=== PATIENT | male | born 1945 | race Two or more races ===

== ENCOUNTER 2019-05-14 21:17 | Inpatient (IN) | payer MEDICARE, MEDICAID ==
[~2019-05-14] VITALS: Ht 185.4 cm; Wt 89.8 kg
--- NOTE | 2019-05-14 22:01 | Emergency Room Report ---
History of Present Illness General Chief Complaint: Generalized Weakness Source: Patient Present Illness HPI This is a 73-year-old male with a history of dementia, BPH, schizophrenia and previous bladder infection. He presents with chief complaint of weakness and failure to thrive. Onset for last couple days. No fever chills but no nausea no vomiting. Decreased appetite. Decreased mentation. He is limited in this patient because of his condition. Allergies: Coded Allergies: No Known Allergies (Unverified , 05/14/19) Patient History Past Medical History: see triage record, old chart reviewed Past Surgical History: other Pertinent Family History: none Social History: Denies: smoking Immunizations: other Reviewed Nursing Documentation: PMH: Agreed; PSxH: Agreed Nursing Documentation-PMH Past Medical History: No Stated History History Of Psychiatric Problem: Yes - SCHIZOPHRENIA Review of Systems Constitutional: Reports: weakness Eye: Denies: eye pain, blurred vision ENT: Denies: ear pain, nose congestion, throat swelling Respiratory: Denies: cough, shortness of breath Cardiovascular: Denies: chest pain, palpitations Gastrointestinal: Denies: abdominal pain, diarrhea, nausea, vomiting Musculoskeletal: Denies: back pain, joint pain Skin: Denies: rash Neurological: Denies: headache, numbness Endocrine: Denies: increased thirst, increased urine Hematologic/Lymphatic: Denies: easy bruising All Other Systems: negative except mentioned in HPI Physical Exam Vital Signs Date Time Temp Pulse Resp B/P (MAP) Pulse Ox O2 Delivery O2 Flow Rate FiO2 05/14/19 21:07 97.2 111 18 153/98 (116) 97 Nasal Cannula 2.0 Vitals with hypertension Sp02 EP Interpretation: reviewed, normal General Appearance: cachetic, Chronically Ill Head: normocephalic, atraumatic Eyes: bilateral eye PERRL, bilateral eye EOMI ENT: hearing grossly normal, normal pharynx Neck: full range of motion, supple, no meningismus Respiratory: chest non-tender, lungs clear, normal breath sounds Cardiovascular #1: regular rate, rhythm, no murmur Gastrointestinal: normal bowel sounds, non tender, no mass, no organomegaly, no bruit, non-distended Musculoskeletal: back normal, normal range of motion Psychiatric: mood/affect normal Medical Decision Making Diagnostic Impression: Primary Impression: UTI (urinary tract infection) Qualified Codes: N30.00 - Acute cystitis without hematuria Additional Impressions: FTT (failure to thrive) in adult Dehydration Hypernatremia ER Course Patient presents with weakness and failure to thrive. He is very dehydrated. He has a urinary tract infection. Per fdc note, he has a history of ESBL UTI. Cefepime here. IV fluid given. Patient will be admitted. I contacted Dr. Cabrales who will admit for Dr. Marcia koch. Lab Results Impression Labs with hypernatremia Last Vital Signs Date Time Temp Pulse Resp B/P (MAP) Pulse Ox O2 Delivery O2 Flow Rate FiO2 05/14/19 21:07 97.2 111 18 153/98 (116) 97 Nasal Cannula 2.0 Status: improved Disposition: ADMITTED INPATIENT Condition: Serious Julio White MD May 14, 2019 22:01
[2019-05-14 22:47] LABS: BASOPHILS % (AUTO) 0.8 % (0.0-2.0); HEMATOCRIT 41.4 % (42.0-52.0); HEMOGLOBIN 13.9 G/DL (14.2-18.0); MEAN CORPUSCULAR VOLUME 88 FL (80-99); MONOCYTES % (AUTO) 4.8 % (1.0-10.0); NEUTROPHILS % (AUTO) 72.5 % (45.0-75.0); PLATELET COUNT 206 K/UL (150-450); RED BLOOD COUNT 4.71 M/UL (4.70-6.10); WHITE BLOOD COUNT 9.1 K/UL (4.8-10.8)
[2019-05-14 22:56] LABS: ANION GAP 9 mmol/L (5-15); BLOOD UREA NITROGEN 62 mg/dL (7-18); CALCIUM 10.3 MG/DL (8.5-10.1); CARBON DIOXIDE 29 MMOL/L (21-32); CHLORIDE 127 MMOL/L (98-107); CREATININE 1.8 MG/DL (0.55-1.30); POTASSIUM 4.3 MMOL/L (3.5-5.1)
[2019-05-14 22:59] LABS: APPEARANCE,URINE CLOUDY; BILIRUBIN, URINE NEGATIVE (NEGATIVE); COLOR,URINE BROWN; GLUCOSE, URINE (UA) NEGATIVE (NEGATIVE); KETONES,URINE 1+ (NEGATIVE); LEUKOCYTE ESTERASE ,URINE 3+ (NEGATIVE); NITRITE,URINE POSITIVE (NEGATIVE); PH,URINE 5 (4.5-8.0); PROTEIN,URINE 3+ (NEGATIVE); UROBILINOGEN,URINE 1 MG/DL (0.0-1.0)
[2019-05-14 22:59] LABS: SODIUM 166 MMOL/L (136-145)
[2019-05-14] MEDS ORDERED: Cefepime HCl 1 GM in D5W 55 ML IVPB ONE (23:45)
[2019-05-15 00:31] VITALS: BP 153/98
[2019-05-15] MEDS ORDERED: Miralax 17gm pkt ORAL PRN (01:15)
[2019-05-15] MEDS ORDERED: Hydromorphone 0.5mg/0.5ml inj IVP PRN (01:15)
[2019-05-15] MEDS ORDERED: Albuterol/Ipratropium 3ml neb HHN PRN (01:15)
[2019-05-15 01:18] VITALS: BP 153/98
[2019-05-15] MEDS ORDERED: TRAZODONE HCL50 MG ORAL (01:18)
[2019-05-15] MEDS ORDERED: FLOMAX0.4 MG ORAL (01:18)
[2019-05-15] MEDS ORDERED: TYLENOL EXTRA500 MG ORAL (01:18)
[2019-05-15] MEDS ORDERED: CATAPRES0.1 MG ORAL (01:18)
[2019-05-15] MEDS ORDERED: FERROUS SULFAT325 MG ORAL (01:18)
[2019-05-15] MEDS ORDERED: CRANBERRY450 M5 PO (01:18)
[2019-05-15] MEDS ORDERED: AVODART0.5 MG ORAL (01:18)
[2019-05-15] MEDS ORDERED: HALOPERIDOL0.5 MG ORAL (01:18)
[2019-05-15] MEDS ORDERED: DEPAKOTE250 MG PO (01:18)
[2019-05-15 08:00] VITALS: BP 126/75
[2019-05-15] MEDS: Docusate 100mg cap ORAL SCH ×2 (09:00→21:00)
[2019-05-15] MEDS: Heparin 5000 units/ml inj SUBQ SCH ×2 (09:41→21:23)
[2019-05-15 11:19] LABS: BASOPHILS % (AUTO) 0.7 % (0.0-2.0); EOSINOPHILS % (AUTO) 7.3 % (0.0-3.0); HEMOGLOBIN 12.8 G/DL (14.2-18.0); LYMPHOCYTES % (AUTO) 16.7 % (20.0-45.0); MEAN CORPUSCULAR VOLUME 91 FL (80-99); MONOCYTES % (AUTO) 4.7 % (1.0-10.0); NEUTROPHILS % (AUTO) 70.6 % (45.0-75.0); PLATELET COUNT 187 K/UL (150-450); RED BLOOD COUNT 4.42 M/UL (4.70-6.10); RED CELL DISTRIBUTION WIDTH 13.1 % (11.6-14.8); WHITE BLOOD COUNT 7.5 K/UL (4.8-10.8)
[2019-05-15 11:28] LABS: ANION GAP 9 mmol/L (5-15); BLOOD UREA NITROGEN 64 mg/dL (7-18); CALCIUM 9.2 MG/DL (8.5-10.1); CARBON DIOXIDE 25 MMOL/L (21-32); CHLORIDE 129 MMOL/L (98-107); CREATININE 1.5 MG/DL (0.55-1.30); POTASSIUM 3.9 MMOL/L (3.5-5.1)
[2019-05-15 11:29] LABS: SODIUM 164 MMOL/L (136-145)
[2019-05-15 12:00] VITALS: BP 132/75
--- NOTE | 2019-05-15 14:34 | Consultation ---
History of Present Illness General Date patient seen: May 15, 2019 Chief Complaint: Generalized Weakness Present Illness HPI This is a 73-year-old male intermediate resident with multiple medical comorbidities who presented to [facility] emergency department with failure to thrive and worsening weakness. Upon admission patient was noted to be fairly frail and dehydrated. He was identified to have decubitus ulcers requiring care and management. Surgery was called to evaluate and assist with care. Patient seen, patient [place], chart reviewed. Patient unable to verbalize a nonverbal at this time so difficult to obtain history. History obtained from patient's chart. Patient noted to have anemia and significant electrolyte abnormalities Allergies: Coded Allergies: No Known Allergies (Unverified , 05/14/19) Medication History Scheduled Clonidine Hcl* (Catapres*), 0.1 MG ORAL EVERY 6 HOURS, (Reported) Divalproex Sodium* (Depakote*), 250 MG PO Q12HR, (Reported) Dutasteride (Avodart), 0.5 MG ORAL DAILY, (Reported) Ferrous Sulfate* (Ferrous Sulfate*), 325 MG ORAL DAILY, (Reported) Haloperidol* (Haldol*), 0.5 MG ORAL EVERY 6 HOURS, (Reported) Tamsulosin HCl (Flomax), 0.4 MG ORAL DAILY, (Reported) Trazodone Hcl* (Desyrel*), 50 MG ORAL BEDTIME, (Reported) Scheduled PRN Acetaminophen* (Tylenol Extra Strength*), 325 MG ORAL Q6H PRN for Mild Pain/ Temp > 100.5, (Reported) Miscellaneous Medications Cranberry Fruit (Cranberry), 450 MG PO, (Reported) Patient History Limited by: medical condition History Provided By: Medical Record, PMD Healthcare decision maker Resuscitation status Full Code Advanced Directive on File Past Medical/Surgical History Past Medical/Surgical History: (1) Hypernatremia (2) Dehydration (3) Decubitus skin ulcer (4) UTI (urinary tract infection) (5) FTT (failure to thrive) in adult Review of Systems ROS Narrative Cannot obtain given medical condition Physical Exam General Appearance: no apparent distress Lines, tubes and drains: peripheral HEENT: normocephalic, atraumatic, anicteric Neck: normal inspection Respiratory/Chest: normal breath sounds, no respiratory distress, no accessory muscle use Cardiovascular/Chest: regular rhythm Abdomen: soft, no organomegaly, no mass, other Extremities: non-tender, normal inspection, other Skin Exam: other Neurologic: unresponsiveness Last 24 Hour Vital Signs Date Time Temp Pulse Resp B/P (MAP) Pulse Ox O2 Delivery O2 Flow Rate FiO2 05/15/19 12:00 97.0 72 20 132/75 (94) 8 05/15/19 09:00 Nasal Cannula 2.0 05/15/19 08:00 97.0 64 20 126/75 (92) 100 05/15/19 03:16 Nasal Cannula 2.0 05/15/19 01:18 97.2 18 153/98 97 Nasal Cannula 2.0 05/15/19 01:18 97.2 18 153/98 97 Nasal Cannula 2.0 05/15/19 00:31 111 18 Nasal Cannula 2.0 05/15/19 00:31 97.2 18 153/98 97 Nasal Cannula 2.0 05/14/19 21:07 97.2 111 18 153/98 (116) 97 Nasal Cannula 2.0 Intake and Output 05/14/19 05/15/19 19:00 07:00 Intake Total 210 ml Balance 210 ml Intake IV Total 210 ml # Voids 2 Laboratory Tests Test 05/14/19 22:30 05/14/19 22:45 05/15/19 11:05 White Blood Count 9.1 K/UL (4.8-10.8) 7.5 K/UL (4.8-10.8) Red Blood Count 4.71 M/UL (4.70-6.10) 4.42 M/UL (4.70-6.10) L Hemoglobin 13.9 G/DL (14.2-18.0) L 12.8 G/DL (14.2-18.0) L Hematocrit 41.4 % (42.0-52.0) L 40.0 % (42.0-52.0) L Mean Corpuscular Volume 88 FL (80-99) 91 FL (80-99) Mean Corpuscular Hemoglobin 29.6 PG (27.0-31.0) 28.9 PG (27.0-31.0) Mean Corpuscular Hemoglobin Concent 33.7 G/DL (32.0-36.0) 31.9 G/DL (32.0-36.0) L Red Cell Distribution Width 13.0 % (11.6-14.8) 13.1 % (11.6-14.8) Platelet Count 206 K/UL (150-450) 187 K/UL (150-450) Mean Platelet Volume 5.8 FL (6.5-10.1) L 5.4 FL (6.5-10.1) L Neutrophils (%) (Auto) 72.5 % (45.0-75.0) 70.6 % (45.0-75.0) Lymphocytes (%) (Auto) 17.0 % (20.0-45.0) L 16.7 % (20.0-45.0) L Monocytes (%) (Auto) 4.8 % (1.0-10.0) 4.7 % (1.0-10.0) Eosinophils (%) (Auto) 5.0 % (0.0-3.0) H 7.3 % (0.0-3.0) H Basophils (%) (Auto) 0.8 % (0.0-2.0) 0.7 % (0.0-2.0) Sodium Level 166 MMOL/L (136-145) *H 164 MMOL/L (136-145) *H Potassium Level 4.3 MMOL/L (3.5-5.1) 3.9 MMOL/L (3.5-5.1) Chloride Level 127 MMOL/L (98-107) H 129 MMOL/L (98-107) H Carbon Dioxide Level 29 MMOL/L (21-32) 25 MMOL/L (21-32) Anion Gap 9 mmol/L (5-15) 9 mmol/L (5-15) Blood Urea Nitrogen 62 mg/dL (7-18) H 64 mg/dL (7-18) H Creatinine 1.8 MG/DL (0.55-1.30) H 1.5 MG/DL (0.55-1.30) H Estimat Glomerular Filtration Rate mL/min (>60) mL/min (>60) Glucose Level 131 MG/DL (74-106) H 108 MG/DL (74-106) H Calcium Level 10.3 MG/DL (8.5-10.1) H 9.2 MG/DL (8.5-10.1) Troponin I 0.000 ng/mL (0.000-0.056) Urine Color Brown Urine Appearance Cloudy Urine pH 5 (4.5-8.0) Urine Specific [place] 1.020 (1.005-1.035) Urine Protein 3+ (NEGATIVE) H Urine Glucose (UA) Negative (NEGATIVE) Urine Ketones 1+ (NEGATIVE) H Urine Blood 4+ (NEGATIVE) H Urine Nitrite Positive (NEGATIVE) H Urine Bilirubin Negative (NEGATIVE) Urine Urobilinogen 1 MG/DL (0.0-1.0) H Urine Leukocyte Esterase 3+ (NEGATIVE) H Urine RBC 5-10 /HPF (0 - 0) H Urine WBC Tntc /HPF (0 - 0) H Urine Squamous Epithelial Cells None /LPF (NONE/OCC) Urine Bacteria Many /HPF (NONE) H Osmolality 358 mOsm/kg (297-317) H Height (Feet): 6 Height (Inches): 1.00 Weight (Pounds): 175 Medications Current Medications Medications (Trade) Dose Ordered Sig/Vicky Route PRN Reason Start Time Stop Time Status Last Admin Dose Admin Acetaminophen (Tylenol) 650 mg Q4H PRN ORAL Mild Pain (Pain Scale 1-3) 05/15/19 01:15 06/14/19 01:14 Albuterol/ Ipratropium (Albuterol/ Ipratropium) 3 ml Q6HRT PRN HHN Shortness of Breath 05/15/19 01:15 05/20/19 01:14 Dextrose 1,000 ml @ 100 mls/hr Q10H IV 05/15/19 11:45 06/14/19 11:44 05/15/19 12:32 Dextrose (Dextrose 50%) 25 ml Q30M PRN IV Hypoglycemia 05/15/19 01:15 06/14/19 01:14 Dextrose (Dextrose 50%) 50 ml Q30M PRN IV Hypoglycemia 05/15/19 01:15 06/14/19 01:14 Diphenhydramine HCl (Benadryl) 25 mg Q6H PRN ORAL Itching/Pruritis 05/15/19 01:15 06/14/19 01:14 Docusate Sodium (Colace) 100 mg EVERY 12 HOURS ORAL 05/15/19 09:00 06/14/19 08:59 Famotidine (Pepcid) 20 mg DAILY ORAL 05/15/19 09:00 06/14/19 08:59 Heparin Sodium (Porcine) (Heparin 5000 units/ml) 5,000 units EVERY 12 HOURS SUBQ 05/15/19 09:00 06/14/19 08:59 05/15/19 09:41 Hydromorphone HCl (Dilaudid) 0.5 mg Q4H PRN IVP For Pain 05/15/19 01:15 05/22/19 01:14 05/15/19 02:41 Ondansetron HCl (Zofran) 4 mg Q6H PRN IVP Nausea & Vomiting 05/15/19 01:15 06/14/19 01:14 Permethrin (Elimite) 1 applic ONCE TOPIC 05/15/19 12:00 05/15/19 23:59 05/15/19 12:31 Polyethylene Glycol (Miralax) 17 gm HSPRN PRN ORAL Constipation 05/15/19 01:15 06/14/19 01:14 Assessment/Plan Problem List: (1) Decubitus skin ulcer Assessment & Plan: Pt presented on admission with pressure injuries,and with generalized scaly raised red rash. Burrowing noted to R and L axillae,abd ,back bilat groin and both lower ext. Webbing also noted between fingers and in palms of both hands. Unstageable pressure injury R heel. 100% soft necrosis with red margins (L)4cm x (W)6.1cm. Wound is malodorous. Periwound is fluctuant. Small dry eschar noted L st metatarsal. (L)0.8cm x (W)0.5cm.Clubbing noted to all metatarsals.L 1st Nail bed is necrotic. Ulcer noted to dorsal L 2nd metatarsal. Base of wound is pink,moist macerated borders noted. Small amt serous exudate noted. Periwound without elevation in skin temp,induration or fluctuance. Dry callus noted to plantar L foot L heel is boggy .An area of non-blanchable erythema noted to medial/posterior L heel. Non-blanchable erythema without induration noted scrotum, sacrum and both ischial regions. ( in and made aware of rash. Orders for application of Elimite noted.) Tx.Plan: Swab R heel with Betadine. Cover with ABD pad and wrap with Kerlix Daily and prn. Swab L st and L 2nd metatarsals with Betadine. Cover with gauze and wrap with kerlix daily and prn. Apply Cavilon Skin Barrier to L heel. Cover with Optifoam drsg. Change every 7 days and prn. Apply Moisture Barrier to Sacrum. Cover with Optifoam drsg. Change every 3days and prn. Apply Triad Paste to scrotum,and bilat ischial areas with each incontinence care. Reposition at least every 2hours or as tolerated. Off-load heels with pillow. ICD Codes: L89.90 - Pressure ulcer of unspecified site, unspecified stage SNOMED: 733842182 (2) Hypernatremia ICD Codes: E87.0 - Hyperosmolality and hypernatremia SNOMED: 936266927 (3) Dehydration ICD Codes: E86.0 - Dehydration SNOMED: 16802057 (4) UTI (urinary tract infection) ICD Codes: N39.0 - Urinary tract infection, site not specified SNOMED: 65953442 Qualifiers: Qualified Codes: N30.00 - Acute cystitis without hematuria (5) FTT (failure to thrive) in adult Assessment & Plan: DAILY ESTIMATED NEEDS: Needs based on Wounds 79.5kg 30-35 kcals/kg 9734-3109 total kcals 1.25-1.5 g protein/kg 99-119 g total protein 25-30 mL/kg 0640-9560 total fluid mLs NUTRITION DIAGNOSIS: * Increased kcal and pro needs r/t wound healing and wasting as evidenced by pt w/ unstageable R heel wound, signs of significant wasting as well. * Altered nutrition related lab values r/t dehydration as evidenced by Elev Na on adm (166-> 164*), elev BUN (now 64), elev Creat (now 1.5). (CURRENT DIET: Cardiac puree w/ NTL) PO DIET RECOMMENDATIONS-->> Liberalized regular diet (texture per DIRECTOR CLOUD TRANSFORMATION) ADDITIONAL RECOMMENDATIONS: 1) Please obtain an accurate calibrated bed scale wt 2) Add ENSURE ENLIVE TID w/ meals + snacks as tolerated 3) Texture per DIRECTOR CLOUD TRANSFORMATION 4) Wound care: Add PAULY BID + MVI w/ min x1 daily + Vit C 250mg BID 5) rec Kcal count- pt adm w/ FTT 6) Non oral tf recs as needed / if part of POC ICD Codes: R62.7 - Adult failure to thrive SNOMED: 368695363 Conor Worthington May 15, 2019 14:34
[2019-05-15 16:00] VITALS: BP 143/84
[2019-05-15] MEDS: Ascorbic Acid 500mg tab ORAL SCH (18:20)
--- NOTE | 2019-05-15 18:49 | History and Physical ---
History of Present Illness General Date patient seen: May 15, 2019 Reason for Hospitalization: Generalized Weakness Present Illness HPI 73 year old M with PMH of dementia, BPH, schizophrenia was transferred from SNF for weakness and failure to thrive for past few days. Pt EMR fevers, vomiting, diarrhea or constipation not noted. Pt had decreased appetite and mentation. History limited by acute encephalopathy. Allergies: Coded Allergies: No Known Allergies (Unverified , 05/14/19) Medication History Scheduled Clonidine Hcl* (Catapres*), 0.1 MG ORAL EVERY 6 HOURS, (Reported) Divalproex Sodium* (Depakote*), 250 MG PO Q12HR, (Reported) Dutasteride (Avodart), 0.5 MG ORAL DAILY, (Reported) Ferrous Sulfate* (Ferrous Sulfate*), 325 MG ORAL DAILY, (Reported) Haloperidol* (Haldol*), 0.5 MG ORAL EVERY 6 HOURS, (Reported) Tamsulosin HCl (Flomax), 0.4 MG ORAL DAILY, (Reported) Trazodone Hcl* (Desyrel*), 50 MG ORAL BEDTIME, (Reported) Scheduled PRN Acetaminophen* (Tylenol Extra Strength*), 325 MG ORAL Q6H PRN for Mild Pain/ Temp > 100.5, (Reported) Miscellaneous Medications Cranberry Fruit (Cranberry), 450 MG PO, (Reported) Patient History Limited by: medical condition History Provided By: Medical Record Healthcare decision maker Resuscitation status Full Code Advanced Directive on File Review of Systems ROS Narrative Unable to obtain 2/2 mental status Physical Exam General Appearance: no apparent distress, confused Lines, tubes and drains: peripheral HEENT: normocephalic, atraumatic Neck: non-tender, normal alignment Respiratory/Chest: chest wall non-tender, lungs clear, normal breath sounds Cardiovascular/Chest: normal peripheral pulses, normal rate, regular rhythm Abdomen: normal bowel sounds, non tender, soft, no organomegaly Extremities: normal range of motion Skin Exam: normal pigmentation Last 24 Hour Vital Signs Date Time Temp Pulse Resp B/P (MAP) Pulse Ox O2 Delivery O2 Flow Rate FiO2 05/15/19 18:31 Nasal Cannula 2.0 05/15/19 16:00 98.3 72 20 143/84 (103) 98 05/15/19 12:00 97.0 72 20 132/75 (94) 98 05/15/19 09:00 Nasal Cannula 2.0 05/15/19 08:00 97.0 64 20 126/75 (92) 100 05/15/19 03:16 Nasal Cannula 2.0 05/15/19 01:18 97.2 18 153/98 97 Nasal Cannula 2.0 05/15/19 01:18 97.2 18 153/98 97 Nasal Cannula 2.0 05/15/19 00:31 111 18 Nasal Cannula 2.0 05/15/19 00:31 97.2 18 153/98 97 Nasal Cannula 2.0 05/14/19 21:07 97.2 111 18 153/98 (116) 97 Nasal Cannula 2.0 Intake and Output 05/14/19 05/15/19 18:59 06:59 Intake Total 210 ml Balance 210 ml IV Total 210 ml # Voids 2 Laboratory Tests Test 05/14/19 22:30 05/14/19 22:45 05/15/19 11:05 05/15/19 17:30 White Blood Count 9.1 K/UL (4.8-10.8) 7.5 K/UL (4.8-10.8) Red Blood Count 4.71 M/UL (4.70-6.10) 4.42 M/UL (4.70-6.10) L Hemoglobin 13.9 G/DL (14.2-18.0) L 12.8 G/DL (14.2-18.0) L Hematocrit 41.4 % (42.0-52.0) L 40.0 % (42.0-52.0) L Mean Corpuscular Volume 88 FL (80-99) 91 FL (80-99) Mean Corpuscular Hemoglobin 29.6 PG (27.0-31.0) 28.9 PG (27.0-31.0) Mean Corpuscular Hemoglobin Concent 33.7 G/DL (32.0-36.0) 31.9 G/DL (32.0-36.0) L Red Cell Distribution Width 13.0 % (11.6-14.8) 13.1 % (11.6-14.8) Platelet Count 206 K/UL (150-450) 187 K/UL (150-450) Mean Platelet Volume 5.8 FL (6.5-10.1) L 5.4 FL (6.5-10.1) L Neutrophils (%) (Auto) 72.5 % (45.0-75.0) 70.6 % (45.0-75.0) Lymphocytes (%) (Auto) 17.0 % (20.0-45.0) L 16.7 % (20.0-45.0) L Monocytes (%) (Auto) 4.8 % (1.0-10.0) 4.7 % (1.0-10.0) Eosinophils (%) (Auto) 5.0 % (0.0-3.0) H 7.3 % (0.0-3.0) H Basophils (%) (Auto) 0.8 % (0.0-2.0) 0.7 % (0.0-2.0) Sodium Level 166 MMOL/L (136-145) *H 164 MMOL/L (136-145) *H Potassium Level 4.3 MMOL/L (3.5-5.1) 3.9 MMOL/L (3.5-5.1) Chloride Level 127 MMOL/L (98-107) H 129 MMOL/L (98-107) H Carbon Dioxide Level 29 MMOL/L (21-32) 25 MMOL/L (21-32) Anion Gap 9 mmol/L (5-15) 9 mmol/L (5-15) Blood Urea Nitrogen 62 mg/dL (7-18) H 64 mg/dL (7-18) H Creatinine 1.8 MG/DL (0.55-1.30) H 1.5 MG/DL (0.55-1.30) H Estimat Glomerular Filtration Rate mL/min (>60) mL/min (>60) Glucose Level 131 MG/DL (74-106) H 108 MG/DL (74-106) H Calcium Level 10.3 MG/DL (8.5-10.1) H 9.2 MG/DL (8.5-10.1) Troponin I 0.000 ng/mL (0.000-0.056) Urine Color Brown Urine Appearance Cloudy Urine pH 5 (4.5-8.0) Urine Specific [place] 1.020 (1.005-1.035) Urine Protein 3+ (NEGATIVE) H Urine Glucose (UA) Negative (NEGATIVE) Urine Ketones 1+ (NEGATIVE) H Urine Blood 4+ (NEGATIVE) H Urine Nitrite Positive (NEGATIVE) H Urine Bilirubin Negative (NEGATIVE) Urine Urobilinogen 1 MG/DL (0.0-1.0) H Urine Leukocyte Esterase 3+ (NEGATIVE) H Urine RBC 5-10 /HPF (0 - 0) H Urine WBC Tntc /HPF (0 - 0) H Urine Squamous Epithelial Cells None /LPF (NONE/OCC) Urine Bacteria Many /HPF (NONE) H Osmolality 358 mOsm/kg (297-317) H Urine Osmolality Pending Urine Random Sodium Pending Urine Random Chloride Pending Height (Feet): 6 Height (Inches): 1.00 Weight (Pounds): 175 Medications Current Medications Medications (Trade) Dose Ordered Sig/Vicky Route PRN Reason Start Time Stop Time Status Last Admin Dose Admin Acetaminophen (Tylenol) 650 mg Q4H PRN ORAL Mild Pain (Pain Scale 1-3) 05/15/19 01:15 06/14/19 01:14 Albuterol/ Ipratropium (Albuterol/ Ipratropium) 3 ml Q6HRT PRN HHN Shortness of Breath 05/15/19 01:15 05/20/19 01:14 Ascorbic Acid (Vitamin C) 250 mg TWICE A DAY ORAL 05/15/19 18:00 06/14/19 17:59 05/15/19 18:20 Dextrose 1,000 ml @ 100 mls/hr Q10H IV 05/15/19 11:45 06/14/19 11:44 05/15/19 12:32 Dextrose (Dextrose 50%) 25 ml Q30M PRN IV Hypoglycemia 05/15/19 01:15 06/14/19 01:14 Dextrose (Dextrose 50%) 50 ml Q30M PRN IV Hypoglycemia 05/15/19 01:15 06/14/19 01:14 Diphenhydramine HCl (Benadryl) 25 mg Q6H PRN ORAL Itching/Pruritis 05/15/19 01:15 06/14/19 01:14 Docusate Sodium (Colace) 100 mg EVERY 12 HOURS ORAL 05/15/19 09:00 06/14/19 08:59 Famotidine (Pepcid) 20 mg DAILY ORAL 05/15/19 09:00 06/14/19 08:59 Heparin Sodium (Porcine) (Heparin 5000 units/ml) 5,000 units EVERY 12 HOURS SUBQ 05/15/19 09:00 06/14/19 08:59 05/15/19 09:41 Hydromorphone HCl (Dilaudid) 0.5 mg Q4H PRN IVP For Pain 05/15/19 01:15 05/22/19 01:14 05/15/19 02:41 Multivitamins (Multivitamins) 1 tab DAILY ORAL 05/16/19 09:00 06/15/19 08:59 Ondansetron HCl (Zofran) 4 mg Q6H PRN IVP Nausea & Vomiting 05/15/19 01:15 06/14/19 01:14 Permethrin (Elimite) 1 applic ONCE TOPIC 05/15/19 12:00 05/15/19 23:59 05/15/19 12:31 Polyethylene Glycol (Miralax) 17 gm HSPRN PRN ORAL Constipation 05/15/19 01:15 06/14/19 01:14 Assessment/Plan Assessment/Plan: 73 year old male with multiple comorbidities admitted for failure to thrive, UTI and hypernatremia #Hypernatremia likely 2/2 hypovolemic 2/2 poor PO intake -Pending workup -1/2NS changed to D5W -CTM NA -Nephrology consulted #UTI #Acute metabolic encephalopathy 2/2 UTI -f/u cultures -Cont cefepime #CARMELA samanthaley prerenal -nephrology consulted -CTM -avoid nephrotoxic medications Bernice Aldridge MD May 15, 2019 18:49
[2019-05-15 20:00] VITALS: BP 130/70
[2019-05-15] MEDS: Cefepime HCl 1 GM in D5W 55 ML IVPB SCH (21:21)
[2019-05-16] VITALS (7 sets, daily range): BP systolic 114–144; BP diastolic 65–80
[2019-05-16 06:22] LABS: BASOPHILS % (AUTO) 0.8 % (0.0-2.0); EOSINOPHILS % (AUTO) 8.5 % (0.0-3.0); HEMATOCRIT 36.7 % (42.0-52.0); HEMOGLOBIN 11.7 G/DL (14.2-18.0); LYMPHOCYTES % (AUTO) 9.9 % (20.0-45.0); MEAN CORPUSCULAR VOLUME 91 FL (80-99); MONOCYTES % (AUTO) 5.7 % (1.0-10.0); NEUTROPHILS % (AUTO) 75.1 % (45.0-75.0); PLATELET COUNT 105 K/UL (150-450); RED BLOOD COUNT 4.05 M/UL (4.70-6.10); RED CELL DISTRIBUTION WIDTH 13.2 % (11.6-14.8); WHITE BLOOD COUNT 8.4 K/UL (4.8-10.8)
[2019-05-16 06:45] LABS: ALANINE AMINOTRANSFERASE 11 U/L (12-78); ALBUMIN/GLOBULIN RATIO 0.5 (1.0-2.7); ALKALINE PHOSPHATASE 72 U/L (46-116); ANION GAP 5 mmol/L (5-15); ASPARTATE AMINO TRANSFERASE 16 U/L (15-37); BILIRUBIN,TOTAL 0.7 MG/DL (0.2-1.0); BLOOD UREA NITROGEN 59 mg/dL (7-18); CALCIUM 9.3 MG/DL (8.5-10.1); CARBON DIOXIDE 28 MMOL/L (21-32); CHLORIDE 127 MMOL/L (98-107); CREATININE 1.5 MG/DL (0.55-1.30); POTASSIUM 3.4 MMOL/L (3.5-5.1); SODIUM 159 MMOL/L (136-145)
[2019-05-16] MEDS: Ascorbic Acid 500mg tab ORAL SCH ×2 (08:17→17:16)
[2019-05-16] MEDS: Docusate 100mg cap ORAL SCH ×2 (08:17→20:45)
[2019-05-16] MEDS: Heparin 5000 units/ml inj SUBQ SCH ×2 (08:18→20:44)
--- NOTE | 2019-05-16 11:02 | GI Initial Consult Note ---
History of Present Illness General Date patient seen: May 16, 2019 Time patient seen: 10:57 Reason for Hospitalization: Generalized Weakness Referring physician: BEVERLEY Reason for Consultation: FTT Present Illness HPI This is a 73-year-old male with a history of dementia, BPH, schizophrenia and previous bladder infection. He presents with chief complaint of weakness and failure to thrive. Onset for last couple days. No fever chills but no nausea no vomiting. Decreased appetite. Decreased mentation. He is limited in this patient because of his condition. GI consulted for failure to thrive. ROS limited, patient with history of schizophrenia unable to provide any significant history at this time. Patient was seen, awake alert no apparent distress with no active signs or symptoms of nausea vomiting. Patient admitted for failure to thrive reported not eating for approximately 2 days with increased altered mental status. Patient baseline is alert and oriented x2. Patient had video swallow study today was noted by the speech therapist to have silent aspiration. Patient is currently on a liquid pured diet. Presents today with hemoglobin 11.7, sodium 159. No transaminitis, no leukocytosis. Unknown history of endoscopic colonoscopy. Home Meds Reported Medications Acetaminophen* (TYLENOL EXTRA STRENGTH*) 500 Mg Tablet, 325 MG ORAL Q6H PRN for Mild Pain/Temp > 100.5, TAB 0 Refills 05/15/19 Trazodone Hcl* (DESYREL*) 50 Mg Tablet, 50 MG ORAL BEDTIME, TAB 05/15/19 Haloperidol* (HALDOL*) 0.5 Mg Tablet, 0.5 MG ORAL EVERY 6 HOURS, #20 TAB 0 Refills 05/15/19 Tamsulosin HCl (Flomax) 0.4 Mg Cap.er.24h, 0.4 MG ORAL DAILY, CAP 05/15/19 Ferrous Sulfate* (FERROUS SULFATE*) 325 Mg Tablet, 325 MG ORAL DAILY, #30 TAB 0 Refills 05/15/19 Dutasteride (AVODART) 0.5 Mg Capsule, 0.5 MG ORAL DAILY, CAP 05/15/19 Divalproex Sodium* (DEPAKOTE*) 250 Mg Tablet.dr, 250 MG PO Q12HR, TAB 05/15/19 Cranberry Fruit (CRANBERRY) 450 Mg Tablet, 450 MG PO, TAB 05/15/19 Clonidine Hcl* (CATAPRES*) 0.1 Mg Tablet, 0.1 MG ORAL EVERY 6 HOURS, TAB 05/15/19 Med list reviewed/reconciled: Yes Allergies: Coded Allergies: No Known Allergies (Unverified , 05/14/19) Patient History Limited by: medical condition History Provided By: Medical Record PM Narrative Past Medical History: see triage record, old chart reviewed Past Surgical History: other Pertinent Family History: none Social History: Denies: smoking Immunizations: other Reviewed Nursing Documentation: PMH: Agreed; PSxH: Agreed Nursing Documentation-PM Past Medical History: No Stated History History Of Psychiatric Problem: Yes - SCHIZOPHRENIA Social History: Denies: smoking, alcohol use, drug use, other Review of Systems All Other Systems: limited Physical Exam Vital Signs Date Time Temp Pulse Resp B/P (MAP) Pulse Ox O2 Delivery O2 Flow Rate FiO2 05/14/19 21:07 97.2 111 18 153/98 (116) 97 Nasal Cannula 2.0 05/15/19 19:18 32 Sp02 EP Interpretation: reviewed, normal Labs Laboratory Tests Test 05/15/19 11:05 05/15/19 17:30 05/16/19 06:07 White Blood Count 7.5 K/UL (4.8-10.8) 8.4 K/UL (4.8-10.8) Red Blood Count 4.42 M/UL (4.70-6.10) L 4.05 M/UL (4.70-6.10) L Hemoglobin 12.8 G/DL (14.2-18.0) L 11.7 G/DL (14.2-18.0) L Hematocrit 40.0 % (42.0-52.0) L 36.7 % (42.0-52.0) L Mean Corpuscular Volume 91 FL (80-99) 91 FL (80-99) Mean Corpuscular Hemoglobin 28.9 PG (27.0-31.0) 29.0 PG (27.0-31.0) Mean Corpuscular Hemoglobin Concent 31.9 G/DL (32.0-36.0) L 31.9 G/DL (32.0-36.0) L Red Cell Distribution Width 13.1 % (11.6-14.8) 13.2 % (11.6-14.8) Platelet Count 187 K/UL (150-450) 105 K/UL (150-450) L Mean Platelet Volume 5.4 FL (6.5-10.1) L 6.2 FL (6.5-10.1) L Neutrophils (%) (Auto) 70.6 % (45.0-75.0) 75.1 % (45.0-75.0) H Lymphocytes (%) (Auto) 16.7 % (20.0-45.0) L 9.9 % (20.0-45.0) L Monocytes (%) (Auto) 4.7 % (1.0-10.0) 5.7 % (1.0-10.0) Eosinophils (%) (Auto) 7.3 % (0.0-3.0) H 8.5 % (0.0-3.0) H Basophils (%) (Auto) 0.7 % (0.0-2.0) 0.8 % (0.0-2.0) Sodium Level 164 MMOL/L (136-145) *H 159 MMOL/L (136-145) H Potassium Level 3.9 MMOL/L (3.5-5.1) 3.4 MMOL/L (3.5-5.1) L Chloride Level 129 MMOL/L (98-107) H 127 MMOL/L (98-107) H Carbon Dioxide Level 25 MMOL/L (21-32) 28 MMOL/L (21-32) Anion Gap 9 mmol/L (5-15) 5 mmol/L (5-15) Blood Urea Nitrogen 64 mg/dL (7-18) H 59 mg/dL (7-18) H Creatinine 1.5 MG/DL (0.55-1.30) H 1.5 MG/DL (0.55-1.30) H Estimat Glomerular Filtration Rate mL/min (>60) mL/min (>60) Glucose Level 108 MG/DL (74-106) H 139 MG/DL (74-106) H Osmolality 358 mOsm/kg (297-317) H Calcium Level 9.2 MG/DL (8.5-10.1) 9.3 MG/DL (8.5-10.1) Urine Osmolality 535 mOsm/kg (429-449) H Urine Random Sodium 48 mmol/L (20-110) Urine Random Chloride 73 mmol/L (55-125) Total Bilirubin 0.7 MG/DL (0.2-1.0) Aspartate Amino Transf (AST/SGOT) 16 U/L (15-37) Alanine Aminotransferase (ALT/SGPT) 11 U/L (12-78) L Alkaline Phosphatase 72 U/L (46-116) Total Protein 6.4 G/DL (6.4-8.2) Albumin 2.0 G/DL (3.4-5.0) L Globulin 4.4 g/dL Albumin/Globulin Ratio 0.5 (1.0-2.7) L General Appearance: well appearing, no apparent distress, alert, thin Head: normocephalic EENT: PERRL/EOMI, normal ENT inspection Neck: supple Respiratory: normal breath sounds, no respiratory distress Cardiovascular: normal rate Gastrointestinal: normal inspection, non tender, soft, normal bowel sounds, non -distended Rectal: deferred Genitourinary: deferred Neurologic: alert, responsive Skin: normal inspection, normal color, no rash, warm/dry, palpation normal, well hydrated Lymphatic: normal inspection, no adenopathy Current Medications Current Medications Medications (Trade) Dose Ordered Sig/Vicky Route PRN Reason Start Time Stop Time Status Last Admin Dose Admin Acetaminophen (Tylenol) 650 mg Q4H PRN ORAL Mild Pain (Pain Scale 1-3) 05/15/19 01:15 06/14/19 01:14 Albuterol/ Ipratropium (Albuterol/ Ipratropium) 3 ml Q6HRT PRN HHN Shortness of Breath 05/15/19 01:15 05/20/19 01:14 Ascorbic Acid (Vitamin C) 250 mg TWICE A DAY ORAL 05/15/19 18:00 06/14/19 17:59 05/16/19 08:17 Cefepime HCl 1 gm/ Dextrose 55 ml @ 110 mls/hr Q24H IVPB 05/15/19 20:00 05/22/19 19:59 05/15/19 21:21 Dextrose 1,000 ml @ 100 mls/hr Q10H IV 05/15/19 11:45 06/14/19 11:44 05/16/19 10:29 Dextrose (Dextrose 50%) 25 ml Q30M PRN IV Hypoglycemia 05/15/19 01:15 06/14/19 01:14 Dextrose (Dextrose 50%) 50 ml Q30M PRN IV Hypoglycemia 05/15/19 01:15 06/14/19 01:14 Diphenhydramine HCl (Benadryl) 25 mg Q6H PRN ORAL Itching/Pruritis 05/15/19 01:15 06/14/19 01:14 Docusate Sodium (Colace) 100 mg EVERY 12 HOURS ORAL 05/15/19 09:00 06/14/19 08:59 05/16/19 08:17 Famotidine (Pepcid) 20 mg DAILY ORAL 05/15/19 09:00 06/14/19 08:59 05/16/19 08:17 Heparin Sodium (Porcine) (Heparin 5000 units/ml) 5,000 units EVERY 12 HOURS SUBQ 05/15/19 09:00 06/14/19 08:59 05/15/19 21:23 Hydromorphone HCl (Dilaudid) 0.5 mg Q4H PRN IVP For Pain 05/15/19 01:15 05/22/19 01:14 05/15/19 02:41 Multivitamins (Multivitamins) 1 tab DAILY ORAL 05/16/19 09:00 06/15/19 08:59 05/16/19 09:29 Ondansetron HCl (Zofran) 4 mg Q6H PRN IVP Nausea & Vomiting 05/15/19 01:15 06/14/19 01:14 Polyethylene Glycol (Miralax) 17 gm HSPRN PRN ORAL Constipation 05/15/19 01:15 06/14/19 01:14 GI: Plan Problems: (1) Severe malnutrition (2) Encounter for PEG (percutaneous endoscopic gastrostomy) (3) FTT (failure to thrive) in adult Plan POLST reviewed, okay for long-term nonoral feeding Video swallow study discussed with speech therapist, patient reported with silent aspiration. PEG if family agrees Continue liquid pured diet Push p.o. Follow-up calorie count Consider Marinol anemia work up OB stool r/o GI bleed monitor H&H, prn transfusions bowel regimen ppi fu labs Discussed with Dr. Khanna. Thank you for this patient referral, we will follow. The patient was seen and examined at bedside and all new and available data was reviewed in the patients chart. I agree with the above findings, impression and plan. (Patient seen earlier today. Signature stamp does not reflect patient encounter time.). - MD Cindy [facility]At[facility] May 16, 2019 11:02
--- NOTE | 2019-05-16 11:25 | Diagnostic Imaging Report ---
Indication: Cough Comparison: None A single view chest radiograph was obtained. Findings: Question infiltrate at the right lung base currently. Recommend correlation and follow-up. Bones are osteopenic. Heart size is normal. IMPRESSION: Question of a pneumonia at the right lung base.
[2019-05-16] MEDS ORDERED: 1/2 NS 1000ml IV ONE (15:21)
--- NOTE | 2019-05-16 15:34 | Surgery Progress Note ---
Surgery Progress Note Subjective Additional Comments exam stable and unchanged labs slowly improving no n/v/f/c Objective Last 24 Hour Vital Signs Date Time Temp Pulse Resp B/P (MAP) Pulse Ox O2 Delivery O2 Flow Rate FiO2 05/16/19 12:00 98.3 63 18 133/78 (96) 100 05/16/19 09:00 Nasal Cannula 2.0 05/16/19 08:00 98.0 66 18 130/74 (92) 99 05/16/19 07:12 98 Nasal Cannula 2.0 28 05/16/19 07:12 69 18 98 Nasal Cannula 2.0 28 05/16/19 04:00 97.8 64 18 122/78 (93) 99 05/16/19 00:00 97.9 63 18 114/65 (81) 100 05/15/19 21:00 Nasal Cannula 2.0 05/15/19 20:00 98.7 67 18 130/70 (90) 98 05/15/19 19:18 74 20 97 Nasal Cannula 3.0 32 05/15/19 19:18 97 Nasal Cannula 3.0 32 05/15/19 18:31 Nasal Cannula 2.0 05/15/19 16:00 98.3 72 20 143/84 (103) 98 I&O Intake and Output 05/15/19 05/16/19 19:00 07:00 Intake Total 950 ml 795 ml Output Total 600 ml Balance 950 ml 195 ml Intake Oral 350 ml IV Total 600 ml 795 ml Output Urine Total 600 ml # Voids 1 Dressing: dry Wound: clean Cardiovascular: RSR Respiratory: clear Abdomen: soft, non-tender, present bowel sounds Extremities: no cyanosis Laboratory Tests Test 05/15/19 17:30 05/16/19 06:07 Urine Osmolality 535 mOsm/kg (429-449) H Urine Random Sodium 48 mmol/L (20-110) Urine Random Chloride 73 mmol/L (55-125) White Blood Count 8.4 K/UL (4.8-10.8) Red Blood Count 4.05 M/UL (4.70-6.10) L Hemoglobin 11.7 G/DL (14.2-18.0) L Hematocrit 36.7 % (42.0-52.0) L Mean Corpuscular Volume 91 FL (80-99) Mean Corpuscular Hemoglobin 29.0 PG (27.0-31.0) Mean Corpuscular Hemoglobin Concent 31.9 G/DL (32.0-36.0) L Red Cell Distribution Width 13.2 % (11.6-14.8) Platelet Count 105 K/UL (150-450) L Mean Platelet Volume 6.2 FL (6.5-10.1) L Neutrophils (%) (Auto) 75.1 % (45.0-75.0) H Lymphocytes (%) (Auto) 9.9 % (20.0-45.0) L Monocytes (%) (Auto) 5.7 % (1.0-10.0) Eosinophils (%) (Auto) 8.5 % (0.0-3.0) H Basophils (%) (Auto) 0.8 % (0.0-2.0) Sodium Level 159 MMOL/L (136-145) H Potassium Level 3.4 MMOL/L (3.5-5.1) L Chloride Level 127 MMOL/L (98-107) H Carbon Dioxide Level 28 MMOL/L (21-32) Anion Gap 5 mmol/L (5-15) Blood Urea Nitrogen 59 mg/dL (7-18) H Creatinine 1.5 MG/DL (0.55-1.30) H Estimat Glomerular Filtration Rate mL/min (>60) Glucose Level 139 MG/DL (74-106) H Calcium Level 9.3 MG/DL (8.5-10.1) Total Bilirubin 0.7 MG/DL (0.2-1.0) Aspartate Amino Transf (AST/SGOT) 16 U/L (15-37) Alanine Aminotransferase (ALT/SGPT) 11 U/L (12-78) L Alkaline Phosphatase 72 U/L (46-116) Total Protein 6.4 G/DL (6.4-8.2) Albumin 2.0 G/DL (3.4-5.0) L Globulin 4.4 g/dL Albumin/Globulin Ratio 0.5 (1.0-2.7) L Plan Problems: (1) Decubitus skin ulcer Assessment & Plan: Pt presented on admission with pressure injuries,and with generalized scaly raised red rash. Burrowing noted to R and L axillae,abd ,back bilat groin and both lower ext. Webbing also noted between fingers and in palms of both hands. Unstageable pressure injury R heel. 100% soft necrosis with red margins (L)4cm x (W)6.1cm. Wound is malodorous. Periwound is fluctuant. Small dry eschar noted L st metatarsal. (L)0.8cm x (W)0.5cm.Clubbing noted to all metatarsals.L 1st Nail bed is necrotic. Ulcer noted to dorsal L 2nd metatarsal. Base of wound is pink,moist macerated borders noted. Small amt serous exudate noted. Periwound without elevation in skin temp,induration or fluctuance. Dry callus noted to plantar L foot L heel is boggy .An area of non-blanchable erythema noted to medial/posterior L heel. Non-blanchable erythema without induration noted scrotum, sacrum and both ischial regions. ( in and made aware of rash. Orders for application of Elimite noted.) Tx.Plan: Swab R heel with Betadine. Cover with ABD pad and wrap with Kerlix Daily and prn. Swab L st and L 2nd metatarsals with Betadine. Cover with gauze and wrap with kerlix daily and prn. Apply Cavilon Skin Barrier to L heel. Cover with Optifoam drsg. Change every 7 days and prn. Apply Moisture Barrier to Sacrum. Cover with Optifoam drsg. Change every 3days and prn. Apply Triad Paste to scrotum,and bilat ischial areas with each incontinence care. Reposition at least every 2hours or as tolerated. Off-load heels with pillow. (2) Hypernatremia (3) Dehydration (4) UTI (urinary tract infection) (5) FTT (failure to thrive) in adult Assessment & Plan: DAILY ESTIMATED NEEDS: Needs based on Wounds 79.5kg 30-35 kcals/kg 3710-5230 total kcals 1.25-1.5 g protein/kg 99-119 g total protein 25-30 mL/kg 5274-7382 total fluid mLs NUTRITION DIAGNOSIS: * Increased kcal and pro needs r/t wound healing and wasting as evidenced by pt w/ unstageable R heel wound, signs of significant wasting as well. * Altered nutrition related lab values r/t dehydration as evidenced by Elev Na on adm (166-> 164*), elev BUN (now 64), elev Creat (now 1.5). (CURRENT DIET: Cardiac puree w/ NTL) PO DIET RECOMMENDATIONS-->> Liberalized regular diet (texture per BARKEEPER) ADDITIONAL RECOMMENDATIONS: 1) Please obtain an accurate calibrated bed scale wt 2) Add ENSURE ENLIVE TID w/ meals + snacks as tolerated 3) Texture per BARKEEPER 4) Wound care: Add PAULY BID + MVI w/ min x1 daily + Vit C 250mg BID 5) rec Kcal count- pt adm w/ FTT 6) Non oral tf recs as needed / if part of POC Conor Worthington May 16, 2019 15:34
--- NOTE | 2019-05-16 15:41 | Consultation ---
History of Present Illness General Chief Complaint: Generalized Weakness Referring physician: BEVERLEY Reason for Consultation: FTT Present Illness Allergies: Coded Allergies: No Known Allergies (Unverified , 05/14/19) Medication History Scheduled Clonidine Hcl* (Catapres*), 0.1 MG ORAL EVERY 6 HOURS, (Reported) Divalproex Sodium* (Depakote*), 250 MG PO Q12HR, (Reported) Dutasteride (Avodart), 0.5 MG ORAL DAILY, (Reported) Ferrous Sulfate* (Ferrous Sulfate*), 325 MG ORAL DAILY, (Reported) Haloperidol* (Haldol*), 0.5 MG ORAL EVERY 6 HOURS, (Reported) Tamsulosin HCl (Flomax), 0.4 MG ORAL DAILY, (Reported) Trazodone Hcl* (Desyrel*), 50 MG ORAL BEDTIME, (Reported) Scheduled PRN Acetaminophen* (Tylenol Extra Strength*), 325 MG ORAL Q6H PRN for Mild Pain/ Temp > 100.5, (Reported) Miscellaneous Medications Cranberry Fruit (Cranberry), 450 MG PO, (Reported) Patient History Healthcare decision maker Resuscitation status Full Code Advanced Directive on File Physical Exam Last 24 Hour Vital Signs Date Time Temp Pulse Resp B/P (MAP) Pulse Ox O2 Delivery O2 Flow Rate FiO2 05/16/19 12:00 98.3 63 18 133/78 (96) 100 05/16/19 09:00 Nasal Cannula 2.0 05/16/19 08:00 98.0 66 18 130/74 (92) 99 05/16/19 07:12 98 Nasal Cannula 2.0 28 05/16/19 07:12 69 18 98 Nasal Cannula 2.0 28 05/16/19 04:00 97.8 64 18 122/78 (93) 99 05/16/19 00:00 97.9 63 18 114/65 (81) 100 05/15/19 21:00 Nasal Cannula 2.0 05/15/19 20:00 98.7 67 18 130/70 (90) 98 05/15/19 19:18 74 20 97 Nasal Cannula 3.0 32 05/15/19 19:18 97 Nasal Cannula 3.0 32 05/15/19 18:31 Nasal Cannula 2.0 05/15/19 16:00 98.3 72 20 143/84 (103) 98 Intake and Output 05/15/19 05/16/19 19:00 07:00 Intake Total 950 ml 795 ml Output Total 600 ml Balance 950 ml 195 ml Intake Oral 350 ml IV Total 600 ml 795 ml Output Urine Total 600 ml # Voids 1 Laboratory Tests Test 05/15/19 17:30 05/16/19 06:07 Urine Osmolality 535 mOsm/kg (429-449) H Urine Random Sodium 48 mmol/L (20-110) Urine Random Chloride 73 mmol/L (55-125) White Blood Count 8.4 K/UL (4.8-10.8) Red Blood Count 4.05 M/UL (4.70-6.10) L Hemoglobin 11.7 G/DL (14.2-18.0) L Hematocrit 36.7 % (42.0-52.0) L Mean Corpuscular Volume 91 FL (80-99) Mean Corpuscular Hemoglobin 29.0 PG (27.0-31.0) Mean Corpuscular Hemoglobin Concent 31.9 G/DL (32.0-36.0) L Red Cell Distribution Width 13.2 % (11.6-14.8) Platelet Count 105 K/UL (150-450) L Mean Platelet Volume 6.2 FL (6.5-10.1) L Neutrophils (%) (Auto) 75.1 % (45.0-75.0) H Lymphocytes (%) (Auto) 9.9 % (20.0-45.0) L Monocytes (%) (Auto) 5.7 % (1.0-10.0) Eosinophils (%) (Auto) 8.5 % (0.0-3.0) H Basophils (%) (Auto) 0.8 % (0.0-2.0) Sodium Level 159 MMOL/L (136-145) H Potassium Level 3.4 MMOL/L (3.5-5.1) L Chloride Level 127 MMOL/L (98-107) H Carbon Dioxide Level 28 MMOL/L (21-32) Anion Gap 5 mmol/L (5-15) Blood Urea Nitrogen 59 mg/dL (7-18) H Creatinine 1.5 MG/DL (0.55-1.30) H Estimat Glomerular Filtration Rate mL/min (>60) Glucose Level 139 MG/DL (74-106) H Calcium Level 9.3 MG/DL (8.5-10.1) Total Bilirubin 0.7 MG/DL (0.2-1.0) Aspartate Amino Transf (AST/SGOT) 16 U/L (15-37) Alanine Aminotransferase (ALT/SGPT) 11 U/L (12-78) L Alkaline Phosphatase 72 U/L (46-116) Total Protein 6.4 G/DL (6.4-8.2) Albumin 2.0 G/DL (3.4-5.0) L Globulin 4.4 g/dL Albumin/Globulin Ratio 0.5 (1.0-2.7) L Height (Feet): 6 Height (Inches): 1.00 Weight (Pounds): 196 Medications Current Medications Medications (Trade) Dose Ordered Sig/Vicky Route PRN Reason Start Time Stop Time Status Last Admin Dose Admin Acetaminophen (Tylenol) 650 mg Q4H PRN ORAL Mild Pain (Pain Scale 1-3) 05/15/19 01:15 06/14/19 01:14 Albuterol/ Ipratropium (Albuterol/ Ipratropium) 3 ml Q6HRT PRN HHN Shortness of Breath 05/15/19 01:15 05/20/19 01:14 Ascorbic Acid (Vitamin C) 250 mg TWICE A DAY ORAL 05/15/19 18:00 06/14/19 17:59 05/16/19 08:17 Cefepime HCl 1 gm/ Dextrose 55 ml @ 110 mls/hr Q24H IVPB 05/15/19 20:00 05/22/19 19:59 05/15/19 21:21 Dextrose 1,000 ml @ 100 mls/hr Q10H IV 05/15/19 11:45 06/14/19 11:44 05/16/19 10:29 Dextrose (Dextrose 50%) 25 ml Q30M PRN IV Hypoglycemia 05/15/19 01:15 06/14/19 01:14 Dextrose (Dextrose 50%) 50 ml Q30M PRN IV Hypoglycemia 05/15/19 01:15 06/14/19 01:14 Diphenhydramine HCl (Benadryl) 25 mg Q6H PRN ORAL Itching/Pruritis 05/15/19 01:15 06/14/19 01:14 Docusate Sodium (Colace) 100 mg EVERY 12 HOURS ORAL 05/15/19 09:00 06/14/19 08:59 05/16/19 08:17 Famotidine (Pepcid) 20 mg DAILY ORAL 05/15/19 09:00 06/14/19 08:59 05/16/19 08:17 Heparin Sodium (Porcine) (Heparin 5000 units/ml) 5,000 units EVERY 12 HOURS SUBQ 05/15/19 09:00 06/14/19 08:59 05/15/19 21:23 Hydromorphone HCl (Dilaudid) 0.5 mg Q4H PRN IVP For Pain 05/15/19 01:15 05/22/19 01:14 05/15/19 02:41 Multivitamins (Multivitamins) 1 tab DAILY ORAL 05/16/19 09:00 06/15/19 08:59 05/16/19 09:29 Ondansetron HCl (Zofran) 4 mg Q6H PRN IVP Nausea & Vomiting 05/15/19 01:15 06/14/19 01:14 Polyethylene Glycol (Miralax) 17 gm HSPRN PRN ORAL Constipation 05/15/19 01:15 06/14/19 01:14 Assessment/Plan Assessment/Plan: Hematology Consultation Date patient seen: May 16, 2019 Reason for Hospitalization: Generalized Weakness Referring physician: Luke Kennedy Reason for Consultation: FTT, Thrombocytopenia HPI This is a 73-year-old male with a history of dementia, BPH, schizophrenia and previous bladder infection. He presents with chief complaint of weakness and failure to thrive. Onset for last couple days. No fever chills but no nausea no vomiting. Decreased appetite. Decreased mentation. He is limited in this patient because of his condition. GI consulted for failure to thrive. ROS limited, patient with history of schizophrenia unable to provide any significant history at this time. Patient was seen, awake alert, nut with decrease po intake, hasn't eaten in 2 days. Patient baseline is alert and oriented x2. Patient had video swallow study today was noted by the speech therapist to have silent aspiration. Patient is currently on a liquid pured diet. Presents today with hemoglobin 11.7, sodium 159. No transaminitis, no leukocytosis. Unknown history of endoscopic colonoscopy. Home Meds Acetaminophen* (TYLENOL EXTRA STRENGTH*) 500 Mg Tablet, 325 MG ORAL Q6H PRN for Mild Pain/Temp > 100.5, TAB 0 Refills 05/15/19 Trazodone Hcl* (DESYREL*) 50 Mg Tablet, 50 MG ORAL BEDTIME, TAB 05/15/19 Haloperidol* (HALDOL*) 0.5 Mg Tablet, 0.5 MG ORAL EVERY 6 HOURS, #20 TAB 0 Refills 05/15/19 Tamsulosin HCl (Flomax) 0.4 Mg Cap.er.24h, 0.4 MG ORAL DAILY, CAP 05/15/19 Ferrous Sulfate* (FERROUS SULFATE*) 325 Mg Tablet, 325 MG ORAL DAILY, #30 TAB 0 Refills 05/15/19 Dutasteride (AVODART) 0.5 Mg Capsule, 0.5 MG ORAL DAILY, CAP 05/15/19 Divalproex Sodium* (DEPAKOTE*) 250 Mg Tablet.dr, 250 MG PO Q12HR, TAB 05/15/19 Cranberry Fruit (CRANBERRY) 450 Mg Tablet, 450 MG PO, TAB 05/15/19 Clonidine Hcl* (CATAPRES*) 0.1 Mg Tablet, 0.1 MG ORAL EVERY 6 HOURS, TAB 05/15/19 Med list reviewed/reconciled: Yes Allergies: Coded Allergies: No Known Allergies (Unverified , 05/14/19) Limited by: medical condition History Provided By: Medical Record PM Narrative Past Medical History: see triage record, old chart reviewed Past Surgical History: other Pertinent Family History: none Social History: Denies: smoking Immunizations: other Reviewed Nursing Documentation: PMH: Agreed; PSxH: Agreed Nursing Documentation-[facility] Past Medical History: No Stated History History Of Psychiatric Problem: Yes - SCHIZOPHRENIA Social History: Denies: smoking, alcohol use, drug use, other Review of Systems All Other Systems: limited Physical Exam Vital Signs reviewed Laboratory Tests Test 05/15/19 11:05 05/15/19 17:30 05/16/19 06:07 White Blood Count 7.5 K/UL (4.8-10.8) 8.4 K/UL (4.8-10.8) Red Blood Count 4.42 M/UL (4.70-6.10) L 4.05 M/UL (4.70-6.10) L Hemoglobin 12.8 G/DL (14.2-18.0) L 11.7 G/DL (14.2-18.0) L Hematocrit 40.0 % (42.0-52.0) L 36.7 % (42.0-52.0) L Mean Corpuscular Volume 91 FL (80-99) 91 FL (80-99) Mean Corpuscular Hemoglobin 28.9 PG (27.0-31.0) 29.0 PG (27.0-31.0) Mean Corpuscular Hemoglobin Concent 31.9 G/DL (32.0-36.0) L 31.9 G/DL (32.0-36.0) L Red Cell Distribution Width 13.1 % (11.6-14.8) 13.2 % (11.6-14.8) Platelet Count 187 K/UL (150-450) 105 K/UL (150-450) L Mean Platelet Volume 5.4 FL (6.5-10.1) L 6.2 FL (6.5-10.1) L Neutrophils (%) (Auto) 70.6 % (45.0-75.0) 75.1 % (45.0-75.0) H Lymphocytes (%) (Auto) 16.7 % (20.0-45.0) L 9.9 % (20.0-45.0) L Monocytes (%) (Auto) 4.7 % (1.0-10.0) 5.7 % (1.0-10.0) Eosinophils (%) (Auto) 7.3 % (0.0-3.0) H 8.5 % (0.0-3.0) H Basophils (%) (Auto) 0.7 % (0.0-2.0) 0.8 % (0.0-2.0) Sodium Level 164 MMOL/L (136-145) *H 159 MMOL/L (136-145) H Potassium Level 3.9 MMOL/L (3.5-5.1) 3.4 MMOL/L (3.5-5.1) L Chloride Level 129 MMOL/L (98-107) H 127 MMOL/L (98-107) H Carbon Dioxide Level 25 MMOL/L (21-32) 28 MMOL/L (21-32) Anion Gap 9 mmol/L (5-15) 5 mmol/L (5-15) Blood Urea Nitrogen 64 mg/dL (7-18) H 59 mg/dL (7-18) H Creatinine 1.5 MG/DL (0.55-1.30) H 1.5 MG/DL (0.55-1.30) H Estimat Glomerular Filtration Rate mL/min (>60) mL/min (>60) Glucose Level 108 MG/DL (74-106) H 139 MG/DL (74-106) H Osmolality 358 mOsm/kg (297-317) H Calcium Level 9.2 MG/DL (8.5-10.1) 9.3 MG/DL (8.5-10.1) Urine Osmolality 535 mOsm/kg (429-449) H Urine Random Sodium 48 mmol/L (20-110) Urine Random Chloride 73 mmol/L (55-125) Total Bilirubin 0.7 MG/DL (0.2-1.0) Aspartate Amino Transf (AST/SGOT) 16 U/L (15-37) Alanine Aminotransferase (ALT/SGPT) 11 U/L (12-78) L Alkaline Phosphatase 72 U/L (46-116) Total Protein 6.4 G/DL (6.4-8.2) Albumin 2.0 G/DL (3.4-5.0) L Globulin 4.4 g/dL Albumin/Globulin Ratio 0.5 (1.0-2.7) L General Appearance: well appearing, no apparent distress Respiratory: normal breath sounds, no respiratory distress Cardiovascular: normal rate Gi: normal inspection, non tender, soft, normal bowel sounds,nd Neuro: alert, responsive Skin: normal inspection, normal color Current Medications Medications (Trade) Dose Ordered Sig/Vicky Route PRN Reason Start Time Stop Time Status Last Admin Dose Admin Acetaminophen (Tylenol) 650 mg Q4H PRN ORAL Mild Pain (Pain Scale 1-3) 05/15/19 01:15 06/14/19 01:14 Albuterol/ Ipratropium (Albuterol/ Ipratropium) 3 ml Q6HRT PRN HHN Shortness of Breath 05/15/19 01:15 05/20/19 01:14 Ascorbic Acid (Vitamin C) 250 mg TWICE A DAY ORAL 05/15/19 18:00 06/14/19 17:59 05/16/19 08:17 Cefepime HCl 1 gm/ Dextrose 55 ml @ 110 mls/hr Q24H IVPB 05/15/19 20:00 05/22/19 19:59 05/15/19 21:21 Dextrose 1,000 ml @ 100 mls/hr Q10H IV 05/15/19 11:45 06/14/19 11:44 05/16/19 10:29 Dextrose (Dextrose 50%) 25 ml Q30M PRN IV Hypoglycemia 05/15/19 01:15 06/14/19 01:14 Dextrose (Dextrose 50%) 50 ml Q30M PRN IV Hypoglycemia 05/15/19 01:15 06/14/19 01:14 Diphenhydramine HCl (Benadryl) 25 mg Q6H PRN ORAL Itching/Pruritis 05/15/19 01:15 06/14/19 01:14 Docusate Sodium (Colace) 100 mg EVERY 12 HOURS ORAL 05/15/19 09:00 06/14/19 08:59 05/16/19 08:17 Famotidine (Pepcid) 20 mg DAILY ORAL 05/15/19 09:00 06/14/19 08:59 05/16/19 08:17 Heparin Sodium (Porcine) (Heparin 5000 units/ml) 5,000 units EVERY 12 HOURS SUBQ 05/15/19 09:00 06/14/19 08:59 05/15/19 21:23 Hydromorphone HCl (Dilaudid) 0.5 mg Q4H PRN IVP For Pain 05/15/19 01:15 05/22/19 01:14 05/15/19 02:41 Multivitamins (Multivitamins) 1 tab DAILY ORAL 05/16/19 09:00 06/15/19 08:59 05/16/19 09:29 Ondansetron HCl (Zofran) 4 mg Q6H PRN IVP Nausea & Vomiting 05/15/19 01:15 06/14/19 01:14 Polyethylene Glycol (Miralax) 17 gm HSPRN PRN ORAL Constipation 05/15/19 01:15 06/14/19 01:14 Assessment and Recs: # Anemia of chronic disease (or of iron deficiency) due to underlying chronic medical issues, multifactorial --> Anemia workup has been ordered, rule out gi bleed --> No evidence of hemolysis is noted, peripheral smear has been reviewed. --> Hgb goal >7. Transfuse prn. --> Epogen or iron at this time is not particularly indicated --> Medications have been reviewed # Thrombocytopenia - potential causes multifactorial, evaluate liver and viral etiologies to begin, also could be related to underlying medications patient has received. (RULE OUT HEPARIN SQ) --> Hep panel and HIV ordered --> US abd to evaluate for cirrhosis and hsm ordered --> Peripheral smear ordered to evaluate for blasts /schistocytes --> abx and other meds have been reviewed (heparin to dc if lower plt) --> ok for ppx if plt >50k w/ either heparin or lovenox --> Transfuse if Plt < 20k and fever, or if Plt < 10k without fever --> low threshold for gi evaluation in case has occult + # Failure to thrive (FTT) - decreased bmi and low protein --> have ordered for cea level --> will also obtain q3d caloric counts --> may consider mirtazapine as appetite stimulant --> GI consult on a prn basis, as needed for endosc # Severe malnutrition --> peg as per gi --> mirtazapine started # Hypernatremia --> D5w per renal # Decub per surgery The timing of this note does not necessarily reflect the time of the patient was seen. Greatly appreciate consultation! Timmy Thomson MD May 16, 2019 15:41
--- NOTE | 2019-05-16 16:19 | Consultation ---
History of Present Illness General Chief Complaint: Generalized Weakness Referring physician: BEVERLEY Reason for Consultation: FTT Present Illness HPI 73 year old M with PMH of dementia, BPH, schizophrenia was transferred from SNF for weakness and failure to thrive for past few days. Pt EMR fevers, vomiting, diarrhea or constipation not noted. Pt had decreased appetite and mentation. History limited by acute encephalopathy. Allergies: Coded Allergies: No Known Allergies (Unverified , 05/14/19) Medication History Scheduled Clonidine Hcl* (Catapres*), 0.1 MG ORAL EVERY 6 HOURS, (Reported) Divalproex Sodium* (Depakote*), 250 MG PO Q12HR, (Reported) Dutasteride (Avodart), 0.5 MG ORAL DAILY, (Reported) Ferrous Sulfate* (Ferrous Sulfate*), 325 MG ORAL DAILY, (Reported) Haloperidol* (Haldol*), 0.5 MG ORAL EVERY 6 HOURS, (Reported) Tamsulosin HCl (Flomax), 0.4 MG ORAL DAILY, (Reported) Trazodone Hcl* (Desyrel*), 50 MG ORAL BEDTIME, (Reported) Scheduled PRN Acetaminophen* (Tylenol Extra Strength*), 325 MG ORAL Q6H PRN for Mild Pain/ Temp > 100.5, (Reported) Miscellaneous Medications Cranberry Fruit (Cranberry), 450 MG PO, (Reported) Patient History Healthcare decision maker Resuscitation status Full Code Advanced Directive on File Review of Systems ROS Narrative unable to obtain due to AMS Physical Exam General Appearance: no apparent distress, lethargic HEENT: normocephalic Neck: non-tender, supple Respiratory/Chest: chest wall non-tender, lungs clear Cardiovascular/Chest: normal rate, regular rhythm Abdomen: non tender, soft, no organomegaly Extremities: normal range of motion, non-tender, normal inspection Last 24 Hour Vital Signs Date Time Temp Pulse Resp B/P (MAP) Pulse Ox O2 Delivery O2 Flow Rate FiO2 05/16/19 16:00 98.6 67 18 144/80 (101) 100 05/16/19 12:00 98.3 63 18 133/78 (96) 100 05/16/19 09:00 Nasal Cannula 2.0 05/16/19 08:00 98.0 66 18 130/74 (92) 99 05/16/19 07:12 98 Nasal Cannula 2.0 28 05/16/19 07:12 69 18 98 Nasal Cannula 2.0 28 05/16/19 04:00 97.8 64 18 122/78 (93) 99 05/16/19 00:00 97.9 63 18 114/65 (81) 100 05/15/19 21:00 Nasal Cannula 2.0 05/15/19 20:00 98.7 67 18 130/70 (90) 98 05/15/19 19:18 74 20 97 Nasal Cannula 3.0 32 05/15/19 19:18 97 Nasal Cannula 3.0 32 05/15/19 18:31 Nasal Cannula 2.0 Intake and Output 05/15/19 05/16/19 19:00 07:00 Intake Total 950 ml 795 ml Output Total 600 ml Balance 950 ml 195 ml Intake Oral 350 ml IV Total 600 ml 795 ml Output Urine Total 600 ml # Voids 1 Laboratory Tests Test 05/15/19 17:30 05/16/19 06:07 Urine Osmolality 535 mOsm/kg (429-449) H Urine Random Sodium 48 mmol/L (20-110) Urine Random Chloride 73 mmol/L (55-125) White Blood Count 8.4 K/UL (4.8-10.8) Red Blood Count 4.05 M/UL (4.70-6.10) L Hemoglobin 11.7 G/DL (14.2-18.0) L Hematocrit 36.7 % (42.0-52.0) L Mean Corpuscular Volume 91 FL (80-99) Mean Corpuscular Hemoglobin 29.0 PG (27.0-31.0) Mean Corpuscular Hemoglobin Concent 31.9 G/DL (32.0-36.0) L Red Cell Distribution Width 13.2 % (11.6-14.8) Platelet Count 105 K/UL (150-450) L Mean Platelet Volume 6.2 FL (6.5-10.1) L Neutrophils (%) (Auto) 75.1 % (45.0-75.0) H Lymphocytes (%) (Auto) 9.9 % (20.0-45.0) L Monocytes (%) (Auto) 5.7 % (1.0-10.0) Eosinophils (%) (Auto) 8.5 % (0.0-3.0) H Basophils (%) (Auto) 0.8 % (0.0-2.0) Sodium Level 159 MMOL/L (136-145) H Potassium Level 3.4 MMOL/L (3.5-5.1) L Chloride Level 127 MMOL/L (98-107) H Carbon Dioxide Level 28 MMOL/L (21-32) Anion Gap 5 mmol/L (5-15) Blood Urea Nitrogen 59 mg/dL (7-18) H Creatinine 1.5 MG/DL (0.55-1.30) H Estimat Glomerular Filtration Rate mL/min (>60) Glucose Level 139 MG/DL (74-106) H Calcium Level 9.3 MG/DL (8.5-10.1) Total Bilirubin 0.7 MG/DL (0.2-1.0) Aspartate Amino Transf (AST/SGOT) 16 U/L (15-37) Alanine Aminotransferase (ALT/SGPT) 11 U/L (12-78) L Alkaline Phosphatase 72 U/L (46-116) Total Protein 6.4 G/DL (6.4-8.2) Albumin 2.0 G/DL (3.4-5.0) L Globulin 4.4 g/dL Albumin/Globulin Ratio 0.5 (1.0-2.7) L Height (Feet): 6 Height (Inches): 1.00 Weight (Pounds): 196 Medications Current Medications Medications (Trade) Dose Ordered Sig/Vicky Route PRN Reason Start Time Stop Time Status Last Admin Dose Admin Acetaminophen (Tylenol) 650 mg Q4H PRN ORAL Mild Pain (Pain Scale 1-3) 05/15/19 01:15 06/14/19 01:14 Albuterol/ Ipratropium (Albuterol/ Ipratropium) 3 ml Q6HRT PRN HHN Shortness of Breath 05/15/19 01:15 05/20/19 01:14 Ascorbic Acid (Vitamin C) 250 mg TWICE A DAY ORAL 05/15/19 18:00 06/14/19 17:59 05/16/19 08:17 Cefepime HCl 1 gm/ Dextrose 55 ml @ 110 mls/hr Q24H IVPB 05/15/19 20:00 05/22/19 19:59 05/15/19 21:21 Dextrose 1,000 ml @ 100 mls/hr Q10H IV 05/15/19 11:45 06/14/19 11:44 05/16/19 10:29 Dextrose (Dextrose 50%) 25 ml Q30M PRN IV Hypoglycemia 05/15/19 01:15 06/14/19 01:14 Dextrose (Dextrose 50%) 50 ml Q30M PRN IV Hypoglycemia 05/15/19 01:15 06/14/19 01:14 Diphenhydramine HCl (Benadryl) 25 mg Q6H PRN ORAL Itching/Pruritis 05/15/19 01:15 06/14/19 01:14 Docusate Sodium (Colace) 100 mg EVERY 12 HOURS ORAL 05/15/19 09:00 06/14/19 08:59 05/16/19 08:17 Famotidine (Pepcid) 20 mg DAILY ORAL 05/15/19 09:00 06/14/19 08:59 05/16/19 08:17 Heparin Sodium (Porcine) (Heparin 5000 units/ml) 5,000 units EVERY 12 HOURS SUBQ 05/15/19 09:00 06/14/19 08:59 05/15/19 21:23 Hydromorphone HCl (Dilaudid) 0.5 mg Q4H PRN IVP For Pain 05/15/19 01:15 05/22/19 01:14 05/15/19 02:41 Mirtazapine (Remeron) 7.5 mg BEDTIME ORAL 05/16/19 21:00 06/15/19 20:59 Multivitamins (Multivitamins) 1 tab DAILY ORAL 05/16/19 09:00 06/15/19 08:59 05/16/19 09:29 Ondansetron HCl (Zofran) 4 mg Q6H PRN IVP Nausea & Vomiting 05/15/19 01:15 06/14/19 01:14 Polyethylene Glycol (Miralax) 17 gm HSPRN PRN ORAL Constipation 05/15/19 01:15 06/14/19 01:14 Assessment/Plan Diagnosis [place] I: #hypernatremia- due to free water depression in the setting of marked volume depletion - continue D5w at 125cc/hr - monitor sodium closely - strict I&Os - daily weights - #acute kidney injury due to pre-renal azotemia - continue continue D5w at 125cc/hr - further work up if not improved with hydration #UTI continue with abx #dysphagia, failure to thrive - speech eval - might need peg - continue with IVF fo Yinka Aggarwal M.D. May 16, 2019 16:19
[2019-05-16 16:52] LABS: INR 1.2 (0.9-1.1)
[2019-05-16 17:09] LABS: % IRON SATURATION 38 % (15-50); IRON 27 ug/dL (50-175); TOTAL IRON BINDING CAPACITY 71 ug/dL (250-450)
[2019-05-16 17:24] LABS: FERRITIN 363 NG/ML (8-388); LACTATE DEHYDROGENASE 148 U/L (81-234)
--- NOTE | 2019-05-16 17:55 | General Progress Note ---
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 Pt still confused. Speech evaluated with high risk of aspiration. Objective Last 24 Hour Vital Signs Date Time Temp Pulse Resp B/P (MAP) Pulse Ox O2 Delivery O2 Flow Rate FiO2 05/16/19 16:00 98.6 67 18 144/80 (101) 100 05/16/19 12:00 98.3 63 18 133/78 (96) 100 05/16/19 09:00 Nasal Cannula 2.0 05/16/19 08:00 98.0 66 18 130/74 (92) 99 05/16/19 07:12 98 Nasal Cannula 2.0 28 05/16/19 07:12 69 18 98 Nasal Cannula 2.0 28 05/16/19 04:00 97.8 64 18 122/78 (93) 99 05/16/19 00:00 97.9 63 18 114/65 (81) 100 05/15/19 21:00 Nasal Cannula 2.0 05/15/19 20:00 98.7 67 18 130/70 (90) 98 05/15/19 19:18 74 20 97 Nasal Cannula 3.0 32 05/15/19 19:18 97 Nasal Cannula 3.0 32 05/15/19 18:31 Nasal Cannula 2.0 Intake and Output 05/15/19 05/16/19 19:00 07:00 Intake Total 950 ml 795 ml Output Total 600 ml Balance 950 ml 195 ml Intake Oral 350 ml IV Total 600 ml 795 ml Output Urine Total 600 ml # Voids 1 Laboratory Tests 05/16/19 06:07: White Blood Count 8.4, Red Blood Count 4.05L, Hemoglobin 11.7L, Hematocrit 36.7L , Mean Corpuscular Volume 91, Mean Corpuscular Hemoglobin 29.0, Mean Corpuscular Hemoglobin Concent 31.9L, Red Cell Distribution Width 13.2, Platelet Count 105L, Mean Platelet Volume 6.2L, Neutrophils (%) (Auto) 75.1H, Lymphocytes (%) (Auto) 9.9L, Monocytes (%) (Auto) 5.7, Eosinophils (%) (Auto) 8.5H, Basophils (%) (Auto) 0.8, Differential Total Cells Counted 100, Neutrophils % (Manual) 70, Lymphocytes % (Manual) 9L, Monocytes % (Manual) 7, Eosinophils % (Manual) 8H, Basophils % (Manual) 0, Band Neutrophils 6, Platelet Estimate DecreasedL, Platelet Morphology Normal, Red Blood Cell Morphology Normal, Sodium Level 159H, Potassium Level 3.4L, Chloride Level 127H, Carbon Dioxide Level 28, Anion Gap 5, Blood Urea Nitrogen 59H, Creatinine 1.5H, Estimat Glomerular Filtration Rate , Glucose Level 139H, Calcium Level 9.3, Total Bilirubin 0.7, Aspartate Amino Transf (AST/SGOT) 16, Alanine Aminotransferase (ALT/SGPT) 11L, Alkaline Phosphatase 72, Total Protein 6.4, Albumin 2.0L, Globulin 4.4, Albumin/Globulin Ratio 0.5L 05/16/19 16:10: Prothrombin Time 12.7H, Prothromb Time International Ratio 1.2H, Fibrinogen 368 , Iron Level 27L, Total Iron Binding Capacity 71L, Percent Iron Saturation 38, Unsaturated Iron Binding 44L, Ferritin 363, Lactate Dehydrogenase 148, Carcinoembryonic Antigen [Pending], Hepatitis A IgM Antibody [Pending], Hepatitis B Surface Antigen [Pending], Hepatitis B Core IgM Antibody [Pending], Hepatitis C Antibody [Pending], HIV (1&2) Antibody Rapid Negative Height (Feet): 6 Height (Inches): 1.00 Weight (Pounds): 196 Objective General Appearance: no apparent distress, confused Lines, tubes and drains: peripheral HEENT: normocephalic, atraumatic Neck: non-tender, normal alignment Respiratory/Chest: chest wall non-tender, lungs clear, normal breath sounds Cardiovascular/Chest: normal peripheral pulses, normal rate, regular rhythm Abdomen: normal bowel sounds, non tender, soft, no organomegaly Extremities: normal range of motion Skin Exam: normal pigmentation Bernice Aldridge MD May 16, 2019 17:55
[2019-05-16] MEDS: Cefepime HCl 1 GM in D5W 55 ML IVPB SCH (20:53)
[2019-05-17] VITALS (10 sets, daily range): BP systolic 92–151; BP diastolic 59–92
--- NOTE | 2019-05-17 | Consultation ---
DATE OF CONSULTATION: 05/16/2019 CONSULTING PHYSICIAN: Marcella Roberts M.D. HISTORY OF PRESENT ILLNESS: The patient is a 73-year-old male with a history of dementia, schizophrenia, and BPH, who has been admitted to the hospital due to weakness and failure to thrive. The patient was having decreased appetite during the evaluation, poor historian. He has memory impairment, not able to be engaged during the evaluation. Poor insight. PAST PSYCHIATRIC HISTORY: Schizophrenia, has been treated with Haldol as well as with trazodone. PAST MEDICAL HISTORY: Significant for with UTI, failure to thrive, and severe malnutrition. ALLERGIES: No known drug allergies. SUBSTANCE USE HISTORY: No known history of illicit drug use or alcohol. MENTAL STATUS EXAMINATION: The patient is confused and disoriented. Mood is neutral. Affect is flat. Thought process, there is a paucity of thought content. Thought content, no suicidal or homicidal ideations. Cognition is impaired. ASSESSMENT: AXIS I: Schizophrenia. Acute encephalopathy. Dementia. AXIS II: Deferred. AXIS III: Failure to thrive. AXIS IV: Low. AXIS V: 20. PLAN: 1. The patient is started on Remeron 7.5 mg at bedtime. 2. Zyprexa 2.5 mg at bedtime. 3. The patient lacks capacity. 4. The patient was provided with reality orientation. 5. Discussed with rn Marcella Roberts M.D. DR: LEORA JOB#: [id number] CC: [email or web address]
[2019-05-17 05:57] LABS: BASOPHILS % (AUTO) 0.5 % (0.0-2.0); EOSINOPHILS % (AUTO) 10.4 % (0.0-3.0); HEMATOCRIT 37.5 % (42.0-52.0); HEMOGLOBIN 12.1 G/DL (14.2-18.0); LYMPHOCYTES % (AUTO) 15.9 % (20.0-45.0); MEAN CORPUSCULAR VOLUME 90 FL (80-99); MONOCYTES % (AUTO) 4.8 % (1.0-10.0); NEUTROPHILS % (AUTO) 68.5 % (45.0-75.0); PLATELET COUNT 121 K/UL (150-450); RED BLOOD COUNT 4.17 M/UL (4.70-6.10); RED CELL DISTRIBUTION WIDTH 13.3 % (11.6-14.8); WHITE BLOOD COUNT 9.5 K/UL (4.8-10.8)
[2019-05-17 06:10] LABS: INR 1.2 (0.9-1.1)
[2019-05-17 06:11] LABS: ANION GAP 4 mmol/L (5-15); BLOOD UREA NITROGEN 48 mg/dL (7-18); CALCIUM 9.2 MG/DL (8.5-10.1); CARBON DIOXIDE 28 MMOL/L (21-32); CHLORIDE 125 MMOL/L (98-107); CREATININE 1.3 MG/DL (0.55-1.30); POTASSIUM 3.5 MMOL/L (3.5-5.1); SODIUM 157 MMOL/L (136-145)
[2019-05-17] MEDS: Ascorbic Acid 500mg tab ORAL SCH ×2 (09:00→17:48)
[2019-05-17] MEDS: Docusate 100mg cap ORAL SCH ×2 (09:00→20:18)
[2019-05-17] MEDS: Heparin 5000 units/ml inj SUBQ SCH ×2 (09:00→20:18)
[2019-05-17] MEDS: Meropenem 1 GM in NS 55 ML IVPB SCH ×2 (10:29→17:48)
--- NOTE | 2019-05-17 10:30 | GI Progress Note ---
Assessment/Plan Problems: (1) Encounter for PEG (percutaneous endoscopic gastrostomy) ICD Codes: Z43.1 - Encounter for attention to gastrostomy SNOMED: 141019002, 186095615 (2) Severe malnutrition ICD Codes: E43 - Unspecified severe protein-calorie malnutrition SNOMED: 53048779 (3) FTT (failure to thrive) in adult ICD Codes: R62.7 - Adult failure to thrive SNOMED: 326386383 (4) Dehydration ICD Codes: E86.0 - Dehydration SNOMED: 69594559 (5) Hypernatremia ICD Codes: E87.0 - Hyperosmolality and hypernatremia SNOMED: 178871399 Status: stable Status Narrative Discussed with Dr. Khanna. Assessment/Plan POLST reviewed, okay for long-term nonoral feeding Video swallow study discussed with speech therapist, patient reported with silent aspiration. PEG if family agrees, had discussion with son the risks and benefits. Awaiting decision to consent. Continue liquid pured diet Push p.o. Follow-up calorie count Consider Marinol anemia work up OB stool r/o GI bleed monitor H&H, prn transfusions bowel regimen ppi fu labs The patient was seen and examined at bedside and all new and available data was reviewed in the patients chart. I agree with the above findings, impression and plan. (Patient seen earlier today. Signature stamp does not reflect patient encounter time.). - Khari Khanna MD Subjective Gastrointestinal/Abdominal: Reports: no symptoms Objective Last 24 Hour Vital Signs Date Time Temp Pulse Resp B/P (MAP) Pulse Ox O2 Delivery O2 Flow Rate FiO2 05/17/19 08:00 99.7 72 22 151/77 (101) 98 05/17/19 03:51 98.3 69 18 151/80 (103) 98 05/16/19 23:55 98.1 62 18 131/72 (91) 98 05/16/19 21:41 97 Nasal Cannula 2.0 28 05/16/19 21:40 67 18 97 Nasal Cannula 2.0 28 05/16/19 21:00 Nasal Cannula 2.0 05/16/19 20:00 98.0 62 19 123/69 (87) 98 05/16/19 16:00 98.6 67 18 144/80 (101) 100 05/16/19 12:00 98.3 63 18 133/78 (96) 100 Intake and Output 05/16/19 05/17/19 19:00 07:00 Intake Total 1427 ml 955 ml Output Total 1200 ml 800 ml Balance 227 ml 155 ml Intake Oral 627 ml IV Total 800 ml 955 ml Output Urine Total 1200 ml 800 ml Laboratory Tests Test 05/16/19 16:10 05/17/19 04:35 Prothrombin Time 12.7 SEC (9.30-11.50) H 12.4 SEC (9.30-11.50) H Prothromb Time International Ratio 1.2 (0.9-1.1) H 1.2 (0.9-1.1) H Fibrinogen 368 mg/dL (200-400) Iron Level 27 ug/dL (50-175) L Total Iron Binding Capacity 71 ug/dL (250-450) L Percent Iron Saturation 38 % (15-50) Unsaturated Iron Binding 44 ug/dL (112-346) L Ferritin 363 NG/ML (8-388) Lactate Dehydrogenase 148 U/L (81-234) Carcinoembryonic Antigen Pending Hepatitis A IgM Antibody Pending Hepatitis B Surface Antigen Pending Hepatitis B Core IgM Antibody Pending Hepatitis C Antibody Pending HIV (1&2) Antibody Rapid Negative (NEGATIVE) White Blood Count 9.5 K/UL (4.8-10.8) Red Blood Count 4.17 M/UL (4.70-6.10) L Hemoglobin 12.1 G/DL (14.2-18.0) L Hematocrit 37.5 % (42.0-52.0) L Mean Corpuscular Volume 90 FL (80-99) Mean Corpuscular Hemoglobin 29.0 PG (27.0-31.0) Mean Corpuscular Hemoglobin Concent 32.3 G/DL (32.0-36.0) Red Cell Distribution Width 13.3 % (11.6-14.8) Platelet Count 121 K/UL (150-450) L Mean Platelet Volume 5.9 FL (6.5-10.1) L Neutrophils (%) (Auto) 68.5 % (45.0-75.0) Lymphocytes (%) (Auto) 15.9 % (20.0-45.0) L Monocytes (%) (Auto) 4.8 % (1.0-10.0) Eosinophils (%) (Auto) 10.4 % (0.0-3.0) H Basophils (%) (Auto) 0.5 % (0.0-2.0) Activated Partial Thromboplast Time 25 SEC (23-33) Sodium Level 157 MMOL/L (136-145) H Potassium Level 3.5 MMOL/L (3.5-5.1) Chloride Level 125 MMOL/L (98-107) H Carbon Dioxide Level 28 MMOL/L (21-32) Anion Gap 4 mmol/L (5-15) L Blood Urea Nitrogen 48 mg/dL (7-18) H Creatinine 1.3 MG/DL (0.55-1.30) Estimat Glomerular Filtration Rate mL/min (>60) Glucose Level 118 MG/DL (74-106) H Calcium Level 9.2 MG/DL (8.5-10.1) Height (Feet): 6 Height (Inches): 1.00 Weight (Pounds): 196 General Appearance: WD/WN, no apparent distress, alert Cardiovascular: normal rate Respiratory/Chest: normal breath sounds, no respiratory distress Abdominal Exam: normal bowel sounds, non tender, soft Extremities: normal range of motion, non-tender Mike White NP May 17, 2019 10:30
--- NOTE | 2019-05-17 10:44 | Nephrology Progress Note ---
Assessment/Plan Plan #hypernatremia- due to free water depression in the setting of marked volume depletion - continue D5w at 125cc/hr - monitor sodium closely - strict I&Os - daily weights - #acute kidney injury due to pre-renal azotemia - continue continue D5w at 125cc/hr - further work up if not improved with hydration #UTI continue with abx #dysphagia, failure to thrive - speech eval - might need peg - continue with IVF fo rnow Subjective ROS Limited/Unobtainable: No Subjective sodium slowly downtrending kidney function better Objective Objective Last 24 Hour Vital Signs Date Time Temp Pulse Resp B/P (MAP) Pulse Ox O2 Delivery O2 Flow Rate FiO2 05/17/19 08:00 99.7 72 22 151/77 (101) 98 05/17/19 03:51 98.3 69 18 151/80 (103) 98 05/16/19 23:55 98.1 62 18 131/72 (91) 98 05/16/19 21:41 97 Nasal Cannula 2.0 28 05/16/19 21:40 67 18 97 Nasal Cannula 2.0 28 05/16/19 21:00 Nasal Cannula 2.0 05/16/19 20:00 98.0 62 19 123/69 (87) 98 05/16/19 16:00 98.6 67 18 144/80 (101) 100 05/16/19 12:00 98.3 63 18 133/78 (96) 100 Intake and Output 05/16/19 05/17/19 19:00 07:00 Intake Total 1427 ml 955 ml Output Total 1200 ml 800 ml Balance 227 ml 155 ml Intake Oral 627 ml IV Total 800 ml 955 ml Output Urine Total 1200 ml 800 ml Laboratory Tests 05/16/19 16:10: Prothrombin Time 12.7H, Prothromb Time International Ratio 1.2H, Fibrinogen 368 , Iron Level 27L, Total Iron Binding Capacity 71L, Percent Iron Saturation 38, Unsaturated Iron Binding 44L, Ferritin 363, Lactate Dehydrogenase 148, Carcinoembryonic Antigen [Pending], Hepatitis A IgM Antibody [Pending], Hepatitis B Surface Antigen [Pending], Hepatitis B Core IgM Antibody [Pending], Hepatitis C Antibody [Pending], HIV (1&2) Antibody Rapid Negative 05/17/19 04:35: Prothrombin Time 12.4H, Prothromb Time International Ratio 1.2H, White Blood Count 9.5, Red Blood Count 4.17L, Hemoglobin 12.1L, Hematocrit 37.5L, Mean Corpuscular Volume 90, Mean Corpuscular Hemoglobin 29.0, Mean Corpuscular Hemoglobin Concent 32.3, Red Cell Distribution Width 13.3, Platelet Count 121L, Mean Platelet Volume 5.9L, Neutrophils (%) (Auto) 68.5, Lymphocytes (%) (Auto) 15.9L, Monocytes (%) (Auto) 4.8, Eosinophils (%) (Auto) 10.4H, Basophils (%) ( Auto) 0.5, Activated Partial Thromboplast Time 25, Sodium Level 157H, Potassium Level 3.5, Chloride Level 125H, Carbon Dioxide Level 28, Anion Gap 4L, Blood Urea Nitrogen 48H, Creatinine 1.3, Estimat Glomerular Filtration Rate , Glucose Level 118H, Calcium Level 9.2 Height (Feet): 6 Height (Inches): 1.00 Weight (Pounds): 196 Yinka Samuel M.D. May 17, 2019 10:44
--- NOTE | 2019-05-17 11:03 | Surgery Progress Note ---
Surgery Progress Note Subjective Additional Comments afebrile, HD stable labs noted. h/h stable electrolytes slowly improving needs PEG Objective Last 24 Hour Vital Signs Date Time Temp Pulse Resp B/P (MAP) Pulse Ox O2 Delivery O2 Flow Rate FiO2 05/17/19 08:00 99.7 72 22 151/77 (101) 98 05/17/19 03:51 98.3 69 18 151/80 (103) 98 05/16/19 23:55 98.1 62 18 131/72 (91) 98 05/16/19 21:41 97 Nasal Cannula 2.0 28 05/16/19 21:40 67 18 97 Nasal Cannula 2.0 28 05/16/19 21:00 Nasal Cannula 2.0 05/16/19 20:00 98.0 62 19 123/69 (87) 98 05/16/19 16:00 98.6 67 18 144/80 (101) 100 05/16/19 12:00 98.3 63 18 133/78 (96) 100 I&O Intake and Output 05/16/19 05/17/19 19:00 07:00 Intake Total 1427 ml 955 ml Output Total 1200 ml 800 ml Balance 227 ml 155 ml Intake Oral 627 ml IV Total 800 ml 955 ml Output Urine Total 1200 ml 800 ml Dressing: dry Wound: clean Cardiovascular: RSR Respiratory: clear Abdomen: soft, non-tender, present bowel sounds Extremities: no cyanosis Laboratory Tests Test 05/16/19 16:10 05/17/19 04:35 Prothrombin Time 12.7 SEC (9.30-11.50) H 12.4 SEC (9.30-11.50) H Prothromb Time International Ratio 1.2 (0.9-1.1) H 1.2 (0.9-1.1) H Fibrinogen 368 mg/dL (200-400) Iron Level 27 ug/dL (50-175) L Total Iron Binding Capacity 71 ug/dL (250-450) L Percent Iron Saturation 38 % (15-50) Unsaturated Iron Binding 44 ug/dL (112-346) L Ferritin 363 NG/ML (8-388) Lactate Dehydrogenase 148 U/L (81-234) Carcinoembryonic Antigen Pending Hepatitis A IgM Antibody Pending Hepatitis B Surface Antigen Pending Hepatitis B Core IgM Antibody Pending Hepatitis C Antibody Pending HIV (1&2) Antibody Rapid Negative (NEGATIVE) White Blood Count 9.5 K/UL (4.8-10.8) Red Blood Count 4.17 M/UL (4.70-6.10) L Hemoglobin 12.1 G/DL (14.2-18.0) L Hematocrit 37.5 % (42.0-52.0) L Mean Corpuscular Volume 90 FL (80-99) Mean Corpuscular Hemoglobin 29.0 PG (27.0-31.0) Mean Corpuscular Hemoglobin Concent 32.3 G/DL (32.0-36.0) Red Cell Distribution Width 13.3 % (11.6-14.8) Platelet Count 121 K/UL (150-450) L Mean Platelet Volume 5.9 FL (6.5-10.1) L Neutrophils (%) (Auto) 68.5 % (45.0-75.0) Lymphocytes (%) (Auto) 15.9 % (20.0-45.0) L Monocytes (%) (Auto) 4.8 % (1.0-10.0) Eosinophils (%) (Auto) 10.4 % (0.0-3.0) H Basophils (%) (Auto) 0.5 % (0.0-2.0) Activated Partial Thromboplast Time 25 SEC (23-33) Sodium Level 157 MMOL/L (136-145) H Potassium Level 3.5 MMOL/L (3.5-5.1) Chloride Level 125 MMOL/L (98-107) H Carbon Dioxide Level 28 MMOL/L (21-32) Anion Gap 4 mmol/L (5-15) L Blood Urea Nitrogen 48 mg/dL (7-18) H Creatinine 1.3 MG/DL (0.55-1.30) Estimat Glomerular Filtration Rate mL/min (>60) Glucose Level 118 MG/DL (74-106) H Calcium Level 9.2 MG/DL (8.5-10.1) Plan Problems: (1) Decubitus skin ulcer Assessment & Plan: Pt presented on admission with pressure injuries,and with generalized scaly raised red rash. Burrowing noted to R and L axillae,abd ,back bilat groin and both lower ext. Webbing also noted between fingers and in palms of both hands. Unstageable pressure injury R heel. 100% soft necrosis with red margins (L)4cm x (W)6.1cm. Wound is malodorous. Periwound is fluctuant. Small dry eschar noted L st metatarsal. (L)0.8cm x (W)0.5cm.Clubbing noted to all metatarsals.L 1st Nail bed is necrotic. Ulcer noted to dorsal L 2nd metatarsal. Base of wound is pink,moist macerated borders noted. Small amt serous exudate noted. Periwound without elevation in skin temp,induration or fluctuance. Dry callus noted to plantar L foot L heel is boggy .An area of non-blanchable erythema noted to medial/posterior L heel. Non-blanchable erythema without induration noted scrotum, sacrum and both ischial regions. ( in and made aware of rash. Orders for application of Elimite noted.) Tx.Plan: Swab R heel with Betadine. Cover with ABD pad and wrap with Kerlix Daily and prn. Swab L st and L 2nd metatarsals with Betadine. Cover with gauze and wrap with kerlix daily and prn. Apply Cavilon Skin Barrier to L heel. Cover with Optifoam drsg. Change every 7 days and prn. Apply Moisture Barrier to Sacrum. Cover with Optifoam drsg. Change every 3days and prn. Apply Triad Paste to scrotum,and bilat ischial areas with each incontinence care. Reposition at least every 2hours or as tolerated. Off-load heels with pillow. (2) Hypernatremia (3) Dehydration (4) UTI (urinary tract infection) (5) FTT (failure to thrive) in adult Assessment & Plan: DAILY ESTIMATED NEEDS: Needs based on Wounds 79.5kg 30-35 kcals/kg 3766-5301 total kcals 1.25-1.5 g protein/kg 99-119 g total protein 25-30 mL/kg 2110-5442 total fluid mLs NUTRITION DIAGNOSIS: * Increased kcal and pro needs r/t wound healing and wasting as evidenced by pt w/ unstageable R heel wound, signs of significant wasting as well. * Altered nutrition related lab values r/t dehydration as evidenced by Elev Na on adm (166-> 164*), elev BUN (now 64), elev Creat (now 1.5). (CURRENT DIET: Cardiac puree w/ NTL) PO DIET RECOMMENDATIONS-->> Liberalized regular diet (texture per DIRECTOR OF LOSS PREVENTION) ADDITIONAL RECOMMENDATIONS: 1) Please obtain an accurate calibrated bed scale wt 2) Add ENSURE ENLIVE TID w/ meals + snacks as tolerated 3) Texture per DIRECTOR OF LOSS PREVENTION 4) Wound care: Add PAULY BID + MVI w/ min x1 daily + Vit C 250mg BID 5) rec Kcal count- pt adm w/ FTT 6) Non oral tf recs as needed / if part of POC Conor Worthington May 17, 2019 11:03
--- NOTE | 2019-05-17 11:43 | Anethesia Preoperative Eval ---
Anesthesia Pre-op PMH/ROS General Date of Evaluation: May 17, 2019 Time of Evaluation: 11:34 Anesthesiologist: anselmo ASA Score: ASA 4 Mallampati Score Class I : Soft palate, uvula, fauces, pillars visible Class II: Soft palate, uvula, fauces visible Class III: Soft palate, base of uvula visible Class IV: Only hard plate visible Mallampati Classification: Class II Surgeon: kasandra Diagnosis: severe malnutrition Surgical Procedure: peg placement Anesthesia History: emergence delirium Social History: smoking - nonsmoker Family History: no anesthesia problems Allergies: Coded Allergies: No Known Allergies (Unverified , 05/14/19) Medications: see eMAR Patient NPO?: Yes Past Medical History Pulmonary: Reports: other - silent aspiration Gastrointestinal/Genitourinary: Reports: other - uti, acute renal injury, dysphagia Neurologic/Psychiatric: Reports: dementia Endocrine: Reports: other - hypernatremia HEENT: Reports: other Hematology/Immune: Reports: anemia Anesthesia Pre-op Phys. Exam Physician Exam Last Vital Signs Date Time Temp Pulse Resp B/P (MAP) Pulse Ox O2 Delivery O2 Flow Rate FiO2 05/17/19 08:00 99.7 72 22 151/77 (101) 98 05/16/19 21:41 Nasal Cannula 2.0 28 Constitutional: NAD Cardiovascular: RRR Respiratory: CTA Gastrointestinal: S/NT/ND Airway Exam Mallampati Score: Class II MO: limited Neck: decreased rom TMD: 2fb ROM: limited Teeth: missing Anesthesia Pre-op A/P Labs Hematology Test 05/17/19 04:35 White Blood Count 9.5 K/UL (4.8-10.8) Red Blood Count 4.17 M/UL (4.70-6.10) L Hemoglobin 12.1 G/DL (14.2-18.0) L Hematocrit 37.5 % (42.0-52.0) L Mean Corpuscular Volume 90 FL (80-99) Mean Corpuscular Hemoglobin 29.0 PG (27.0-31.0) Mean Corpuscular Hemoglobin Concent 32.3 G/DL (32.0-36.0) Red Cell Distribution Width 13.3 % (11.6-14.8) Platelet Count 121 K/UL (150-450) L Mean Platelet Volume 5.9 FL (6.5-10.1) L Neutrophils (%) (Auto) 68.5 % (45.0-75.0) Lymphocytes (%) (Auto) 15.9 % (20.0-45.0) L Monocytes (%) (Auto) 4.8 % (1.0-10.0) Eosinophils (%) (Auto) 10.4 % (0.0-3.0) H Basophils (%) (Auto) 0.5 % (0.0-2.0) Coagulation Test 05/16/19 16:10 05/17/19 04:35 Prothrombin Time 12.7 SEC (9.30-11.50) H 12.4 SEC (9.30-11.50) H Prothromb Time International Ratio 1.2 (0.9-1.1) H 1.2 (0.9-1.1) H Fibrinogen 368 mg/dL (200-400) Activated Partial Thromboplast Time 25 SEC (23-33) Chemistry Test 05/16/19 16:10 05/17/19 04:35 Iron Level 27 ug/dL (50-175) L Total Iron Binding Capacity 71 ug/dL (250-450) L Percent Iron Saturation 38 % (15-50) Unsaturated Iron Binding 44 ug/dL (112-346) L Ferritin 363 NG/ML (8-388) Lactate Dehydrogenase 148 U/L (81-234) Carcinoembryonic Antigen Pending Sodium Level 157 MMOL/L (136-145) H Potassium Level 3.5 MMOL/L (3.5-5.1) Chloride Level 125 MMOL/L (98-107) H Carbon Dioxide Level 28 MMOL/L (21-32) Anion Gap 4 mmol/L (5-15) L Blood Urea Nitrogen 48 mg/dL (7-18) H Creatinine 1.3 MG/DL (0.55-1.30) Estimat Glomerular Filtration Rate mL/min (>60) Glucose Level 118 MG/DL (74-106) H Calcium Level 9.2 MG/DL (8.5-10.1) Risk Assessment & Plan Assessment: asa4 Plan: mac Status Change Before Surgery: No Pre-Antibiotics Drug: Britta Hatfield MD May 17, 2019 11:43
[2019-05-17] MEDS ORDERED: Atropine Inj 1mg/10ml Syr IV PRN (11:45)
[2019-05-17] MEDS ORDERED: DiphenhydrAMINE 50mg/ml Inj IVP PRN (11:45)
[2019-05-17] MEDS ORDERED: fentaNYL 100 mcg/2 mL IV PRN (11:45)
[2019-05-17] MEDS ORDERED: Midazolam 2mg/2ml Inj IVP PRN (11:45)
[2019-05-17] MEDS ORDERED: Propofol 200mg/20ml IV ONE (12:00)
[2019-05-17] MEDS ORDERED: Lidocaine 1% MPF 10mg/ml 5ml ONE (12:00)
--- NOTE | 2019-05-17 12:05 | Hematology/Onc Progress Note ---
Assessment/Plan Assessment/Plan Assessment and Recs: # Anemia of chronic disease due to underlying chronic medical issues, multifactorial --> Anemia workup has been reviewed --> No evidence of hemolysis is noted, peripheral smear has been reviewed. --> Hgb goal >7. Transfuse prn. --> Epogen or iron at this time is not particularly indicated --> Medications have been reviewed --> may need peg # Thrombocytopenia - potential causes multifactorial, evaluate liver and viral etiologies to begin, also could be related to underlying medications patient has received. (RULE OUT HEPARIN SQ) --> Hep panel and HIV negative --> US abd to evaluate for cirrhosis and hsm reviewed and pending --> Peripheral smear shows no blasts/schistocytes --> abx and other meds have been reviewed (heparin to dc if lower plt) --> ok for ppx if plt >50k w/ either heparin or lovenox --> Trend 187-->105-->127 --> low threshold for gi evaluation in case has occult + # Failure to thrive (FTT) - decreased bmi and low protein --> have ordered for cea level --> will also obtain q3d caloric counts --> have started mirtazapine as appetite stimulant --> GI consult on a prn basis, as needed for endosc # Severe malnutrition --> peg as per gi recs --> mirtazapine started # Hypernatremia --> D5w per renal # Decub per surgery The timing of this note does not necessarily reflect the time of the patient was seen. Greatly appreciate consultation! Subjective Constitutional: Denies: no symptoms, chills, fever, malaise, weakness, other HEENT: Denies: no symptoms, eye pain, blurred vision, tearing, double vision, ear pain, ear discharge, nose pain, nose congestion, throat pain, throat swelling, mouth pain, mouth swelling, other Cardiovascular: Denies: no symptoms, chest pain, edema, irregular heart rate, lightheadedness, palpitations, syncope, other Respiratory: Denies: no symptoms, cough, shortness of breath, SOB with excertion, SOB at rest, sputum, wheezing, other Gastrointestinal/Abdominal: Denies: no symptoms, abdomen distended, abdominal pain, black stools, tarry stools, blood in stool, constipated, diarrhea, difficulty swallowing, nausea, poor appetite, poor fluid intake, rectal bleeding , vomiting, other Genitourinary: Denies: no symptoms, burning, discharge, frequency, flank pain, hematuria, incontinence, pain, urgency, other Endocrine: Denies: no symptoms, excessive sweating, flushing, intolerance to cold, intolerance to heat, increased hunger, increased thirst, increased urine, unexplained weight gain, unexplained weight loss, other Allergies: Coded Allergies: No Known Allergies (Unverified , 05/14/19) Subjective 8.1: needs peg placement, plts are better this am Objective Objective Current Medications Medications (Trade) Dose Ordered Sig/Vicky Route PRN Reason Start Time Stop Time Status Last Admin Dose Admin Acetaminophen (Tylenol) 650 mg Q4H PRN ORAL Mild Pain (Pain Scale 1-3) 05/15/19 01:15 06/14/19 01:14 Acetaminophen (Tylenol) 650 mg Q4H PRN ORAL Mild Pain (Pain Scale 1-3) 05/17/19 11:45 05/17/19 21:00 Al Hydroxide/Mg Hydroxide (Mylanta) 15 ml Q1H PRN ORAL gi upset 05/17/19 11:45 05/17/19 21:00 Albuterol/ Ipratropium (Albuterol/ Ipratropium) 3 ml Q6HRT PRN HHN Shortness of Breath 05/15/19 01:15 05/20/19 01:14 Ascorbic Acid (Vitamin C) 250 mg TWICE A DAY ORAL 05/15/19 18:00 06/14/19 17:59 05/16/19 17:16 Atropine Sulfate (Atropine) 0.5 mg Q5M PRN IV bpm less than 45 05/17/19 11:45 05/17/19 21:00 Dextrose 1,000 ml @ 150 mls/hr Q6H40M IV 05/17/19 10:45 06/14/19 10:44 05/17/19 10:47 Dextrose (Dextrose 50%) 25 ml Q30M PRN IV Hypoglycemia 05/15/19 01:15 06/14/19 01:14 Dextrose (Dextrose 50%) 50 ml Q30M PRN IV Hypoglycemia 05/15/19 01:15 06/14/19 01:14 Diphenhydramine HCl (Benadryl) 25 mg Q15M PRN IVP Itching 05/17/19 11:45 05/17/19 21:00 Diphenhydramine HCl (Benadryl) 25 mg Q6H PRN ORAL Itching/Pruritis 05/15/19 01:15 06/14/19 01:14 Docusate Sodium (Colace) 100 mg EVERY 12 HOURS ORAL 05/15/19 09:00 06/14/19 08:59 05/16/19 08:17 Famotidine (Pepcid) 20 mg DAILY ORAL 05/15/19 09:00 06/14/19 08:59 05/16/19 08:17 Fentanyl Citrate (Sublimaze 100 mcg/2 mL) 25 mcg Q10M PRN IV Moderate Pain (Pain Scale 4-6) 05/17/19 11:45 05/17/19 21:00 Heparin Sodium (Porcine) (Heparin 5000 units/ml) 5,000 units EVERY 12 HOURS SUBQ 05/15/19 09:00 06/14/19 08:59 05/15/19 21:23 Hydralazine HCl (Apresoline) 5 mg Q30M PRN IV SBP>160 OR___/DBP>90 OR___ 05/17/19 11:45 05/17/19 21:00 Hydromorphone HCl (Dilaudid) 0.5 mg Q4H PRN IVP For Pain 05/15/19 01:15 05/22/19 01:14 05/15/19 02:41 Meropenem 1 gm/ Sodium Chloride 55 ml @ 110 mls/hr Q8H IVPB 05/17/19 10:00 05/22/19 09:59 05/17/19 10:29 Midazolam HCl (Versed 2mg/2ml vial) 1 mg Q15M PRN IVP For Anxiety 05/17/19 11:45 05/17/19 21:00 Mirtazapine (Remeron) 7.5 mg BEDTIME ORAL 05/16/19 21:00 06/15/19 20:59 Multivitamins (Multivitamins) 1 tab DAILY ORAL 05/16/19 09:00 06/15/19 08:59 05/16/19 09:29 Olanzapine (ZyPREXA) 2.5 mg BEDTIME ORAL 05/17/19 21:00 06/16/19 20:59 Ondansetron HCl (Zofran) 4 mg Q1H PRN IVP Nausea & Vomiting 05/17/19 11:45 05/17/19 21:00 Ondansetron HCl (Zofran) 4 mg Q6H PRN IVP Nausea & Vomiting 05/15/19 01:15 06/14/19 01:14 Polyethylene Glycol (Miralax) 17 gm HSPRN PRN ORAL Constipation 05/15/19 01:15 06/14/19 01:14 Sodium Chloride 1,000 ml @ 10 mls/hr Q24H IVLG 05/17/19 11:32 05/17/19 13:31 Last 24 Hour Vital Signs Date Time Temp Pulse Resp B/P (MAP) Pulse Ox O2 Delivery O2 Flow Rate FiO2 05/17/19 08:00 99.7 72 22 151/77 (101) 98 05/17/19 03:51 98.3 69 18 151/80 (103) 98 05/16/19 23:55 98.1 62 18 131/72 (91) 98 05/16/19 21:41 97 Nasal Cannula 2.0 28 05/16/19 21:40 67 18 97 Nasal Cannula 2.0 28 05/16/19 21:00 Nasal Cannula 2.0 05/16/19 20:00 98.0 62 19 123/69 (87) 98 05/16/19 16:00 98.6 67 18 144/80 (101) 100 05/16/19 12:00 98.3 63 18 133/78 (96) 100 05/16/19 09:00 Nasal Cannula 2.0 05/16/19 08:00 98.0 66 18 130/74 (92) 99 05/16/19 07:12 98 Nasal Cannula 2.0 28 05/16/19 07:12 69 18 98 Nasal Cannula 2.0 28 05/16/19 04:00 97.8 64 18 122/78 (93) 99 05/16/19 00:00 97.9 63 18 114/65 (81) 100 05/15/19 21:00 Nasal Cannula 2.0 05/15/19 20:00 98.7 67 18 130/70 (90) 98 05/15/19 19:18 74 20 97 Nasal Cannula 3.0 32 05/15/19 19:18 97 Nasal Cannula 3.0 32 05/15/19 18:31 Nasal Cannula 2.0 05/15/19 16:00 98.3 72 20 143/84 (103) 98 Intake and Output 05/16/19 05/17/19 19:00 07:00 Intake Total 1427 ml 955 ml Output Total 1200 ml 800 ml Balance 227 ml 155 ml Intake Oral 627 ml IV Total 800 ml 955 ml Output Urine Total 1200 ml 800 ml Labs Test 05/14/19 22:30 05/14/19 22:45 05/15/19 11:05 05/15/19 17:30 White Blood Count 9.1 K/UL (4.8-10.8) 7.5 K/UL (4.8-10.8) Red Blood Count 4.71 M/UL (4.70-6.10) 4.42 M/UL (4.70-6.10) Hemoglobin 13.9 G/DL (14.2-18.0) 12.8 G/DL (14.2-18.0) Hematocrit 41.4 % (42.0-52.0) 40.0 % (42.0-52.0) Mean Corpuscular Volume 88 FL (80-99) 91 FL (80-99) Mean Corpuscular Hemoglobin 29.6 PG (27.0-31.0) 28.9 PG (27.0-31.0) Mean Corpuscular Hemoglobin Concent 33.7 G/DL (32.0-36.0) 31.9 G/DL (32.0-36.0) Red Cell Distribution Width 13.0 % (11.6-14.8) 13.1 % (11.6-14.8) Platelet Count 206 K/UL (150-450) 187 K/UL (150-450) Mean Platelet Volume 5.8 FL (6.5-10.1) 5.4 FL (6.5-10.1) Neutrophils (%) (Auto) 72.5 % (45.0-75.0) 70.6 % (45.0-75.0) Lymphocytes (%) (Auto) 17.0 % (20.0-45.0) 16.7 % (20.0-45.0) Monocytes (%) (Auto) 4.8 % (1.0-10.0) 4.7 % (1.0-10.0) Eosinophils (%) (Auto) 5.0 % (0.0-3.0) 7.3 % (0.0-3.0) Basophils (%) (Auto) 0.8 % (0.0-2.0) 0.7 % (0.0-2.0) Sodium Level 166 MMOL/L (136-145) 164 MMOL/L (136-145) Potassium Level 4.3 MMOL/L (3.5-5.1) 3.9 MMOL/L (3.5-5.1) Chloride Level 127 MMOL/L (98-107) 129 MMOL/L (98-107) Carbon Dioxide Level 29 MMOL/L (21-32) 25 MMOL/L (21-32) Anion Gap 9 mmol/L (5-15) 9 mmol/L (5-15) Blood Urea Nitrogen 62 mg/dL (7-18) 64 mg/dL (7-18) Creatinine 1.8 MG/DL (0.55-1.30) 1.5 MG/DL (0.55-1.30) Estimat Glomerular Filtration Rate mL/min (>60) mL/min (>60) Glucose Level 131 MG/DL (74-106) 108 MG/DL (74-106) Calcium Level 10.3 MG/DL (8.5-10.1) 9.2 MG/DL (8.5-10.1) Troponin I 0.000 ng/mL (0.000-0.056) Urine Color Brown Urine Appearance Cloudy Urine pH 5 (4.5-8.0) Urine Specific [place] 1.020 (1.005-1.035) Urine Protein 3+ (NEGATIVE) Urine Glucose (UA) Negative (NEGATIVE) Urine Ketones 1+ (NEGATIVE) Urine Blood 4+ (NEGATIVE) Urine Nitrite Positive (NEGATIVE) Urine Bilirubin Negative (NEGATIVE) Urine Urobilinogen 1 MG/DL (0.0-1.0) Urine Leukocyte Esterase 3+ (NEGATIVE) Urine RBC 5-10 /HPF (0 - 0) Urine WBC Tntc /HPF (0 - 0) Urine Squamous Epithelial Cells None /LPF (NONE/OCC) Urine Bacteria Many /HPF (NONE) Osmolality 358 mOsm/kg (297-317) Urine Osmolality 535 mOsm/kg (429-449) Urine Random Sodium 48 mmol/L (20-110) Urine Random Chloride 73 mmol/L (55-125) Test 05/16/19 06:07 05/16/19 16:10 05/17/19 04:35 White Blood Count 8.4 K/UL (4.8-10.8) 9.5 K/UL (4.8-10.8) Red Blood Count 4.05 M/UL (4.70-6.10) 4.17 M/UL (4.70-6.10) Hemoglobin 11.7 G/DL (14.2-18.0) 12.1 G/DL (14.2-18.0) Hematocrit 36.7 % (42.0-52.0) 37.5 % (42.0-52.0) Mean Corpuscular Volume 91 FL (80-99) 90 FL (80-99) Mean Corpuscular Hemoglobin 29.0 PG (27.0-31.0) 29.0 PG (27.0-31.0) Mean Corpuscular Hemoglobin Concent 31.9 G/DL (32.0-36.0) 32.3 G/DL (32.0-36.0) Red Cell Distribution Width 13.2 % (11.6-14.8) 13.3 % (11.6-14.8) Platelet Count 105 K/UL (150-450) 121 K/UL (150-450) Mean Platelet Volume 6.2 FL (6.5-10.1) 5.9 FL (6.5-10.1) Neutrophils (%) (Auto) 75.1 % (45.0-75.0) 68.5 % (45.0-75.0) Lymphocytes (%) (Auto) 9.9 % (20.0-45.0) 15.9 % (20.0-45.0) Monocytes (%) (Auto) 5.7 % (1.0-10.0) 4.8 % (1.0-10.0) Eosinophils (%) (Auto) 8.5 % (0.0-3.0) 10.4 % (0.0-3.0) Basophils (%) (Auto) 0.8 % (0.0-2.0) 0.5 % (0.0-2.0) Differential Total Cells Counted 100 Neutrophils % (Manual) 70 % (45-75) Lymphocytes % (Manual) 9 % (20-45) Monocytes % (Manual) 7 % (1-10) Eosinophils % (Manual) 8 % (0-3) Basophils % (Manual) 0 % (0-2) Band Neutrophils 6 % (0-8) Platelet Estimate Decreased Platelet Morphology Normal Red Blood Cell Morphology Normal Sodium Level 159 MMOL/L (136-145) 157 MMOL/L (136-145) Potassium Level 3.4 MMOL/L (3.5-5.1) 3.5 MMOL/L (3.5-5.1) Chloride Level 127 MMOL/L (98-107) 125 MMOL/L (98-107) Carbon Dioxide Level 28 MMOL/L (21-32) 28 MMOL/L (21-32) Anion Gap 5 mmol/L (5-15) 4 mmol/L (5-15) Blood Urea Nitrogen 59 mg/dL (7-18) 48 mg/dL (7-18) Creatinine 1.5 MG/DL (0.55-1.30) 1.3 MG/DL (0.55-1.30) Estimat Glomerular Filtration Rate mL/min (>60) mL/min (>60) Glucose Level 139 MG/DL (74-106) 118 MG/DL (74-106) Calcium Level 9.3 MG/DL (8.5-10.1) 9.2 MG/DL (8.5-10.1) Total Bilirubin 0.7 MG/DL (0.2-1.0) Aspartate Amino Transf (AST/SGOT) 16 U/L (15-37) Alanine Aminotransferase (ALT/SGPT) 11 U/L (12-78) Alkaline Phosphatase 72 U/L (46-116) Total Protein 6.4 G/DL (6.4-8.2) Albumin 2.0 G/DL (3.4-5.0) Globulin 4.4 g/dL Albumin/Globulin Ratio 0.5 (1.0-2.7) Prothrombin Time 12.7 SEC (9.30-11.50) 12.4 SEC (9.30-11.50) Prothromb Time International Ratio 1.2 (0.9-1.1) 1.2 (0.9-1.1) Fibrinogen 368 mg/dL (200-400) Iron Level 27 ug/dL (50-175) Total Iron Binding Capacity 71 ug/dL (250-450) Percent Iron Saturation 38 % (15-50) Unsaturated Iron Binding 44 ug/dL (112-346) Ferritin 363 NG/ML (8-388) Lactate Dehydrogenase 148 U/L (81-234) Hepatitis A IgM Antibody Negative (Negative) Hepatitis B Surface Antigen Negative (Negative) Hepatitis B Core IgM Antibody Negative (Negative) Hepatitis C Antibody <0.1 s/co ratio HIV (1&2) Antibody Rapid Negative (NEGATIVE) Activated Partial Thromboplast Time 25 SEC (23-33) Height (Feet): 6 Height (Inches): 1.00 Weight (Pounds): 196 Objective General Appearance: WD/WN, no apparent distress, alert Cardiovascular: normal rate Chest: normal breath sounds, no respiratory distress Abdominal Exam: normal bowel sounds, nt, soft Extremities: normal range of motion, non-tender Timmy Thomson MD May 17, 2019 12:05
[2019-05-17] MEDS ORDERED: NS 500ML IVPB ONE (12:10)
[2019-05-17] MEDS ORDERED: cefOXitin 1gm Inj ONE (12:23)
--- NOTE | 2019-05-17 12:25 | Pre-Procedure Note/Attestation ---
Pre-Procedure Note/Attestation Complete Prior to Procedure Planned Procedure: not applicable Procedure Narrative: egd/peg Indications for Procedure Pre-Operative Diagnosis: dysphagia Attestation I attest that I discussed the nature of the procedure; its benefits; risks and complications; and alternatives (and the risks and benefits of such alternatives ), prior to the procedure, with the patient (or the patient's legal floor representative). I attest that, if there was a reasonable possibility of needing a blood transfusion, the patient (or the patient's legal floor representative) was given the [facility] standardized written summary, pursuant to the Willi Renetta Blood Safety Act ([place] Health and Safety Code # 1645, as amended). I attest that I re-evaluated the patient just prior to the surgery and that there has been no change in the patient's H&P, except as documented below: Khari Khanna MD May 17, 2019 12:25
--- NOTE | 2019-05-17 12:54 | Diagnostic Imaging Report ---
Indication: Abnormal white blood cells, abnormal renal function tests, history of urinary tract infection Technique: Aiken-scale and duplex images of the upper abdomen were obtained Comparison: none Findings: Gallbladder demonstrates gallstones and sludge. No gallbladder wall thickening or pericholecystic fluid the technologist was unable to assess the sonographic Garcia's sign. Common bile duct measures 4 mm in diameter. No intrahepatic biliary ductal dilatation. Liver demonstrates normal echogenicity, no focal abnormality. Portal vein and hepatic veins are patent. Pancreas is obscured by bowel gas. Spleen is unremarkable. Left kidney cannot be visualized. Right kidney measures 13.5 cm length. Right kidney demonstrates normal echogenicity. There is no hydronephrosis. The right kidney demonstrates a large calcification in the upper pole renal sinus. This measures approximately 13 mm in diameter. It also demonstrates an interpolar region cyst. . Non-aneurysmal abdominal aorta . Trace ascites fluid is noted. The bladder is empty, contains a Magana catheter. The bladder wall is thickened and trabeculated The prostate is enlarged. Impression: Cholelithiasis. Negative for biliary ductal dilatation Nonobstructive right upper pole 13 mm renal calculus Trace ascites Nonvisualized left kidney. Correlate with surgical history Magana catheter. Bladder wall trabeculations and thickening, could indicate chronic bladder outlet obstruction Prostatomegaly Nonvisualized pancreas due to overlying bowel gas. Incidental finding right renal cyst
--- NOTE | 2019-05-17 13:03 | Immediate Post-Op Evaluation ---
Immediate Post-Op Evalulation Immediate Post-Op Evalulation Procedure: egd/peg Date of Evaluation: May 17, 2019 Time of Evaluation: 13:03 IV Fluids: 250ml 0.9ns Blood Products: none Estimated Blood Loss: negligible Blood Pressure Systolic: 129 Blood Pressure Diastolic: 71 Pulse Rate: 72 Respiratory Rate: 18 O2 Sat by Pulse Oximetry: 97 Temperature (Fahrenheit): 97.2 Pain Score (1-10): 0 Nausea: No Vomiting: No Complications none Patient Status: awake, reacts, patent Hydration Status: adequate Drug: Britta Hatfield MD May 17, 2019 13:03
--- NOTE | 2019-05-17 13:05 | 48 Hour Post Anesthesia Eval ---
Post Anesthesia Evaluation Procedure: egd/peg Date of Evaluation: May 17, 2019 Time of Evaluation: 13:05 Blood Pressure Systolic: 128 0: 85 Pulse Rate: 72 Respiratory Rate: 18 Temperature (Fahrenheit): 97.2 O2 Sat by Pulse Oximetry: 97 Airway: patent Nausea: No Vomiting: No Pain Intensity: 0 Hydration Status: adequate Cardiopulmonary Status: stable Mental Status/LOC: patient returned to baseline Post-Anesthesia Complications: none Follow-up care needed: N/A Britta Allen MD May 17, 2019 13:05
--- NOTE | 2019-05-17 15:26 | Endoscopy Procedure Note ---
Endoscopy Procedure Note General Indication for Procedure: dysphagia Procedures Performed: EGD, PEG Operative Findings/Diagnosis: same Specimen: none Pt Tolerated Procedure Well: Yes Estimated Blood Loss: none Anesthesia Anesthesiologist: anselmo Anesthesia: MAC Inserted Devices Implant(s) used?: No GI Core Measures 50 yrs or older w/o bx or poly: Not Applicable 10yrs. F/U recommended: Not Applicable Khari Khanna MD May 17, 2019 15:26
--- NOTE | 2019-05-17 16:03 | Infectious Diseases Prog Note ---
Assessment/Plan Assessment/Plan Full consult dictated: A) 1) esbl e.coli complicated uti 2) ? pna 3) right heel/foot wound, multiple wounds 4) mrsa colonization 5) pmh noted 6) allergies - nkda P) 1) meropenem - day # 1 2) f/u chest x-ray, monitor labs 3) wound care per surgery and protocol 4) thank you Subjective Allergies: Coded Allergies: No Known Allergies (Unverified , 05/14/19) Objective Vital Signs Last 24 Hour Vital Signs Date Time Temp Pulse Resp B/P (MAP) Pulse Ox O2 Delivery O2 Flow Rate FiO2 05/17/19 13:20 97.8 91 17 145/87 95 Nasal Cannula 3 05/17/19 13:11 97 17 143/92 95 Nasal Cannula 3 05/17/19 13:05 72 18 97 05/17/19 13:03 72 18 97 05/17/19 13:01 82 17 135/84 92 Nasal Cannula 3 05/17/19 12:56 81 19 128/85 92 Nasal Cannula 3 05/17/19 12:51 97.2 83 18 129/71 92 Nasal Cannula 3 05/17/19 08:00 99.7 72 22 151/77 (101) 98 05/17/19 03:51 98.3 69 18 151/80 (103) 98 05/16/19 23:55 98.1 62 18 131/72 (91) 98 05/16/19 21:41 97 Nasal Cannula 2.0 28 05/16/19 21:40 67 18 97 Nasal Cannula 2.0 28 05/16/19 21:00 Nasal Cannula 2.0 05/16/19 20:00 98.0 62 19 123/69 (87) 98 Height (Feet): 6 Height (Inches): 1.00 Weight (Pounds): 196 Microbiology Date/Time Source Procedure Growth Status 05/14/19 23:45 Nasal Nares MRSA Culture - Final Staphylococcus Aureus - Mrsa Complete 05/14/19 22:45 Urine,Clean Catch Urine Culture - Final Escherichia Coli - Esbl Complete 05/14/19 23:45 Rectum - Final NO CARBAPENEM-RESISTANT ENTEROBACTERI... Complete 05/14/19 23:45 Rectum VRE Culture - Final NO VANCOMYCIN RESISTANT ENTEROCOCCUS ... Complete Laboratory Tests Test 05/16/19 16:10 8/1/19 04:35 Prothrombin Time 12.7 SEC (9.30-11.50) H 12.4 SEC (9.30-11.50) H Prothromb Time International Ratio 1.2 (0.9-1.1) H 1.2 (0.9-1.1) H Fibrinogen 368 mg/dL (200-400) Iron Level 27 ug/dL (50-175) L Total Iron Binding Capacity 71 ug/dL (250-450) L Percent Iron Saturation 38 % (15-50) Unsaturated Iron Binding 44 ug/dL (112-346) L Ferritin 363 NG/ML (8-388) Lactate Dehydrogenase 148 U/L (81-234) Carcinoembryonic Antigen 4.5 ng/mL (0.0-4.7) Hepatitis A IgM Antibody Negative (Negative) Hepatitis B Surface Antigen Negative (Negative) Hepatitis B Core IgM Antibody Negative (Negative) Hepatitis C Antibody <0.1 s/co ratio HIV (1&2) Antibody Rapid Negative (NEGATIVE) White Blood Count 9.5 K/UL (4.8-10.8) Red Blood Count 4.17 M/UL (4.70-6.10) L Hemoglobin 12.1 G/DL (14.2-18.0) L Hematocrit 37.5 % (42.0-52.0) L Mean Corpuscular Volume 90 FL (80-99) Mean Corpuscular Hemoglobin 29.0 PG (27.0-31.0) Mean Corpuscular Hemoglobin Concent 32.3 G/DL (32.0-36.0) Red Cell Distribution Width 13.3 % (11.6-14.8) Platelet Count 121 K/UL (150-450) L Mean Platelet Volume 5.9 FL (6.5-10.1) L Neutrophils (%) (Auto) 68.5 % (45.0-75.0) Lymphocytes (%) (Auto) 15.9 % (20.0-45.0) L Monocytes (%) (Auto) 4.8 % (1.0-10.0) Eosinophils (%) (Auto) 10.4 % (0.0-3.0) H Basophils (%) (Auto) 0.5 % (0.0-2.0) Activated Partial Thromboplast Time 25 SEC (23-33) Sodium Level 157 MMOL/L (136-145) H Potassium Level 3.5 MMOL/L (3.5-5.1) Chloride Level 125 MMOL/L (98-107) H Carbon Dioxide Level 28 MMOL/L (21-32) Anion Gap 4 mmol/L (5-15) L Blood Urea Nitrogen 48 mg/dL (7-18) H Creatinine 1.3 MG/DL (0.55-1.30) Estimat Glomerular Filtration Rate mL/min (>60) Glucose Level 118 MG/DL (74-106) H Calcium Level 9.2 MG/DL (8.5-10.1) Current Medications Medications (Trade) Dose Ordered Sig/Vicky Route PRN Reason Start Time Stop Time Status Last Admin Dose Admin Acetaminophen (Tylenol) 650 mg Q4H PRN ORAL Mild Pain (Pain Scale 1-3) 05/15/19 01:15 06/14/19 01:14 Albuterol/ Ipratropium (Albuterol/ Ipratropium) 3 ml Q6HRT PRN HHN Shortness of Breath 05/15/19 01:15 05/20/19 01:14 Ascorbic Acid (Vitamin C) 250 mg TWICE A DAY ORAL 05/15/19 18:00 06/14/19 17:59 05/16/19 17:16 Dextrose 1,000 ml @ 150 mls/hr Q6H40M IV 05/17/19 10:45 06/14/19 10:44 05/17/19 10:47 Dextrose (Dextrose 50%) 25 ml Q30M PRN IV Hypoglycemia 05/15/19 01:15 06/14/19 01:14 Dextrose (Dextrose 50%) 50 ml Q30M PRN IV Hypoglycemia 05/15/19 01:15 06/14/19 01:14 Diphenhydramine HCl (Benadryl) 25 mg Q6H PRN ORAL Itching/Pruritis 05/15/19 01:15 06/14/19 01:14 Docusate Sodium (Colace) 100 mg EVERY 12 HOURS ORAL 05/15/19 09:00 06/14/19 08:59 05/16/19 08:17 Famotidine (Pepcid) 20 mg DAILY ORAL 05/15/19 09:00 06/14/19 08:59 05/16/19 08:17 Heparin Sodium (Porcine) (Heparin 5000 units/ml) 5,000 units EVERY 12 HOURS SUBQ 05/15/19 09:00 06/14/19 08:59 05/15/19 21:23 Hydromorphone HCl (Dilaudid) 0.5 mg Q4H PRN IVP For Pain 05/15/19 01:15 05/22/19 01:14 05/15/19 02:41 Meropenem 1 gm/ Sodium Chloride 55 ml @ 110 mls/hr Q8H IVPB 05/17/19 10:00 05/22/19 09:59 05/17/19 10:29 Mirtazapine (Remeron) 7.5 mg BEDTIME ORAL 05/16/19 21:00 06/15/19 20:59 Multivitamins (Multivitamins) 1 tab DAILY ORAL 05/16/19 09:00 06/15/19 08:59 05/16/19 09:29 Olanzapine (ZyPREXA) 2.5 mg BEDTIME ORAL 05/17/19 21:00 06/16/19 20:59 Ondansetron HCl (Zofran) 4 mg Q6H PRN IVP Nausea & Vomiting 05/15/19 01:15 06/14/19 01:14 Polyethylene Glycol (Miralax) 17 gm HSPRN PRN ORAL Constipation 05/15/19 01:15 06/14/19 01:14 Jatinder Tai MD May 17, 2019 16:03
--- NOTE | 2019-05-17 20:00 | Procedure Note ---
DATE OF PROCEDURE: 05/17/2019 SURGEON: Khari Khanna M.D. PROCEDURE: Upper endoscopy with PEG placement. ANESTHESIA: Per anesthesiologist. INSTRUMENT: Olympus adult flexible upper endoscope. INDICATION: Dysphagia. REASON FOR PROCEDURE: The procedure, risks, benefits, and possible consequences, including hemorrhage, aspiration, perforation and infection, and alternative treatments, were explained to the patient/legal guardian by Dr. Khari Khanna and the patient/legal guardian understood and accepted these risks. PROCEDURE IN DETAIL: After informed consent was obtained, the patient was adequately sedated. Olympus upper endoscope was advanced from the mouth into the second portion of duodenum and retroflexion was performed in the stomach. The patient had evidence of large stomach, diffuse gastritis, and hiatal hernia. Then under endoscopic guidance, under sterile condition, a 20-Fijian pull type of G-tube was successfully placed in the epigastric area. The distance from the tip of the tube to skin was about 3 cm in size. The patient tolerated the procedure very well without any complication. SUMMARY OF FINDINGS: 1. Diffuse gastritis. 2. Hiatal hernia. 3. Status post successful PEG placement. RECOMMENDATIONS: 1. Abdominal binder. 2. Elevate the head of the bed at all times. 3. G-tube flush. 4. G-tube care. 5. Start tube feeding later today. I want to thank, Dr. Kennedy, for this kind referral. Khari Khanna M.D. DR: VAUGHN JOB#: [id number] CC: Sony Kennedy M.D.; Fax#: [phone]
[2019-05-17] MEDS: OLANZapine 2.5mg tab ORAL SCH (20:18)
--- NOTE | 2019-05-17 21:22 | General Progress Note ---
Assessment/Plan Status: stable Assessment/Plan: 73 year old male with multiple comorbidities admitted for failure to thrive, UTI and hypernatremia #Hypernatremia likely 2/2 hypovolemic 2/2 poor PO intake -Pending down -Cont D5W -CTM NA -Nephrology consult appreciated #UTI #Acute metabolic encephalopathy 2/2 UTI -f/u cultures -Cont cefepime #Dysphagia -NPO for now -appreciate speech and swallow consult -Pending peg placement #CARMELA samanthaley prerenal -nephrology consulted -CTM -avoid nephrotoxic medications Code: realtime court reporter of note may not reflect time of encounter Subjective Date patient seen: May 17, 2019 Allergies: Coded Allergies: No Known Allergies (Unverified , 05/14/19) Subjective NO acute overnight events, NA improved however still elevated, cont D5 Pt still confused. Speech evaluated with high risk of aspiration, pending peg today Objective Last 24 Hour Vital Signs Date Time Temp Pulse Resp B/P (MAP) Pulse Ox O2 Delivery O2 Flow Rate FiO2 05/17/19 21:00 Nasal Cannula 2.0 05/17/19 20:00 98.3 93 22 110/65 (80) 94 05/17/19 19:44 97 Nasal Cannula 2.0 28 05/17/19 19:43 60 16 98 Nasal Cannula 2.0 28 05/17/19 16:00 98.2 65 20 92/59 (70) 93 05/17/19 13:20 97.8 91 17 145/87 95 Nasal Cannula 3 05/17/19 13:11 97 17 143/92 95 Nasal Cannula 3 05/17/19 13:05 72 18 97 05/17/19 13:03 72 18 97 05/17/19 13:01 82 17 135/84 92 Nasal Cannula 3 05/17/19 12:56 81 19 128/85 92 Nasal Cannula 3 05/17/19 12:51 97.2 83 18 129/71 92 Nasal Cannula 3 05/17/19 12:00 97.7 64 21 122/69 (86) 97 05/17/19 09:00 Nasal Cannula 2.0 05/17/19 08:00 99.7 72 22 151/77 (101) 98 05/17/19 03:51 98.3 69 18 151/80 (103) 98 05/16/19 23:55 98.1 62 18 131/72 (91) 98 05/16/19 21:41 97 Nasal Cannula 2.0 28 05/16/19 21:40 67 18 97 Nasal Cannula 2.0 28 Intake and Output 05/16/19 05/17/19 19:00 07:00 Intake Total 1427 ml 955 ml Output Total 1200 ml 800 ml Balance 227 ml 155 ml Intake Oral 627 ml IV Total 800 ml 955 ml Output Urine Total 1200 ml 800 ml Laboratory Tests 05/17/19 04:35: White Blood Count 9.5, Red Blood Count 4.17L, Hemoglobin 12.1L, Hematocrit 37.5L , Mean Corpuscular Volume 90, Mean Corpuscular Hemoglobin 29.0, Mean Corpuscular Hemoglobin Concent 32.3, Red Cell Distribution Width 13.3, Platelet Count 121L, Mean Platelet Volume 5.9L, Neutrophils (%) (Auto) 68.5, Lymphocytes (%) (Auto) 15.9L, Monocytes (%) (Auto) 4.8, Eosinophils (%) (Auto) 10.4H, Basophils (%) (Auto) 0.5, Prothrombin Time 12.4H, Prothromb Time International Ratio 1.2H, Activated Partial Thromboplast Time 25, Sodium Level 157H, Potassium Level 3.5, Chloride Level 125H, Carbon Dioxide Level 28, Anion Gap 4L , Blood Urea Nitrogen 48H, Creatinine 1.3, Estimat Glomerular Filtration Rate , Glucose Level 118H, Calcium Level 9.2 Height (Feet): 6 Height (Inches): 1.00 Weight (Pounds): 196 Objective General Appearance: no apparent distress, confused Lines, tubes and drains: peripheral HEENT: normocephalic, atraumatic Neck: non-tender, normal alignment Respiratory/Chest: chest wall non-tender, lungs clear, normal breath sounds Cardiovascular/Chest: normal peripheral pulses, normal rate, regular rhythm Abdomen: normal bowel sounds, non tender, soft, no organomegaly Extremities: normal range of motion Skin Exam: normal pigmentation Bernice Aldridge MD May 17, 2019 21:22
[2019-05-18] VITALS: BP 100/59
--- NOTE | 2019-05-18 00:30 | Consultation ---
DATE OF CONSULTATION: 05/17/2019 INFECTIOUS DISEASE CONSULTATION CONSULTING PHYSICIAN: Jatinder Tai M.D. ATTENDING PHYSICIAN: Sony Kennedy M.D. REFERRING PHYSICIAN: Bernice Akhtar M.D. REASON FOR CONSULTATION: Complicated ESBL E. coli UTI, failure to thrive, possible infected right heel and foot wound, and possible pneumonia. CHIEF COMPLAINT: The patient's chief complaint coming into the hospital was failure to thrive and complicated UTI. HISTORY OF PRESENT ILLNESS: This is a 73-year-old male, who is essentially nonverbal, who presents to [facility] with failure to thrive. It was noted that he has urinary tract infection, likely has complicated UTI. Urine culture has grown out ESBL E. coli. Infectious Disease consultation was requested for antibiotic management. The patient currently is on appropriate antimicrobial treatment with meropenem. The patient also has possible pneumonia on chest x-ray. The patient has multiple wounds and being followed by Surgery. MAR was noted. Orders were noted. Notes and records were reviewed. The patient will be continued on meropenem for now. REVIEW OF SYSTEMS: CONSTITUTIONAL: He has no significant fever spikes. He has generalized fatigue and weakness, mostly nonverbal. Opens his eyes. HEAD AND NECK: No obvious head pain or neck pain, but limited review of systems on head and neck. CARDIAC: No pressors. GASTROINTESTINAL: No nausea, vomiting, or diarrhea. GENITOURINARY: He has a Magana. PULMONARY: No significant cough, congestion, or shortness of breath noted. SKIN: No obvious rash. Wounds were noted. EXTREMITY: Could not assess. NEUROLOGIC: No seizures. Generalized fatigue and weakness. Mostly nonverbal. PAST MEDICAL HISTORY: The patient has a past medical history of the following. The patient has a past medical history of multiple wounds. He has a Magana. He has a history of anemia. He has a history of benign prostatic hypertrophy. He has a history of dementia, history of schizophrenia, and history of aspiration risk. Other past medical history includes acute kidney injury, hypernatremia, , and failure to thrive. The patient also has a history of bladder disorder, dementia, muscle weakness, and depression. No history of diabetes or hypertension it looks like. Also other past medical history, he has a history of malnutrition it looks like and weakness. MEDICATIONS: Upon reviewing the MAR, the patient is on the following medications. The patient is on meropenem and IV fluids. The patient is on acetaminophen, ascorbic acid, diphenhydramine, docusate, DuoNeb, famotidine, heparin, hydromorphone, olanzapine, Zofran, polyethylene, and saline. Outside medications were noted and reconciliated. ALLERGIES: No known drug allergies. No antibiotic allergies. SOCIAL HISTORY: Negative for smoking, alcohol, or drug abuse. FAMILY HISTORY: Noncontributory. Negative for exposure to tuberculosis or cancer. PHYSICAL EXAMINATION: VITAL SIGNS: Temperature is 97.8, pulse rate 91, respiratory rate 17, blood pressure 145/87, and saturation 95%. GENERAL: Opens eyes. Nonverbal. HEAD AND NECK: Oral exam, no thrush. Eye exam, no icterus. NECK: Supple. No JVD. Normocephalic. LUNGS: Few bilateral rhonchi. Possible rales at the bases. HEART: Regular. No gallop or murmur. No friction rub. ABDOMEN: Soft. Positive bowel sounds. Nontender. SKIN: No rash. MUSCULOSKELETAL: No effusion. Legs are without cellulitis. PERIPHERAL VASCULAR: No cyanosis. No gangrene, but may be some necrosis. GENITOURINARY: He has a Magana. Urine is cloudy. LINE SITES: Without phlebitis. NEUROLOGIC: Generalized weakness and responsive. Wounds were reviewed. Most impressive wound is the right heel or foot with some necrosis noted. LABORATORY DATA: Laboratory data is as follows: White count 9.5 and hemoglobin 12.1. Creatinine is 1.3, it was as high as 1.5. Sodium 157. Urinalysis had 3+ leukocyte esterase and too many to count white blood cells. MRSA screen is positive. Urine culture with ESBL E. coli. Chest x-ray has a questionable pneumonia at the right lung base. It is noted and reviewed. ASSESSMENT AND PLAN: 1. The patient has ESBL E. coli, complicated UTI with failure to thrive and weakness. Continue meropenem, which was started by primary team on May 17, 2019. This is day #1 of meropenem. Continue meropenem for complicated E. coli UTI. The patient is only on 7 to 10-day course of antibiotics. Monitor the patient clinically. The carbapenem such as meropenem is the drug of choice for ESBL organisms and is appropriate for the ESBL E. coli UTI. 2. The patient has possible pneumonia on chest x-ray as he is at risk for both community-acquired and aspiration pneumonia. Check followup chest x-ray. 3. The patient has multiple wounds most impressive in the right heel and foot wound. The patient is being followed by Surgery. Continue local wound care. 4. Anemia. 5. Elevated creatinine. 6. Hypernatremia. 7. Weakness. 8. Schizophrenia. 9. Depression. 10. Skin care protocol. 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 12. No history of diabetes or hypertension. 13. Dementia. 14. Bladder disease. 15. Magana. 16. Difficulty walking and weakness. 17. No known drug allergies. 18. Social history is negative. 19. Family history is noncontributory. 20. MAR was noted. 21. Case was discussed with RN. 22. Continue treatment per primary consultants. Jatinder Tai M.D. DR: ALEXANDRA JOB#: [id number] CC:
[2019-05-18] MEDS: Meropenem 1 GM in NS 55 ML IVPB SCH ×3 (02:30→17:45)
[2019-05-18 04:00] VITALS: BP 103/55
[2019-05-18 06:30] LABS: HEMATOCRIT 36.4 % (42.0-52.0); HEMOGLOBIN 11.9 G/DL (14.2-18.0); MEAN CORPUSCULAR VOLUME 89 FL (80-99); PLATELET COUNT 89 K/UL (150-450); RED BLOOD COUNT 4.09 M/UL (4.70-6.10); RED CELL DISTRIBUTION WIDTH 13.5 % (11.6-14.8); WHITE BLOOD COUNT 10.4 K/UL (4.8-10.8)
[2019-05-18 06:52] LABS: INR 1.2 (0.9-1.1)
[2019-05-18 06:57] LABS: ANION GAP 2 mmol/L (5-15); BLOOD UREA NITROGEN 46 mg/dL (7-18); CALCIUM 8.7 MG/DL (8.5-10.1); CARBON DIOXIDE 27 MMOL/L (21-32); CHLORIDE 118 MMOL/L (98-107); CREATININE 1.4 MG/DL (0.55-1.30); SODIUM 147 MMOL/L (136-145)
--- NOTE | 2019-05-18 07:45 | Progress Note ---
DATE: 05/17/2019 SUBJECTIVE: The pt continues to have low appetite. The patient is status post . The patient is NPO, continues to have low. Continues to be withdrawn. He is unable to understand, process, communicate, or appreciate the informations given to him. The patient lacks capacity to make decision. He has a son. The patient has severe cognitive impairment. ASSESSMENT: The patient lacks capacity, dementia, failure to thrive. PLAN: The patient will be continued on current medication with the Zyprexa and Remeron. Discussed the case with nurse. Marcella Roberts M.D. DR: SARTHAK JOB#: [id number] CC: MARYCHUY
[2019-05-18 08:00] VITALS: BP 119/64
[2019-05-18] MEDS: Docusate 100mg cap ORAL SCH ×2 (08:50→21:09)
[2019-05-18] MEDS: Ascorbic Acid 500mg tab ORAL SCH ×2 (08:50→17:45)
[2019-05-18] MEDS: Heparin 5000 units/ml inj SUBQ SCH ×2 (08:51→21:00)
--- NOTE | 2019-05-18 09:01 | Diagnostic Imaging Report ---
Indication: Shortness of breath Technique: One view of the chest Comparison: 05/16/2019 Findings: Less optimal inspiration currently. There is suggestion of increased interstitial prominence in the right mid and lower lung. There is some atelectasis at the left lung base. No focal airspace consolidation. Pleural spaces are clear. Heart size is normal. Aorta is tortuous. Impression: Hypoventilatory exam Increased interstitial markings in the right mid and lower lung, may be an artifact of crowding of the bronchovascular markings due to the lower lung volumes, but developing interstitial infiltrates also possible. Left basilar atelectatic changes
--- NOTE | 2019-05-18 10:57 | GI Progress Note ---
Assessment/Plan Problems: (1) Encounter for PEG (percutaneous endoscopic gastrostomy) ICD Codes: Z43.1 - Encounter for attention to gastrostomy SNOMED: 807661736, 508354999 (2) Severe malnutrition ICD Codes: E43 - Unspecified severe protein-calorie malnutrition SNOMED: 60483567 (3) FTT (failure to thrive) in adult ICD Codes: R62.7 - Adult failure to thrive SNOMED: 658037631 (4) Dehydration ICD Codes: E86.0 - Dehydration SNOMED: 37011619 (5) Hypernatremia ICD Codes: E87.0 - Hyperosmolality and hypernatremia SNOMED: 535384905 Status: stable, progressing, unchanged Status Narrative Discussed with Dr. Khanna. Assessment/Plan SUMMARY OF FINDINGS: 1. Diffuse gastritis. 2. Hiatal hernia. 3. Status post successful PEG placement. RECOMMENDATIONS: GTFs GT site care monitor H&H, prn transfusions bowel regimen ppi fu labs The patient was seen and examined at bedside and all new and available data was reviewed in the patients chart. I agree with the above findings, impression and plan. (Patient seen earlier today. Signature stamp does not reflect patient encounter time.). - Khari Khanna MD Subjective Gastrointestinal/Abdominal: Reports: no symptoms Subjective limited Objective Last 24 Hour Vital Signs Date Time Temp Pulse Resp B/P (MAP) Pulse Ox O2 Delivery O2 Flow Rate FiO2 05/18/19 09:00 Nasal Cannula 2.0 05/18/19 08:00 98.6 70 20 119/64 (82) 94 05/18/19 04:00 98.6 70 20 103/55 (71) 97 05/18/19 00:00 98.4 67 20 100/59 (73) 97 05/17/19 21:00 Nasal Cannula 2.0 05/17/19 20:00 98.3 93 22 110/65 (80) 94 05/17/19 19:44 97 Nasal Cannula 2.0 28 05/17/19 19:43 60 16 98 Nasal Cannula 2.0 28 05/17/19 16:00 98.2 65 20 92/59 (70) 93 05/17/19 13:20 97.8 91 17 145/87 95 Nasal Cannula 3 05/17/19 13:11 97 17 143/92 95 Nasal Cannula 3 05/17/19 13:05 72 18 97 05/17/19 13:03 72 18 97 05/17/19 13:01 82 17 135/84 92 Nasal Cannula 3 05/17/19 12:56 81 19 128/85 92 Nasal Cannula 3 05/17/19 12:51 97.2 83 18 129/71 92 Nasal Cannula 3 05/17/19 12:00 97.7 64 21 122/69 (86) 97 Intake and Output 05/17/19 05/18/19 19:00 07:00 Intake Total 450 ml 1405 ml Output Total 700 ml 800 ml Balance -250 ml 605 ml IV Total 450 ml 1405 ml Output Urine Total 700 ml 800 ml # Bowel Movements 1 Laboratory Tests Test 05/18/19 04:25 White Blood Count 10.4 K/UL (4.8-10.8) Red Blood Count 4.09 M/UL (4.70-6.10) L Hemoglobin 11.9 G/DL (14.2-18.0) L Hematocrit 36.4 % (42.0-52.0) L Mean Corpuscular Volume 89 FL (80-99) Mean Corpuscular Hemoglobin 29.1 PG (27.0-31.0) Mean Corpuscular Hemoglobin Concent 32.7 G/DL (32.0-36.0) Red Cell Distribution Width 13.5 % (11.6-14.8) Platelet Count 89 K/UL (150-450) L Mean Platelet Volume 7.0 FL (6.5-10.1) Neutrophils (%) (Auto) % (45.0-75.0) Lymphocytes (%) (Auto) % (20.0-45.0) Monocytes (%) (Auto) % (1.0-10.0) Eosinophils (%) (Auto) % (0.0-3.0) Basophils (%) (Auto) % (0.0-2.0) Differential Total Cells Counted 100 Neutrophils % (Manual) 79 % (45-75) H Lymphocytes % (Manual) 13 % (20-45) L Monocytes % (Manual) 4 % (1-10) Eosinophils % (Manual) 4 % (0-3) H Basophils % (Manual) 0 % (0-2) Band Neutrophils 0 % (0-8) Platelet Estimate Decreased L Platelet Morphology Normal Red Blood Cell Morphology Normal Prothrombin Time 12.7 SEC (9.30-11.50) H Prothromb Time International Ratio 1.2 (0.9-1.1) H Activated Partial Thromboplast Time 26 SEC (23-33) Sodium Level 147 MMOL/L (136-145) #H Potassium Level 3.0 MMOL/L (3.5-5.1) L Chloride Level 118 MMOL/L (98-107) H Carbon Dioxide Level 27 MMOL/L (21-32) Anion Gap 2 mmol/L (5-15) L Blood Urea Nitrogen 46 mg/dL (7-18) H Creatinine 1.4 MG/DL (0.55-1.30) H Estimat Glomerular Filtration Rate mL/min (>60) Glucose Level 172 MG/DL (74-106) H Calcium Level 8.7 MG/DL (8.5-10.1) Height (Feet): 6 Height (Inches): 1.00 Weight (Pounds): 196 General Appearance: no apparent distress Cardiovascular: normal rate Respiratory/Chest: no respiratory distress Abdominal Exam: normal bowel sounds, non tender, soft, GT site - c/d/i Extremities: normal range of motion, non-tender Mike White NP May 18, 2019 10:57
[2019-05-18 12:00] VITALS: BP 116/66
--- NOTE | 2019-05-18 14:36 | General Progress Note ---
Assessment/Plan Status: stable, progressing, unchanged Assessment/Plan: 73 year old male with multiple comorbidities admitted for failure to thrive, UTI and hypernatremia #Hypernatremia likely 2/2 hypovolemic 2/2 poor PO intake -trending down -Cont D5W - decreased to 100cc -CTM NA -Nephrology consult appreciated #UTI #Acute metabolic encephalopathy 2/2 UTI -f/u cultures -Cont cefepime #Dysphagia -NPO , feeding per peg -appreciate speech and swallow consult -s/p peg placement #CARMELA likley prerenal -nephrology consulted -CTM -avoid nephrotoxic medications Code: multimedia instructional designer of note may not reflect time of encounter Subjective Date patient seen: May 18, 2019 Allergies: Coded Allergies: No Known Allergies (Unverified , 05/14/19) Subjective NO acute overnight events, NA improved D5 decreased, s/p peg placement Objective Last 24 Hour Vital Signs Date Time Temp Pulse Resp B/P (MAP) Pulse Ox O2 Delivery O2 Flow Rate FiO2 05/18/19 12:00 98.0 65 9 116/66 (83) 98 05/18/19 09:00 Nasal Cannula 2.0 05/18/19 08:00 98.6 70 20 119/64 (82) 94 05/18/19 04:00 98.6 70 20 103/55 (71) 97 05/18/19 00:00 98.4 67 20 100/59 (73) 97 05/17/19 21:00 Nasal Cannula 2.0 05/17/19 20:00 98.3 93 22 110/65 (80) 94 05/17/19 19:44 97 Nasal Cannula 2.0 28 05/17/19 19:43 60 16 98 Nasal Cannula 2.0 28 05/17/19 16:00 98.2 65 20 92/59 (70) 93 Intake and Output 05/17/19 05/18/19 19:00 07:00 Intake Total 450 ml 1405 ml Output Total 700 ml 800 ml Balance -250 ml 605 ml IV Total 450 ml 1405 ml Output Urine Total 700 ml 800 ml # Bowel Movements 1 Laboratory Tests 05/18/19 04:25: White Blood Count 10.4, Red Blood Count 4.09L, Hemoglobin 11.9L, Hematocrit 36.4L, Mean Corpuscular Volume 89, Mean Corpuscular Hemoglobin 29.1, Mean Corpuscular Hemoglobin Concent 32.7, Red Cell Distribution Width 13.5, Platelet Count 89L, Mean Platelet Volume 7.0, Neutrophils (%) (Auto) , Lymphocytes (%) ( Auto) , Monocytes (%) (Auto) , Eosinophils (%) (Auto) , Basophils (%) (Auto) , Differential Total Cells Counted 100, Neutrophils % (Manual) 79H, Lymphocytes % (Manual) 13L, Monocytes % (Manual) 4, Eosinophils % (Manual) 4H, Basophils % ( Manual) 0, Band Neutrophils 0, Platelet Estimate DecreasedL, Platelet Morphology Normal, Red Blood Cell Morphology Normal, Prothrombin Time 12.7H, Prothromb Time International Ratio 1.2H, Activated Partial Thromboplast Time 26 , Sodium Level 147#H, Potassium Level 3.0L, Chloride Level 118H, Carbon Dioxide Level 27, Anion Gap 2L, Blood Urea Nitrogen 46H, Creatinine 1.4H, Estimat Glomerular Filtration Rate , Glucose Level 172H, Calcium Level 8.7 Height (Feet): 6 Height (Inches): 1.00 Weight (Pounds): 196 Objective General Appearance: no apparent distress, confused Lines, tubes and drains: peripheral HEENT: normocephalic, atraumatic Neck: non-tender, normal alignment Respiratory/Chest: chest wall non-tender, lungs clear, normal breath sounds Cardiovascular/Chest: normal peripheral pulses, normal rate, regular rhythm Abdomen: normal bowel sounds, non tender, soft, no organomegaly Extremities: normal range of motion Skin Exam: normal pigmentation Bernice Aldridge MD May 18, 2019 14:36
--- NOTE | 2019-05-18 15:25 | Diagnostic Imaging Report ---
Indications: Reason For Exam: DYSPHAGIA Technique: Patient ingested multiple substances under the supervision of speech pathology. Video fluoroscopic recording performed. Total fluoroscopy time 203.1 seconds. Total dose area product 0.26262 mGycm2 Total number of images-14 Comparison: none Findings: Early pooling of thin liquid barium in the vallecula and piriform sinus. There is laryngeal penetration when patient finally swallows. Episodes of karlo aspiration are also demonstrated. With ingestion of nectar thick liquid barium, early pooling of contrast. There is also delayed pooling of contrast no definite aspiration or penetration Impression: Positive aspiration of thin liquid barium Please refer to speech pathology report for more detailed analysis
--- NOTE | 2019-05-18 15:41 | Hematology/Onc Progress Note ---
Assessment/Plan Assessment/Plan Assessment and Recs: # Anemia of chronic disease due to underlying chronic medical issues, multifactorial --> Anemia workup has been reviewed --> No evidence of hemolysis is noted, peripheral smear has been reviewed. --> Hgb goal >7. Transfuse prn. --> Epogen or iron at this time is not particularly indicated --> Medications reviewed --> s/p peg # Thrombocytopenia - potential causes multifactorial, evaluate liver and viral etiologies to begin, also could be related to underlying medications patient has received. (RULE OUT HEPARIN SQ) --> Hep panel and HIV negative --> US abd to evaluate for cirrhosis and hsm reviewed and is neg for cirrhosis/ hsm --> Peripheral smear shows no blasts/schistocytes --> abx and other meds have been reviewed (heparin to dc if lower plt) --> ok for ppx if plt >50k w/ either heparin or lovenox --> Trend 187-->105-->127-->89 --> If drops any further, dc heparin --> low threshold for gi evaluation in case has occult + # Failure to thrive (FTT) - decreased bmi and low protein --> cea 4.5 --> will also obtain q3d caloric counts --> have started mirtazapine as appetite stimulant --> GI consult on a prn basis, as needed for endosc # Severe malnutrition --> s/p peg --> mirtazapine has been started # Hypernatremia --> D5w per renal # Decub per surgery The timing of this note does not necessarily reflect the time of the patient was seen. Greatly appreciate consultation! Subjective Constitutional: Denies: no symptoms, chills, fever, malaise, weakness, other HEENT: Denies: no symptoms, eye pain, blurred vision, tearing, double vision, ear pain, ear discharge, nose pain, nose congestion, throat pain, throat swelling, mouth pain, mouth swelling, other Cardiovascular: Denies: no symptoms, chest pain, edema, irregular heart rate, lightheadedness, palpitations, syncope, other Gastrointestinal/Abdominal: Denies: no symptoms, abdomen distended, abdominal pain, black stools, tarry stools, blood in stool, constipated, diarrhea, difficulty swallowing, nausea, poor appetite, poor fluid intake, rectal bleeding , vomiting, other Genitourinary: Denies: no symptoms, burning, discharge, frequency, flank pain, hematuria, incontinence, pain, urgency, other Neurologic/Psychiatric: Denies: no symptoms, anxiety, depressed, emotional problems, headache, numbness, paresthesia, pre-existing deficit, seizure, tingling, tremors, weakness, other Endocrine: Denies: no symptoms, excessive sweating, flushing, intolerance to cold, intolerance to heat, increased hunger, increased thirst, increased urine, unexplained weight gain, unexplained weight loss, other Allergies: Coded Allergies: No Known Allergies (Unverified , 05/14/19) Subjective 05/17: needs peg placement, plts are better this am 05/18: s/p peg, showing diffuse gastritis, slightly lower plt Objective Objective Current Medications Medications (Trade) Dose Ordered Sig/Vicky Route PRN Reason Start Time Stop Time Status Last Admin Dose Admin Acetaminophen (Tylenol) 650 mg Q4H PRN ORAL Mild Pain (Pain Scale 1-3) 05/15/19 01:15 06/14/19 01:14 Albuterol/ Ipratropium (Albuterol/ Ipratropium) 3 ml Q6HRT PRN HHN Shortness of Breath 05/15/19 01:15 05/20/19 01:14 Ascorbic Acid (Vitamin C) 250 mg TWICE A DAY ORAL 05/15/19 18:00 06/14/19 17:59 05/18/19 08:50 Dextrose 1,000 ml @ 100 mls/hr Q10H IV 05/18/19 13:35 06/17/19 13:34 05/18/19 13:42 Dextrose (Dextrose 50%) 25 ml Q30M PRN IV Hypoglycemia 05/15/19 01:15 06/14/19 01:14 Dextrose (Dextrose 50%) 50 ml Q30M PRN IV Hypoglycemia 05/15/19 01:15 06/14/19 01:14 Diphenhydramine HCl (Benadryl) 25 mg Q6H PRN ORAL Itching/Pruritis 05/15/19 01:15 06/14/19 01:14 Docusate Sodium (Colace) 100 mg EVERY 12 HOURS ORAL 05/15/19 09:00 06/14/19 08:59 05/18/19 08:50 Famotidine (Pepcid) 20 mg DAILY ORAL 05/15/19 09:00 06/14/19 08:59 05/18/19 08:50 Heparin Sodium (Porcine) (Heparin 5000 units/ml) 5,000 units EVERY 12 HOURS SUBQ 05/15/19 09:00 06/14/19 08:59 05/15/19 21:23 Hydromorphone HCl (Dilaudid) 0.5 mg Q4H PRN IVP For Pain 05/15/19 01:15 05/22/19 01:14 05/15/19 02:41 Meropenem 1 gm/ Sodium Chloride 55 ml @ 110 mls/hr Q8H IVPB 05/17/19 10:00 05/22/19 09:59 05/18/19 09:07 Mirtazapine (Remeron) 7.5 mg BEDTIME ORAL 05/16/19 21:00 06/15/19 20:59 05/17/19 20:18 Multivitamins (Multivitamins) 1 tab DAILY ORAL 05/16/19 09:00 06/15/19 08:59 05/18/19 08:50 Olanzapine (ZyPREXA) 2.5 mg BEDTIME ORAL 05/17/19 21:00 06/16/19 20:59 05/17/19 20:18 Ondansetron HCl (Zofran) 4 mg Q6H PRN IVP Nausea & Vomiting 05/15/19 01:15 06/14/19 01:14 Polyethylene Glycol (Miralax) 17 gm HSPRN PRN ORAL Constipation 05/15/19 01:15 06/14/19 01:14 Last 24 Hour Vital Signs Date Time Temp Pulse Resp B/P (MAP) Pulse Ox O2 Delivery O2 Flow Rate FiO2 05/18/19 12:00 98.0 65 9 116/66 (83) 98 05/18/19 09:00 Nasal Cannula 2.0 05/18/19 08:00 98.6 70 20 119/64 (82) 94 05/18/19 04:00 98.6 70 20 103/55 (71) 97 05/18/19 00:00 98.4 67 20 100/59 (73) 97 05/17/19 21:00 Nasal Cannula 2.0 05/17/19 20:00 98.3 93 22 110/65 (80) 94 05/17/19 19:44 97 Nasal Cannula 2.0 28 05/17/19 19:43 60 16 98 Nasal Cannula 2.0 28 05/17/19 16:00 98.2 65 20 92/59 (70) 93 05/17/19 13:20 97.8 91 17 145/87 95 Nasal Cannula 3 05/17/19 13:11 97 17 143/92 95 Nasal Cannula 3 05/17/19 13:05 72 18 97 05/17/19 13:03 72 18 97 05/17/19 13:01 82 17 135/84 92 Nasal Cannula 3 05/17/19 12:56 81 19 128/85 92 Nasal Cannula 3 05/17/19 12:51 97.2 83 18 129/71 92 Nasal Cannula 3 05/17/19 12:00 97.7 64 21 122/69 (86) 97 05/17/19 09:00 Nasal Cannula 2.0 05/17/19 08:00 99.7 72 22 151/77 (101) 98 05/17/19 03:51 98.3 69 18 151/80 (103) 98 05/16/19 23:55 98.1 62 18 131/72 (91) 98 05/16/19 21:41 97 Nasal Cannula 2.0 28 05/16/19 21:40 67 18 97 Nasal Cannula 2.0 28 05/16/19 21:00 Nasal Cannula 2.0 05/16/19 20:00 98.0 62 19 123/69 (87) 98 05/16/19 16:00 98.6 67 18 144/80 (101) 100 Intake and Output 05/17/19 05/18/19 19:00 07:00 Intake Total 450 ml 1405 ml Output Total 700 ml 800 ml Balance -250 ml 605 ml IV Total 450 ml 1405 ml Output Urine Total 700 ml 800 ml # Bowel Movements 1 Labs Test 05/15/19 17:30 05/16/19 06:07 05/16/19 16:10 05/17/19 04:35 Urine Osmolality 535 mOsm/kg (429-449) Urine Random Sodium 48 mmol/L (20-110) Urine Random Chloride 73 mmol/L (55-125) White Blood Count 8.4 K/UL (4.8-10.8) 9.5 K/UL (4.8-10.8) Red Blood Count 4.05 M/UL (4.70-6.10) 4.17 M/UL (4.70-6.10) Hemoglobin 11.7 G/DL (14.2-18.0) 12.1 G/DL (14.2-18.0) Hematocrit 36.7 % (42.0-52.0) 37.5 % (42.0-52.0) Mean Corpuscular Volume 91 FL (80-99) 90 FL (80-99) Mean Corpuscular Hemoglobin 29.0 PG (27.0-31.0) 29.0 PG (27.0-31.0) Mean Corpuscular Hemoglobin Concent 31.9 G/DL (32.0-36.0) 32.3 G/DL (32.0-36.0) Red Cell Distribution Width 13.2 % (11.6-14.8) 13.3 % (11.6-14.8) Platelet Count 105 K/UL (150-450) 121 K/UL (150-450) Mean Platelet Volume 6.2 FL (6.5-10.1) 5.9 FL (6.5-10.1) Neutrophils (%) (Auto) 75.1 % (45.0-75.0) 68.5 % (45.0-75.0) Lymphocytes (%) (Auto) 9.9 % (20.0-45.0) 15.9 % (20.0-45.0) Monocytes (%) (Auto) 5.7 % (1.0-10.0) 4.8 % (1.0-10.0) Eosinophils (%) (Auto) 8.5 % (0.0-3.0) 10.4 % (0.0-3.0) Basophils (%) (Auto) 0.8 % (0.0-2.0) 0.5 % (0.0-2.0) Differential Total Cells Counted 100 Neutrophils % (Manual) 70 % (45-75) Lymphocytes % (Manual) 9 % (20-45) Monocytes % (Manual) 7 % (1-10) Eosinophils % (Manual) 8 % (0-3) Basophils % (Manual) 0 % (0-2) Band Neutrophils 6 % (0-8) Other Cell Type See comment Platelet Estimate Decreased Platelet Morphology Normal Red Blood Cell Morphology Normal Sodium Level 159 MMOL/L (136-145) 157 MMOL/L (136-145) Potassium Level 3.4 MMOL/L (3.5-5.1) 3.5 MMOL/L (3.5-5.1) Chloride Level 127 MMOL/L (98-107) 125 MMOL/L (98-107) Carbon Dioxide Level 28 MMOL/L (21-32) 28 MMOL/L (21-32) Anion Gap 5 mmol/L (5-15) 4 mmol/L (5-15) Blood Urea Nitrogen 59 mg/dL (7-18) 48 mg/dL (7-18) Creatinine 1.5 MG/DL (0.55-1.30) 1.3 MG/DL (0.55-1.30) Estimat Glomerular Filtration Rate mL/min (>60) mL/min (>60) Glucose Level 139 MG/DL (74-106) 118 MG/DL (74-106) Calcium Level 9.3 MG/DL (8.5-10.1) 9.2 MG/DL (8.5-10.1) Total Bilirubin 0.7 MG/DL (0.2-1.0) Aspartate Amino Transf (AST/SGOT) 16 U/L (15-37) Alanine Aminotransferase (ALT/SGPT) 11 U/L (12-78) Alkaline Phosphatase 72 U/L (46-116) Total Protein 6.4 G/DL (6.4-8.2) Albumin 2.0 G/DL (3.4-5.0) Globulin 4.4 g/dL Albumin/Globulin Ratio 0.5 (1.0-2.7) Prothrombin Time 12.7 SEC (9.30-11.50) 12.4 SEC (9.30-11.50) Prothromb Time International Ratio 1.2 (0.9-1.1) 1.2 (0.9-1.1) Fibrinogen 368 mg/dL (200-400) Iron Level 27 ug/dL (50-175) Total Iron Binding Capacity 71 ug/dL (250-450) Percent Iron Saturation 38 % (15-50) Unsaturated Iron Binding 44 ug/dL (112-346) Ferritin 363 NG/ML (8-388) Lactate Dehydrogenase 148 U/L (81-234) Carcinoembryonic Antigen 4.5 ng/mL (0.0-4.7) Hepatitis A IgM Antibody Negative (Negative) Hepatitis B Surface Antigen Negative (Negative) Hepatitis B Core IgM Antibody Negative (Negative) Hepatitis C Antibody <0.1 s/co ratio HIV (1&2) Antibody Rapid Negative (NEGATIVE) Activated Partial Thromboplast Time 25 SEC (23-33) Test 05/18/19 04:25 White Blood Count 10.4 K/UL (4.8-10.8) Red Blood Count 4.09 M/UL (4.70-6.10) Hemoglobin 11.9 G/DL (14.2-18.0) Hematocrit 36.4 % (42.0-52.0) Mean Corpuscular Volume 89 FL (80-99) Mean Corpuscular Hemoglobin 29.1 PG (27.0-31.0) Mean Corpuscular Hemoglobin Concent 32.7 G/DL (32.0-36.0) Red Cell Distribution Width 13.5 % (11.6-14.8) Platelet Count 89 K/UL (150-450) Mean Platelet Volume 7.0 FL (6.5-10.1) Neutrophils (%) (Auto) % (45.0-75.0) Lymphocytes (%) (Auto) % (20.0-45.0) Monocytes (%) (Auto) % (1.0-10.0) Eosinophils (%) (Auto) % (0.0-3.0) Basophils (%) (Auto) % (0.0-2.0) Differential Total Cells Counted 100 Neutrophils % (Manual) 79 % (45-75) Lymphocytes % (Manual) 13 % (20-45) Monocytes % (Manual) 4 % (1-10) Eosinophils % (Manual) 4 % (0-3) Basophils % (Manual) 0 % (0-2) Band Neutrophils 0 % (0-8) Platelet Estimate Decreased Platelet Morphology Normal Red Blood Cell Morphology Normal Prothrombin Time 12.7 SEC (9.30-11.50) Prothromb Time International Ratio 1.2 (0.9-1.1) Activated Partial Thromboplast Time 26 SEC (23-33) Sodium Level 147 MMOL/L (136-145) Potassium Level 3.0 MMOL/L (3.5-5.1) Chloride Level 118 MMOL/L (98-107) Carbon Dioxide Level 27 MMOL/L (21-32) Anion Gap 2 mmol/L (5-15) Blood Urea Nitrogen 46 mg/dL (7-18) Creatinine 1.4 MG/DL (0.55-1.30) Estimat Glomerular Filtration Rate mL/min (>60) Glucose Level 172 MG/DL (74-106) Calcium Level 8.7 MG/DL (8.5-10.1) Height (Feet): 6 Height (Inches): 1.00 Weight (Pounds): 196 Objective Gen: WD/WN, no apparent distress, alert CV: RRR, no mgr Chest: normal breath sounds, no respiratory distress Abdominal: normal bowel sounds, nt, soft Extremities: normal range of motion, non-tender Timmy Thomson MD May 18, 2019 15:41
--- NOTE | 2019-05-18 15:50 | Surgery Progress Note ---
Surgery Progress Note Subjective Symptoms: other Objective Last 24 Hour Vital Signs Date Time Temp Pulse Resp B/P (MAP) Pulse Ox O2 Delivery O2 Flow Rate FiO2 05/18/19 12:00 98.0 65 9 116/66 (83) 98 05/18/19 09:00 Nasal Cannula 2.0 05/18/19 08:00 98.6 70 20 119/64 (82) 94 05/18/19 04:00 98.6 70 20 103/55 (71) 97 05/18/19 00:00 98.4 67 20 100/59 (73) 97 05/17/19 21:00 Nasal Cannula 2.0 05/17/19 20:00 98.3 93 22 110/65 (80) 94 05/17/19 19:44 97 Nasal Cannula 2.0 28 05/17/19 19:43 60 16 98 Nasal Cannula 2.0 28 05/17/19 16:00 98.2 65 20 92/59 (70) 93 I&O Intake and Output 05/17/19 05/18/19 19:00 07:00 Intake Total 450 ml 1405 ml Output Total 700 ml 800 ml Balance -250 ml 605 ml IV Total 450 ml 1405 ml Output Urine Total 700 ml 800 ml # Bowel Movements 1 Dressing: saturated Wound: clean Cardiovascular: RSR Respiratory: clear Abdomen: soft, non-tender, present bowel sounds Extremities: no cyanosis Laboratory Tests Test 05/18/19 04:25 White Blood Count 10.4 K/UL (4.8-10.8) Red Blood Count 4.09 M/UL (4.70-6.10) L Hemoglobin 11.9 G/DL (14.2-18.0) L Hematocrit 36.4 % (42.0-52.0) L Mean Corpuscular Volume 89 FL (80-99) Mean Corpuscular Hemoglobin 29.1 PG (27.0-31.0) Mean Corpuscular Hemoglobin Concent 32.7 G/DL (32.0-36.0) Red Cell Distribution Width 13.5 % (11.6-14.8) Platelet Count 89 K/UL (150-450) L Mean Platelet Volume 7.0 FL (6.5-10.1) Neutrophils (%) (Auto) % (45.0-75.0) Lymphocytes (%) (Auto) % (20.0-45.0) Monocytes (%) (Auto) % (1.0-10.0) Eosinophils (%) (Auto) % (0.0-3.0) Basophils (%) (Auto) % (0.0-2.0) Differential Total Cells Counted 100 Neutrophils % (Manual) 79 % (45-75) H Lymphocytes % (Manual) 13 % (20-45) L Monocytes % (Manual) 4 % (1-10) Eosinophils % (Manual) 4 % (0-3) H Basophils % (Manual) 0 % (0-2) Band Neutrophils 0 % (0-8) Platelet Estimate Decreased L Platelet Morphology Normal Red Blood Cell Morphology Normal Prothrombin Time 12.7 SEC (9.30-11.50) H Prothromb Time International Ratio 1.2 (0.9-1.1) H Activated Partial Thromboplast Time 26 SEC (23-33) Sodium Level 147 MMOL/L (136-145) #H Potassium Level 3.0 MMOL/L (3.5-5.1) L Chloride Level 118 MMOL/L (98-107) H Carbon Dioxide Level 27 MMOL/L (21-32) Anion Gap 2 mmol/L (5-15) L Blood Urea Nitrogen 46 mg/dL (7-18) H Creatinine 1.4 MG/DL (0.55-1.30) H Estimat Glomerular Filtration Rate mL/min (>60) Glucose Level 172 MG/DL (74-106) H Calcium Level 8.7 MG/DL (8.5-10.1) Plan Problems: (1) Decubitus skin ulcer Assessment & Plan: Pt presented on admission with pressure injuries,and with generalized scaly raised red rash. Burrowing noted to R and L axillae,abd ,back bilat groin and both lower ext. Webbing also noted between fingers and in palms of both hands. Unstageable pressure injury R heel. 100% soft necrosis with red margins (L)4cm x (W)6.1cm. Wound is malodorous. Periwound is fluctuant. Small dry eschar noted L st metatarsal. (L)0.8cm x (W)0.5cm.Clubbing noted to all metatarsals.L 1st Nail bed is necrotic. Ulcer noted to dorsal L 2nd metatarsal. Base of wound is pink,moist macerated borders noted. Small amt serous exudate noted. Periwound without elevation in skin temp,induration or fluctuance. Dry callus noted to plantar L foot L heel is boggy .An area of non-blanchable erythema noted to medial/posterior L heel. Non-blanchable erythema without induration noted scrotum, sacrum and both ischial regions. ( in and made aware of rash. Orders for application of Elimite noted.) Tx.Plan: Swab R heel with Betadine. Cover with ABD pad and wrap with Kerlix Daily and prn. Swab L st and L 2nd metatarsals with Betadine. Cover with gauze and wrap with kerlix daily and prn. Apply Cavilon Skin Barrier to L heel. Cover with Optifoam drsg. Change every 7 days and prn. Apply Moisture Barrier to Sacrum. Cover with Optifoam drsg. Change every 3days and prn. Apply Triad Paste to scrotum,and bilat ischial areas with each incontinence care. Reposition at least every 2hours or as tolerated. Off-load heels with pillow. (2) Hypernatremia (3) Dehydration (4) UTI (urinary tract infection) (5) FTT (failure to thrive) in adult Assessment & Plan: DAILY ESTIMATED NEEDS: Needs based on Wounds 79.5kg 30-35 kcals/kg 7940-3732 total kcals 1.25-1.5 g protein/kg 99-119 g total protein 25-30 mL/kg 8260-3987 total fluid mLs NUTRITION DIAGNOSIS: * Increased kcal and pro needs r/t wound healing and wasting as evidenced by pt w/ unstageable R heel wound, signs of significant wasting as well. * Altered nutrition related lab values r/t dehydration as evidenced by Elev Na on adm (166-> 164*), elev BUN (now 64), elev Creat (now 1.5). (CURRENT DIET: Cardiac puree w/ NTL) PO DIET RECOMMENDATIONS-->> Liberalized regular diet (texture per MANAGER LABOR RELATIONS) ADDITIONAL RECOMMENDATIONS: 1) Please obtain an accurate calibrated bed scale wt 2) Add ENSURE ENLIVE TID w/ meals + snacks as tolerated 3) Texture per MANAGER LABOR RELATIONS 4) Wound care: Add PAULY BID + MVI w/ min x1 daily + Vit C 250mg BID 5) rec Kcal count- pt adm w/ FTT 6) Non oral tf recs as needed / if part of POC Conor Worthington May 18, 2019 15:50
[2019-05-18 16:00] VITALS: BP 116/64
[2019-05-18 20:00] VITALS: BP 111/64
[2019-05-18] MEDS: OLANZapine 2.5mg tab ORAL SCH (21:09)
[2019-05-19] VITALS: BP 100/84
--- NOTE | 2019-05-19 00:30 | Progress Note ---
DATE: 05/18/2019 SUBJECTIVE: The patient is status post PEG placement. The patient is in bed, in no acute distress, disoriented. MENTAL STATUS EXAMINATION: The patient is alert. Mood is dysphoric. Affect is flat. Thought process, there is a paucity of thought content. Thought content, no suicidal or homicidal ideation. Memory, concentration, and attention is impaired. ASSESSMENT: 1. Dementia. 2. Failure to thrive. PLAN: We will continue current medications. Marcella Roberts M.D. DR: LEORA JOB#: [id number] CC:
[2019-05-19] MEDS: Meropenem 1 GM in NS 55 ML IVPB SCH ×3 (02:13→17:00)
[2019-05-19 04:00] VITALS: BP 121/76
[2019-05-19 07:09] LABS: HEMATOCRIT 34.1 % (42.0-52.0); HEMOGLOBIN 11.3 G/DL (14.2-18.0); MEAN CORPUSCULAR VOLUME 89 FL (80-99); PLATELET COUNT 73 K/UL (150-450); RED BLOOD COUNT 3.85 M/UL (4.70-6.10); RED CELL DISTRIBUTION WIDTH 12.9 % (11.6-14.8); WHITE BLOOD COUNT 11.2 K/UL (4.8-10.8)
[2019-05-19 07:18] LABS: ANION GAP 3 mmol/L (5-15); BLOOD UREA NITROGEN 39 mg/dL (7-18); CALCIUM 8.8 MG/DL (8.5-10.1); CARBON DIOXIDE 29 MMOL/L (21-32); CHLORIDE 113 MMOL/L (98-107); CREATININE 1.2 MG/DL (0.55-1.30); POTASSIUM 3.5 MMOL/L (3.5-5.1); SODIUM 145 MMOL/L (136-145)
[2019-05-19 08:00] VITALS: BP 118/65
--- NOTE | 2019-05-19 08:24 | General Progress Note ---
Assessment/Plan Problem List: (1) DM (diabetes mellitus) ICD Codes: E11.9 - Type 2 diabetes mellitus without complications SNOMED: 58982757 (2) Encounter for PEG (percutaneous endoscopic gastrostomy) ICD Codes: Z43.1 - Encounter for attention to gastrostomy SNOMED: 256836058, 304631486 (3) Severe malnutrition ICD Codes: E43 - Unspecified severe protein-calorie malnutrition SNOMED: 83170095 (4) FTT (failure to thrive) in adult ICD Codes: R62.7 - Adult failure to thrive SNOMED: 890325857 (5) UTI (urinary tract infection) ICD Codes: N39.0 - Urinary tract infection, site not specified SNOMED: 61215854 Qualifiers: Qualified Codes: N30.00 - Acute cystitis without hematuria Status: stable, progressing, unchanged Assessment/Plan: GTF tolerated HL IV dc mirlaax and colace given loose stools fu labs Subjective ROS Limited/Unobtainable: No Allergies: Coded Allergies: No Known Allergies (Unverified , 05/14/19) Objective Last 24 Hour Vital Signs Date Time Temp Pulse Resp B/P (MAP) Pulse Ox O2 Delivery O2 Flow Rate FiO2 05/19/19 04:00 98.0 66 16 121/76 (91) 96 05/19/19 00:00 98.3 73 20 100/84 (89) 05/18/19 21:00 Nasal Cannula 2.0 05/18/19 20:00 99.7 73 16 111/64 (80) 93 05/18/19 19:33 97 Nasal Cannula 2.0 28 05/18/19 19:33 65 18 97 Nasal Cannula 2.0 28 05/18/19 16:00 97.5 67 19 116/64 (81) 95 05/18/19 12:00 98.0 65 19 116/66 (83) 98 05/18/19 12:00 98.0 65 9 116/66 (83) 98 05/18/19 09:00 Nasal Cannula 2.0 Intake and Output 05/18/19 05/19/19 18:59 06:59 Intake Total 1840 ml 830 ml Output Total 900 ml Balance 1840 ml -70 ml IV Total 1420 ml 710 ml Tube Feeding 420 ml 120 ml Output Urine Total 900 ml # Bowel Movements 3 Laboratory Tests 05/19/19 06:25: White Blood Count 11.2H, Red Blood Count 3.85L, Hemoglobin 11.3L, Hematocrit 34.1L, Mean Corpuscular Volume 89, Mean Corpuscular Hemoglobin 29.4, Mean Corpuscular Hemoglobin Concent 33.2, Red Cell Distribution Width 12.9, Platelet Count 73L, Mean Platelet Volume 9.0, Neutrophils (%) (Auto) , Lymphocytes (%) ( Auto) , Monocytes (%) (Auto) , Eosinophils (%) (Auto) , Basophils (%) (Auto) , Neutrophils % (Manual) [Pending], Lymphocytes % (Manual) [Pending], Platelet Estimate [Pending], Platelet Morphology [Pending], Sodium Level 145, Potassium Level 3.5, Chloride Level 113H, Carbon Dioxide Level 29, Anion Gap 3L, Blood Urea Nitrogen 39H, Creatinine 1.2, Estimat Glomerular Filtration Rate , Glucose Level 171H, Calcium Level 8.8 05/19/19 07:12: Stool Occult Blood [Pending] Height (Feet): 6 Height (Inches): 1.00 Weight (Pounds): 196 General Appearance: lethargic EENT: normal ENT inspection Neck: supple Cardiovascular: normal rate Respiratory/Chest: decreased breath sounds Abdomen: normal bowel sounds, non tender, soft Extremities: non-tender Khari Khanna MD May 19, 2019 08:24
[2019-05-19] MEDS: Heparin 5000 units/ml inj SUBQ SCH (08:52)
[2019-05-19] MEDS: Ascorbic Acid 500mg tab ORAL SCH ×2 (09:00→17:00)
[2019-05-19 12:00] VITALS: BP 120/68
--- NOTE | 2019-05-19 12:24 | Surgery Progress Note ---
Surgery Progress Note Subjective Additional Comments leukocytosis exam stable and unchanged no acute events labs noted Objective Last 24 Hour Vital Signs Date Time Temp Pulse Resp B/P (MAP) Pulse Ox O2 Delivery O2 Flow Rate FiO2 05/19/19 09:30 68 18 98 Nasal Cannula 2.0 28 05/19/19 09:30 98 Nasal Cannula 2.0 28 05/19/19 09:26 Nasal Cannula 2.0 05/19/19 08:00 97.9 71 16 118/65 (82) 96 05/19/19 04:00 98.0 66 16 121/76 (91) 96 05/19/19 00:00 98.3 73 20 100/84 (89) 05/18/19 21:00 Nasal Cannula 2.0 05/18/19 20:00 99.7 73 16 111/64 (80) 93 05/18/19 19:33 97 Nasal Cannula 2.0 28 05/18/19 19:33 65 18 97 Nasal Cannula 2.0 28 05/18/19 16:00 97.5 67 19 116/64 (81) 95 I&O Intake and Output 05/18/19 05/19/19 19:00 07:00 Intake Total 1900 ml 860 ml Output Total 900 ml Balance 1900 ml -40 ml Free Water 30 ml IV Total 1420 ml 710 ml Tube Feeding 480 ml 120 ml Output Urine Total 900 ml # Bowel Movements 3 Dressing: saturated Wound: clean Cardiovascular: RSR Respiratory: clear Abdomen: soft, flat, non-tender, present bowel sounds, non-distended Laboratory Tests Test 05/19/19 06:25 05/19/19 07:12 White Blood Count 11.2 K/UL (4.8-10.8) H Red Blood Count 3.85 M/UL (4.70-6.10) L Hemoglobin 11.3 G/DL (14.2-18.0) L Hematocrit 34.1 % (42.0-52.0) L Mean Corpuscular Volume 89 FL (80-99) Mean Corpuscular Hemoglobin 29.4 PG (27.0-31.0) Mean Corpuscular Hemoglobin Concent 33.2 G/DL (32.0-36.0) Red Cell Distribution Width 12.9 % (11.6-14.8) Platelet Count 73 K/UL (150-450) L Mean Platelet Volume 9.0 FL (6.5-10.1) Neutrophils (%) (Auto) % (45.0-75.0) Lymphocytes (%) (Auto) % (20.0-45.0) Monocytes (%) (Auto) % (1.0-10.0) Eosinophils (%) (Auto) % (0.0-3.0) Basophils (%) (Auto) % (0.0-2.0) Differential Total Cells Counted 100 Neutrophils % (Manual) 82 % (45-75) H Lymphocytes % (Manual) 11 % (20-45) L Monocytes % (Manual) 5 % (1-10) Eosinophils % (Manual) 2 % (0-3) Basophils % (Manual) 0 % (0-2) Band Neutrophils 0 % (0-8) Platelet Estimate Decreased L Platelet Morphology Normal Hypochromasia 1+ Anisocytosis 1+ Sodium Level 145 MMOL/L (136-145) Potassium Level 3.5 MMOL/L (3.5-5.1) Chloride Level 113 MMOL/L (98-107) H Carbon Dioxide Level 29 MMOL/L (21-32) Anion Gap 3 mmol/L (5-15) L Blood Urea Nitrogen 39 mg/dL (7-18) H Creatinine 1.2 MG/DL (0.55-1.30) Estimat Glomerular Filtration Rate mL/min (>60) Glucose Level 171 MG/DL (74-106) H Calcium Level 8.8 MG/DL (8.5-10.1) Stool Occult Blood Pending Plan Problems: (1) Decubitus skin ulcer Assessment & Plan: Pt presented on admission with pressure injuries,and with generalized scaly raised red rash. Burrowing noted to R and L axillae,abd ,back bilat groin and both lower ext. Webbing also noted between fingers and in palms of both hands. Unstageable pressure injury R heel. 100% soft necrosis with red margins (L)4cm x (W)6.1cm. Wound is malodorous. Periwound is fluctuant. Small dry eschar noted L st metatarsal. (L)0.8cm x (W)0.5cm.Clubbing noted to all metatarsals.L 1st Nail bed is necrotic. Ulcer noted to dorsal L 2nd metatarsal. Base of wound is pink,moist macerated borders noted. Small amt serous exudate noted. Periwound without elevation in skin temp,induration or fluctuance. Dry callus noted to plantar L foot L heel is boggy .An area of non-blanchable erythema noted to medial/posterior L heel. Non-blanchable erythema without induration noted scrotum, sacrum and both ischial regions. ( in and made aware of rash. Orders for application of Elimite noted.) Tx.Plan: Swab R heel with Betadine. Cover with ABD pad and wrap with Kerlix Daily and prn. Swab L st and L 2nd metatarsals with Betadine. Cover with gauze and wrap with kerlix daily and prn. Apply Cavilon Skin Barrier to L heel. Cover with Optifoam drsg. Change every 7 days and prn. Apply Moisture Barrier to Sacrum. Cover with Optifoam drsg. Change every 3days and prn. Apply Triad Paste to scrotum,and bilat ischial areas with each incontinence care. Reposition at least every 2hours or as tolerated. Off-load heels with pillow. (2) Hypernatremia (3) Dehydration (4) UTI (urinary tract infection) (5) FTT (failure to thrive) in adult Assessment & Plan: DAILY ESTIMATED NEEDS: Needs based on Wounds 79.5kg 30-35 kcals/kg 0179-1277 total kcals 1.25-1.5 g protein/kg 99-119 g total protein 25-30 mL/kg 3487-6933 total fluid mLs NUTRITION DIAGNOSIS: * Increased kcal and pro needs r/t wound healing and wasting as evidenced by pt w/ unstageable R heel wound, signs of significant wasting as well. * Altered nutrition related lab values r/t dehydration as evidenced by Elev Na on adm (166-> 164*), elev BUN (now 64), elev Creat (now 1.5). (CURRENT DIET: Cardiac puree w/ NTL) PO DIET RECOMMENDATIONS-->> Liberalized regular diet (texture per LINE PREP COOK) ADDITIONAL RECOMMENDATIONS: 1) Please obtain an accurate calibrated bed scale wt 2) Add ENSURE ENLIVE TID w/ meals + snacks as tolerated 3) Texture per LINE PREP COOK 4) Wound care: Add PAULY BID + MVI w/ min x1 daily + Vit C 250mg BID 5) rec Kcal count- pt adm w/ FTT 6) Non oral tf recs as needed / if part of POC Conor Worthington May 19, 2019 12:23
--- NOTE | 2019-05-19 14:37 | General Progress Note ---
Assessment/Plan Status: stable, progressing, unchanged Assessment/Plan: Assessment/Plan Status: stable, progressing, unchanged Assessment/Plan: 73 year old male with multiple comorbidities admitted for failure to thrive, UTI and hypernatremia #Hypernatremia likely 2/2 hypovolemic 2/2 poor PO intake -trending down -Cont D5W - decreased to 100cc, will need to adjust and dc prior to dc to SNF -CTM NA -Nephrology consult appreciated #UTI #Acute metabolic encephalopathy 2/2 UTI -f/u cultures -Cont cefepime for ESBL UTI - 7-10 day treatment needed. WAIT for ID input. #Dysphagia -NPO , feeding per peg -appreciate speech and swallow consult -s/p peg placement #CARMELA samanthaley prerenal -nephrology consulted -CTM -avoid nephrotoxic medications Code: Full Dispo; SNF when stable ( [facility] ) time of note may not reflect time of encounter Subjective Date patient seen: May 19, 2019 Time patient seen: 14:00 ROS Limited/Unobtainable: Yes Allergies: Coded Allergies: No Known Allergies (Unverified , 05/14/19) All Systems: reviewed and negative except above Objective Last 24 Hour Vital Signs Date Time Temp Pulse Resp B/P (MAP) Pulse Ox O2 Delivery O2 Flow Rate FiO2 05/19/19 12:00 97.7 72 16 120/68 (85) 98 72 05/19/19 09:30 68 18 98 Nasal Cannula 2.0 28 05/19/19 09:30 98 Nasal Cannula 2.0 28 05/19/19 09:26 Nasal Cannula 2.0 05/19/19 08:00 97.9 71 16 118/65 (82) 96 05/19/19 04:00 98.0 66 16 121/76 (91) 96 05/19/19 00:00 98.3 73 20 100/84 (89) 05/18/19 21:00 Nasal Cannula 2.0 05/18/19 20:00 99.7 73 16 111/64 (80) 93 05/18/19 19:33 97 Nasal Cannula 2.0 28 05/18/19 19:33 65 18 97 Nasal Cannula 2.0 28 05/18/19 16:00 97.5 67 19 116/64 (81) 95 Intake and Output 05/18/19 05/19/19 19:00 07:00 Intake Total 1900 ml 860 ml Output Total 900 ml Balance 1900 ml -40 ml Free Water 30 ml IV Total 1420 ml 710 ml Tube Feeding 480 ml 120 ml Output Urine Total 900 ml # Bowel Movements 3 Laboratory Tests 05/19/19 06:25: White Blood Count 11.2H, Red Blood Count 3.85L, Hemoglobin 11.3L, Hematocrit 34.1L, Mean Corpuscular Volume 89, Mean Corpuscular Hemoglobin 29.4, Mean Corpuscular Hemoglobin Concent 33.2, Red Cell Distribution Width 12.9, Platelet Count 73L, Mean Platelet Volume 9.0, Neutrophils (%) (Auto) , Lymphocytes (%) ( Auto) , Monocytes (%) (Auto) , Eosinophils (%) (Auto) , Basophils (%) (Auto) , Differential Total Cells Counted 100, Neutrophils % (Manual) 82H, Lymphocytes % (Manual) 11L, Monocytes % (Manual) 5, Eosinophils % (Manual) 2, Basophils % ( Manual) 0, Band Neutrophils 0, Platelet Estimate DecreasedL, Platelet Morphology Normal, Hypochromasia 1+, Anisocytosis 1+, Sodium Level 145, Potassium Level 3.5, Chloride Level 113H, Carbon Dioxide Level 29, Anion Gap 3L , Blood Urea Nitrogen 39H, Creatinine 1.2, Estimat Glomerular Filtration Rate , Glucose Level 171H, Calcium Level 8.8 05/19/19 07:12: Stool Occult Blood [Pending] Height (Feet): 6 Height (Inches): 1.00 Weight (Pounds): 196 General Appearance: moderate distress EENT: PERRL/EOMI Neck: non-tender Cardiovascular: normal rate Respiratory/Chest: lungs clear Abdomen: non tender Neurologic: automobile wrecker II-XII grossly normal Jasmin Vick MD May 19, 2019 14:37
[2019-05-19 16:00] VITALS: BP 118/69
--- NOTE | 2019-05-19 16:10 | Infectious Diseases Prog Note ---
Assessment/Plan Assessment/Plan ASSESSMENT AND PLAN: 1. esbl e.coli complicated uti, mild leukocytosis, ftt, lethargy - meropenem - day # 3 - monitor labs 2. ? pna vs atx - f/u chest x-ray, check sputum culture, on meropenem 3. right heel wound, multiple wounds - management per surgery and protocol 4. Anemia. 5. Elevated creatinine. 6. Hypernatremia. 7. Weakness. 8. Schizophrenia. 9. Depression. 10. Skin care protocol. 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 12. No history of diabetes or hypertension. 13. Dementia. 14. Bladder disease. 15. Avery. 16. Difficulty walking and weakness. 17. No known drug allergies. 18. Social history is negative. 19. Family history is noncontributory. 20. MAR was noted. 21. Case was discussed with RN. 22. Continue treatment per primary consultants. Subjective Constitutional: Reports: fatigue; Denies: fever HEENT: Denies: congestion Respiratory: Denies: shortness of breath Cardiovascular: Denies: chest pain Gastrointestinal/Abdominal: Reports: other - + g-tube; Denies: nausea, vomiting , diarrhea Genitourinary: Reports: other - + vaery Neurologic: Reports: weakness Psychiatric: Reports: other - NA Skin: Reports: other - wounds - covered ; Denies: rash Hematologic: Denies: bleeding Musculoskeletal: Denies: pain Allergies: Coded Allergies: No Known Allergies (Unverified , 05/14/19) Objective Vital Signs Last 24 Hour Vital Signs Date Time Temp Pulse Resp B/P (MAP) Pulse Ox O2 Delivery O2 Flow Rate FiO2 05/19/19 12:00 97.7 72 16 120/68 (85) 98 72 05/19/19 09:30 68 18 98 Nasal Cannula 2.0 28 05/19/19 09:30 98 Nasal Cannula 2.0 28 05/19/19 09:26 Nasal Cannula 2.0 05/19/19 08:00 97.9 71 16 118/65 (82) 96 05/19/19 04:00 98.0 66 16 121/76 (91) 96 05/19/19 00:00 98.3 73 20 100/84 (89) 05/18/19 21:00 Nasal Cannula 2.0 05/18/19 20:00 99.7 73 16 111/64 (80) 93 05/18/19 19:33 97 Nasal Cannula 2.0 28 05/18/19 19:33 65 18 97 Nasal Cannula 2.0 28 Height (Feet): 6 Height (Inches): 1.00 Weight (Pounds): 196 General Appearance: no acute distress HEENT: normocephalic, atraumatic, anicteric, mucous membranes moist, EOMI, supple, no JVD Respiratory/Chest: lungs clear, normal breath sounds, no respiratory distress, no accessory muscle use Cardiovascular: normal rate, regular rhythm, no gallop/murmur, no JVD Abdomen: normal bowel sounds, soft, non tender, no organomegaly, non distended Genitourinary: other - + avery - urine cloudy but less Extremities: no cyanosis Skin: no rash, ulcers, other - wounds/ulcers - covered 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 There is suggestion of increased interstitial prominence in the right mid and lower lung. There is some atelectasis at the left lung base. No focal airspace consolidation. Pleural spaces are clear. Heart size is normal. Aorta is tortuous. Impression: Hypoventilatory exam Increased interstitial markings in the right mid and lower lung, may be an artifact of crowding of the bronchovascular markings due to the lower lung volumes, but developing interstitial infiltrates also possible. Left basilar atelectatic changes Microbiology Date/Time Source Procedure Growth Status 05/14/19 23:45 Nasal Nares MRSA Culture - Final Staphylococcus Aureus - Mrsa Complete 05/14/19 22:45 Urine,Clean Catch Urine Culture - Final Escherichia Coli - Esbl Complete 05/14/19 23:45 Rectum - Final NO CARBAPENEM-RESISTANT ENTEROBACTERI... Complete Laboratory Tests Test 05/19/19 06:25 05/19/19 07:12 White Blood Count 11.2 K/UL (4.8-10.8) H Red Blood Count 3.85 M/UL (4.70-6.10) L Hemoglobin 11.3 G/DL (14.2-18.0) L Hematocrit 34.1 % (42.0-52.0) L Mean Corpuscular Volume 89 FL (80-99) Mean Corpuscular Hemoglobin 29.4 PG (27.0-31.0) Mean Corpuscular Hemoglobin Concent 33.2 G/DL (32.0-36.0) Red Cell Distribution Width 12.9 % (11.6-14.8) Platelet Count 73 K/UL (150-450) L Mean Platelet Volume 9.0 FL (6.5-10.1) Neutrophils (%) (Auto) % (45.0-75.0) Lymphocytes (%) (Auto) % (20.0-45.0) Monocytes (%) (Auto) % (1.0-10.0) Eosinophils (%) (Auto) % (0.0-3.0) Basophils (%) (Auto) % (0.0-2.0) Differential Total Cells Counted 100 Neutrophils % (Manual) 82 % (45-75) H Lymphocytes % (Manual) 11 % (20-45) L Monocytes % (Manual) 5 % (1-10) Eosinophils % (Manual) 2 % (0-3) Basophils % (Manual) 0 % (0-2) Band Neutrophils 0 % (0-8) Platelet Estimate Decreased L Platelet Morphology Normal Hypochromasia 1+ Anisocytosis 1+ Sodium Level 145 MMOL/L (136-145) Potassium Level 3.5 MMOL/L (3.5-5.1) Chloride Level 113 MMOL/L (98-107) H Carbon Dioxide Level 29 MMOL/L (21-32) Anion Gap 3 mmol/L (5-15) L Blood Urea Nitrogen 39 mg/dL (7-18) H Creatinine 1.2 MG/DL (0.55-1.30) Estimat Glomerular Filtration Rate mL/min (>60) Glucose Level 171 MG/DL (74-106) H Calcium Level 8.8 MG/DL (8.5-10.1) Heparin-PF4 Antibody Screen Pending Stool Occult Blood Pending Current Medications Medications (Trade) Dose Ordered Sig/Vicky Route PRN Reason Start Time Stop Time Status Last Admin Dose Admin Acetaminophen (Tylenol) 650 mg Q4H PRN ORAL Mild Pain (Pain Scale 1-3) 05/15/19 01:15 06/14/19 01:14 Albuterol/ Ipratropium (Albuterol/ Ipratropium) 3 ml Q6HRT PRN HHN Shortness of Breath 05/15/19 01:15 05/20/19 01:14 Ascorbic Acid (Vitamin C) 250 mg TWICE A DAY ORAL 05/15/19 18:00 06/14/19 17:59 05/19/19 09:00 Dextrose (Dextrose 50%) 25 ml Q30M PRN IV Hypoglycemia 05/15/19 01:15 06/14/19 01:14 Dextrose (Dextrose 50%) 50 ml Q30M PRN IV Hypoglycemia 05/15/19 01:15 06/14/19 01:14 Diphenhydramine HCl (Benadryl) 25 mg Q6H PRN ORAL Itching/Pruritis 05/15/19 01:15 06/14/19 01:14 Famotidine (Pepcid) 20 mg DAILY ORAL 05/15/19 09:00 06/14/19 08:59 05/19/19 09:00 Hydromorphone HCl (Dilaudid) 0.5 mg Q4H PRN IVP For Pain 05/15/19 01:15 05/22/19 01:14 05/15/19 02:41 Meropenem 1 gm/ Sodium Chloride 55 ml @ 110 mls/hr Q8H IVPB 05/17/19 10:00 05/22/19 09:59 05/19/19 10:18 Mirtazapine (Remeron) 7.5 mg BEDTIME ORAL 05/16/19 21:00 06/15/19 20:59 05/18/19 21:09 Multivitamins (Multivitamins) 1 tab DAILY ORAL 05/16/19 09:00 06/15/19 08:59 05/19/19 09:00 Olanzapine (ZyPREXA) 2.5 mg BEDTIME ORAL 05/17/19 21:00 06/16/19 20:59 05/18/19 21:09 Ondansetron HCl (Zofran) 4 mg Q6H PRN IVP Nausea & Vomiting 05/15/19 01:15 06/14/19 01:14 Jatinder Tai MD May 19, 2019 16:10
[2019-05-19 20:00] VITALS: BP 119/74
[2019-05-19] MEDS: OLANZapine 2.5mg tab ORAL SCH (21:03)
[2019-05-20] VITALS: BP 119/74
--- NOTE | 2019-05-20 00:15 | Progress Note ---
DATE: 05/19/2019 SUBJECTIVE: The patient is in bed, status post G-tube placement. No behavior issues. No agitation. Has cognitive impairment. MENTAL STATUS EXAMINATION: The patient is alert. Mood is neutral. Affect is flat. Thought process, there is a paucity of thought content. Thought content, no suicidal or homicidal ideation. ASSESSMENT: 1. Dementia. 2. Encephalopathy. 3. Failure to thrive. PLAN: We will continue current medications. Discussed the case with staff. Marcella Roberts M.D. DR: TRELL JOB#: [id number] CC: MARYCHUY
[2019-05-20] MEDS: Meropenem 1 GM in NS 55 ML IVPB SCH ×3 (01:48→17:37)
[2019-05-20 04:00] VITALS: BP 109/67
--- NOTE | 2019-05-20 06:08 | General Progress Note ---
Assessment/Plan Problem List: (1) DM (diabetes mellitus) ICD Codes: E11.9 - Type 2 diabetes mellitus without complications SNOMED: 98652162 (2) Encounter for PEG (percutaneous endoscopic gastrostomy) ICD Codes: Z43.1 - Encounter for attention to gastrostomy SNOMED: 665564697, 855498308 (3) Severe malnutrition ICD Codes: E43 - Unspecified severe protein-calorie malnutrition SNOMED: 78136468 (4) FTT (failure to thrive) in adult ICD Codes: R62.7 - Adult failure to thrive SNOMED: 497957797 (5) UTI (urinary tract infection) ICD Codes: N39.0 - Urinary tract infection, site not specified SNOMED: 73228171 Qualifiers: Qualified Codes: N30.00 - Acute cystitis without hematuria Status: stable, progressing, unchanged Assessment/Plan: GTF tolerated fu labs recent labs and notes reviewed off of laxatives given loose stools GT care fu labs Subjective ROS Limited/Unobtainable: Yes Allergies: Coded Allergies: No Known Allergies (Unverified , 05/14/19) Objective Last 24 Hour Vital Signs Date Time Temp Pulse Resp B/P (MAP) Pulse Ox O2 Delivery O2 Flow Rate FiO2 05/20/19 04:00 99.4 74 24 109/67 (81) 94 05/20/19 00:00 99.7 91 24 119/74 (89) 96 05/19/19 21:00 Nasal Cannula 2.0 05/19/19 20:00 99.7 91 24 119/74 (89) 96 05/19/19 19:49 97 Nasal Cannula 2.0 28 05/19/19 19:49 85 18 97 Nasal Cannula 2.0 28 05/19/19 16:00 97.8 97 17 118/69 (85) 98 97 05/19/19 12:00 97.7 72 16 120/68 (85) 98 72 05/19/19 09:30 68 18 98 Nasal Cannula 2.0 28 05/19/19 09:30 98 Nasal Cannula 2.0 28 05/19/19 09:26 Nasal Cannula 2.0 05/19/19 08:00 97.9 71 16 118/65 (82) 96 Intake and Output 05/19/19 05/20/19 18:59 06:59 Intake Total 745 ml Output Total 1000 ml Balance 745 ml -1000 ml Free Water 30 ml IV Total 55 ml Tube Feeding 600 ml Blood Product 60 ml Output Urine Total 1000 ml # Bowel Movements 1 1 Laboratory Tests 05/19/19 06:25: White Blood Count 11.2H, Red Blood Count 3.85L, Hemoglobin 11.3L, Hematocrit 34.1L, Mean Corpuscular Volume 89, Mean Corpuscular Hemoglobin 29.4, Mean Corpuscular Hemoglobin Concent 33.2, Red Cell Distribution Width 12.9, Platelet Count 73L, Mean Platelet Volume 9.0, Neutrophils (%) (Auto) , Lymphocytes (%) ( Auto) , Monocytes (%) (Auto) , Eosinophils (%) (Auto) , Basophils (%) (Auto) , Differential Total Cells Counted 100, Neutrophils % (Manual) 82H, Lymphocytes % (Manual) 11L, Monocytes % (Manual) 5, Eosinophils % (Manual) 2, Basophils % ( Manual) 0, Band Neutrophils 0, Platelet Estimate DecreasedL, Platelet Morphology Normal, Hypochromasia 1+, Anisocytosis 1+, Sodium Level 145, Potassium Level 3.5, Chloride Level 113H, Carbon Dioxide Level 29, Anion Gap 3L , Blood Urea Nitrogen 39H, Creatinine 1.2, Estimat Glomerular Filtration Rate , Glucose Level 171H, Calcium Level 8.8, Heparin-PF4 Antibody Screen [Pending] 05/19/19 07:12: Stool Occult Blood [Pending] Height (Feet): 6 Height (Inches): 1.00 Weight (Pounds): 196 General Appearance: no apparent distress EENT: normal ENT inspection Neck: supple Cardiovascular: normal rate Respiratory/Chest: decreased breath sounds Abdomen: normal bowel sounds, non tender, soft Extremities: non-tender Khari Khanna MD May 20, 2019 06:08
[2019-05-20 07:01] LABS: HEMATOCRIT 31.1 % (42.0-52.0); HEMOGLOBIN 10.4 G/DL (14.2-18.0); MEAN CORPUSCULAR VOLUME 87 FL (80-99); PLATELET COUNT 76 K/UL (150-450); RED BLOOD COUNT 3.56 M/UL (4.70-6.10); WHITE BLOOD COUNT 11.9 K/UL (4.8-10.8)
[2019-05-20 07:09] LABS: ANION GAP 6 mmol/L (5-15); BLOOD UREA NITROGEN 48 mg/dL (7-18); CALCIUM 8.6 MG/DL (8.5-10.1); CARBON DIOXIDE 27 MMOL/L (21-32); CHLORIDE 116 MMOL/L (98-107); CREATININE 1.2 MG/DL (0.55-1.30); POTASSIUM 3.8 MMOL/L (3.5-5.1); SODIUM 149 MMOL/L (136-145)
[2019-05-20 08:00] VITALS: BP 107/59
[2019-05-20] MEDS: Ascorbic Acid 500mg tab ORAL SCH ×2 (09:39→17:37)
--- NOTE | 2019-05-20 09:39 | Hematology/Onc Progress Note ---
Assessment/Plan Assessment/Plan Assessment and Recs: # Anemia of chronic disease due to underlying chronic medical issues, multifactorial --> Anemia workup has been reviewed --> No evidence of hemolysis is noted, peripheral smear has been reviewed. --> Hgb goal >7. Transfuse prn. --> Epogen or iron at this time is not particularly indicated --> Medications reviewed --> s/p peg with ongoing feedings # Thrombocytopenia - potential causes multifactorial, evaluate liver and viral etiologies to begin, also could be related to underlying medications patient has received v infection --> Hep panel and HIV negative --> US abd to evaluate for cirrhosis and hsm reviewed and is neg for cirrhosis/ hsm --> Peripheral smear shows no blasts/schistocytes --> abx and other meds have been reviewed --> ok for ppx if plt >50k w/ either heparin or lovenox --> Trend 187-->105-->127-->89-->76 --> heparin has been discontinued --> low threshold for gi evaluation in case has occult + # Failure to thrive (FTT) - decreased bmi and low protein --> cea 4.5 --> will also obtain q3d caloric counts --> have started mirtazapine as appetite stimulant --> GI consult on a prn basis, peg tube feedings tolerated well # Severe malnutrition --> s/p peg with good tfs --> mirtazapine has been started # Hypernatremia --> per renal fluids # Decub per surgery The timing of this note does not necessarily reflect the time of the patient was seen. Greatly appreciate consultation! Subjective Constitutional: Denies: no symptoms, chills, fever, malaise, weakness, other HEENT: Denies: no symptoms, eye pain, blurred vision, tearing, double vision, ear pain, ear discharge, nose pain, nose congestion, throat pain, throat swelling, mouth pain, mouth swelling, other Respiratory: Denies: no symptoms, cough, shortness of breath, SOB with excertion, SOB at rest, sputum, wheezing, other Gastrointestinal/Abdominal: Denies: no symptoms, abdomen distended, abdominal pain, black stools, tarry stools, blood in stool, constipated, diarrhea, difficulty swallowing, nausea, poor appetite, poor fluid intake, rectal bleeding , vomiting, other Genitourinary: Denies: no symptoms, burning, discharge, frequency, flank pain, hematuria, incontinence, pain, urgency, other Neurologic/Psychiatric: Denies: no symptoms, anxiety, depressed, emotional problems, headache, numbness, paresthesia, pre-existing deficit, seizure, tingling, tremors, weakness, other Endocrine: Denies: no symptoms, excessive sweating, flushing, intolerance to cold, intolerance to heat, increased hunger, increased thirst, increased urine, unexplained weight gain, unexplained weight loss, other Allergies: Coded Allergies: No Known Allergies (Unverified , 05/14/19) Subjective 05/17: needs peg placement, plts are better this am 05/18: s/p peg, showing diffuse gastritis, slightly lower plt 05/20: peg tube feedings tolerated well, no f/c, no night sweats (low grade 99.6f) Objective Objective Current Medications Medications (Trade) Dose Ordered Sig/Vicky Route PRN Reason Start Time Stop Time Status Last Admin Dose Admin Acetaminophen (Tylenol) 650 mg Q4H PRN ORAL Mild Pain (Pain Scale 1-3) 05/15/19 01:15 06/14/19 01:14 Ascorbic Acid (Vitamin C) 250 mg TWICE A DAY ORAL 05/15/19 18:00 06/14/19 17:59 05/19/19 17:00 Dextrose (Dextrose 50%) 25 ml Q30M PRN IV Hypoglycemia 05/15/19 01:15 06/14/19 01:14 Dextrose (Dextrose 50%) 50 ml Q30M PRN IV Hypoglycemia 05/15/19 01:15 06/14/19 01:14 Diphenhydramine HCl (Benadryl) 25 mg Q6H PRN ORAL Itching/Pruritis 05/15/19 01:15 06/14/19 01:14 Famotidine (Pepcid) 20 mg DAILY ORAL 05/15/19 09:00 06/14/19 08:59 05/19/19 09:00 Hydromorphone HCl (Dilaudid) 0.5 mg Q4H PRN IVP For Pain 05/15/19 01:15 05/22/19 01:14 05/15/19 02:41 Meropenem 1 gm/ Sodium Chloride 55 ml @ 110 mls/hr Q8H IVPB 05/17/19 10:00 05/22/19 09:59 05/20/19 01:48 Mirtazapine (Remeron) 7.5 mg BEDTIME ORAL 05/16/19 21:00 06/15/19 20:59 05/19/19 21:03 Multivitamins (Multivitamins) 1 tab DAILY ORAL 05/16/19 09:00 06/15/19 08:59 05/19/19 09:00 Olanzapine (ZyPREXA) 2.5 mg BEDTIME ORAL 05/17/19 21:00 06/16/19 20:59 05/19/19 21:03 Ondansetron HCl (Zofran) 4 mg Q6H PRN IVP Nausea & Vomiting 05/15/19 01:15 06/14/19 01:14 Last 24 Hour Vital Signs Date Time Temp Pulse Resp B/P (MAP) Pulse Ox O2 Delivery O2 Flow Rate FiO2 05/20/19 08:05 96 Nasal Cannula 2.0 28 05/20/19 08:04 76 20 96 Nasal Cannula 2.0 28 05/20/19 08:00 99.6 72 19 107/59 (75) 93 05/20/19 04:00 99.4 74 24 109/67 (81) 94 05/20/19 00:00 99.7 91 24 119/74 (89) 96 05/19/19 21:00 Nasal Cannula 2.0 05/19/19 20:00 99.7 91 24 119/74 (89) 96 05/19/19 19:49 97 Nasal Cannula 2.0 28 05/19/19 19:49 85 18 97 Nasal Cannula 2.0 28 05/19/19 16:00 97.8 97 17 118/69 (85) 98 97 05/19/19 12:00 97.7 72 16 120/68 (85) 98 72 05/19/19 09:30 68 18 98 Nasal Cannula 2.0 28 05/19/19 09:30 98 Nasal Cannula 2.0 28 05/19/19 09:26 Nasal Cannula 2.0 05/19/19 08:00 97.9 71 16 118/65 (82) 96 05/19/19 04:00 98.0 66 16 121/76 (91) 96 05/19/19 00:00 98.3 73 20 100/84 (89) 8/2/19 21:00 Nasal Cannula 2.0 05/18/19 20:00 99.7 73 16 111/64 (80) 93 05/18/19 19:33 97 Nasal Cannula 2.0 28 05/18/19 19:33 65 18 97 Nasal Cannula 2.0 28 05/18/19 16:00 97.5 67 19 116/64 (81) 95 05/18/19 12:00 98.0 65 19 116/66 (83) 98 05/18/19 12:00 98.0 65 9 116/66 (83) 98 Intake and Output 05/19/19 05/20/19 18:59 06:59 Intake Total 745 ml 110 ml Output Total 1500 ml Balance 745 ml -1390 ml Free Water 30 ml IV Total 55 ml 110 ml Tube Feeding 600 ml Blood Product 60 ml Output Urine Total 1500 ml # Bowel Movements 1 1 Labs Test 05/18/19 04:25 05/19/19 06:25 05/19/19 07:12 05/20/19 06:20 White Blood Count 10.4 K/UL (4.8-10.8) 11.2 K/UL (4.8-10.8) 11.9 K/UL (4.8-10.8) Red Blood Count 4.09 M/UL (4.70-6.10) 3.85 M/UL (4.70-6.10) 3.56 M/UL (4.70-6.10) Hemoglobin 11.9 G/DL (14.2-18.0) 11.3 G/DL (14.2-18.0) 10.4 G/DL (14.2-18.0) Hematocrit 36.4 % (42.0-52.0) 34.1 % (42.0-52.0) 31.1 % (42.0-52.0) Mean Corpuscular Volume 89 FL (80-99) 89 FL (80-99) 87 FL (80-99) Mean Corpuscular Hemoglobin 29.1 PG (27.0-31.0) 29.4 PG (27.0-31.0) 29.1 PG (27.0-31.0) Mean Corpuscular Hemoglobin Concent 32.7 G/DL (32.0-36.0) 33.2 G/DL (32.0-36.0) 33.4 G/DL (32.0-36.0) Red Cell Distribution Width 13.5 % (11.6-14.8) 12.9 % (11.6-14.8) 13.0 % (11.6-14.8) Platelet Count 89 K/UL (150-450) 73 K/UL (150-450) 76 K/UL (150-450) Mean Platelet Volume 7.0 FL (6.5-10.1) 9.0 FL (6.5-10.1) 9.1 FL (6.5-10.1) Neutrophils (%) (Auto) % (45.0-75.0) % (45.0-75.0) % (45.0-75.0) Lymphocytes (%) (Auto) % (20.0-45.0) % (20.0-45.0) % (20.0-45.0) Monocytes (%) (Auto) % (1.0-10.0) % (1.0-10.0) % (1.0-10.0) Eosinophils (%) (Auto) % (0.0-3.0) % (0.0-3.0) % (0.0-3.0) Basophils (%) (Auto) % (0.0-2.0) % (0.0-2.0) % (0.0-2.0) Differential Total Cells Counted 100 100 100 Neutrophils % (Manual) 79 % (45-75) 82 % (45-75) 85 % (45-75) Lymphocytes % (Manual) 13 % (20-45) 11 % (20-45) 11 % (20-45) Monocytes % (Manual) 4 % (1-10) 5 % (1-10) 2 % (1-10) Eosinophils % (Manual) 4 % (0-3) 2 % (0-3) 2 % (0-3) Basophils % (Manual) 0 % (0-2) 0 % (0-2) 0 % (0-2) Band Neutrophils 0 % (0-8) 0 % (0-8) 0 % (0-8) Platelet Estimate Decreased Decreased Decreased Platelet Morphology Normal Normal Normal Red Blood Cell Morphology Normal Normal Prothrombin Time 12.7 SEC (9.30-11.50) Prothromb Time International Ratio 1.2 (0.9-1.1) Activated Partial Thromboplast Time 26 SEC (23-33) Sodium Level 147 MMOL/L (136-145) 145 MMOL/L (136-145) 149 MMOL/L (136-145) Potassium Level 3.0 MMOL/L (3.5-5.1) 3.5 MMOL/L (3.5-5.1) 3.8 MMOL/L (3.5-5.1) Chloride Level 118 MMOL/L (98-107) 113 MMOL/L (98-107) 116 MMOL/L (98-107) Carbon Dioxide Level 27 MMOL/L (21-32) 29 MMOL/L (21-32) 27 MMOL/L (21-32) Anion Gap 2 mmol/L (5-15) 3 mmol/L (5-15) 6 mmol/L (5-15) Blood Urea Nitrogen 46 mg/dL (7-18) 39 mg/dL (7-18) 48 mg/dL (7-18) Creatinine 1.4 MG/DL (0.55-1.30) 1.2 MG/DL (0.55-1.30) 1.2 MG/DL (0.55-1.30) Estimat Glomerular Filtration Rate mL/min (>60) mL/min (>60) mL/min (>60) Glucose Level 172 MG/DL (74-106) 171 MG/DL (74-106) 165 MG/DL (74-106) Calcium Level 8.7 MG/DL (8.5-10.1) 8.8 MG/DL (8.5-10.1) 8.6 MG/DL (8.5-10.1) Hypochromasia 1+ Anisocytosis 1+ Micro Microbiology Date/Time Source Procedure Growth Status 05/19/19 16:40 Sputum Induced Gram Stain - Final Resulted 05/19/19 16:40 Sputum Induced Sputum Culture - Preliminary NORMAL UPPER RESPIRATORY EZRA AT 24 ... Resulted Height (Feet): 6 Height (Inches): 1.00 Weight (Pounds): 196 Objective Gen: WD/WN, no apparent distress, alert CV: RRR, no mgr Chest: normal breath sounds, no respiratory distress Abdominal: normal bowel sounds, nt, soft Extremities: normal range of motion, non-tender Timmy Thomson MD May 20, 2019 09:39
[2019-05-20 12:00] VITALS: BP 116/70
--- NOTE | 2019-05-20 13:03 | General Progress Note ---
Assessment/Plan Status: stable, progressing, unchanged Assessment/Plan: Assessment/Plan Status: stable, progressing, unchanged Assessment/Plan: 73 year old male with multiple comorbidities admitted for failure to thrive, UTI and hypernatremia #Hypernatremia likely 2/2 hypovolemic 2/2 poor PO intake -trending down -Add free water PEG flush 150 cc q 6 hours. will need to adjust and dc prior to dc to SNF if needed -CTM NA -Nephrology consult appreciated #UTI #Acute metabolic encephalopathy 2/2 UTI -f/u cultures -Cont cefepime for ESBL UTI - 7-10 day treatment needed. WAIT for ID input. ? PICC line vs peripheral IV and dc plan. #Dysphagia -NPO , feeding per peg -appreciate speech and swallow consult -s/p peg placement #CARMELA jesi prerenal -nephrology consulted -CTM -avoid nephrotoxic medications Code: Full Dispo; SNF when stable ( [facility] resident ) time of note may not reflect time of encounter Subjective ROS Limited/Unobtainable: Yes Allergies: Coded Allergies: No Known Allergies (Unverified , 05/14/19) Objective Last 24 Hour Vital Signs Date Time Temp Pulse Resp B/P (MAP) Pulse Ox O2 Delivery O2 Flow Rate FiO2 05/20/19 12:00 98.7 84 22 116/70 (85) 96 05/20/19 09:00 Nasal Cannula 2.0 05/20/19 08:05 96 Nasal Cannula 2.0 28 05/20/19 08:04 76 20 96 Nasal Cannula 2.0 28 05/20/19 08:00 99.6 72 19 107/59 (75) 93 05/20/19 04:00 99.4 74 24 109/67 (81) 94 05/20/19 00:00 99.7 91 24 119/74 (89) 96 05/19/19 21:00 Nasal Cannula 2.0 05/19/19 20:00 99.7 91 24 119/74 (89) 96 05/19/19 19:49 97 Nasal Cannula 2.0 28 05/19/19 19:49 85 18 97 Nasal Cannula 2.0 28 05/19/19 16:00 97.8 97 17 118/69 (85) 98 97 Intake and Output 05/19/19 05/20/19 19:00 07:00 Intake Total 655 ml 170 ml Output Total 1000 ml 500 ml Balance -345 ml -330 ml IV Total 55 ml 110 ml Tube Feeding 540 ml 60 ml Blood Product 60 ml Output Urine Total 1000 ml 500 ml # Bowel Movements 1 1 Laboratory Tests 05/20/19 06:20: White Blood Count 11.9H, Red Blood Count 3.56L, Hemoglobin 10.4L, Hematocrit 31.1L, Mean Corpuscular Volume 87, Mean Corpuscular Hemoglobin 29.1, Mean Corpuscular Hemoglobin Concent 33.4, Red Cell Distribution Width 13.0, Platelet Count 76L, Mean Platelet Volume 9.1, Neutrophils (%) (Auto) , Lymphocytes (%) ( Auto) , Monocytes (%) (Auto) , Eosinophils (%) (Auto) , Basophils (%) (Auto) , Differential Total Cells Counted 100, Neutrophils % (Manual) 85H, Lymphocytes % (Manual) 11L, Monocytes % (Manual) 2, Eosinophils % (Manual) 2, Basophils % ( Manual) 0, Band Neutrophils 0, Platelet Estimate DecreasedL, Platelet Morphology Normal, Red Blood Cell Morphology Normal, Sodium Level 149H, Potassium Level 3.8, Chloride Level 116H, Carbon Dioxide Level 27, Anion Gap 6, Blood Urea Nitrogen 48H, Creatinine 1.2, Estimat Glomerular Filtration Rate , Glucose Level 165H, Calcium Level 8.6 Height (Feet): 6 Height (Inches): 1.00 Weight (Pounds): 196 General Appearance: alert, moderate distress EENT: PERRL/EOMI Neck: non-tender Cardiovascular: normal rate Respiratory/Chest: lungs clear Abdomen: non tender Edema: trace edema Neurologic: vp medical II-XII grossly normal Jasmin Vick MD May 20, 2019 13:03
[2019-05-20 16:00] VITALS: BP 117/72
[2019-05-20 20:00] VITALS: BP 110/65
--- NOTE | 2019-05-20 20:33 | Surgery Progress Note ---
Surgery Progress Note Subjective Additional Comments late entry. no acute events. exam stable. labs noted. micro as below Objective Last 24 Hour Vital Signs Date Time Temp Pulse Resp B/P (MAP) Pulse Ox O2 Delivery O2 Flow Rate FiO2 05/20/19 16:00 97.6 71 19 117/72 (87) 98 05/20/19 12:00 98.7 84 22 116/70 (85) 96 05/20/19 09:00 Nasal Cannula 2.0 05/20/19 08:05 96 Nasal Cannula 2.0 28 05/20/19 08:04 76 20 96 Nasal Cannula 2.0 28 05/20/19 08:00 99.6 72 19 107/59 (75) 93 05/20/19 04:00 99.4 74 24 109/67 (81) 94 05/20/19 00:00 99.7 91 24 119/74 (89) 96 05/19/19 21:00 Nasal Cannula 2.0 I&O Intake and Output 05/19/19 05/20/19 19:00 07:00 Intake Total 655 ml 170 ml Output Total 1000 ml 500 ml Balance -345 ml -330 ml IV Total 55 ml 110 ml Tube Feeding 540 ml 60 ml Blood Product 60 ml Output Urine Total 1000 ml 500 ml # Bowel Movements 1 1 Dressing: dry Wound: clean Cardiovascular: RSR Respiratory: clear Abdomen: soft, flat, non-tender, present bowel sounds Extremities: no edema, no tenderness, no cyanosis Laboratory Tests Test 05/20/19 06:20 White Blood Count 11.9 K/UL (4.8-10.8) H Red Blood Count 3.56 M/UL (4.70-6.10) L Hemoglobin 10.4 G/DL (14.2-18.0) L Hematocrit 31.1 % (42.0-52.0) L Mean Corpuscular Volume 87 FL (80-99) Mean Corpuscular Hemoglobin 29.1 PG (27.0-31.0) Mean Corpuscular Hemoglobin Concent 33.4 G/DL (32.0-36.0) Red Cell Distribution Width 13.0 % (11.6-14.8) Platelet Count 76 K/UL (150-450) L Mean Platelet Volume 9.1 FL (6.5-10.1) Neutrophils (%) (Auto) % (45.0-75.0) Lymphocytes (%) (Auto) % (20.0-45.0) Monocytes (%) (Auto) % (1.0-10.0) Eosinophils (%) (Auto) % (0.0-3.0) Basophils (%) (Auto) % (0.0-2.0) Differential Total Cells Counted 100 Neutrophils % (Manual) 85 % (45-75) H Lymphocytes % (Manual) 11 % (20-45) L Monocytes % (Manual) 2 % (1-10) Eosinophils % (Manual) 2 % (0-3) Basophils % (Manual) 0 % (0-2) Band Neutrophils 0 % (0-8) Platelet Estimate Decreased L Platelet Morphology Normal Red Blood Cell Morphology Normal Sodium Level 149 MMOL/L (136-145) H Potassium Level 3.8 MMOL/L (3.5-5.1) Chloride Level 116 MMOL/L (98-107) H Carbon Dioxide Level 27 MMOL/L (21-32) Anion Gap 6 mmol/L (5-15) Blood Urea Nitrogen 48 mg/dL (7-18) H Creatinine 1.2 MG/DL (0.55-1.30) Estimat Glomerular Filtration Rate mL/min (>60) Glucose Level 165 MG/DL (74-106) H Calcium Level 8.6 MG/DL (8.5-10.1) Plan Problems: (1) Decubitus skin ulcer Assessment & Plan: Pt presented on admission with pressure injuries,and with generalized scaly raised red rash. Burrowing noted to R and L axillae,abd ,back bilat groin and both lower ext. Webbing also noted between fingers and in palms of both hands. Unstageable pressure injury R heel. 100% soft necrosis with red margins (L)4cm x (W)6.1cm. Wound is malodorous. Periwound is fluctuant. Small dry eschar noted L st metatarsal. (L)0.8cm x (W)0.5cm.Clubbing noted to all metatarsals.L 1st Nail bed is necrotic. Ulcer noted to dorsal L 2nd metatarsal. Base of wound is pink,moist macerated borders noted. Small amt serous exudate noted. Periwound without elevation in skin temp,induration or fluctuance. Dry callus noted to plantar L foot L heel is boggy .An area of non-blanchable erythema noted to medial/posterior L heel. Non-blanchable erythema without induration noted scrotum, sacrum and both ischial regions. ( in and made aware of rash. Orders for application of Elimite noted.) Tx.Plan: Swab R heel with Betadine. Cover with ABD pad and wrap with Kerlix Daily and prn. Swab L st and L 2nd metatarsals with Betadine. Cover with gauze and wrap with kerlix daily and prn. Apply Cavilon Skin Barrier to L heel. Cover with Optifoam drsg. Change every 7 days and prn. Apply Moisture Barrier to Sacrum. Cover with Optifoam drsg. Change every 3days and prn. Apply Triad Paste to scrotum,and bilat ischial areas with each incontinence care. Reposition at least every 2hours or as tolerated. Off-load heels with pillow. (2) Hypernatremia (3) Dehydration (4) UTI (urinary tract infection) (5) FTT (failure to thrive) in adult Assessment & Plan: DAILY ESTIMATED NEEDS: Needs based on Wounds 79.5kg 30-35 kcals/kg 5883-5623 total kcals 1.25-1.5 g protein/kg 99-119 g total protein 25-30 mL/kg 0124-3164 total fluid mLs NUTRITION DIAGNOSIS: * Increased kcal and pro needs r/t wound healing and wasting as evidenced by pt w/ unstageable R heel wound, signs of significant wasting as well. * Altered nutrition related lab values r/t dehydration as evidenced by Elev Na on adm (166-> 164*), elev BUN (now 64), elev Creat (now 1.5). (CURRENT DIET: Cardiac puree w/ NTL) PO DIET RECOMMENDATIONS-->> Liberalized regular diet (texture per [employer]ING [employer]) ADDITIONAL RECOMMENDATIONS: 1) Please obtain an accurate calibrated bed scale wt 2) Add ENSURE ENLIVE TID w/ meals + snacks as tolerated 3) Texture per [employer] 4) Wound care: Add PAULY BID + MVI w/ min x1 daily + Vit C 250mg BID 5) rec Kcal count- pt adm w/ FTT 6) Non oral tf recs as needed / if part of POC Conor Worthington May 20, 2019 20:33
[2019-05-20] MEDS: OLANZapine 2.5mg tab ORAL SCH (21:43)
[2019-05-21] VITALS: BP 101/61
[2019-05-21] MEDS: Meropenem 1 GM in NS 55 ML IVPB SCH ×3 (02:04→17:21)
[2019-05-21 04:00] VITALS: BP 108/62
[2019-05-21 08:00] VITALS: BP 111/64
[2019-05-21 09:40] LABS: HEMATOCRIT 33.2 % (42.0-52.0); HEMOGLOBIN 10.9 G/DL (14.2-18.0); MEAN CORPUSCULAR VOLUME 89 FL (80-99); PLATELET COUNT 85 K/UL (150-450); RED BLOOD COUNT 3.74 M/UL (4.70-6.10); RED CELL DISTRIBUTION WIDTH 13.3 % (11.6-14.8); WHITE BLOOD COUNT 9.9 K/UL (4.8-10.8)
[2019-05-21 09:50] LABS: ANION GAP 6 mmol/L (5-15); BLOOD UREA NITROGEN 51 mg/dL (7-18); CALCIUM 8.8 MG/DL (8.5-10.1); CARBON DIOXIDE 28 MMOL/L (21-32); CHLORIDE 117 MMOL/L (98-107); CREATININE 1.1 MG/DL (0.55-1.30); SODIUM 151 MMOL/L (136-145)
[2019-05-21] MEDS: Ascorbic Acid 500mg tab ORAL SCH ×2 (09:55→17:20)
[2019-05-21] MEDS ORDERED: NS 275ml ONE (10:41)
--- NOTE | 2019-05-21 11:53 | GI Progress Note ---
Assessment/Plan Problems: (1) Encounter for PEG (percutaneous endoscopic gastrostomy) ICD Codes: Z43.1 - Encounter for attention to gastrostomy SNOMED: 844313162, 845363711 (2) Severe malnutrition ICD Codes: E43 - Unspecified severe protein-calorie malnutrition SNOMED: 93143613 (3) FTT (failure to thrive) in adult ICD Codes: R62.7 - Adult failure to thrive SNOMED: 447248651 (4) Dehydration ICD Codes: E86.0 - Dehydration SNOMED: 39747693 (5) Hypernatremia ICD Codes: E87.0 - Hyperosmolality and hypernatremia SNOMED: 741730749 Status: stable Status Narrative Discussed with Dr. Khanna. Assessment/Plan SUMMARY OF FINDINGS: 1. Diffuse gastritis. 2. Hiatal hernia. 3. Status post successful PEG placement. RECOMMENDATIONS: GTF tolerated fu labs recent labs and notes reviewed off of laxatives given loose stools GT care fu labs The patient was seen and examined at bedside and all new and available data was reviewed in the patients chart. I agree with the above findings, impression and plan. (Patient seen earlier today. Signature stamp does not reflect patient encounter time.). - Khari Khanna MD Subjective Subjective limited Objective Last 24 Hour Vital Signs Date Time Temp Pulse Resp B/P (MAP) Pulse Ox O2 Delivery O2 Flow Rate FiO2 05/21/19 09:00 Nasal Cannula 2.0 05/21/19 08:00 97.7 70 24 111/64 (80) 94 05/21/19 07:52 96 Nasal Cannula 2.0 28 05/21/19 04:00 99.3 76 24 108/62 (77) 100 05/21/19 00:00 99.0 72 24 101/61 (74) 94 05/20/19 21:00 Nasal Cannula 2.0 05/20/19 20:22 97 Nasal Cannula 2.0 28 05/20/19 20:00 98.6 67 24 110/65 (80) 94 05/20/19 16:00 97.6 71 19 117/72 (87) 98 05/20/19 12:00 98.7 84 22 116/70 (85) 96 Intake and Output 05/20/19 05/21/19 18:59 06:59 Intake Total 800 ml Output Total 1100 ml Balance 800 ml -1100 ml Free Water 150 ml IV Total 110 ml Tube Feeding 540 ml Output Urine Total 1100 ml # Bowel Movements 1 2 Laboratory Tests Test 05/21/19 09:15 White Blood Count 9.9 K/UL (4.8-10.8) Red Blood Count 3.74 M/UL (4.70-6.10) L Hemoglobin 10.9 G/DL (14.2-18.0) L Hematocrit 33.2 % (42.0-52.0) L Mean Corpuscular Volume 89 FL (80-99) Mean Corpuscular Hemoglobin 29.1 PG (27.0-31.0) Mean Corpuscular Hemoglobin Concent 32.8 G/DL (32.0-36.0) Red Cell Distribution Width 13.3 % (11.6-14.8) Platelet Count 85 K/UL (150-450) L Mean Platelet Volume 8.3 FL (6.5-10.1) Neutrophils (%) (Auto) % (45.0-75.0) Lymphocytes (%) (Auto) % (20.0-45.0) Monocytes (%) (Auto) % (1.0-10.0) Eosinophils (%) (Auto) % (0.0-3.0) Basophils (%) (Auto) % (0.0-2.0) Differential Total Cells Counted 100 Neutrophils % (Manual) 77 % (45-75) H Lymphocytes % (Manual) 10 % (20-45) L Monocytes % (Manual) 3 % (1-10) Eosinophils % (Manual) 10 % (0-3) H Basophils % (Manual) 0 % (0-2) Band Neutrophils 0 % (0-8) Platelet Estimate Decreased L Platelet Morphology Normal Red Blood Cell Morphology Normal Sodium Level 151 MMOL/L (136-145) H Potassium Level 4.0 MMOL/L (3.5-5.1) Chloride Level 117 MMOL/L (98-107) H Carbon Dioxide Level 28 MMOL/L (21-32) Anion Gap 6 mmol/L (5-15) Blood Urea Nitrogen 51 mg/dL (7-18) H Creatinine 1.1 MG/DL (0.55-1.30) Estimat Glomerular Filtration Rate mL/min (>60) Glucose Level 155 MG/DL (74-106) H Calcium Level 8.8 MG/DL (8.5-10.1) Height (Feet): 6 Height (Inches): 1.00 Weight (Pounds): 196 General Appearance: WD/WN, no apparent distress, alert Cardiovascular: normal rate Respiratory/Chest: normal breath sounds, no respiratory distress Abdominal Exam: normal bowel sounds, non tender, soft, GT site Extremities: non-tender Mike White NP May 21, 2019 11:53
[2019-05-21 12:00] VITALS: BP 118/64
--- NOTE | 2019-05-21 12:57 | Diagnostic Imaging Report ---
Indication: Dyspnea Comparison: 05/18/2019 A single view chest radiograph was obtained. Findings: Patchy left basal infiltrate demonstrated. Part of this may be atelectasis also which should be considered. Hemidiaphragm is slightly elevated. Bones are osteopenic. Heart size is normal. Aorta is ectatic. IMPRESSION: Left basal atelectasis and/or pneumonia. Correlate clinically
--- NOTE | 2019-05-21 14:27 | General Progress Note ---
Assessment/Plan Status: stable Assessment/Plan: 73 year old male with multiple comorbidities admitted for failure to thrive, UTI and hypernatremia #Hypernatremia likely 2/2 hypovolemic 2/2 poor PO intake -trending down -increase fwf from 150->200 cc q6h - will need to adjust and dc prior to dc to SNF if needed -CTM NA -Nephrology consult appreciated #UTI #Acute metabolic encephalopathy 2/2 UTI -f/u cultures -Cont cefepime for ESBL UTI - 7-10 day treatment needed. WAIT for ID input. ? PICC line vs peripheral IV and dc plan. #Dysphagia -NPO , feeding per peg -appreciate speech and swallow consult -s/p peg placement #CARMELA samanthaley prerenal - resolved -nephrology consulted -CTM -avoid nephrotoxic medications Code: Full Dispo; SNF when stable ( [facility] resident ) time of note may not reflect time of encounter Subjective Date patient seen: May 21, 2019 ROS Limited/Unobtainable: Yes Allergies: Coded Allergies: No Known Allergies (Unverified , 05/14/19) Subjective na 149->151 thrombocytopenia worsening cxr pna? increased fwf to 200 cc q6h unablet o obtain subjective from patient Objective Last 24 Hour Vital Signs Date Time Temp Pulse Resp B/P (MAP) Pulse Ox O2 Delivery O2 Flow Rate FiO2 05/21/19 12:00 97.9 69 24 118/64 (82) 97 05/21/19 09:00 Nasal Cannula 2.0 05/21/19 08:00 97.7 70 24 111/64 (80) 94 05/21/19 07:52 96 Nasal Cannula 2.0 28 05/21/19 04:00 99.3 76 24 108/62 (77) 100 05/21/19 00:00 99.0 72 24 101/61 (74) 94 05/20/19 21:00 Nasal Cannula 2.0 05/20/19 20:22 97 Nasal Cannula 2.0 28 05/20/19 20:00 98.6 67 24 110/65 (80) 94 05/20/19 16:00 97.6 71 19 117/72 (87) 98 Intake and Output 05/20/19 05/21/19 18:59 06:59 Intake Total 800 ml Output Total 1100 ml Balance 800 ml -1100 ml Free Water 150 ml IV Total 110 ml Tube Feeding 540 ml Output Urine Total 1100 ml # Bowel Movements 1 2 Laboratory Tests 05/21/19 09:15: White Blood Count 9.9, Red Blood Count 3.74L, Hemoglobin 10.9L, Hematocrit 33.2L , Mean Corpuscular Volume 89, Mean Corpuscular Hemoglobin 29.1, Mean Corpuscular Hemoglobin Concent 32.8, Red Cell Distribution Width 13.3, Platelet Count 85L, Mean Platelet Volume 8.3, Neutrophils (%) (Auto) , Lymphocytes (%) ( Auto) , Monocytes (%) (Auto) , Eosinophils (%) (Auto) , Basophils (%) (Auto) , Differential Total Cells Counted 100, Neutrophils % (Manual) 77H, Lymphocytes % (Manual) 10L, Monocytes % (Manual) 3, Eosinophils % (Manual) 10H, Basophils % ( Manual) 0, Band Neutrophils 0, Platelet Estimate DecreasedL, Platelet Morphology Normal, Red Blood Cell Morphology Normal, Sodium Level 151H, Potassium Level 4.0, Chloride Level 117H, Carbon Dioxide Level 28, Anion Gap 6, Blood Urea Nitrogen 51H, Creatinine 1.1, Estimat Glomerular Filtration Rate , Glucose Level 155H, Calcium Level 8.8 Height (Feet): 6 Height (Inches): 1.00 Weight (Pounds): 196 General Appearance: WD/WN, other - mumbles incomprehensible sounds EENT: PERRL/EOMI Neck: non-tender, normal alignment, supple Cardiovascular: normal peripheral pulses, normal rate, regular rhythm, regularly irregular Respiratory/Chest: chest wall non-tender, lungs clear, normal breath sounds, no respiratory distress Abdomen: normal bowel sounds, non tender, soft, no organomegaly, other - peg in place Extremities: non-tender, normal inspection Neurologic: other - not verbally responsive, normal muscle tone, no tremors Lisa Velasco DO May 21, 2019 14:27
--- NOTE | 2019-05-21 14:45 | Infectious Diseases Prog Note ---
Assessment/Plan Assessment/Plan ASSESSMENT AND PLAN: 1. esbl e.coli complicated uti, mild leukocytosis, ftt, lethargy - meropenem - day # 5, plan on 10 day tx course based on urinalysis wbc/ bacterial burden and esbl pathogen - monitor labs - leukocytosis resolved 2. ? pna vs atx - f/u chest x-ray, check sputum culture, on meropenem 3. right heel wound, multiple wounds - management per surgery and protocol 4. Anemia. 5. Elevated creatinine. 6. Hypernatremia. 7. Weakness. 8. Schizophrenia. 9. Depression. 10. Skin care protocol. 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 12. No history of diabetes or hypertension. 13. Dementia. 14. Bladder disease. 15. Avery. 16. Difficulty walking and weakness. 17. No known drug allergies. 18. Social history is negative. 19. Family history is noncontributory. 20. MAR was noted. 21. Case was discussed with RN. 22. Continue treatment per primary consultants. Subjective Constitutional: Reports: fatigue; Denies: fever HEENT: Denies: congestion Respiratory: Denies: shortness of breath Cardiovascular: Denies: chest pain Gastrointestinal/Abdominal: Denies: nausea, vomiting, diarrhea Genitourinary: Reports: other - + avery Neurologic: Denies: headache Psychiatric: Denies: depression Skin: Denies: rash Hematologic: Denies: bleeding Musculoskeletal: Denies: pain Allergies: Coded Allergies: No Known Allergies (Unverified , 05/14/19) Objective Vital Signs Last 24 Hour Vital Signs Date Time Temp Pulse Resp B/P (MAP) Pulse Ox O2 Delivery O2 Flow Rate FiO2 05/21/19 12:00 97.9 69 24 118/64 (82) 97 05/21/19 09:00 Nasal Cannula 2.0 05/21/19 08:00 97.7 70 24 111/64 (80) 94 05/21/19 07:52 96 Nasal Cannula 2.0 28 05/21/19 04:00 99.3 76 24 108/62 (77) 100 05/21/19 00:00 99.0 72 24 101/61 (74) 94 05/20/19 21:00 Nasal Cannula 2.0 05/20/19 20:22 97 Nasal Cannula 2.0 28 05/20/19 20:00 98.6 67 24 110/65 (80) 94 8/4/19 16:00 97.6 71 19 117/72 (87) 98 Height (Feet): 6 Height (Inches): 1.00 Weight (Pounds): 196 General Appearance: no acute distress HEENT: normocephalic, atraumatic, anicteric, mucous membranes moist Respiratory/Chest: lungs clear, normal breath sounds, no respiratory distress, no accessory muscle use Cardiovascular: normal rate, regular rhythm, no gallop/murmur, no JVD Abdomen: normal bowel sounds, soft, non tender, no organomegaly, non distended Genitourinary: other - + avery - urine clear Extremities: no cyanosis Skin: no rash Neurologic/Psychiatric: fleet director II-XII grossly normal, alert, responsive Lymphatic: no neck adenopathy Musculoskeletal: no effusion Objective 05/18/19 - chest x-ray: Procedure: XRAY Chest 1v Indication: Shortness of breath Technique: One view of the chest Comparison: 05/16/2019 Findings: Less optimal inspiration currently. There is suggestion of increased interstitial prominence in the right mid and lower lung. There is some atelectasis at the left lung base. No focal airspace consolidation. Pleural spaces are clear. Heart size is normal. Aorta is tortuous. Impression: Hypoventilatory exam Increased interstitial markings in the right mid and lower lung, may be an artifact of crowding of the bronchovascular markings due to the lower lung volumes, but developing interstitial infiltrates also possible. Left basilar atelectatic changes Microbiology Date/Time Source Procedure Growth Status 05/19/19 16:40 Sputum Induced Gram Stain - Final Complete 05/19/19 16:40 Sputum Induced Sputum Culture - Final NORMAL UPPER RESPIRATORY EZRA PRESENT Complete 05/14/19 22:45 Urine,Clean Catch Urine Culture - Final Escherichia Coli - Esbl Complete 05/14/19 23:45 Rectum - Final NO CARBAPENEM-RESISTANT ENTEROBACTERI... Complete Microbiology Date/Time Source Procedure Growth Status 05/19/19 16:40 Sputum Induced Gram Stain - Final Complete 05/19/19 16:40 Sputum Induced Sputum Culture - Final NORMAL UPPER RESPIRATORY EZRA PRESENT Complete Laboratory Tests Test 05/21/19 09:15 White Blood Count 9.9 K/UL (4.8-10.8) Red Blood Count 3.74 M/UL (4.70-6.10) L Hemoglobin 10.9 G/DL (14.2-18.0) L Hematocrit 33.2 % (42.0-52.0) L Mean Corpuscular Volume 89 FL (80-99) Mean Corpuscular Hemoglobin 29.1 PG (27.0-31.0) Mean Corpuscular Hemoglobin Concent 32.8 G/DL (32.0-36.0) Red Cell Distribution Width 13.3 % (11.6-14.8) Platelet Count 85 K/UL (150-450) L Mean Platelet Volume 8.3 FL (6.5-10.1) Neutrophils (%) (Auto) % (45.0-75.0) Lymphocytes (%) (Auto) % (20.0-45.0) Monocytes (%) (Auto) % (1.0-10.0) Eosinophils (%) (Auto) % (0.0-3.0) Basophils (%) (Auto) % (0.0-2.0) Differential Total Cells Counted 100 Neutrophils % (Manual) 77 % (45-75) H Lymphocytes % (Manual) 10 % (20-45) L Monocytes % (Manual) 3 % (1-10) Eosinophils % (Manual) 10 % (0-3) H Basophils % (Manual) 0 % (0-2) Band Neutrophils 0 % (0-8) Platelet Estimate Decreased L Platelet Morphology Normal Red Blood Cell Morphology Normal Sodium Level 151 MMOL/L (136-145) H Potassium Level 4.0 MMOL/L (3.5-5.1) Chloride Level 117 MMOL/L (98-107) H Carbon Dioxide Level 28 MMOL/L (21-32) Anion Gap 6 mmol/L (5-15) Blood Urea Nitrogen 51 mg/dL (7-18) H Creatinine 1.1 MG/DL (0.55-1.30) Estimat Glomerular Filtration Rate mL/min (>60) Glucose Level 155 MG/DL (74-106) H Calcium Level 8.8 MG/DL (8.5-10.1) Current Medications Medications (Trade) Dose Ordered Sig/Vicky Route PRN Reason Start Time Stop Time Status Last Admin Dose Admin Acetaminophen (Tylenol) 650 mg Q4H PRN ORAL Mild Pain (Pain Scale 1-3) 05/15/19 01:15 06/14/19 01:14 Ascorbic Acid (Vitamin C) 250 mg TWICE A DAY ORAL 05/15/19 18:00 06/14/19 17:59 05/21/19 09:55 Dextrose (Dextrose 50%) 25 ml Q30M PRN IV Hypoglycemia 05/15/19 01:15 06/14/19 01:14 Dextrose (Dextrose 50%) 50 ml Q30M PRN IV Hypoglycemia 05/15/19 01:15 06/14/19 01:14 Diphenhydramine HCl (Benadryl) 25 mg Q6H PRN ORAL Itching/Pruritis 05/15/19 01:15 06/14/19 01:14 Famotidine (Pepcid) 20 mg DAILY ORAL 05/15/19 09:00 06/14/19 08:59 05/21/19 09:55 Hydromorphone HCl (Dilaudid) 0.5 mg Q4H PRN IVP For Pain 05/15/19 01:15 05/22/19 01:14 05/15/19 02:41 Meropenem 1 gm/ Sodium Chloride 55 ml @ 110 mls/hr Q8H IVPB 05/17/19 10:00 05/22/19 09:59 05/21/19 09:56 Mirtazapine (Remeron) 7.5 mg BEDTIME ORAL 05/16/19 21:00 06/15/19 20:59 05/20/19 21:43 Multivitamins (Multivitamins) 1 tab DAILY ORAL 05/16/19 09:00 06/15/19 08:59 05/21/19 09:55 Olanzapine (ZyPREXA) 2.5 mg BEDTIME ORAL 05/17/19 21:00 06/16/19 20:59 05/20/19 21:43 Ondansetron HCl (Zofran) 4 mg Q6H PRN IVP Nausea & Vomiting 05/15/19 01:15 06/14/19 01:14 Jatinder Tai MD May 21, 2019 14:45
--- NOTE | 2019-05-21 15:22 | Surgery Progress Note ---
Surgery Progress Note Subjective Additional Comments No acute events. Tolerating tube feeds. Exam unchanged. Labs stable. Objective Last 24 Hour Vital Signs Date Time Temp Pulse Resp B/P (MAP) Pulse Ox O2 Delivery O2 Flow Rate FiO2 05/21/19 12:00 97.9 69 24 118/64 (82) 97 05/21/19 09:00 Nasal Cannula 2.0 05/21/19 08:00 97.7 70 24 111/64 (80) 94 05/21/19 07:52 96 Nasal Cannula 2.0 28 05/21/19 04:00 99.3 76 24 108/62 (77) 100 05/21/19 00:00 99.0 72 24 101/61 (74) 94 05/20/19 21:00 Nasal Cannula 2.0 05/20/19 20:22 97 Nasal Cannula 2.0 28 05/20/19 20:00 98.6 67 24 110/65 (80) 94 05/20/19 16:00 97.6 71 19 117/72 (87) 98 I&O Intake and Output 05/20/19 05/21/19 18:59 06:59 Intake Total 800 ml Output Total 1100 ml Balance 800 ml -1100 ml Free Water 150 ml IV Total 110 ml Tube Feeding 540 ml Output Urine Total 1100 ml # Bowel Movements 1 2 Dressing: dry Wound: clean Cardiovascular: RSR Respiratory: clear Abdomen: soft, non-tender, present bowel sounds, other, non-distended Extremities: no cyanosis Laboratory Tests Test 05/21/19 09:15 White Blood Count 9.9 K/UL (4.8-10.8) Red Blood Count 3.74 M/UL (4.70-6.10) L Hemoglobin 10.9 G/DL (14.2-18.0) L Hematocrit 33.2 % (42.0-52.0) L Mean Corpuscular Volume 89 FL (80-99) Mean Corpuscular Hemoglobin 29.1 PG (27.0-31.0) Mean Corpuscular Hemoglobin Concent 32.8 G/DL (32.0-36.0) Red Cell Distribution Width 13.3 % (11.6-14.8) Platelet Count 85 K/UL (150-450) L Mean Platelet Volume 8.3 FL (6.5-10.1) Neutrophils (%) (Auto) % (45.0-75.0) Lymphocytes (%) (Auto) % (20.0-45.0) Monocytes (%) (Auto) % (1.0-10.0) Eosinophils (%) (Auto) % (0.0-3.0) Basophils (%) (Auto) % (0.0-2.0) Differential Total Cells Counted 100 Neutrophils % (Manual) 77 % (45-75) H Lymphocytes % (Manual) 10 % (20-45) L Monocytes % (Manual) 3 % (1-10) Eosinophils % (Manual) 10 % (0-3) H Basophils % (Manual) 0 % (0-2) Band Neutrophils 0 % (0-8) Platelet Estimate Decreased L Platelet Morphology Normal Red Blood Cell Morphology Normal Sodium Level 151 MMOL/L (136-145) H Potassium Level 4.0 MMOL/L (3.5-5.1) Chloride Level 117 MMOL/L (98-107) H Carbon Dioxide Level 28 MMOL/L (21-32) Anion Gap 6 mmol/L (5-15) Blood Urea Nitrogen 51 mg/dL (7-18) H Creatinine 1.1 MG/DL (0.55-1.30) Estimat Glomerular Filtration Rate mL/min (>60) Glucose Level 155 MG/DL (74-106) H Calcium Level 8.8 MG/DL (8.5-10.1) Plan Problems: (1) Decubitus skin ulcer Assessment & Plan: Pt presented on admission with pressure injuries,and with generalized scaly raised red rash. Burrowing noted to R and L axillae,abd ,back bilat groin and both lower ext. Webbing also noted between fingers and in palms of both hands. Unstageable pressure injury R heel. 100% soft necrosis with red margins (L)4cm x (W)6.1cm. Wound is malodorous. Periwound is fluctuant. Small dry eschar noted L st metatarsal. (L)0.8cm x (W)0.5cm.Clubbing noted to all metatarsals.L 1st Nail bed is necrotic. Ulcer noted to dorsal L 2nd metatarsal. Base of wound is pink,moist macerated borders noted. Small amt serous exudate noted. Periwound without elevation in skin temp,induration or fluctuance. Dry callus noted to plantar L foot L heel is boggy .An area of non-blanchable erythema noted to medial/posterior L heel. Non-blanchable erythema without induration noted scrotum, sacrum and both ischial regions. ( in and made aware of rash. Orders for application of Elimite noted.) Tx.Plan: Swab R heel with Betadine. Cover with ABD pad and wrap with Kerlix Daily and prn. Swab L st and L 2nd metatarsals with Betadine. Cover with gauze and wrap with kerlix daily and prn. Apply Cavilon Skin Barrier to L heel. Cover with Optifoam drsg. Change every 7 days and prn. Apply Moisture Barrier to Sacrum. Cover with Optifoam drsg. Change every 3days and prn. Apply Triad Paste to scrotum,and bilat ischial areas with each incontinence care. Reposition at least every 2hours or as tolerated. Off-load heels with pillow. (2) Hypernatremia (3) Dehydration (4) UTI (urinary tract infection) (5) FTT (failure to thrive) in adult Assessment & Plan: DAILY ESTIMATED NEEDS: Needs based on Wounds 79.5kg 30-35 kcals/kg 8884-6114 total kcals 1.25-1.5 g protein/kg 99-119 g total protein 25-30 mL/kg 5050-3706 total fluid mLs NUTRITION DIAGNOSIS: * Increased kcal and pro needs r/t wound healing and wasting as evidenced by pt w/ unstageable R heel wound, signs of significant wasting as well. * Altered nutrition related lab values r/t dehydration as evidenced by Elev Na on adm (166-> 164*), elev BUN (now 64), elev Creat (now 1.5). (CURRENT DIET: Cardiac puree w/ NTL) PO DIET RECOMMENDATIONS-->> Liberalized regular diet (texture per NURSING ADMINISTRATOR) ADDITIONAL RECOMMENDATIONS: 1) Please obtain an accurate calibrated bed scale wt 2) Add ENSURE ENLIVE TID w/ meals + snacks as tolerated 3) Texture per NURSING ADMINISTRATOR 4) Wound care: Add PAULY BID + MVI w/ min x1 daily + Vit C 250mg BID 5) rec Kcal count- pt adm w/ FTT 6) Non oral tf recs as needed / if part of POC Conor Worthington May 21, 2019 15:21
[2019-05-21 16:00] VITALS: BP 113/64
--- NOTE | 2019-05-21 16:00 | Hematology/Onc Progress Note ---
Assessment/Plan Assessment/Plan Assessment and Recs: # Anemia of chronic disease due to underlying chronic medical issues, multifactorial --> Anemia workup has been reviewed --> No evidence of hemolysis is noted, peripheral smear has been reviewed. --> Hgb goal >7. Transfuse prn. --> Epogen or iron at this time is not particularly indicated --> Medications reviewed --> s/p peg with ongoing feedings, which are tolerated well --> hgb trend 12.1-->10.4-->10.1 # Thrombocytopenia - potential causes multifactorial, evaluate liver and viral etiologies to begin, also could be related to underlying medications patient has received v infection --> Hep panel and HIV negative --> US abd to evaluate for cirrhosis and hsm reviewed and is neg for cirrhosis/ hsm --> Peripheral smear shows no blasts/schistocytes --> abx and other meds have been reviewed --> ok for ppx if plt >50k w/ either heparin or lovenox --> Trend 187-->105-->127-->89-->76 --> heparin has been discontinued --> as per gi eval, occult neg # Failure to thrive (FTT) - decreased bmi and low protein --> cea 4.5 --> will also obtain q3d caloric counts --> have started mirtazapine as appetite stimulant --> GI consult on a prn basis, peg tube feedings tolerated well # Severe malnutrition --> s/p peg with good tfs --> mirtazapine has been started # Hypernatremia --> per renal fluids # Decub per surgery The timing of this note does not necessarily reflect the time of the patient was seen. Greatly appreciate consultation! Subjective Constitutional: Denies: no symptoms, chills, fever, malaise, weakness, other HEENT: Denies: no symptoms, eye pain, blurred vision, tearing, double vision, ear pain, ear discharge, nose pain, nose congestion, throat pain, throat swelling, mouth pain, mouth swelling, other Cardiovascular: Denies: no symptoms, chest pain, edema, irregular heart rate, lightheadedness, palpitations, syncope, other Respiratory: Denies: no symptoms, cough, shortness of breath, SOB with excertion, SOB at rest, sputum, wheezing, other Gastrointestinal/Abdominal: Denies: no symptoms, abdomen distended, abdominal pain, black stools, tarry stools, blood in stool, constipated, diarrhea, difficulty swallowing, nausea, poor appetite, poor fluid intake, rectal bleeding , vomiting, other Genitourinary: Denies: no symptoms, burning, discharge, frequency, flank pain, hematuria, incontinence, pain, urgency, other Neurologic/Psychiatric: Denies: no symptoms, anxiety, depressed, emotional problems, headache, numbness, paresthesia, pre-existing deficit, seizure, tingling, tremors, weakness, other Endocrine: Denies: no symptoms, excessive sweating, flushing, intolerance to cold, intolerance to heat, increased hunger, increased thirst, increased urine, unexplained weight gain, unexplained weight loss, other Allergies: Coded Allergies: No Known Allergies (Unverified , 05/14/19) Subjective 05/17: needs peg placement, plts are better this am 05/18: s/p peg, showing diffuse gastritis, slightly lower plt 05/20: peg tube feedings tolerated well, no f/c, no night sweats (low grade 99.6f) 05/21: tfs tolerating well, exam unchanged, no f/c Objective Objective Current Medications Medications (Trade) Dose Ordered Sig/Vicky Route PRN Reason Start Time Stop Time Status Last Admin Dose Admin Acetaminophen (Tylenol) 650 mg Q4H PRN ORAL Mild Pain (Pain Scale 1-3) 05/15/19 01:15 06/14/19 01:14 Ascorbic Acid (Vitamin C) 250 mg TWICE A DAY ORAL 05/15/19 18:00 06/14/19 17:59 05/21/19 09:55 Dextrose (Dextrose 50%) 25 ml Q30M PRN IV Hypoglycemia 05/15/19 01:15 06/14/19 01:14 Dextrose (Dextrose 50%) 50 ml Q30M PRN IV Hypoglycemia 05/15/19 01:15 06/14/19 01:14 Diphenhydramine HCl (Benadryl) 25 mg Q6H PRN ORAL Itching/Pruritis 05/15/19 01:15 06/14/19 01:14 Famotidine (Pepcid) 20 mg DAILY ORAL 05/15/19 09:00 06/14/19 08:59 05/21/19 09:55 Hydromorphone HCl (Dilaudid) 0.5 mg Q4H PRN IVP For Pain 05/15/19 01:15 05/22/19 01:14 05/15/19 02:41 Meropenem 1 gm/ Sodium Chloride 55 ml @ 110 mls/hr Q8H IVPB 05/21/19 18:00 05/26/19 17:59 Mirtazapine (Remeron) 7.5 mg BEDTIME ORAL 05/16/19 21:00 06/15/19 20:59 05/20/19 21:43 Multivitamins (Multivitamins) 1 tab DAILY ORAL 05/16/19 09:00 06/15/19 08:59 05/21/19 09:55 Olanzapine (ZyPREXA) 2.5 mg BEDTIME ORAL 05/17/19 21:00 06/16/19 20:59 05/20/19 21:43 Ondansetron HCl (Zofran) 4 mg Q6H PRN IVP Nausea & Vomiting 05/15/19 01:15 06/14/19 01:14 Last 24 Hour Vital Signs Date Time Temp Pulse Resp B/P (MAP) Pulse Ox O2 Delivery O2 Flow Rate FiO2 05/21/19 12:00 97.9 69 24 118/64 (82) 97 05/21/19 09:00 Nasal Cannula 2.0 05/21/19 08:00 97.7 70 24 111/64 (80) 94 05/21/19 07:52 96 Nasal Cannula 2.0 28 05/21/19 04:00 99.3 76 24 108/62 (77) 100 05/21/19 00:00 99.0 72 24 101/61 (74) 94 05/20/19 21:00 Nasal Cannula 2.0 05/20/19 20:22 97 Nasal Cannula 2.0 28 05/20/19 20:00 98.6 67 24 110/65 (80) 94 05/20/19 16:00 97.6 71 19 117/72 (87) 98 05/20/19 12:00 98.7 84 22 116/70 (85) 96 05/20/19 09:00 Nasal Cannula 2.0 05/20/19 08:05 96 Nasal Cannula 2.0 28 05/20/19 08:04 76 20 96 Nasal Cannula 2.0 28 05/20/19 08:00 99.6 72 19 107/59 (75) 93 05/20/19 04:00 99.4 74 24 109/67 (81) 94 05/20/19 00:00 99.7 91 24 119/74 (89) 96 05/19/19 21:00 Nasal Cannula 2.0 05/19/19 20:00 99.7 91 24 119/74 (89) 96 05/19/19 19:49 97 Nasal Cannula 2.0 28 05/19/19 19:49 85 18 97 Nasal Cannula 2.0 28 05/19/19 16:00 97.8 97 17 118/69 (85) 98 97 Intake and Output 05/20/19 05/21/19 19:00 07:00 Intake Total 740 ml Output Total 1100 ml Balance 740 ml -1100 ml Free Water 150 ml IV Total 110 ml Tube Feeding 480 ml Output Urine Total 1100 ml # Bowel Movements 1 2 Labs Test 05/19/19 06:25 05/19/19 07:12 05/20/19 06:20 05/21/19 09:15 White Blood Count 11.2 K/UL (4.8-10.8) 11.9 K/UL (4.8-10.8) 9.9 K/UL (4.8-10.8) Red Blood Count 3.85 M/UL (4.70-6.10) 3.56 M/UL (4.70-6.10) 3.74 M/UL (4.70-6.10) Hemoglobin 11.3 G/DL (14.2-18.0) 10.4 G/DL (14.2-18.0) 10.9 G/DL (14.2-18.0) Hematocrit 34.1 % (42.0-52.0) 31.1 % (42.0-52.0) 33.2 % (42.0-52.0) Mean Corpuscular Volume 89 FL (80-99) 87 FL (80-99) 89 FL (80-99) Mean Corpuscular Hemoglobin 29.4 PG (27.0-31.0) 29.1 PG (27.0-31.0) 29.1 PG (27.0-31.0) Mean Corpuscular Hemoglobin Concent 33.2 G/DL (32.0-36.0) 33.4 G/DL (32.0-36.0) 32.8 G/DL (32.0-36.0) Red Cell Distribution Width 12.9 % (11.6-14.8) 13.0 % (11.6-14.8) 13.3 % (11.6-14.8) Platelet Count 73 K/UL (150-450) 76 K/UL (150-450) 85 K/UL (150-450) Mean Platelet Volume 9.0 FL (6.5-10.1) 9.1 FL (6.5-10.1) 8.3 FL (6.5-10.1) Neutrophils (%) (Auto) % (45.0-75.0) % (45.0-75.0) % (45.0-75.0) Lymphocytes (%) (Auto) % (20.0-45.0) % (20.0-45.0) % (20.0-45.0) Monocytes (%) (Auto) % (1.0-10.0) % (1.0-10.0) % (1.0-10.0) Eosinophils (%) (Auto) % (0.0-3.0) % (0.0-3.0) % (0.0-3.0) Basophils (%) (Auto) % (0.0-2.0) % (0.0-2.0) % (0.0-2.0) Differential Total Cells Counted 100 100 100 Neutrophils % (Manual) 82 % (45-75) 85 % (45-75) 77 % (45-75) Lymphocytes % (Manual) 11 % (20-45) 11 % (20-45) 10 % (20-45) Monocytes % (Manual) 5 % (1-10) 2 % (1-10) 3 % (1-10) Eosinophils % (Manual) 2 % (0-3) 2 % (0-3) 10 % (0-3) Basophils % (Manual) 0 % (0-2) 0 % (0-2) 0 % (0-2) Band Neutrophils 0 % (0-8) 0 % (0-8) 0 % (0-8) Platelet Estimate Decreased Decreased Decreased Platelet Morphology Normal Normal Normal Hypochromasia 1+ Anisocytosis 1+ Sodium Level 145 MMOL/L (136-145) 149 MMOL/L (136-145) 151 MMOL/L (136-145) Potassium Level 3.5 MMOL/L (3.5-5.1) 3.8 MMOL/L (3.5-5.1) 4.0 MMOL/L (3.5-5.1) Chloride Level 113 MMOL/L (98-107) 116 MMOL/L (98-107) 117 MMOL/L (98-107) Carbon Dioxide Level 29 MMOL/L (21-32) 27 MMOL/L (21-32) 28 MMOL/L (21-32) Anion Gap 3 mmol/L (5-15) 6 mmol/L (5-15) 6 mmol/L (5-15) Blood Urea Nitrogen 39 mg/dL (7-18) 48 mg/dL (7-18) 51 mg/dL (7-18) Creatinine 1.2 MG/DL (0.55-1.30) 1.2 MG/DL (0.55-1.30) 1.1 MG/DL (0.55-1.30) Estimat Glomerular Filtration Rate mL/min (>60) mL/min (>60) mL/min (>60) Glucose Level 171 MG/DL (74-106) 165 MG/DL (74-106) 155 MG/DL (74-106) Calcium Level 8.8 MG/DL (8.5-10.1) 8.6 MG/DL (8.5-10.1) 8.8 MG/DL (8.5-10.1) Stool Occult Blood Negative (NEGATIVE) Red Blood Cell Morphology Normal Normal Height (Feet): 6 Height (Inches): 1.00 Weight (Pounds): 196 Objective Gen: WD/WN, no apparent distress, alert CV: RRR, no mgr Chest: normal breath sounds, no respiratory distress Abdominal: normal bowel sounds, nt, soft Extremities: normal range of motion, non-tender Timmy Thomson MD May 21, 2019 16:00
[2019-05-21 20:00] VITALS: BP 129/64
[2019-05-21] MEDS: OLANZapine 2.5mg tab ORAL SCH (21:54)
[2019-05-22] VITALS: BP 117/60
[2019-05-22] MEDS: Meropenem 1 GM in NS 55 ML IVPB SCH ×3 (01:57→17:49)
[2019-05-22 04:00] VITALS: BP 126/65
[2019-05-22 08:00] VITALS: BP 124/74
[2019-05-22] MEDS: Ascorbic Acid 500mg tab ORAL SCH ×2 (08:46→17:49)
[2019-05-22 09:41] LABS: BASOPHILS % (AUTO) 0.8 % (0.0-2.0); EOSINOPHILS % (AUTO) 7.7 % (0.0-3.0); HEMOGLOBIN 10.2 G/DL (14.2-18.0); LYMPHOCYTES % (AUTO) 10.7 % (20.0-45.0); MEAN CORPUSCULAR VOLUME 88 FL (80-99); MONOCYTES % (AUTO) 3.7 % (1.0-10.0); NEUTROPHILS % (AUTO) 77.1 % (45.0-75.0); PLATELET COUNT 102 K/UL (150-450); RED BLOOD COUNT 3.53 M/UL (4.70-6.10); RED CELL DISTRIBUTION WIDTH 13.6 % (11.6-14.8); WHITE BLOOD COUNT 7.7 K/UL (4.8-10.8)
--- NOTE | 2019-05-22 09:49 | Nephrology Progress Note ---
Assessment/Plan Plan #hypernatremia- due to free water depression in the setting of marked volume depletion - [id number] x1 - monitor sodium closely - strict I&Os - daily weights - FWF q6h increase to 250 cc #acute kidney injury due to pre-renal azotemia - improved #UTI continue with abx #dysphagia, failure to thrive - s/p PEG - continue with tubefeeds - continue with FWF as above Subjective Neurologic/Psychiatric: Denies: no symptoms, anxiety, depressed, emotional problems, headache, numbness, paresthesia, pre-existing deficit, seizure, tingling, tremors, weakness, other Subjective sodium 151 FWF q6h increased to 250 cc Objective Objective Last 24 Hour Vital Signs Date Time Temp Pulse Resp B/P (MAP) Pulse Ox O2 Delivery O2 Flow Rate FiO2 05/22/19 09:00 Nasal Cannula 2.0 05/22/19 08:00 99.1 78 22 124/74 (91) 98 05/22/19 04:00 97.9 63 15 126/65 (85) 94 05/22/19 00:00 97.4 64 15 117/60 (79) 96 05/21/19 21:00 Nasal Cannula 2.0 05/21/19 20:18 96 Nasal Cannula 2.0 28 05/21/19 20:00 97.8 66 16 129/64 (85) 98 05/21/19 16:00 97.5 66 24 113/64 (80) 96 05/21/19 12:00 97.9 69 24 118/64 (82) 97 Intake and Output 05/21/19 05/22/19 19:00 07:00 Intake Total 1120 ml Output Total 1850 ml 600 ml Balance -730 ml -600 ml Free Water 350 ml IV Total 110 ml Tube Feeding 660 ml Output Urine Total 1850 ml 600 ml # Voids 2 1 # Bowel Movements 3 1 Laboratory Tests 05/22/19 09:26: White Blood Count 7.7, Red Blood Count 3.53L, Hemoglobin 10.2L, Hematocrit 31.0L , Mean Corpuscular Volume 88, Mean Corpuscular Hemoglobin 29.0, Mean Corpuscular Hemoglobin Concent 33.0, Red Cell Distribution Width 13.6, Platelet Count 102L, Mean Platelet Volume 7.4, Neutrophils (%) (Auto) 77.1H, Lymphocytes (%) (Auto) 10.7L, Monocytes (%) (Auto) 3.7, Eosinophils (%) (Auto) 7.7H, Basophils (%) (Auto) 0.8, Sodium Level [Pending], Potassium Level [Pending], Chloride Level [Pending], Carbon Dioxide Level [Pending], Blood Urea Nitrogen [ Pending], Creatinine [Pending], Estimat Glomerular Filtration Rate [Pending], Glucose Level [Pending], Calcium Level [Pending] Height (Feet): 6 Height (Inches): 1.00 Weight (Pounds): 196 General Appearance: WD/WN, no apparent distress EENT: PERRL/EOMI Neck: non-tender Cardiovascular: normal peripheral pulses, normal rate, regular rhythm Abdomen: non tender, soft, other - + PEG Extremities: normal range of motion, non-pitting Neurologic: alert, oriented x 3, normal mood/affect Yinka Samuel M.D. May 22, 2019 09:49
[2019-05-22 09:58] LABS: ANION GAP 6 mmol/L (5-15); BLOOD UREA NITROGEN 47 mg/dL (7-18); CALCIUM 8.8 MG/DL (8.5-10.1); CARBON DIOXIDE 28 MMOL/L (21-32); CHLORIDE 117 MMOL/L (98-107); CREATININE 1.1 MG/DL (0.55-1.30); POTASSIUM 3.9 MMOL/L (3.5-5.1); SODIUM 151 MMOL/L (136-145)
--- NOTE | 2019-05-22 10:19 | Surgery Progress Note ---
Surgery Progress Note Subjective Additional Comments no acute events exam stable labs stable tolerating diet Objective Last 24 Hour Vital Signs Date Time Temp Pulse Resp B/P (MAP) Pulse Ox O2 Delivery O2 Flow Rate FiO2 05/22/19 09:00 Nasal Cannula 2.0 05/22/19 08:00 99.1 78 22 124/74 (91) 98 05/22/19 04:00 97.9 63 15 126/65 (85) 94 05/22/19 00:00 97.4 64 15 117/60 (79) 96 05/21/19 21:00 Nasal Cannula 2.0 05/21/19 20:18 96 Nasal Cannula 2.0 28 05/21/19 20:00 97.8 66 16 129/64 (85) 98 05/21/19 16:00 97.5 66 24 113/64 (80) 96 05/21/19 12:00 97.9 69 24 118/64 (82) 97 I&O Intake and Output 05/21/19 05/22/19 19:00 07:00 Intake Total 1120 ml 60 ml Output Total 1850 ml 600 ml Balance -730 ml -540 ml Free Water 350 ml IV Total 110 ml Tube Feeding 660 ml 60 ml Output Urine Total 1850 ml 600 ml # Voids 2 1 # Bowel Movements 3 1 Dressing: dry Wound: clean Cardiovascular: RSR Respiratory: clear Abdomen: soft, flat, non-tender, present bowel sounds, other Extremities: no tenderness, no cyanosis, other Laboratory Tests Test 05/22/19 09:26 White Blood Count 7.7 K/UL (4.8-10.8) Red Blood Count 3.53 M/UL (4.70-6.10) L Hemoglobin 10.2 G/DL (14.2-18.0) L Hematocrit 31.0 % (42.0-52.0) L Mean Corpuscular Volume 88 FL (80-99) Mean Corpuscular Hemoglobin 29.0 PG (27.0-31.0) Mean Corpuscular Hemoglobin Concent 33.0 G/DL (32.0-36.0) Red Cell Distribution Width 13.6 % (11.6-14.8) Platelet Count 102 K/UL (150-450) L Mean Platelet Volume 7.4 FL (6.5-10.1) Neutrophils (%) (Auto) 77.1 % (45.0-75.0) H Lymphocytes (%) (Auto) 10.7 % (20.0-45.0) L Monocytes (%) (Auto) 3.7 % (1.0-10.0) Eosinophils (%) (Auto) 7.7 % (0.0-3.0) H Basophils (%) (Auto) 0.8 % (0.0-2.0) Sodium Level 151 MMOL/L (136-145) H Potassium Level 3.9 MMOL/L (3.5-5.1) Chloride Level 117 MMOL/L (98-107) H Carbon Dioxide Level 28 MMOL/L (21-32) Anion Gap 6 mmol/L (5-15) Blood Urea Nitrogen 47 mg/dL (7-18) H Creatinine 1.1 MG/DL (0.55-1.30) Estimat Glomerular Filtration Rate mL/min (>60) Glucose Level 155 MG/DL (74-106) H Calcium Level 8.8 MG/DL (8.5-10.1) Plan Problems: (1) Decubitus skin ulcer Assessment & Plan: Pt presented on admission with pressure injuries,and with generalized scaly raised red rash. Burrowing noted to R and L axillae,abd ,back bilat groin and both lower ext. Webbing also noted between fingers and in palms of both hands. Unstageable pressure injury R heel. 100% soft necrosis with red margins (L)4cm x (W)6.1cm. Wound is malodorous. Periwound is fluctuant. Small dry eschar noted L st metatarsal. (L)0.8cm x (W)0.5cm.Clubbing noted to all metatarsals.L 1st Nail bed is necrotic. Ulcer noted to dorsal L 2nd metatarsal. Base of wound is pink,moist macerated borders noted. Small amt serous exudate noted. Periwound without elevation in skin temp,induration or fluctuance. Dry callus noted to plantar L foot L heel is boggy .An area of non-blanchable erythema noted to medial/posterior L heel. Non-blanchable erythema without induration noted scrotum, sacrum and both ischial regions. ( in and made aware of rash. Orders for application of Elimite noted.) Tx.Plan: Swab R heel with Betadine. Cover with ABD pad and wrap with Kerlix Daily and prn. Swab L st and L 2nd metatarsals with Betadine. Cover with gauze and wrap with kerlix daily and prn. Apply Cavilon Skin Barrier to L heel. Cover with Optifoam drsg. Change every 7 days and prn. Apply Moisture Barrier to Sacrum. Cover with Optifoam drsg. Change every 3days and prn. Apply Triad Paste to scrotum,and bilat ischial areas with each incontinence care. Reposition at least every 2hours or as tolerated. Off-load heels with pillow. (2) Hypernatremia (3) Dehydration (4) UTI (urinary tract infection) (5) FTT (failure to thrive) in adult Assessment & Plan: DAILY ESTIMATED NEEDS: Needs based on Wounds 79.5kg 30-35 kcals/kg 4201-9762 total kcals 1.25-1.5 g protein/kg 99-119 g total protein 25-30 mL/kg 4086-9896 total fluid mLs NUTRITION DIAGNOSIS: * Increased kcal and pro needs r/t wound healing and wasting as evidenced by pt w/ unstageable R heel wound, signs of significant wasting as well. * Altered nutrition related lab values r/t dehydration as evidenced by Elev Na on adm (166-> 164*), elev BUN (now 64), elev Creat (now 1.5). (CURRENT DIET: Cardiac puree w/ NTL) PO DIET RECOMMENDATIONS-->> Liberalized regular diet (texture per [employer] EDUCATION PAR[employer] PROFESSIONAL) ADDITIONAL RECOMMENDATIONS: 1) Please obtain an accurate calibrated bed scale wt 2) Add ENSURE ENLIVE TID w/ meals + snacks as tolerated 3) Texture per [employer]UC[employer] PAR[employer] PROFESSIONAL 4) Wound care: Add PAULY BID + MVI w/ min x1 daily + Vit C 250mg BID 5) rec Kcal count- pt adm w/ FTT 6) Non oral tf recs as needed / if part of POC (6) Severe malnutrition Conor Worthington May 22, 2019 10:19
--- NOTE | 2019-05-22 11:20 | GI Progress Note ---
Assessment/Plan Problems: (1) Encounter for PEG (percutaneous endoscopic gastrostomy) ICD Codes: Z43.1 - Encounter for attention to gastrostomy SNOMED: 339307857, 005725846 (2) Severe malnutrition ICD Codes: E43 - Unspecified severe protein-calorie malnutrition SNOMED: 20729037 (3) FTT (failure to thrive) in adult ICD Codes: R62.7 - Adult failure to thrive SNOMED: 425701553 (4) Dehydration ICD Codes: E86.0 - Dehydration SNOMED: 19270678 (5) Hypernatremia ICD Codes: E87.0 - Hyperosmolality and hypernatremia SNOMED: 038186836 Status: stable Status Narrative Discussed with Dr. Khanna. Assessment/Plan SUMMARY OF FINDINGS: 1. Diffuse gastritis. 2. Hiatal hernia. 3. Status post successful PEG placement. RECOMMENDATIONS: GTF tolerated fu labs recent labs and notes reviewed off of laxatives given loose stools GT care fu labs The patient was seen and examined at bedside and all new and available data was reviewed in the patients chart. I agree with the above findings, impression and plan. (Patient seen earlier today. Signature stamp does not reflect patient encounter time.). - Khari Khanna MD Subjective Subjective limited Objective Last 24 Hour Vital Signs Date Time Temp Pulse Resp B/P (MAP) Pulse Ox O2 Delivery O2 Flow Rate FiO2 05/22/19 09:00 Nasal Cannula 2.0 05/22/19 08:00 99.1 78 22 124/74 (91) 98 05/22/19 04:00 97.9 63 15 126/65 (85) 94 05/22/19 00:00 97.4 64 15 117/60 (79) 96 05/21/19 21:00 Nasal Cannula 2.0 05/21/19 20:18 96 Nasal Cannula 2.0 28 05/21/19 20:00 97.8 66 16 129/64 (85) 98 05/21/19 16:00 97.5 66 24 113/64 (80) 96 05/21/19 12:00 97.9 69 24 118/64 (82) 97 Intake and Output 05/21/19 05/22/19 18:59 06:59 Intake Total 1180 ml Output Total 1850 ml 600 ml Balance -670 ml -600 ml Free Water 350 ml IV Total 110 ml Tube Feeding 720 ml Output Urine Total 1850 ml 600 ml # Voids 2 1 # Bowel Movements 3 1 Laboratory Tests Test 05/22/19 09:26 White Blood Count 7.7 K/UL (4.8-10.8) Red Blood Count 3.53 M/UL (4.70-6.10) L Hemoglobin 10.2 G/DL (14.2-18.0) L Hematocrit 31.0 % (42.0-52.0) L Mean Corpuscular Volume 88 FL (80-99) Mean Corpuscular Hemoglobin 29.0 PG (27.0-31.0) Mean Corpuscular Hemoglobin Concent 33.0 G/DL (32.0-36.0) Red Cell Distribution Width 13.6 % (11.6-14.8) Platelet Count 102 K/UL (150-450) L Mean Platelet Volume 7.4 FL (6.5-10.1) Neutrophils (%) (Auto) 77.1 % (45.0-75.0) H Lymphocytes (%) (Auto) 10.7 % (20.0-45.0) L Monocytes (%) (Auto) 3.7 % (1.0-10.0) Eosinophils (%) (Auto) 7.7 % (0.0-3.0) H Basophils (%) (Auto) 0.8 % (0.0-2.0) Sodium Level 151 MMOL/L (136-145) H Potassium Level 3.9 MMOL/L (3.5-5.1) Chloride Level 117 MMOL/L (98-107) H Carbon Dioxide Level 28 MMOL/L (21-32) Anion Gap 6 mmol/L (5-15) Blood Urea Nitrogen 47 mg/dL (7-18) H Creatinine 1.1 MG/DL (0.55-1.30) Estimat Glomerular Filtration Rate mL/min (>60) Glucose Level 155 MG/DL (74-106) H Calcium Level 8.8 MG/DL (8.5-10.1) Height (Feet): 6 Height (Inches): 1.00 Weight (Pounds): 196 General Appearance: alert Cardiovascular: normal rate Respiratory/Chest: normal breath sounds Abdominal Exam: soft Mike White DRUM ATTENDANT May 22, 2019 11:20
[2019-05-22 12:00] VITALS: BP 134/77
--- NOTE | 2019-05-22 15:13 | General Progress Note ---
Assessment/Plan Status: stable Assessment/Plan: 73 year old male with multiple comorbidities admitted for failure to thrive, UTI and hypernatremia #Hypernatremia likely 2/2 hypovolemic 2/2 poor PO intake -trending down -increase fwf from 150->200 cc q6h increase to 250 cc - will need to adjust and dc prior to dc to SNF if needed -CTM NA -Nephrology consult appreciated #UTI #Acute metabolic encephalopathy 2/2 UTI -f/u cultures: reviewed -Cont cefepime for ESBL UTI - 7-10 day treatment needed.; day 8 #Dysphagia -NPO , feeding per peg -appreciate speech and swallow consult -s/p peg placement #CARMELA samanthaley prerenal - resolved -nephrology consulted -CTM -avoid nephrotoxic medications Code: Full Dispo; SNF when stable ( [facility] resident ) time of note may not reflect time of encounter Subjective Date patient seen: May 22, 2019 Time patient seen: 14:45 ROS Limited/Unobtainable: Yes Allergies: Coded Allergies: No Known Allergies (Unverified , 05/14/19) Subjective na 149->151 thrombocytopenia worsening increased fwf to 200 cc q6h a x o x 1, can answer questions, NAD, SHERRY Objective Last 24 Hour Vital Signs Date Time Temp Pulse Resp B/P (MAP) Pulse Ox O2 Delivery O2 Flow Rate FiO2 05/22/19 14:38 97 Nasal Cannula 2.0 28 05/22/19 12:00 98.2 71 22 134/77 (96) 97 05/22/19 09:00 Nasal Cannula 2.0 05/22/19 08:00 99.1 78 22 124/74 (91) 98 05/22/19 04:00 97.9 63 15 126/65 (85) 94 05/22/19 00:00 97.4 64 15 117/60 (79) 96 05/21/19 21:00 Nasal Cannula 2.0 05/21/19 20:18 96 Nasal Cannula 2.0 28 05/21/19 20:00 97.8 66 16 129/64 (85) 98 05/21/19 16:00 97.5 66 24 113/64 (80) 96 Intake and Output 05/21/19 05/22/19 18:59 06:59 Intake Total 1180 ml Output Total 1850 ml 600 ml Balance -670 ml -600 ml Free Water 350 ml IV Total 110 ml Tube Feeding 720 ml Output Urine Total 1850 ml 600 ml # Voids 2 1 # Bowel Movements 3 1 Laboratory Tests 05/22/19 09:26: White Blood Count 7.7, Red Blood Count 3.53L, Hemoglobin 10.2L, Hematocrit 31.0L , Mean Corpuscular Volume 88, Mean Corpuscular Hemoglobin 29.0, Mean Corpuscular Hemoglobin Concent 33.0, Red Cell Distribution Width 13.6, Platelet Count 102L, Mean Platelet Volume 7.4, Neutrophils (%) (Auto) 77.1H, Lymphocytes (%) (Auto) 10.7L, Monocytes (%) (Auto) 3.7, Eosinophils (%) (Auto) 7.7H, Basophils (%) (Auto) 0.8, Sodium Level 151H, Potassium Level 3.9, Chloride Level 117H, Carbon Dioxide Level 28, Anion Gap 6, Blood Urea Nitrogen 47H, Creatinine 1.1, Estimat Glomerular Filtration Rate , Glucose Level 155H, Calcium Level 8.8 Height (Feet): 6 Height (Inches): 1.00 Weight (Pounds): 196 General Appearance: no apparent distress, alert, confused, cachetic EENT: normal ENT inspection Neck: non-tender, normal alignment, supple Cardiovascular: normal peripheral pulses, normal rate, regular rhythm, no JVD Respiratory/Chest: chest wall non-tender, lungs clear, normal breath sounds, no respiratory distress Abdomen: non tender, soft, no organomegaly, no mass, other - peg Extremities: normal range of motion, non-tender, normal inspection Neurologic: responsive, disoriented Lisa Velasco DO May 22, 2019 15:13
[2019-05-22 16:00] VITALS: BP 121/71
--- NOTE | 2019-05-22 16:29 | Hematology/Onc Progress Note ---
Assessment/Plan Assessment/Plan Assessment/Recs: # Anemia of chronic disease due to underlying chronic medical issues, multifactorial --> Anemia workup has been reviewed --> No evidence of hemolysis is noted, peripheral smear has been reviewed. --> Hgb goal >7. Transfuse prn. --> Epogen or iron at this time is not particularly indicated --> Medications reviewed --> s/p peg with ongoing feedings, which are tolerated well --> hgb trend 12.1-->10.4-->10.1-->10.2 # Thrombocytopenia - potential causes multifactorial, evaluate liver and viral etiologies to begin, also could be related to underlying medications patient has received v infection --> Hep panel and HIV negative --> US abd to evaluate for cirrhosis and hsm reviewed and is neg for cirrhosis/ hsm --> Peripheral smear shows no blasts/schistocytes --> abx and other meds have been reviewed --> ok for ppx if plt >50k w/ either heparin or lovenox --> Trend 187-->105-->127-->89-->76-->102k --> heparin has been discontinued --> as per gi eval, occult neg # Failure to thrive (FTT) - decreased bmi and low protein --> cea 4.5 --> will also obtain q3d caloric counts --> have started mirtazapine as appetite stimulant --> GI consult on a prn basis, peg tube feedings tolerated well # Severe malnutrition --> s/p peg with good tfs --> mirtazapine has been started # Hypernatremia --> per renal fluids # Decub per surgery The timing of this note does not necessarily reflect the time of the patient was seen. Greatly appreciate consultation! Subjective HEENT: Denies: no symptoms, eye pain, blurred vision, tearing, double vision, ear pain, ear discharge, nose pain, nose congestion, throat pain, throat swelling, mouth pain, mouth swelling, other Cardiovascular: Denies: no symptoms, chest pain, edema, irregular heart rate, lightheadedness, palpitations, syncope, other Respiratory: Denies: no symptoms, cough, shortness of breath, SOB with excertion, SOB at rest, sputum, wheezing, other Gastrointestinal/Abdominal: Denies: no symptoms, abdomen distended, abdominal pain, black stools, tarry stools, blood in stool, constipated, diarrhea, difficulty swallowing, nausea, poor appetite, poor fluid intake, rectal bleeding , vomiting, other Genitourinary: Denies: no symptoms, burning, discharge, frequency, flank pain, hematuria, incontinence, pain, urgency, other Neurologic/Psychiatric: Denies: no symptoms, anxiety, depressed, emotional problems, headache, numbness, paresthesia, pre-existing deficit, seizure, tingling, tremors, weakness, other Endocrine: Denies: no symptoms, excessive sweating, flushing, intolerance to cold, intolerance to heat, increased hunger, increased thirst, increased urine, unexplained weight gain, unexplained weight loss, other Allergies: Coded Allergies: No Known Allergies (Unverified , 05/14/19) Subjective 05/17: needs peg placement, plts are better this am 05/18: s/p peg, showing diffuse gastritis, slightly lower plt 05/20: peg tube feedings tolerated well, no f/c, no night sweats (low grade 99.6f) 05/21: tfs tolerating well, exam unchanged, no f/c 05/22: on tube feeds, no fevers or chills, no night sweats Objective Objective Current Medications Medications (Trade) Dose Ordered Sig/Vicky Route PRN Reason Start Time Stop Time Status Last Admin Dose Admin Acetaminophen (Tylenol) 650 mg Q4H PRN ORAL Mild Pain (Pain Scale 1-3) 05/15/19 01:15 06/14/19 01:14 05/22/19 14:41 Ascorbic Acid (Vitamin C) 250 mg TWICE A DAY ORAL 05/15/19 18:00 06/14/19 17:59 05/22/19 08:46 Dextrose (Dextrose 50%) 25 ml Q30M PRN IV Hypoglycemia 05/15/19 01:15 06/14/19 01:14 Dextrose (Dextrose 50%) 50 ml Q30M PRN IV Hypoglycemia 05/15/19 01:15 06/14/19 01:14 Diphenhydramine HCl (Benadryl) 25 mg Q6H PRN ORAL Itching/Pruritis 05/15/19 01:15 06/14/19 01:14 Famotidine (Pepcid) 20 mg DAILY ORAL 05/15/19 09:00 06/14/19 08:59 05/22/19 08:46 Meropenem 1 gm/ Sodium Chloride 55 ml @ 110 mls/hr Q8H IVPB 05/21/19 18:00 05/26/19 17:59 05/22/19 10:33 Mirtazapine (Remeron) 7.5 mg BEDTIME ORAL 05/16/19 21:00 06/15/19 20:59 05/21/19 21:54 Multivitamins (Multivitamins) 1 tab DAILY ORAL 05/16/19 09:00 06/15/19 08:59 05/22/19 08:46 Olanzapine (ZyPREXA) 2.5 mg BEDTIME ORAL 05/17/19 21:00 06/16/19 20:59 05/21/19 21:54 Ondansetron HCl (Zofran) 4 mg Q6H PRN IVP Nausea & Vomiting 05/15/19 01:15 06/14/19 01:14 Last 24 Hour Vital Signs Date Time Temp Pulse Resp B/P (MAP) Pulse Ox O2 Delivery O2 Flow Rate FiO2 05/22/19 14:38 97 Nasal Cannula 2.0 28 05/22/19 12:00 98.2 71 22 134/77 (96) 97 05/22/19 09:00 Nasal Cannula 2.0 05/22/19 08:00 99.1 78 22 124/74 (91) 98 05/22/19 04:00 97.9 63 15 126/65 (85) 94 05/22/19 00:00 97.4 64 15 117/60 (79) 96 05/21/19 21:00 Nasal Cannula 2.0 05/21/19 20:18 96 Nasal Cannula 2.0 28 05/21/19 20:00 97.8 66 16 129/64 (85) 98 05/21/19 16:00 97.5 66 24 113/64 (80) 96 05/21/19 12:00 97.9 69 24 118/64 (82) 97 05/21/19 09:00 Nasal Cannula 2.0 05/21/19 08:00 97.7 70 24 111/64 (80) 94 05/21/19 07:52 96 Nasal Cannula 2.0 28 05/21/19 04:00 99.3 76 24 108/62 (77) 100 05/21/19 00:00 99.0 72 24 101/61 (74) 94 05/20/19 21:00 Nasal Cannula 2.0 05/20/19 20:22 97 Nasal Cannula 2.0 28 05/20/19 20:00 98.6 67 24 110/65 (80) 94 Intake and Output 05/21/19 05/22/19 18:59 06:59 Intake Total 1180 ml Output Total 1850 ml 600 ml Balance -670 ml -600 ml Free Water 350 ml IV Total 110 ml Tube Feeding 720 ml Output Urine Total 1850 ml 600 ml # Voids 2 1 # Bowel Movements 3 1 Labs Test 05/20/19 06:20 05/21/19 09:15 05/22/19 09:26 White Blood Count 11.9 K/UL (4.8-10.8) 9.9 K/UL (4.8-10.8) 7.7 K/UL (4.8-10.8) Red Blood Count 3.56 M/UL (4.70-6.10) 3.74 M/UL (4.70-6.10) 3.53 M/UL (4.70-6.10) Hemoglobin 10.4 G/DL (14.2-18.0) 10.9 G/DL (14.2-18.0) 10.2 G/DL (14.2-18.0) Hematocrit 31.1 % (42.0-52.0) 33.2 % (42.0-52.0) 31.0 % (42.0-52.0) Mean Corpuscular Volume 87 FL (80-99) 89 FL (80-99) 88 FL (80-99) Mean Corpuscular Hemoglobin 29.1 PG (27.0-31.0) 29.1 PG (27.0-31.0) 29.0 PG (27.0-31.0) Mean Corpuscular Hemoglobin Concent 33.4 G/DL (32.0-36.0) 32.8 G/DL (32.0-36.0) 33.0 G/DL (32.0-36.0) Red Cell Distribution Width 13.0 % (11.6-14.8) 13.3 % (11.6-14.8) 13.6 % (11.6-14.8) Platelet Count 76 K/UL (150-450) 85 K/UL (150-450) 102 K/UL (150-450) Mean Platelet Volume 9.1 FL (6.5-10.1) 8.3 FL (6.5-10.1) 7.4 FL (6.5-10.1) Neutrophils (%) (Auto) % (45.0-75.0) % (45.0-75.0) 77.1 % (45.0-75.0) Lymphocytes (%) (Auto) % (20.0-45.0) % (20.0-45.0) 10.7 % (20.0-45.0) Monocytes (%) (Auto) % (1.0-10.0) % (1.0-10.0) 3.7 % (1.0-10.0) Eosinophils (%) (Auto) % (0.0-3.0) % (0.0-3.0) 7.7 % (0.0-3.0) Basophils (%) (Auto) % (0.0-2.0) % (0.0-2.0) 0.8 % (0.0-2.0) Differential Total Cells Counted 100 100 Neutrophils % (Manual) 85 % (45-75) 77 % (45-75) Lymphocytes % (Manual) 11 % (20-45) 10 % (20-45) Monocytes % (Manual) 2 % (1-10) 3 % (1-10) Eosinophils % (Manual) 2 % (0-3) 10 % (0-3) Basophils % (Manual) 0 % (0-2) 0 % (0-2) Band Neutrophils 0 % (0-8) 0 % (0-8) Platelet Estimate Decreased Decreased Platelet Morphology Normal Normal Red Blood Cell Morphology Normal Normal Sodium Level 149 MMOL/L (136-145) 151 MMOL/L (136-145) 151 MMOL/L (136-145) Potassium Level 3.8 MMOL/L (3.5-5.1) 4.0 MMOL/L (3.5-5.1) 3.9 MMOL/L (3.5-5.1) Chloride Level 116 MMOL/L (98-107) 117 MMOL/L (98-107) 117 MMOL/L (98-107) Carbon Dioxide Level 27 MMOL/L (21-32) 28 MMOL/L (21-32) 28 MMOL/L (21-32) Anion Gap 6 mmol/L (5-15) 6 mmol/L (5-15) 6 mmol/L (5-15) Blood Urea Nitrogen 48 mg/dL (7-18) 51 mg/dL (7-18) 47 mg/dL (7-18) Creatinine 1.2 MG/DL (0.55-1.30) 1.1 MG/DL (0.55-1.30) 1.1 MG/DL (0.55-1.30) Estimat Glomerular Filtration Rate mL/min (>60) mL/min (>60) mL/min (>60) Glucose Level 165 MG/DL (74-106) 155 MG/DL (74-106) 155 MG/DL (74-106) Calcium Level 8.6 MG/DL (8.5-10.1) 8.8 MG/DL (8.5-10.1) 8.8 MG/DL (8.5-10.1) Height (Feet): 6 Height (Inches): 1.00 Weight (Pounds): 196 Objective Gen: WD/WN, no apparent distress, alert CV: RRR, no mgr Chest: normal breath sounds, no respiratory distress Abdominal: normal bowel sounds, nt, soft Extremities: normal range of motion, non-tender Timmy Thomson MD May 22, 2019 16:29
[2019-05-22 20:00] VITALS: BP 121/61
[2019-05-22] MEDS: OLANZapine 2.5mg tab ORAL SCH (20:42)
--- NOTE | 2019-05-22 22:15 | Progress Note ---
DATE: 05/22/2019 SUBJECTIVE: The patient is asleep, arousable, confused, disoriented, head of the bed was raised, aspiration precaution. MENTAL STATUS EXAMINATION: The patient is alert, confused, disoriented. Mood is neutral. Affect is flat. Thought process, there is a paucity of thought content. Thought content, no suicidal or homicidal ideation. ASSESSMENT: 1. Dementia with behavior disturbance. 2. Encephalopathy. PLAN: 1. We will continue Remeron. 2. Continue the Zyprexa. 3. We will continue to follow and readjust the medications. Marcella Roberts M.D. DR: Odell JOB#: [id number] CC: [email or web address]
[2019-05-23 00:41] VITALS: BP 118/60
[2019-05-23] MEDS: Meropenem 1 GM in NS 55 ML IVPB SCH ×3 (01:21→17:59)
[2019-05-23 04:32] VITALS: BP 116/62
[2019-05-23 06:39] LABS: BASOPHILS % (AUTO) 0.5 % (0.0-2.0); EOSINOPHILS % (AUTO) 8.2 % (0.0-3.0); HEMATOCRIT 31.4 % (42.0-52.0); HEMOGLOBIN 10.2 G/DL (14.2-18.0); LYMPHOCYTES % (AUTO) 12.2 % (20.0-45.0); MEAN CORPUSCULAR VOLUME 89 FL (80-99); MONOCYTES % (AUTO) 5.4 % (1.0-10.0); NEUTROPHILS % (AUTO) 73.7 % (45.0-75.0); PLATELET COUNT 101 K/UL (150-450); RED BLOOD COUNT 3.51 M/UL (4.70-6.10); RED CELL DISTRIBUTION WIDTH 13.1 % (11.6-14.8); WHITE BLOOD COUNT 7.4 K/UL (4.8-10.8)
[2019-05-23 07:13] LABS: ANION GAP 6 mmol/L (5-15); BLOOD UREA NITROGEN 45 mg/dL (7-18); CALCIUM 8.5 MG/DL (8.5-10.1); CARBON DIOXIDE 29 MMOL/L (21-32); CHLORIDE 116 MMOL/L (98-107); CREATININE 1.1 MG/DL (0.55-1.30); POTASSIUM 3.9 MMOL/L (3.5-5.1); SODIUM 151 MMOL/L (136-145)
[2019-05-23 08:00] VITALS: BP 111/62
[2019-05-23] MEDS: Ascorbic Acid 500mg tab ORAL SCH ×2 (09:43→17:58)
--- NOTE | 2019-05-23 10:56 | GI Progress Note ---
Assessment/Plan Problems: (1) Encounter for PEG (percutaneous endoscopic gastrostomy) ICD Codes: Z43.1 - Encounter for attention to gastrostomy SNOMED: 491202205, 777815198 (2) Severe malnutrition ICD Codes: E43 - Unspecified severe protein-calorie malnutrition SNOMED: 15988741 (3) FTT (failure to thrive) in adult ICD Codes: R62.7 - Adult failure to thrive SNOMED: 845300454 (4) Dehydration ICD Codes: E86.0 - Dehydration SNOMED: 36145303 (5) Hypernatremia ICD Codes: E87.0 - Hyperosmolality and hypernatremia SNOMED: 798047831 Status: stable, unchanged Status Narrative Discussed with Dr. Khanna. Assessment/Plan SUMMARY OF FINDINGS: 1. Diffuse gastritis. 2. Hiatal hernia. 3. Status post successful PEG placement. RECOMMENDATIONS: GTF tolerated fu labs recent labs and notes reviewed off of laxatives given loose stools GT care fu labs The patient was seen and examined at bedside and all new and available data was reviewed in the patients chart. I agree with the above findings, impression and plan. (Patient seen earlier today. Signature stamp does not reflect patient encounter time.). - Khari Khanna MD Subjective Subjective limited Objective Last 24 Hour Vital Signs Date Time Temp Pulse Resp B/P (MAP) Pulse Ox O2 Delivery O2 Flow Rate FiO2 05/23/19 08:00 97 Nasal Cannula 2.0 28 05/23/19 04:32 98.8 61 20 116/62 (80) 99 05/23/19 00:41 98.6 60 20 118/60 (79) 98 05/22/19 21:13 Nasal Cannula 2.0 05/22/19 20:00 98.3 60 21 121/61 (81) 100 05/22/19 19:54 97 Nasal Cannula 2.0 28 05/22/19 16:00 97.1 73 22 121/71 (88) 97 05/22/19 14:38 97 Nasal Cannula 2.0 28 05/22/19 12:00 98.2 71 22 134/77 (96) 97 Intake and Output 05/22/19 05/23/19 19:00 07:00 Intake Total 880 ml 910 ml Output Total 950 ml Balance 880 ml -40 ml Free Water 230 ml 250 ml IV Total 110 ml Tube Feeding 540 ml 660 ml Output Urine Total 950 ml # Voids 2 # Bowel Movements 1 Laboratory Tests Test 05/23/19 05:10 White Blood Count 7.4 K/UL (4.8-10.8) Red Blood Count 3.51 M/UL (4.70-6.10) L Hemoglobin 10.2 G/DL (14.2-18.0) L Hematocrit 31.4 % (42.0-52.0) L Mean Corpuscular Volume 89 FL (80-99) Mean Corpuscular Hemoglobin 29.1 PG (27.0-31.0) Mean Corpuscular Hemoglobin Concent 32.5 G/DL (32.0-36.0) Red Cell Distribution Width 13.1 % (11.6-14.8) Platelet Count 101 K/UL (150-450) L Mean Platelet Volume 8.3 FL (6.5-10.1) Neutrophils (%) (Auto) 73.7 % (45.0-75.0) Lymphocytes (%) (Auto) 12.2 % (20.0-45.0) L Monocytes (%) (Auto) 5.4 % (1.0-10.0) Eosinophils (%) (Auto) 8.2 % (0.0-3.0) H Basophils (%) (Auto) 0.5 % (0.0-2.0) Sodium Level 151 MMOL/L (136-145) H Potassium Level 3.9 MMOL/L (3.5-5.1) Chloride Level 116 MMOL/L (98-107) H Carbon Dioxide Level 29 MMOL/L (21-32) Anion Gap 6 mmol/L (5-15) Blood Urea Nitrogen 45 mg/dL (7-18) H Creatinine 1.1 MG/DL (0.55-1.30) Estimat Glomerular Filtration Rate mL/min (>60) Glucose Level 139 MG/DL (74-106) H Calcium Level 8.5 MG/DL (8.5-10.1) Height (Feet): 6 Height (Inches): 1.00 Weight (Pounds): 198 General Appearance: no apparent distress, alert Cardiovascular: normal rate Respiratory/Chest: normal breath sounds, no respiratory distress Abdominal Exam: normal bowel sounds, non tender, soft, GT site Extremities: non-tender Mike White FASHION SHOW DIRECTOR May 23, 2019 10:56
--- NOTE | 2019-05-23 11:42 | Nephrology Progress Note ---
Assessment/Plan Plan #hypernatremia- due to free water depression in the setting of marked volume depletion - FWF q6h increased to 250 cc - monitor sodium closely - strict I&Os - daily weights - FWF q6h increase to 250 cc #acute kidney injury due to pre-renal azotemia - improved #UTI continue with abx #dysphagia, failure to thrive - s/p PEG - continue with tubefeeds - continue with FWF as above Subjective Subjective sodium 151 FWF q6h increased to 250 cc will give d5w x1L over 5 hours today Objective Objective Last 24 Hour Vital Signs Date Time Temp Pulse Resp B/P (MAP) Pulse Ox O2 Delivery O2 Flow Rate FiO2 05/23/19 09:00 Nasal Cannula 2.0 05/23/19 08:00 97 Nasal Cannula 2.0 28 05/23/19 04:32 98.8 61 20 116/62 (80) 99 05/23/19 00:41 98.6 60 20 118/60 (79) 98 05/22/19 21:13 Nasal Cannula 2.0 05/22/19 20:00 98.3 60 21 121/61 (81) 100 05/22/19 19:54 97 Nasal Cannula 2.0 28 05/22/19 16:00 97.1 73 22 121/71 (88) 97 05/22/19 14:38 97 Nasal Cannula 2.0 28 05/22/19 12:00 98.2 71 22 134/77 (96) 97 Intake and Output 05/22/19 05/23/19 19:00 07:00 Intake Total 880 ml 910 ml Output Total 950 ml Balance 880 ml -40 ml Free Water 230 ml 250 ml IV Total 110 ml Tube Feeding 540 ml 660 ml Output Urine Total 950 ml # Voids 2 # Bowel Movements 1 Laboratory Tests 05/23/19 05:10: White Blood Count 7.4, Red Blood Count 3.51L, Hemoglobin 10.2L, Hematocrit 31.4L , Mean Corpuscular Volume 89, Mean Corpuscular Hemoglobin 29.1, Mean Corpuscular Hemoglobin Concent 32.5, Red Cell Distribution Width 13.1, Platelet Count 101L, Mean Platelet Volume 8.3, Neutrophils (%) (Auto) 73.7, Lymphocytes ( %) (Auto) 12.2L, Monocytes (%) (Auto) 5.4, Eosinophils (%) (Auto) 8.2H, Basophils (%) (Auto) 0.5, Sodium Level 151H, Potassium Level 3.9, Chloride Level 116H, Carbon Dioxide Level 29, Anion Gap 6, Blood Urea Nitrogen 45H, Creatinine 1.1, Estimat Glomerular Filtration Rate , Glucose Level 139H, Calcium Level 8.5 Height (Feet): 6 Height (Inches): 1.00 Weight (Pounds): 198 Yinka Samuel M.D. May 23, 2019 11:42
[2019-05-23 12:00] VITALS: BP 120/60
--- NOTE | 2019-05-23 12:06 | Surgery Progress Note ---
Surgery Progress Note Subjective Additional Comments no acute events.. stable. exam unchanged. labs noted Objective Last 24 Hour Vital Signs Date Time Temp Pulse Resp B/P (MAP) Pulse Ox O2 Delivery O2 Flow Rate FiO2 05/23/19 09:00 Nasal Cannula 2.0 05/23/19 08:00 98.3 68 18 111/62 (78) 94 05/23/19 08:00 97 Nasal Cannula 2.0 28 05/23/19 04:32 98.8 61 20 116/62 (80) 99 05/23/19 00:41 98.6 60 20 118/60 (79) 98 05/22/19 21:13 Nasal Cannula 2.0 05/22/19 20:00 98.3 60 21 121/61 (81) 100 05/22/19 19:54 97 Nasal Cannula 2.0 28 05/22/19 16:00 97.1 73 22 121/71 (88) 97 05/22/19 14:38 97 Nasal Cannula 2.0 28 I&O Intake and Output 05/22/19 05/23/19 19:00 07:00 Intake Total 880 ml 1220 ml Output Total 950 ml Balance 880 ml 270 ml Free Water 230 ml 500 ml IV Total 110 ml Tube Feeding 540 ml 720 ml Output Urine Total 950 ml # Voids 2 # Bowel Movements 1 Dressing: dry Wound: clean Cardiovascular: RSR Respiratory: clear Abdomen: soft, non-tender, present bowel sounds Extremities: no tenderness, no cyanosis Laboratory Tests Test 05/23/19 05:10 White Blood Count 7.4 K/UL (4.8-10.8) Red Blood Count 3.51 M/UL (4.70-6.10) L Hemoglobin 10.2 G/DL (14.2-18.0) L Hematocrit 31.4 % (42.0-52.0) L Mean Corpuscular Volume 89 FL (80-99) Mean Corpuscular Hemoglobin 29.1 PG (27.0-31.0) Mean Corpuscular Hemoglobin Concent 32.5 G/DL (32.0-36.0) Red Cell Distribution Width 13.1 % (11.6-14.8) Platelet Count 101 K/UL (150-450) L Mean Platelet Volume 8.3 FL (6.5-10.1) Neutrophils (%) (Auto) 73.7 % (45.0-75.0) Lymphocytes (%) (Auto) 12.2 % (20.0-45.0) L Monocytes (%) (Auto) 5.4 % (1.0-10.0) Eosinophils (%) (Auto) 8.2 % (0.0-3.0) H Basophils (%) (Auto) 0.5 % (0.0-2.0) Sodium Level 151 MMOL/L (136-145) H Potassium Level 3.9 MMOL/L (3.5-5.1) Chloride Level 116 MMOL/L (98-107) H Carbon Dioxide Level 29 MMOL/L (21-32) Anion Gap 6 mmol/L (5-15) Blood Urea Nitrogen 45 mg/dL (7-18) H Creatinine 1.1 MG/DL (0.55-1.30) Estimat Glomerular Filtration Rate mL/min (>60) Glucose Level 139 MG/DL (74-106) H Calcium Level 8.5 MG/DL (8.5-10.1) Plan Problems: (1) Decubitus skin ulcer Assessment & Plan: Pt presented on admission with pressure injuries,and with generalized scaly raised red rash. Burrowing noted to R and L axillae,abd ,back bilat groin and both lower ext. Webbing also noted between fingers and in palms of both hands. Unstageable pressure injury R heel. 100% soft necrosis with red margins (L)4cm x (W)6.1cm. Wound is malodorous. Periwound is fluctuant. Small dry eschar noted L st metatarsal. (L)0.8cm x (W)0.5cm.Clubbing noted to all metatarsals.L 1st Nail bed is necrotic. Ulcer noted to dorsal L 2nd metatarsal. Base of wound is pink,moist macerated borders noted. Small amt serous exudate noted. Periwound without elevation in skin temp,induration or fluctuance. Dry callus noted to plantar L foot L heel is boggy .An area of non-blanchable erythema noted to medial/posterior L heel. Non-blanchable erythema without induration noted scrotum, sacrum and both ischial regions. ( in and made aware of rash. Orders for application of Elimite noted.) Tx.Plan: Swab R heel with Betadine. Cover with ABD pad and wrap with Kerlix Daily and prn. Swab L st and L 2nd metatarsals with Betadine. Cover with gauze and wrap with kerlix daily and prn. Apply Cavilon Skin Barrier to L heel. Cover with Optifoam drsg. Change every 7 days and prn. Apply Moisture Barrier to Sacrum. Cover with Optifoam drsg. Change every 3days and prn. Apply Triad Paste to scrotum,and bilat ischial areas with each incontinence care. Reposition at least every 2hours or as tolerated. Off-load heels with pillow. (2) Hypernatremia (3) Dehydration (4) UTI (urinary tract infection) (5) FTT (failure to thrive) in adult Assessment & Plan: DAILY ESTIMATED NEEDS: Needs based on Wounds 79.5kg 30-35 kcals/kg 9565-0863 total kcals 1.25-1.5 g protein/kg 99-119 g total protein 25-30 mL/kg 1973-1529 total fluid mLs NUTRITION DIAGNOSIS: * Increased kcal and pro needs r/t wound healing and wasting as evidenced by pt w/ unstageable R heel wound, signs of significant wasting as well. * Altered nutrition related lab values r/t dehydration as evidenced by Elev Na on adm (166-> 164*), elev BUN (now 64), elev Creat (now 1.5). (CURRENT DIET: Cardiac puree w/ NTL) PO DIET RECOMMENDATIONS-->> Liberalized regular diet (texture per POSITIVE PRINTER OPERATOR) ADDITIONAL RECOMMENDATIONS: 1) Please obtain an accurate calibrated bed scale wt 2) Add ENSURE ENLIVE TID w/ meals + snacks as tolerated 3) Texture per POSITIVE PRINTER OPERATOR 4) Wound care: Add PAULY BID + MVI w/ min x1 daily + Vit C 250mg BID 5) rec Kcal count- pt adm w/ FTT 6) Non oral tf recs as needed / if part of POC (6) Severe malnutrition Conor Worthington May 23, 2019 12:06
--- NOTE | 2019-05-23 14:08 | General Progress Note ---
Assessment/Plan Status: stable, unchanged Assessment/Plan: 73 year old male with multiple comorbidities admitted for failure to thrive, UTI and hypernatremia #Hypernatremia likely 2/2 hypovolemic 2/2 poor PO intake - ivf per nephro; patient on d5w @ 200 cc per hour -CTM NA -Nephrology consult appreciated #UTI #Acute metabolic encephalopathy 2/2 UTI -f/u cultures: reviewed -Cont cefepime for ESBL UTI - 7-10 day treatment needed.; day 7? #Dysphagia -NPO , feeding per peg -appreciate speech and swallow consult -s/p peg placement #CARMELA jesi prerenal - resolved -nephrology consulted -CTM -avoid nephrotoxic medications Code: Full Dispo; SNF when stable ( [facility] resident ) time of note may not reflect time of encounter Subjective Date patient seen: May 23, 2019 Time patient seen: 12:00 ROS Limited/Unobtainable: Yes Allergies: Coded Allergies: No Known Allergies (Unverified , 05/14/19) Subjective na 149->151, no improvement ivf changed thrombocytopenia improving Objective Last 24 Hour Vital Signs Date Time Temp Pulse Resp B/P (MAP) Pulse Ox O2 Delivery O2 Flow Rate FiO2 05/23/19 12:00 98.3 67 18 120/60 (80) 96 05/23/19 09:00 Nasal Cannula 2.0 05/23/19 08:00 98.3 68 18 111/62 (78) 94 05/23/19 08:00 97 Nasal Cannula 2.0 28 05/23/19 04:32 98.8 61 20 116/62 (80) 99 05/23/19 00:41 98.6 60 20 118/60 (79) 98 05/22/19 21:13 Nasal Cannula 2.0 05/22/19 20:00 98.3 60 21 121/61 (81) 100 05/22/19 19:54 97 Nasal Cannula 2.0 28 05/22/19 16:00 97.1 73 22 121/71 (88) 97 05/22/19 14:38 97 Nasal Cannula 2.0 28 Intake and Output 05/22/19 05/23/19 19:00 07:00 Intake Total 880 ml 1220 ml Output Total 950 ml Balance 880 ml 270 ml Free Water 230 ml 500 ml IV Total 110 ml Tube Feeding 540 ml 720 ml Output Urine Total 950 ml # Voids 2 # Bowel Movements 1 Laboratory Tests 05/23/19 05:10: White Blood Count 7.4, Red Blood Count 3.51L, Hemoglobin 10.2L, Hematocrit 31.4L , Mean Corpuscular Volume 89, Mean Corpuscular Hemoglobin 29.1, Mean Corpuscular Hemoglobin Concent 32.5, Red Cell Distribution Width 13.1, Platelet Count 101L, Mean Platelet Volume 8.3, Neutrophils (%) (Auto) 73.7, Lymphocytes ( %) (Auto) 12.2L, Monocytes (%) (Auto) 5.4, Eosinophils (%) (Auto) 8.2H, Basophils (%) (Auto) 0.5, Sodium Level 151H, Potassium Level 3.9, Chloride Level 116H, Carbon Dioxide Level 29, Anion Gap 6, Blood Urea Nitrogen 45H, Creatinine 1.1, Estimat Glomerular Filtration Rate , Glucose Level 139H, Calcium Level 8.5 Height (Feet): 6 Height (Inches): 1.00 Weight (Pounds): 198 Objective GEN: WWN, NAD, Alert CV: RRR, no M, R, G, no jvd RESP: CTAB, no w/r/c ABD: normal bowel sounds, soft, non tender, peg EXT: normal muscle tone, no tenderness NEURO: answers to verbal stimulus, no gross changes, confused Lisa Velasco DO May 23, 2019 14:08
--- NOTE | 2019-05-23 14:45 | Infectious Diseases Prog Note ---
Assessment/Plan Assessment/Plan ASSESSMENT AND PLAN: 1. esbl e.coli complicated uti, mild leukocytosis, ftt, lethargy, ? pna vs atx, sc-nf, chest x-ray noted, ? atx - meropenem - day # 7, plan on 10 day tx course based on urinalysis wbc/ bacterial burden and esbl pathogen - monitor labs and chest x-ray as indicated - leukocytosis resolved 2. continue treatment per primary team and consultants 3. right heel wound, multiple wounds - management per surgery and protocol 4. Anemia. 5. Elevated creatinine. 6. Hypernatremia. 7. Weakness. 8. Schizophrenia. 9. Depression. 10. Skin care protocol. 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 12. No history of diabetes or hypertension. 13. Dementia. 14. Bladder disease. 15. Avery. 16. Difficulty walking and weakness. 17. No known drug allergies. 18. Social history is negative. 19. Family history is noncontributory. 20. MAR was noted. 21. Case was discussed with RN. Subjective Constitutional: Reports: fatigue; Denies: fever HEENT: Denies: congestion Respiratory: Denies: shortness of breath Cardiovascular: Denies: chest pain Gastrointestinal/Abdominal: Denies: nausea, vomiting, diarrhea Genitourinary: Reports: other - + avery Neurologic: Denies: headache Psychiatric: Denies: depression Skin: Denies: rash Hematologic: Denies: bleeding Musculoskeletal: Denies: pain Allergies: Coded Allergies: No Known Allergies (Unverified , 05/14/19) Objective Vital Signs Last 24 Hour Vital Signs Date Time Temp Pulse Resp B/P (MAP) Pulse Ox O2 Delivery O2 Flow Rate FiO2 05/23/19 12:00 98.3 67 18 120/60 (80) 96 05/23/19 09:00 Nasal Cannula 2.0 05/23/19 08:00 98.3 68 18 111/62 (78) 94 05/23/19 08:00 97 Nasal Cannula 2.0 28 05/23/19 04:32 98.8 61 20 116/62 (80) 99 05/23/19 00:41 98.6 60 20 118/60 (79) 98 05/22/19 21:13 Nasal Cannula 2.0 05/22/19 20:00 98.3 60 21 121/61 (81) 100 05/22/19 19:54 97 Nasal Cannula 2.0 28 05/22/19 16:00 97.1 73 22 121/71 (88) 97 05/22/19 14:38 97 Nasal Cannula 2.0 28 Height (Feet): 6 Height (Inches): 1.00 Weight (Pounds): 198 General Appearance: no acute distress HEENT: normocephalic, atraumatic, anicteric, mucous membranes moist Respiratory/Chest: lungs clear, normal breath sounds, no respiratory distress, no accessory muscle use Cardiovascular: normal rate, regular rhythm, no gallop/murmur, no JVD Abdomen: normal bowel sounds, soft, non tender, no organomegaly, non distended Genitourinary: other - + avery - urine clearer Extremities: no cyanosis Skin: no rash Neurologic/Psychiatric: transportation job titles II-XII grossly normal, alert, responsive Lymphatic: no neck adenopathy Musculoskeletal: no effusion Objective 05/18/19 - chest x-ray: Procedure: XRAY Chest 1v Indication: Shortness of breath Technique: One view of the chest Comparison: 05/16/2019 Findings: Less optimal inspiration currently. There is suggestion of increased interstitial prominence in the right mid and lower lung. There is some atelectasis at the left lung base. No focal airspace consolidation. Pleural spaces are clear. Heart size is normal. Aorta is tortuous. Impression: Hypoventilatory exam Increased interstitial markings in the right mid and lower lung, may be an artifact of crowding of the bronchovascular markings due to the lower lung volumes, but developing interstitial infiltrates also possible. Left basilar atelectatic changes Chest x-ray - 05/21/19: Comparison: 05/18/2019 A single view chest radiograph was obtained. Findings: Patchy left basal infiltrate demonstrated. Part of this may be atelectasis also which should be considered. Hemidiaphragm is slightly elevated. Bones are osteopenic. Heart size is normal. Aorta is ectatic. IMPRESSION: Left basal atelectasis and/or pneumonia. Correlate clinically Microbiology Date/Time Source Procedure Growth Status 05/19/19 16:40 Sputum Induced Gram Stain - Final Complete 05/19/19 16:40 Sputum Induced Sputum Culture - Final NORMAL UPPER RESPIRATORY EZRA PRESENT Complete 05/14/19 22:45 Urine,Clean Catch Urine Culture - Final Escherichia Coli - Esbl Complete 05/14/19 23:45 Rectum - Final NO CARBAPENEM-RESISTANT ENTEROBACTERI... Complete Laboratory Tests Test 05/23/19 05:10 White Blood Count 7.4 K/UL (4.8-10.8) Red Blood Count 3.51 M/UL (4.70-6.10) L Hemoglobin 10.2 G/DL (14.2-18.0) L Hematocrit 31.4 % (42.0-52.0) L Mean Corpuscular Volume 89 FL (80-99) Mean Corpuscular Hemoglobin 29.1 PG (27.0-31.0) Mean Corpuscular Hemoglobin Concent 32.5 G/DL (32.0-36.0) Red Cell Distribution Width 13.1 % (11.6-14.8) Platelet Count 101 K/UL (150-450) L Mean Platelet Volume 8.3 FL (6.5-10.1) Neutrophils (%) (Auto) 73.7 % (45.0-75.0) Lymphocytes (%) (Auto) 12.2 % (20.0-45.0) L Monocytes (%) (Auto) 5.4 % (1.0-10.0) Eosinophils (%) (Auto) 8.2 % (0.0-3.0) H Basophils (%) (Auto) 0.5 % (0.0-2.0) Sodium Level 151 MMOL/L (136-145) H Potassium Level 3.9 MMOL/L (3.5-5.1) Chloride Level 116 MMOL/L (98-107) H Carbon Dioxide Level 29 MMOL/L (21-32) Anion Gap 6 mmol/L (5-15) Blood Urea Nitrogen 45 mg/dL (7-18) H Creatinine 1.1 MG/DL (0.55-1.30) Estimat Glomerular Filtration Rate mL/min (>60) Glucose Level 139 MG/DL (74-106) H Calcium Level 8.5 MG/DL (8.5-10.1) Current Medications Medications (Trade) Dose Ordered Sig/Vicky Route PRN Reason Start Time Stop Time Status Last Admin Dose Admin Acetaminophen (Tylenol) 650 mg Q4H PRN ORAL Mild Pain (Pain Scale 1-3) 05/15/19 01:15 06/14/19 01:14 05/23/19 10:30 Ascorbic Acid (Vitamin C) 250 mg TWICE A DAY ORAL 05/15/19 18:00 06/14/19 17:59 05/23/19 09:43 Dextrose 1,000 ml @ 200 mls/hr Q5H IV 05/23/19 11:45 05/23/19 17:00 05/23/19 12:03 Dextrose (Dextrose 50%) 25 ml Q30M PRN IV Hypoglycemia 05/15/19 01:15 06/14/19 01:14 Dextrose (Dextrose 50%) 50 ml Q30M PRN IV Hypoglycemia 05/15/19 01:15 06/14/19 01:14 Diphenhydramine HCl (Benadryl) 25 mg Q6H PRN ORAL Itching/Pruritis 05/15/19 01:15 06/14/19 01:14 Famotidine (Pepcid) 20 mg DAILY ORAL 05/15/19 09:00 06/14/19 08:59 05/23/19 09:43 Meropenem 1 gm/ Sodium Chloride 55 ml @ 110 mls/hr Q8H IVPB 05/21/19 18:00 05/26/19 17:59 05/23/19 09:44 Mirtazapine (Remeron) 7.5 mg BEDTIME ORAL 05/16/19 21:00 06/15/19 20:59 05/22/19 20:42 Multivitamins (Multivitamins) 1 tab DAILY ORAL 05/16/19 09:00 06/15/19 08:59 05/23/19 09:43 Olanzapine (ZyPREXA) 2.5 mg BEDTIME ORAL 05/17/19 21:00 06/16/19 20:59 05/22/19 20:42 Ondansetron HCl (Zofran) 4 mg Q6H PRN IVP Nausea & Vomiting 05/15/19 01:15 06/14/19 01:14 Jatinder Tai MD May 23, 2019 14:45
[2019-05-23 16:00] VITALS: BP 130/67
--- NOTE | 2019-05-23 17:45 | Hematology/Onc Progress Note ---
Assessment/Plan Assessment/Plan Assessment/Recs: # Anemia of chronic disease due to underlying chronic medical issues, multifactorial --> Anemia workup has been reviewed --> No evidence of hemolysis is noted, peripheral smear has been reviewed. --> Hgb goal >7. Transfuse prn. --> Epogen or iron at this time is not particularly indicated --> Medications reviewed --> s/p peg with ongoing feedings, which are tolerated well --> hgb trend 12.1-->10.4-->10.1-->10.2 # Thrombocytopenia - potential causes multifactorial, evaluate liver and viral etiologies to begin, also could be related to underlying medications patient has received v infection --> Hep panel and HIV negative --> US abd to evaluate for cirrhosis and hsm reviewed and is neg for cirrhosis/ hsm --> Peripheral smear shows no blasts/schistocytes --> abx and other meds have been reviewed --> ok for ppx if plt >50k w/ either heparin or lovenox --> Trend 187-->105-->127-->89-->76-->102k --> heparin has been discontinued --> as per gi eval, occult neg # Failure to thrive (FTT) - decreased bmi and low protein --> cea 4.5 --> will also obtain q3d caloric counts --> have started mirtazapine as appetite stimulant --> GI consult on a prn basis, peg tube feedings tolerated well # Severe malnutrition --> s/p peg with good tfs --> mirtazapine has been started # Hypernatremia --> per renal fluids # Decub per surgery The timing of this note does not necessarily reflect the time of the patient was seen. Greatly appreciate consultation! Subjective Constitutional: Denies: no symptoms, chills, fever, malaise, weakness, other HEENT: Denies: no symptoms, eye pain, blurred vision, tearing, double vision, ear pain, ear discharge, nose pain, nose congestion, throat pain, throat swelling, mouth pain, mouth swelling, other Cardiovascular: Denies: no symptoms, chest pain, edema, irregular heart rate, lightheadedness, palpitations, syncope, other Respiratory: Denies: no symptoms, cough, shortness of breath, SOB with excertion, SOB at rest, sputum, wheezing, other Gastrointestinal/Abdominal: Denies: no symptoms, abdomen distended, abdominal pain, black stools, tarry stools, blood in stool, constipated, diarrhea, difficulty swallowing, nausea, poor appetite, poor fluid intake, rectal bleeding , vomiting, other Genitourinary: Denies: no symptoms, burning, discharge, frequency, flank pain, hematuria, incontinence, pain, urgency, other Neurologic/Psychiatric: Denies: no symptoms, anxiety, depressed, emotional problems, headache, numbness, paresthesia, pre-existing deficit, seizure, tingling, tremors, weakness, other Allergies: Coded Allergies: No Known Allergies (Unverified , 05/14/19) Subjective 05/17: needs peg placement, plts are better this am 05/18: s/p peg, showing diffuse gastritis, slightly lower plt 05/20: peg tube feedings tolerated well, no f/c, no night sweats (low grade 99.6f) 05/21: tfs tolerating well, exam unchanged, no f/c 05/22: on tube feeds, no fevers or chills, no night sweats 05/23: gtube feeds ongoing, no major changes, labs noted Objective Objective Current Medications Medications (Trade) Dose Ordered Sig/Vicky Route PRN Reason Start Time Stop Time Status Last Admin Dose Admin Acetaminophen (Tylenol) 650 mg Q4H PRN ORAL Mild Pain (Pain Scale 1-3) 05/15/19 01:15 06/14/19 01:14 05/23/19 10:30 Ascorbic Acid (Vitamin C) 250 mg TWICE A DAY ORAL 05/15/19 18:00 06/14/19 17:59 05/23/19 09:43 Dextrose (Dextrose 50%) 25 ml Q30M PRN IV Hypoglycemia 05/15/19 01:15 06/14/19 01:14 Dextrose (Dextrose 50%) 50 ml Q30M PRN IV Hypoglycemia 05/15/19 01:15 06/14/19 01:14 Diphenhydramine HCl (Benadryl) 25 mg Q6H PRN ORAL Itching/Pruritis 05/15/19 01:15 06/14/19 01:14 Famotidine (Pepcid) 20 mg DAILY ORAL 05/15/19 09:00 06/14/19 08:59 05/23/19 09:43 Meropenem 1 gm/ Sodium Chloride 55 ml @ 110 mls/hr Q8H IVPB 05/21/19 18:00 05/26/19 17:59 05/23/19 09:44 Mirtazapine (Remeron) 7.5 mg BEDTIME ORAL 05/16/19 21:00 06/15/19 20:59 05/22/19 20:42 Multivitamins (Multivitamins) 1 tab DAILY ORAL 05/16/19 09:00 06/15/19 08:59 05/23/19 09:43 Olanzapine (ZyPREXA) 2.5 mg BEDTIME ORAL 05/17/19 21:00 06/16/19 20:59 05/22/19 20:42 Ondansetron HCl (Zofran) 4 mg Q6H PRN IVP Nausea & Vomiting 05/15/19 01:15 06/14/19 01:14 Last 24 Hour Vital Signs Date Time Temp Pulse Resp B/P (MAP) Pulse Ox O2 Delivery O2 Flow Rate FiO2 05/23/19 16:00 97.9 71 17 130/67 (88) 94 05/23/19 12:00 98.3 67 18 120/60 (80) 96 05/23/19 09:00 Nasal Cannula 2.0 05/23/19 08:00 98.3 68 18 111/62 (78) 94 05/23/19 08:00 97 Nasal Cannula 2.0 28 05/23/19 04:32 98.8 61 20 116/62 (80) 99 05/23/19 00:41 98.6 60 20 118/60 (79) 98 05/22/19 21:13 Nasal Cannula 2.0 05/22/19 20:00 98.3 60 21 121/61 (81) 100 05/22/19 19:54 97 Nasal Cannula 2.0 28 05/22/19 16:00 97.1 73 22 121/71 (88) 97 05/22/19 14:38 97 Nasal Cannula 2.0 28 05/22/19 12:00 98.2 71 22 134/77 (96) 97 05/22/19 09:00 Nasal Cannula 2.0 05/22/19 08:00 99.1 78 22 124/74 (91) 98 05/22/19 04:00 97.9 63 15 126/65 (85) 94 05/22/19 00:00 97.4 64 15 117/60 (79) 96 05/21/19 21:00 Nasal Cannula 2.0 05/21/19 20:18 96 Nasal Cannula 2.0 28 05/21/19 20:00 97.8 66 16 129/64 (85) 98 Intake and Output 05/22/19 05/23/19 18:59 06:59 Intake Total 880 ml 970 ml Output Total 950 ml Balance 880 ml 20 ml Free Water 230 ml 250 ml IV Total 110 ml Tube Feeding 540 ml 720 ml Output Urine Total 950 ml # Voids 2 # Bowel Movements 1 Labs Test 05/21/19 09:15 05/22/19 09:26 05/23/19 05:10 White Blood Count 9.9 K/UL (4.8-10.8) 7.7 K/UL (4.8-10.8) 7.4 K/UL (4.8-10.8) Red Blood Count 3.74 M/UL (4.70-6.10) 3.53 M/UL (4.70-6.10) 3.51 M/UL (4.70-6.10) Hemoglobin 10.9 G/DL (14.2-18.0) 10.2 G/DL (14.2-18.0) 10.2 G/DL (14.2-18.0) Hematocrit 33.2 % (42.0-52.0) 31.0 % (42.0-52.0) 31.4 % (42.0-52.0) Mean Corpuscular Volume 89 FL (80-99) 88 FL (80-99) 89 FL (80-99) Mean Corpuscular Hemoglobin 29.1 PG (27.0-31.0) 29.0 PG (27.0-31.0) 29.1 PG (27.0-31.0) Mean Corpuscular Hemoglobin Concent 32.8 G/DL (32.0-36.0) 33.0 G/DL (32.0-36.0) 32.5 G/DL (32.0-36.0) Red Cell Distribution Width 13.3 % (11.6-14.8) 13.6 % (11.6-14.8) 13.1 % (11.6-14.8) Platelet Count 85 K/UL (150-450) 102 K/UL (150-450) 101 K/UL (150-450) Mean Platelet Volume 8.3 FL (6.5-10.1) 7.4 FL (6.5-10.1) 8.3 FL (6.5-10.1) Neutrophils (%) (Auto) % (45.0-75.0) 77.1 % (45.0-75.0) 73.7 % (45.0-75.0) Lymphocytes (%) (Auto) % (20.0-45.0) 10.7 % (20.0-45.0) 12.2 % (20.0-45.0) Monocytes (%) (Auto) % (1.0-10.0) 3.7 % (1.0-10.0) 5.4 % (1.0-10.0) Eosinophils (%) (Auto) % (0.0-3.0) 7.7 % (0.0-3.0) 8.2 % (0.0-3.0) Basophils (%) (Auto) % (0.0-2.0) 0.8 % (0.0-2.0) 0.5 % (0.0-2.0) Differential Total Cells Counted 100 Neutrophils % (Manual) 77 % (45-75) Lymphocytes % (Manual) 10 % (20-45) Monocytes % (Manual) 3 % (1-10) Eosinophils % (Manual) 10 % (0-3) Basophils % (Manual) 0 % (0-2) Band Neutrophils 0 % (0-8) Platelet Estimate Decreased Platelet Morphology Normal Red Blood Cell Morphology Normal Sodium Level 151 MMOL/L (136-145) 151 MMOL/L (136-145) 151 MMOL/L (136-145) Potassium Level 4.0 MMOL/L (3.5-5.1) 3.9 MMOL/L (3.5-5.1) 3.9 MMOL/L (3.5-5.1) Chloride Level 117 MMOL/L (98-107) 117 MMOL/L (98-107) 116 MMOL/L (98-107) Carbon Dioxide Level 28 MMOL/L (21-32) 28 MMOL/L (21-32) 29 MMOL/L (21-32) Anion Gap 6 mmol/L (5-15) 6 mmol/L (5-15) 6 mmol/L (5-15) Blood Urea Nitrogen 51 mg/dL (7-18) 47 mg/dL (7-18) 45 mg/dL (7-18) Creatinine 1.1 MG/DL (0.55-1.30) 1.1 MG/DL (0.55-1.30) 1.1 MG/DL (0.55-1.30) Estimat Glomerular Filtration Rate mL/min (>60) mL/min (>60) mL/min (>60) Glucose Level 155 MG/DL (74-106) 155 MG/DL (74-106) 139 MG/DL (74-106) Calcium Level 8.8 MG/DL (8.5-10.1) 8.8 MG/DL (8.5-10.1) 8.5 MG/DL (8.5-10.1) Height (Feet): 6 Height (Inches): 1.00 Weight (Pounds): 198 Objective Gen: WD/WN, no apparent distress, alert CV: RRR, no mgr Chest: normal breath sounds, no respiratory distress Abdominal: normal bowel sounds, nt, soft Extremities: normal range of motion, non-tender Timmy Thomson MD May 23, 2019 17:45
--- NOTE | 2019-05-23 18:45 | Progress Note ---
DATE: 05/23/2019 SUBJECTIVE: The patient is calm, in no acute distress. The patient is more stable on current psychotropic medication. Not in distress. Not engaged. MENTAL STATUS EXAMINATION: The patient is alert, confused, and disoriented. Mood is neutral. Affect is flat. Thought process, there is a paucity of thought content. Thought content, no suicidal or homicidal ideations. ASSESSMENT: 1. Dementia with behavior disturbance. 2. Failure to thrive. PLAN: 1. We will continue the Remeron. 2. Continue the Zyprexa. Marcella Roberts M.D. DR: JANETTE JOB#: [id number] CC:
[2019-05-23 20:32] VITALS: BP 118/64
[2019-05-23] MEDS: OLANZapine 2.5mg tab ORAL SCH (21:20)
[2019-05-24 00:15] VITALS: BP 116/61
[2019-05-24] MEDS: Meropenem 1 GM in NS 55 ML IVPB SCH ×3 (01:32→17:40)
[2019-05-24 04:00] VITALS: BP 119/79
--- NOTE | 2019-05-24 07:22 | General Progress Note ---
Assessment/Plan Status: stable, unchanged Assessment/Plan: 73 year old male with multiple comorbidities admitted for failure to thrive, UTI and hypernatremia #Hypernatremia likely 2/2 hypovolemic 2/2 poor PO intake - ivf per nephro -CTM NA -Nephrology consult appreciated #UTI #Acute metabolic encephalopathy 2/2 UTI -f/u cultures: reviewed -Cont cefepime for ESBL UTI - abx per ID: on merrem #Dysphagia -NPO , feeding per peg -appreciate speech and swallow consult -s/p peg placement #CARMELA likley prerenal - resolved -nephrology consulted -CTM -avoid nephrotoxic medications Code: Full Dispo; SNF when stable ( [facility] resident ) time of note may not reflect time of encounter Subjective Date patient seen: May 24, 2019 Time patient seen: 12:00 ROS Limited/Unobtainable: No Allergies: Coded Allergies: No Known Allergies (Unverified , 05/14/19) Subjective na improved on merrem SHERRY Objective Last 24 Hour Vital Signs Date Time Temp Pulse Resp B/P (MAP) Pulse Ox O2 Delivery O2 Flow Rate FiO2 05/24/19 04:00 98.3 83 18 119/79 (92) 95 05/24/19 00:15 98.0 59 19 116/61 (79) 97 05/23/19 22:15 Nasal Cannula 2.0 05/23/19 20:32 97.9 69 20 118/64 (82) 97 05/23/19 16:00 97.9 71 17 130/67 (88) 94 05/23/19 12:00 98.3 67 18 120/60 (80) 96 05/23/19 09:00 Nasal Cannula 2.0 05/23/19 08:00 98.3 68 18 111/62 (78) 94 05/23/19 08:00 97 Nasal Cannula 2.0 28 Intake and Output 05/23/19 05/24/19 19:00 07:00 Intake Total 2330 ml 790 ml Output Total 550 ml Balance 2330 ml 240 ml Free Water 250 ml 250 ml IV Total 1420 ml Tube Feeding 660 ml 540 ml Output Urine Total 550 ml Height (Feet): 6 Height (Inches): 1.00 Weight (Pounds): 198 Objective GEN: WWN, NAD, Alert CV: RRR, no M, R, G, no jvd RESP: CTAB, no w/r/c ABD: normal bowel sounds, soft, non tender, peg EXT: normal muscle tone, no tenderness NEURO: answers to verbal stimulus, no gross changes, confused Lisa Velasco DO May 24, 2019 07:22
[2019-05-24 08:00] VITALS: BP 132/73
[2019-05-24] MEDS: Ascorbic Acid 500mg tab ORAL SCH ×2 (08:23→17:39)
[2019-05-24 09:13] LABS: HEMATOCRIT 32.2 % (42.0-52.0); HEMOGLOBIN 11.1 G/DL (14.2-18.0); MEAN CORPUSCULAR VOLUME 86 FL (80-99); PLATELET COUNT 99 K/UL (150-450); RED BLOOD COUNT 3.76 M/UL (4.70-6.10); RED CELL DISTRIBUTION WIDTH 12.5 % (11.6-14.8); WHITE BLOOD COUNT 7.2 K/UL (4.8-10.8)
[2019-05-24 09:16] LABS: ANION GAP 1 mmol/L (5-15); BLOOD UREA NITROGEN 41 mg/dL (7-18); CALCIUM 8.5 MG/DL (8.5-10.1); CARBON DIOXIDE 33 MMOL/L (21-32); CHLORIDE 111 MMOL/L (98-107); POTASSIUM 3.9 MMOL/L (3.5-5.1); SODIUM 144 MMOL/L (136-145)
--- NOTE | 2019-05-24 10:18 | GI Progress Note ---
Assessment/Plan Problems: (1) Encounter for PEG (percutaneous endoscopic gastrostomy) ICD Codes: Z43.1 - Encounter for attention to gastrostomy SNOMED: 387338885, 380110750 (2) Severe malnutrition ICD Codes: E43 - Unspecified severe protein-calorie malnutrition SNOMED: 45029466 (3) FTT (failure to thrive) in adult ICD Codes: R62.7 - Adult failure to thrive SNOMED: 981978302 (4) Dehydration ICD Codes: E86.0 - Dehydration SNOMED: 44375095 (5) Hypernatremia ICD Codes: E87.0 - Hyperosmolality and hypernatremia SNOMED: 222740243 Status: stable Status Narrative Discussed with Dr. Khanna. Assessment/Plan SUMMARY OF FINDINGS: 1. Diffuse gastritis. 2. Hiatal hernia. 3. Status post successful PEG placement. RECOMMENDATIONS: GTF tolerated ok for oral gratification off of laxatives given loose stools GT care fu labs dc planning per primary The patient was seen and examined at bedside and all new and available data was reviewed in the patients chart. I agree with the above findings, impression and plan. (Patient seen earlier today. Signature stamp does not reflect patient encounter time.). - Khari Khanna MD Subjective Subjective limited Objective Last 24 Hour Vital Signs Date Time Temp Pulse Resp B/P (MAP) Pulse Ox O2 Delivery O2 Flow Rate FiO2 05/24/19 04:00 98.3 83 18 119/79 (92) 95 05/24/19 00:15 98.0 59 19 116/61 (79) 97 05/23/19 22:15 Nasal Cannula 2.0 05/23/19 20:32 97.9 69 20 118/64 (82) 97 05/23/19 16:00 97.9 71 17 130/67 (88) 94 05/23/19 12:00 98.3 67 18 120/60 (80) 96 Intake and Output 05/23/19 05/24/19 19:00 07:00 Intake Total 2330 ml 790 ml Output Total 550 ml Balance 2330 ml 240 ml Free Water 250 ml 250 ml IV Total 1420 ml Tube Feeding 660 ml 540 ml Output Urine Total 550 ml Laboratory Tests Test 05/24/19 08:50 White Blood Count 7.2 K/UL (4.8-10.8) Red Blood Count 3.76 M/UL (4.70-6.10) L Hemoglobin 11.1 G/DL (14.2-18.0) L Hematocrit 32.2 % (42.0-52.0) L Mean Corpuscular Volume 86 FL (80-99) Mean Corpuscular Hemoglobin 29.4 PG (27.0-31.0) Mean Corpuscular Hemoglobin Concent 34.3 G/DL (32.0-36.0) Red Cell Distribution Width 12.5 % (11.6-14.8) Platelet Count 99 K/UL (150-450) L Mean Platelet Volume 7.5 FL (6.5-10.1) Neutrophils (%) (Auto) % (45.0-75.0) Lymphocytes (%) (Auto) % (20.0-45.0) Monocytes (%) (Auto) % (1.0-10.0) Eosinophils (%) (Auto) % (0.0-3.0) Basophils (%) (Auto) % (0.0-2.0) Neutrophils % (Manual) Pending Lymphocytes % (Manual) Pending Platelet Estimate Pending Platelet Morphology Pending Sodium Level 144 MMOL/L (136-145) Potassium Level 3.9 MMOL/L (3.5-5.1) Chloride Level 111 MMOL/L (98-107) H Carbon Dioxide Level 33 MMOL/L (21-32) H Anion Gap 1 mmol/L (5-15) L Blood Urea Nitrogen 41 mg/dL (7-18) H Creatinine 1.0 MG/DL (0.55-1.30) Estimat Glomerular Filtration Rate mL/min (>60) Glucose Level 118 MG/DL (74-106) H Calcium Level 8.5 MG/DL (8.5-10.1) Height (Feet): 6 Height (Inches): 1.00 Weight (Pounds): 198 General Appearance: no apparent distress Cardiovascular: normal rate Respiratory/Chest: normal breath sounds, no respiratory distress Abdominal Exam: normal bowel sounds, non tender, soft, GT site Extremities: non-tender Mike White NP May 24, 2019 10:18
--- NOTE | 2019-05-24 11:10 | Nephrology Progress Note ---
Assessment/Plan Plan #hypernatremia- due to free water depression in the setting of marked volume depletion - FWF q6h increased to 250 cc - monitor sodium closely - strict I&Os - daily weights - FWF q6h increase to 250 cc #acute kidney injury due to pre-renal azotemia - improved #UTI continue with abx #dysphagia, failure to thrive - s/p PEG - continue with tubefeeds - continue with FWF as above Subjective Subjective sodium 151 FWF q6h increased to 250 cc will give d5w x1L over 5 hours today Objective Objective Last 24 Hour Vital Signs Date Time Temp Pulse Resp B/P (MAP) Pulse Ox O2 Delivery O2 Flow Rate FiO2 05/24/19 09:00 Nasal Cannula 2.0 05/24/19 08:00 97.7 64 20 132/73 (92) 99 05/24/19 04:00 98.3 83 18 119/79 (92) 95 05/24/19 00:15 98.0 59 19 116/61 (79) 97 05/23/19 22:15 Nasal Cannula 2.0 05/23/19 20:32 97.9 69 20 118/64 (82) 97 05/23/19 16:00 97.9 71 17 130/67 (88) 94 05/23/19 12:00 98.3 67 18 120/60 (80) 96 Intake and Output 05/23/19 05/24/19 19:00 07:00 Intake Total 2330 ml 790 ml Output Total 550 ml Balance 2330 ml 240 ml Free Water 250 ml 250 ml IV Total 1420 ml Tube Feeding 660 ml 540 ml Output Urine Total 550 ml Laboratory Tests 05/24/19 08:50: White Blood Count 7.2, Red Blood Count 3.76L, Hemoglobin 11.1L, Hematocrit 32.2L , Mean Corpuscular Volume 86, Mean Corpuscular Hemoglobin 29.4, Mean Corpuscular Hemoglobin Concent 34.3, Red Cell Distribution Width 12.5, Platelet Count 99L, Mean Platelet Volume 7.5, Neutrophils (%) (Auto) , Lymphocytes (%) ( Auto) , Monocytes (%) (Auto) , Eosinophils (%) (Auto) , Basophils (%) (Auto) , Differential Total Cells Counted 100, Neutrophils % (Manual) 67, Lymphocytes % ( Manual) 21, Monocytes % (Manual) 4, Eosinophils % (Manual) 8H, Basophils % ( Manual) 0, Band Neutrophils 0, Platelet Estimate DecreasedL, Platelet Morphology Normal, Hypochromasia 1+, Sodium Level 144, Potassium Level 3.9, Chloride Level 111H, Carbon Dioxide Level 33H, Anion Gap 1L, Blood Urea Nitrogen 41H, Creatinine 1.0, Estimat Glomerular Filtration Rate , Glucose Level 118H, Calcium Level 8.5 Height (Feet): 6 Height (Inches): 1.00 Weight (Pounds): 198 Yinka Samuel M.D. May 24, 2019 11:10
[2019-05-24 12:00] VITALS: BP 130/71
--- NOTE | 2019-05-24 15:58 | Surgery Progress Note ---
Surgery Progress Note Subjective Additional Comments no acute events. exam stable. unchanged. Objective Last 24 Hour Vital Signs Date Time Temp Pulse Resp B/P (MAP) Pulse Ox O2 Delivery O2 Flow Rate FiO2 05/24/19 12:00 98.7 62 20 130/71 (90) 100 05/24/19 09:18 98 Nasal Cannula 2.0 28 05/24/19 09:00 Nasal Cannula 2.0 05/24/19 08:00 97.7 64 20 132/73 (92) 99 05/24/19 04:00 98.3 83 18 119/79 (92) 95 05/24/19 00:15 98.0 59 19 116/61 (79) 97 05/23/19 22:15 Nasal Cannula 2.0 05/23/19 20:32 97.9 69 20 118/64 (82) 97 05/23/19 16:00 97.9 71 17 130/67 (88) 94 I&O Intake and Output 05/23/19 05/24/19 19:00 07:00 Intake Total 2330 ml 790 ml Output Total 550 ml Balance 2330 ml 240 ml Free Water 250 ml 250 ml IV Total 1420 ml Tube Feeding 660 ml 540 ml Output Urine Total 550 ml Dressing: dry Wound: clean Cardiovascular: RSR Respiratory: clear Abdomen: soft, non-tender, present bowel sounds Extremities: no cyanosis Laboratory Tests Test 05/24/19 08:50 White Blood Count 7.2 K/UL (4.8-10.8) Red Blood Count 3.76 M/UL (4.70-6.10) L Hemoglobin 11.1 G/DL (14.2-18.0) L Hematocrit 32.2 % (42.0-52.0) L Mean Corpuscular Volume 86 FL (80-99) Mean Corpuscular Hemoglobin 29.4 PG (27.0-31.0) Mean Corpuscular Hemoglobin Concent 34.3 G/DL (32.0-36.0) Red Cell Distribution Width 12.5 % (11.6-14.8) Platelet Count 99 K/UL (150-450) L Mean Platelet Volume 7.5 FL (6.5-10.1) Neutrophils (%) (Auto) % (45.0-75.0) Lymphocytes (%) (Auto) % (20.0-45.0) Monocytes (%) (Auto) % (1.0-10.0) Eosinophils (%) (Auto) % (0.0-3.0) Basophils (%) (Auto) % (0.0-2.0) Differential Total Cells Counted 100 Neutrophils % (Manual) 67 % (45-75) Lymphocytes % (Manual) 21 % (20-45) Monocytes % (Manual) 4 % (1-10) Eosinophils % (Manual) 8 % (0-3) H Basophils % (Manual) 0 % (0-2) Band Neutrophils 0 % (0-8) Platelet Estimate Decreased L Platelet Morphology Normal Hypochromasia 1+ Sodium Level 144 MMOL/L (136-145) Potassium Level 3.9 MMOL/L (3.5-5.1) Chloride Level 111 MMOL/L (98-107) H Carbon Dioxide Level 33 MMOL/L (21-32) H Anion Gap 1 mmol/L (5-15) L Blood Urea Nitrogen 41 mg/dL (7-18) H Creatinine 1.0 MG/DL (0.55-1.30) Estimat Glomerular Filtration Rate mL/min (>60) Glucose Level 118 MG/DL (74-106) H Calcium Level 8.5 MG/DL (8.5-10.1) Plan Problems: (1) Decubitus skin ulcer Assessment & Plan: Pt presented on admission with pressure injuries,and with generalized scaly raised red rash. Burrowing noted to R and L axillae,abd ,back bilat groin and both lower ext. Webbing also noted between fingers and in palms of both hands. Unstageable pressure injury R heel. 100% soft necrosis with red margins (L)4cm x (W)6.1cm. Wound is malodorous. Periwound is fluctuant. Small dry eschar noted L st metatarsal. (L)0.8cm x (W)0.5cm.Clubbing noted to all metatarsals.L 1st Nail bed is necrotic. Ulcer noted to dorsal L 2nd metatarsal. Base of wound is pink,moist macerated borders noted. Small amt serous exudate noted. Periwound without elevation in skin temp,induration or fluctuance. Dry callus noted to plantar L foot L heel is boggy .An area of non-blanchable erythema noted to medial/posterior L heel. Non-blanchable erythema without induration noted scrotum, sacrum and both ischial regions. ( in and made aware of rash. Orders for application of Elimite noted.) Tx.Plan: Swab R heel with Betadine. Cover with ABD pad and wrap with Kerlix Daily and prn. Swab L st and L 2nd metatarsals with Betadine. Cover with gauze and wrap with kerlix daily and prn. Apply Cavilon Skin Barrier to L heel. Cover with Optifoam drsg. Change every 7 days and prn. Apply Moisture Barrier to Sacrum. Cover with Optifoam drsg. Change every 3days and prn. Apply Triad Paste to scrotum,and bilat ischial areas with each incontinence care. Reposition at least every 2hours or as tolerated. Off-load heels with pillow. (2) Hypernatremia (3) Dehydration (4) UTI (urinary tract infection) (5) FTT (failure to thrive) in adult Assessment & Plan: DAILY ESTIMATED NEEDS: Needs based on Wounds 79.5kg 30-35 kcals/kg 7345-8496 total kcals 1.25-1.5 g protein/kg 99-119 g total protein 25-30 mL/kg 7575-1381 total fluid mLs NUTRITION DIAGNOSIS: * Increased kcal and pro needs r/t wound healing and wasting as evidenced by pt w/ unstageable R heel wound, signs of significant wasting as well. * Altered nutrition related lab values r/t dehydration as evidenced by Elev Na on adm (166-> 164*), elev BUN (now 64), elev Creat (now 1.5). (CURRENT DIET: Cardiac puree w/ NTL) PO DIET RECOMMENDATIONS-->> Liberalized regular diet (texture per TOOL CHASER) ADDITIONAL RECOMMENDATIONS: 1) Please obtain an accurate calibrated bed scale wt 2) Add ENSURE ENLIVE TID w/ meals + snacks as tolerated 3) Texture per TOOL CHASER 4) Wound care: Add PAULY BID + MVI w/ min x1 daily + Vit C 250mg BID 5) rec Kcal count- pt adm w/ FTT 6) Non oral tf recs as needed / if part of POC (6) Severe malnutrition Conor Worthington May 24, 2019 15:58
[2019-05-24 16:00] VITALS: BP 106/67
--- NOTE | 2019-05-24 17:12 | Hematology/Onc Progress Note ---
Assessment/Plan Assessment/Plan Assessment/Recs: # Anemia of chronic disease due to underlying chronic medical issues, multifactorial --> Anemia workup has been reviewed --> No evidence of hemolysis is noted, peripheral smear has been reviewed. --> Hgb goal >7. Transfuse prn. --> Epogen or iron at this time is not particularly indicated --> Medications reviewed --> s/p peg with ongoing feedings, which are tolerated well --> hgb trend 12.1-->10.4-->10.1-->10.2->11 # Thrombocytopenia - potential causes multifactorial, evaluate liver and viral etiologies to begin, also could be related to underlying medications patient has received v infection --> Hep panel and HIV negative --> US abd to evaluate for cirrhosis and hsm reviewed and is neg for cirrhosis/ hsm --> Peripheral smear shows no blasts/schistocytes --> abx and other meds have been reviewed --> ok for ppx if plt >50k w/ either heparin or lovenox --> Trend 187-->105-->127-->89-->76-->102k-->99 --> heparin has been discontinued --> as per gi eval, occult neg # Failure to thrive (FTT) - decreased bmi and low protein --> cea 4.5 --> will also obtain q3d caloric counts --> have started mirtazapine as appetite stimulant --> GI consult on a prn basis, peg tube feedings tolerated well # Severe malnutrition --> s/p peg with good tfs --> mirtazapine has been started # Hypernatremia --> per renal fluids # Decub per surgery The timing of this note does not necessarily reflect the time of the patient was seen. Greatly appreciate consultation! Subjective Constitutional: Denies: no symptoms, chills, fever, malaise, weakness, other HEENT: Denies: no symptoms, eye pain, blurred vision, tearing, double vision, ear pain, ear discharge, nose pain, nose congestion, throat pain, throat swelling, mouth pain, mouth swelling, other Cardiovascular: Denies: no symptoms, chest pain, edema, irregular heart rate, lightheadedness, palpitations, syncope, other Respiratory: Denies: no symptoms, cough, shortness of breath, SOB with excertion, SOB at rest, sputum, wheezing, other Gastrointestinal/Abdominal: Denies: no symptoms, abdomen distended, abdominal pain, black stools, tarry stools, blood in stool, constipated, diarrhea, difficulty swallowing, nausea, poor appetite, poor fluid intake, rectal bleeding , vomiting, other Genitourinary: Denies: no symptoms, burning, discharge, frequency, flank pain, hematuria, incontinence, pain, urgency, other Neurologic/Psychiatric: Denies: no symptoms, anxiety, depressed, emotional problems, headache, numbness, paresthesia, pre-existing deficit, seizure, tingling, tremors, weakness, other Endocrine: Denies: no symptoms, excessive sweating, flushing, intolerance to cold, intolerance to heat, increased hunger, increased thirst, increased urine, unexplained weight gain, unexplained weight loss, other Allergies: Coded Allergies: No Known Allergies (Unverified , 05/14/19) Subjective 8: needs peg placement, plts are better this am 05/18: s/p peg, showing diffuse gastritis, slightly lower plt 05/20: peg tube feedings tolerated well, no f/c, no night sweats (low grade 99.6f) 05/21: tfs tolerating well, exam unchanged, no f/c 05/22: on tube feeds, no fevers or chills, no night sweats 05/23: gtube feeds ongoing, no major changes, labs noted 05/24: gtube feeds on hold given residual, labs reviewed Objective Objective Current Medications Medications (Trade) Dose Ordered Sig/Vicky Route PRN Reason Start Time Stop Time Status Last Admin Dose Admin Acetaminophen (Tylenol) 650 mg Q4H PRN ORAL Mild Pain (Pain Scale 1-3) 05/15/19 01:15 06/14/19 01:14 05/23/19 10:30 Ascorbic Acid (Vitamin C) 250 mg TWICE A DAY ORAL 05/15/19 18:00 06/14/19 17:59 05/24/19 08:23 Dextrose (Dextrose 50%) 25 ml Q30M PRN IV Hypoglycemia 05/15/19 01:15 06/14/19 01:14 Dextrose (Dextrose 50%) 50 ml Q30M PRN IV Hypoglycemia 05/15/19 01:15 06/14/19 01:14 Diphenhydramine HCl (Benadryl) 25 mg Q6H PRN ORAL Itching/Pruritis 05/15/19 01:15 06/14/19 01:14 Famotidine (Pepcid) 20 mg DAILY ORAL 05/15/19 09:00 06/14/19 08:59 05/24/19 08:23 Meropenem 1 gm/ Sodium Chloride 55 ml @ 110 mls/hr Q8H IVPB 05/21/19 18:00 05/26/19 17:59 05/24/19 10:49 Mirtazapine (Remeron) 7.5 mg BEDTIME ORAL 05/16/19 21:00 06/15/19 20:59 05/23/19 21:20 Multivitamins (Multivitamins) 1 tab DAILY ORAL 05/16/19 09:00 06/15/19 08:59 05/24/19 08:23 Olanzapine (ZyPREXA) 2.5 mg BEDTIME ORAL 05/17/19 21:00 06/16/19 20:59 05/23/19 21:20 Ondansetron HCl (Zofran) 4 mg Q6H PRN IVP Nausea & Vomiting 05/15/19 01:15 06/14/19 01:14 Last 24 Hour Vital Signs Date Time Temp Pulse Resp B/P (MAP) Pulse Ox O2 Delivery O2 Flow Rate FiO2 05/24/19 16:00 98.3 80 20 106/67 (80) 99 05/24/19 12:00 98.7 62 20 130/71 (90) 100 05/24/19 09:18 98 Nasal Cannula 2.0 28 05/24/19 09:00 Nasal Cannula 2.0 05/24/19 08:00 97.7 64 20 132/73 (92) 99 05/24/19 04:00 98.3 83 18 119/79 (92) 95 05/24/19 00:15 98.0 59 19 116/61 (79) 97 05/23/19 22:15 Nasal Cannula 2.0 05/23/19 20:32 97.9 69 20 118/64 (82) 97 05/23/19 16:00 97.9 71 17 130/67 (88) 94 05/23/19 12:00 98.3 67 18 120/60 (80) 96 05/23/19 09:00 Nasal Cannula 2.0 05/23/19 08:00 98.3 68 18 111/62 (78) 94 05/23/19 08:00 97 Nasal Cannula 2.0 28 05/23/19 04:32 98.8 61 20 116/62 (80) 99 05/23/19 00:41 98.6 60 20 118/60 (79) 98 05/22/19 21:13 Nasal Cannula 2.0 05/22/19 20:00 98.3 60 21 121/61 (81) 100 05/22/19 19:54 97 Nasal Cannula 2.0 28 Intake and Output 05/23/19 05/24/19 19:00 07:00 Intake Total 2330 ml 790 ml Output Total 550 ml Balance 2330 ml 240 ml Free Water 250 ml 250 ml IV Total 1420 ml Tube Feeding 660 ml 540 ml Output Urine Total 550 ml Labs Test 05/22/19 09:26 05/23/19 05:10 05/24/19 08:50 White Blood Count 7.7 K/UL (4.8-10.8) 7.4 K/UL (4.8-10.8) 7.2 K/UL (4.8-10.8) Red Blood Count 3.53 M/UL (4.70-6.10) 3.51 M/UL (4.70-6.10) 3.76 M/UL (4.70-6.10) Hemoglobin 10.2 G/DL (14.2-18.0) 10.2 G/DL (14.2-18.0) 11.1 G/DL (14.2-18.0) Hematocrit 31.0 % (42.0-52.0) 31.4 % (42.0-52.0) 32.2 % (42.0-52.0) Mean Corpuscular Volume 88 FL (80-99) 89 FL (80-99) 86 FL (80-99) Mean Corpuscular Hemoglobin 29.0 PG (27.0-31.0) 29.1 PG (27.0-31.0) 29.4 PG (27.0-31.0) Mean Corpuscular Hemoglobin Concent 33.0 G/DL (32.0-36.0) 32.5 G/DL (32.0-36.0) 34.3 G/DL (32.0-36.0) Red Cell Distribution Width 13.6 % (11.6-14.8) 13.1 % (11.6-14.8) 12.5 % (11.6-14.8) Platelet Count 102 K/UL (150-450) 101 K/UL (150-450) 99 K/UL (150-450) Mean Platelet Volume 7.4 FL (6.5-10.1) 8.3 FL (6.5-10.1) 7.5 FL (6.5-10.1) Neutrophils (%) (Auto) 77.1 % (45.0-75.0) 73.7 % (45.0-75.0) % (45.0-75.0) Lymphocytes (%) (Auto) 10.7 % (20.0-45.0) 12.2 % (20.0-45.0) % (20.0-45.0) Monocytes (%) (Auto) 3.7 % (1.0-10.0) 5.4 % (1.0-10.0) % (1.0-10.0) Eosinophils (%) (Auto) 7.7 % (0.0-3.0) 8.2 % (0.0-3.0) % (0.0-3.0) Basophils (%) (Auto) 0.8 % (0.0-2.0) 0.5 % (0.0-2.0) % (0.0-2.0) Sodium Level 151 MMOL/L (136-145) 151 MMOL/L (136-145) 144 MMOL/L (136-145) Potassium Level 3.9 MMOL/L (3.5-5.1) 3.9 MMOL/L (3.5-5.1) 3.9 MMOL/L (3.5-5.1) Chloride Level 117 MMOL/L (98-107) 116 MMOL/L (98-107) 111 MMOL/L (98-107) Carbon Dioxide Level 28 MMOL/L (21-32) 29 MMOL/L (21-32) 33 MMOL/L (21-32) Anion Gap 6 mmol/L (5-15) 6 mmol/L (5-15) 1 mmol/L (5-15) Blood Urea Nitrogen 47 mg/dL (7-18) 45 mg/dL (7-18) 41 mg/dL (7-18) Creatinine 1.1 MG/DL (0.55-1.30) 1.1 MG/DL (0.55-1.30) 1.0 MG/DL (0.55-1.30) Estimat Glomerular Filtration Rate mL/min (>60) mL/min (>60) mL/min (>60) Glucose Level 155 MG/DL (74-106) 139 MG/DL (74-106) 118 MG/DL (74-106) Calcium Level 8.8 MG/DL (8.5-10.1) 8.5 MG/DL (8.5-10.1) 8.5 MG/DL (8.5-10.1) Differential Total Cells Counted 100 Neutrophils % (Manual) 67 % (45-75) Lymphocytes % (Manual) 21 % (20-45) Monocytes % (Manual) 4 % (1-10) Eosinophils % (Manual) 8 % (0-3) Basophils % (Manual) 0 % (0-2) Band Neutrophils 0 % (0-8) Platelet Estimate Decreased Platelet Morphology Normal Hypochromasia 1+ Height (Feet): 6 Height (Inches): 1.00 Weight (Pounds): 198 Objective Gen: WD/WN, no apparent distress, alert CV: RRR, no mgr Chest: normal breath sounds, no respiratory distress Abdominal: normal bowel sounds, nt, soft Extremities: normal range of motion, non-tender Timmy Thomson MD May 24, 2019 17:12
[2019-05-24 20:00] VITALS: BP 119/61
[2019-05-24] MEDS: OLANZapine 2.5mg tab ORAL SCH (21:01)
[2019-05-25 00:42] VITALS: BP 123/69
--- NOTE | 2019-05-25 02:00 | Progress Note ---
DATE: 05/24/2019 SUBJECTIVE: The patient has less pain, continues to be weak. He is status post G-tube placement. He is nonverbal. agitation. MENTAL STATUS EXAMINATION: The patient is awake, disoriented, and confused. Mood is neutral to anxious. Affect is flat. Thought process, there is a paucity of thought content. Thought content, no suicidal or homicidal ideation. Insight and judgment non-existent. ASSESSMENT: Dementia with behavioral disturbance. PLAN: We will continue current medications. Provide the patient with reality orientation and supportive therapy. Marcella Roberts M.D. DR: LEORA JOB#: [id number] CC:
[2019-05-25] MEDS: Meropenem 1 GM in NS 55 ML IVPB SCH ×2 (02:08→09:20)
[2019-05-25 04:00] VITALS: BP 136/71
[2019-05-25 07:28] LABS: BASOPHILS % (AUTO) 0.6 % (0.0-2.0); EOSINOPHILS % (AUTO) 7.5 % (0.0-3.0); HEMATOCRIT 33.4 % (42.0-52.0); LYMPHOCYTES % (AUTO) 17.3 % (20.0-45.0); MEAN CORPUSCULAR VOLUME 88 FL (80-99); MONOCYTES % (AUTO) 5.1 % (1.0-10.0); NEUTROPHILS % (AUTO) 69.6 % (45.0-75.0); PLATELET COUNT 120 K/UL (150-450); RED BLOOD COUNT 3.79 M/UL (4.70-6.10); RED CELL DISTRIBUTION WIDTH 12.9 % (11.6-14.8); WHITE BLOOD COUNT 7.7 K/UL (4.8-10.8)
[2019-05-25 08:00] VITALS: BP 113/63
[2019-05-25] MEDS: Ascorbic Acid 500mg tab ORAL SCH ×2 (08:11→17:18)
[2019-05-25 08:14] LABS: ANION GAP 1 mmol/L (5-15); BLOOD UREA NITROGEN 45 mg/dL (7-18); CALCIUM 8.4 MG/DL (8.5-10.1); CARBON DIOXIDE 29 MMOL/L (21-32); CHLORIDE 113 MMOL/L (98-107); POTASSIUM 3.9 MMOL/L (3.5-5.1); SODIUM 143 MMOL/L (136-145)
--- NOTE | 2019-05-25 11:40 | GI Progress Note ---
Assessment/Plan Problems: (1) Encounter for PEG (percutaneous endoscopic gastrostomy) ICD Codes: Z43.1 - Encounter for attention to gastrostomy SNOMED: 863024649, 464828780 (2) Severe malnutrition ICD Codes: E43 - Unspecified severe protein-calorie malnutrition SNOMED: 26281593 (3) FTT (failure to thrive) in adult ICD Codes: R62.7 - Adult failure to thrive SNOMED: 960087466 (4) Dehydration ICD Codes: E86.0 - Dehydration SNOMED: 23887510 (5) Hypernatremia ICD Codes: E87.0 - Hyperosmolality and hypernatremia SNOMED: 049695994 Status: unchanged Status Narrative Discussed with Dr. Khanna. Assessment/Plan SUMMARY OF FINDINGS: 1. Diffuse gastritis. 2. Hiatal hernia. 3. Status post successful PEG placement. RECOMMENDATIONS: GTF tolerated ok for oral gratification off of laxatives given loose stools GT care fu labs dc planning per primary The patient was seen and examined at bedside and all new and available data was reviewed in the patients chart. I agree with the above findings, impression and plan. (Patient seen earlier today. Signature stamp does not reflect patient encounter time.). - Khari Khanna MD Subjective Subjective limited Objective Last 24 Hour Vital Signs Date Time Temp Pulse Resp B/P (MAP) Pulse Ox O2 Delivery O2 Flow Rate FiO2 05/25/19 09:00 Nasal Cannula 2.0 05/25/19 08:32 96 Nasal Cannula 2.0 28 05/25/19 08:00 97.5 63 20 113/63 (80) 96 05/25/19 04:07 98.0 05/25/19 04:00 97.9 78 18 136/71 (92) 93 05/25/19 00:42 98.0 77 18 123/69 (87) 97 05/24/19 21:05 Nasal Cannula 2.0 05/24/19 20:28 98 Nasal Cannula 2.0 28 05/24/19 20:00 98.0 79 20 119/61 (80) 98 05/24/19 16:00 98.3 80 20 106/67 (80) 99 05/24/19 12:00 98.7 62 20 130/71 (90) 100 Intake and Output 05/24/19 05/25/19 19:00 07:00 Intake Total 1340 ml 905 ml Output Total 550 ml Balance 790 ml 905 ml Free Water 450 ml 250 ml IV Total 110 ml 55 ml Tube Feeding 780 ml 600 ml Output Urine Total 550 ml # Bowel Movements 1 Laboratory Tests Test 05/25/19 06:28 White Blood Count 7.7 K/UL (4.8-10.8) Red Blood Count 3.79 M/UL (4.70-6.10) L Hemoglobin 11.0 G/DL (14.2-18.0) L Hematocrit 33.4 % (42.0-52.0) L Mean Corpuscular Volume 88 FL (80-99) Mean Corpuscular Hemoglobin 29.0 PG (27.0-31.0) Mean Corpuscular Hemoglobin Concent 32.9 G/DL (32.0-36.0) Red Cell Distribution Width 12.9 % (11.6-14.8) Platelet Count 120 K/UL (150-450) L Mean Platelet Volume 8.8 FL (6.5-10.1) Neutrophils (%) (Auto) 69.6 % (45.0-75.0) Lymphocytes (%) (Auto) 17.3 % (20.0-45.0) L Monocytes (%) (Auto) 5.1 % (1.0-10.0) Eosinophils (%) (Auto) 7.5 % (0.0-3.0) H Basophils (%) (Auto) 0.6 % (0.0-2.0) Sodium Level 143 MMOL/L (136-145) Potassium Level 3.9 MMOL/L (3.5-5.1) Chloride Level 113 MMOL/L (98-107) H Carbon Dioxide Level 29 MMOL/L (21-32) Anion Gap 1 mmol/L (5-15) L Blood Urea Nitrogen 45 mg/dL (7-18) H Creatinine 1.0 MG/DL (0.55-1.30) Estimat Glomerular Filtration Rate mL/min (>60) Glucose Level 118 MG/DL (74-106) H Calcium Level 8.4 MG/DL (8.5-10.1) L Height (Feet): 6 Height (Inches): 1.00 Weight (Pounds): 198 General Appearance: no apparent distress Cardiovascular: normal rate Respiratory/Chest: normal breath sounds, no respiratory distress Abdominal Exam: normal bowel sounds, non tender, soft, GT site - c/d/i Extremities: non-tender Mike White NP May 25, 2019 11:40
[2019-05-25 12:00] VITALS: BP 109/62
--- NOTE | 2019-05-25 15:06 | Infectious Diseases Prog Note ---
Assessment/Plan Assessment/Plan ASSESSMENT AND PLAN: 1. esbl e.coli complicated uti, mild leukocytosis, ftt, lethargy, ? pna vs atx, sc-nf, chest x-ray noted, ? atx - meropenem - day # 9, plan on 10 day tx course - monitor labs and chest x-ray as indicated - leukocytosis resolved 2. continue treatment per primary team and consultants 3. right heel wound, multiple wounds - management per surgery and protocol 4. Anemia. 5. Elevated creatinine. 6. Hypernatremia. 7. Weakness. 8. Schizophrenia. 9. Depression. 10. Skin care protocol. 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 12. No history of diabetes or hypertension. 13. Dementia. 14. Bladder disease. 15. Avery. 16. Difficulty walking and weakness. 17. No known drug allergies. 18. Social history is negative. 19. Family history is noncontributory. 20. MAR was noted. 21. Case was discussed with RN. Subjective Constitutional: Reports: fatigue; Denies: fever HEENT: Denies: congestion Respiratory: Denies: shortness of breath Cardiovascular: Denies: chest pain Gastrointestinal/Abdominal: Denies: nausea, vomiting, diarrhea Genitourinary: Reports: other - + avery Neurologic: Reports: weakness, other - opens eyes Psychiatric: Reports: other - NA Skin: Reports: other Hematologic: Denies: bleeding Musculoskeletal: Reports: other - NA Allergies: Coded Allergies: No Known Allergies (Unverified , 05/14/19) Objective Vital Signs Last 24 Hour Vital Signs Date Time Temp Pulse Resp B/P (MAP) Pulse Ox O2 Delivery O2 Flow Rate FiO2 05/25/19 12:00 97.5 66 20 109/62 (78) 99 05/25/19 09:00 Nasal Cannula 2.0 05/25/19 08:32 96 Nasal Cannula 2.0 28 05/25/19 08:00 97.5 63 20 113/63 (80) 96 05/25/19 04:07 98.0 05/25/19 04:00 97.9 78 18 136/71 (92) 93 05/25/19 00:42 98.0 77 18 123/69 (87) 97 05/24/19 21:05 Nasal Cannula 2.0 05/24/19 20:28 98 Nasal Cannula 2.0 28 05/24/19 20:00 98.0 79 20 119/61 (80) 98 05/24/19 16:00 98.3 80 20 106/67 (80) 99 Height (Feet): 6 Height (Inches): 1.00 Weight (Pounds): 198 General Appearance: no acute distress HEENT: normocephalic, atraumatic, anicteric, mucous membranes moist Respiratory/Chest: lungs clear, normal breath sounds, no respiratory distress, no accessory muscle use Cardiovascular: normal rate, regular rhythm, regularly irregular, no JVD Abdomen: normal bowel sounds, soft, non tender, no organomegaly, non distended Genitourinary: other - + avery - urine slt cloudy Extremities: no cyanosis Skin: no rash 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 There is suggestion of increased interstitial prominence in the right mid and lower lung. There is some atelectasis at the left lung base. No focal airspace consolidation. Pleural spaces are clear. Heart size is normal. Aorta is tortuous. Impression: Hypoventilatory exam Increased interstitial markings in the right mid and lower lung, may be an artifact of crowding of the bronchovascular markings due to the lower lung volumes, but developing interstitial infiltrates also possible. Left basilar atelectatic changes Chest x-ray - 05/21/19: Comparison: 05/18/2019 A single view chest radiograph was obtained. Findings: Patchy left basal infiltrate demonstrated. Part of this may be atelectasis also which should be considered. Hemidiaphragm is slightly elevated. Bones are osteopenic. Heart size is normal. Aorta is ectatic. IMPRESSION: Left basal atelectasis and/or pneumonia. Correlate clinically Laboratory Tests Test 05/25/19 06:28 White Blood Count 7.7 K/UL (4.8-10.8) Red Blood Count 3.79 M/UL (4.70-6.10) L Hemoglobin 11.0 G/DL (14.2-18.0) L Hematocrit 33.4 % (42.0-52.0) L Mean Corpuscular Volume 88 FL (80-99) Mean Corpuscular Hemoglobin 29.0 PG (27.0-31.0) Mean Corpuscular Hemoglobin Concent 32.9 G/DL (32.0-36.0) Red Cell Distribution Width 12.9 % (11.6-14.8) Platelet Count 120 K/UL (150-450) L Mean Platelet Volume 8.8 FL (6.5-10.1) Neutrophils (%) (Auto) 69.6 % (45.0-75.0) Lymphocytes (%) (Auto) 17.3 % (20.0-45.0) L Monocytes (%) (Auto) 5.1 % (1.0-10.0) Eosinophils (%) (Auto) 7.5 % (0.0-3.0) H Basophils (%) (Auto) 0.6 % (0.0-2.0) Sodium Level 143 MMOL/L (136-145) Potassium Level 3.9 MMOL/L (3.5-5.1) Chloride Level 113 MMOL/L (98-107) H Carbon Dioxide Level 29 MMOL/L (21-32) Anion Gap 1 mmol/L (5-15) L Blood Urea Nitrogen 45 mg/dL (7-18) H Creatinine 1.0 MG/DL (0.55-1.30) Estimat Glomerular Filtration Rate mL/min (>60) Glucose Level 118 MG/DL (74-106) H Calcium Level 8.4 MG/DL (8.5-10.1) L Current Medications Medications (Trade) Dose Ordered Sig/Vicky Route PRN Reason Start Time Stop Time Status Last Admin Dose Admin Acetaminophen (Tylenol) 650 mg Q4H PRN ORAL Mild Pain (Pain Scale 1-3) 05/15/19 01:15 06/14/19 01:14 05/25/19 03:37 Ascorbic Acid (Vitamin C) 250 mg TWICE A DAY ORAL 05/15/19 18:00 06/14/19 17:59 05/25/19 08:11 Dextrose (Dextrose 50%) 25 ml Q30M PRN IV Hypoglycemia 05/15/19 01:15 06/14/19 01:14 Dextrose (Dextrose 50%) 50 ml Q30M PRN IV Hypoglycemia 05/15/19 01:15 06/14/19 01:14 Diphenhydramine HCl (Benadryl) 25 mg Q6H PRN ORAL Itching/Pruritis 05/15/19 01:15 06/14/19 01:14 Famotidine (Pepcid) 20 mg DAILY ORAL 05/15/19 09:00 06/14/19 08:59 05/25/19 08:11 Meropenem 1 gm/ Sodium Chloride 55 ml @ 110 mls/hr Q8H IVPB 05/25/19 18:00 05/30/19 17:59 Mirtazapine (Remeron) 7.5 mg BEDTIME ORAL 05/16/19 21:00 06/15/19 20:59 05/24/19 21:01 Multivitamins (Multivitamins) 1 tab DAILY ORAL 05/16/19 09:00 06/15/19 08:59 05/25/19 08:11 Olanzapine (ZyPREXA) 2.5 mg BEDTIME ORAL 05/17/19 21:00 06/16/19 20:59 05/24/19 21:01 Ondansetron HCl (Zofran) 4 mg Q6H PRN IVP Nausea & Vomiting 05/15/19 01:15 06/14/19 01:14 Jatinder Tai MD May 25, 2019 15:06
--- NOTE | 2019-05-25 15:15 | General Progress Note ---
Assessment/Plan Status: unchanged Assessment/Plan: 73 year old male with multiple comorbidities admitted for failure to thrive, UTI and hypernatremia #Hypernatremia likely 2/2 hypovolemic 2/2 poor PO intake- resolved - ivf per nephro -CTM NA -Nephrology consult appreciated #UTI #Acute metabolic encephalopathy 2/2 UTI -f/u cultures: reviewed -Cont cefepime for ESBL UTI - abx per ID: on merrem day 06/26 - dispo planning #Dysphagia -NPO , feeding per peg -appreciate speech and swallow consult -s/p peg placement #CAREMLA samanthaley prerenal - resolved -nephrology consulted -CTM -avoid nephrotoxic medications Code: Full Dispo; SNF when stable ( [facility] resident ) time of note may not reflect time of encounter Subjective Date patient seen: May 25, 2019 Time patient seen: 12:00 ROS Limited/Unobtainable: Yes Allergies: Coded Allergies: No Known Allergies (Unverified , 05/14/19) Subjective na stbale on merrem day 06/26 SHERRY speaking in repetitive phrases Objective Last 24 Hour Vital Signs Date Time Temp Pulse Resp B/P (MAP) Pulse Ox O2 Delivery O2 Flow Rate FiO2 05/25/19 12:00 97.5 66 20 109/62 (78) 99 05/25/19 09:00 Nasal Cannula 2.0 05/25/19 08:32 96 Nasal Cannula 2.0 28 05/25/19 08:00 97.5 63 20 113/63 (80) 96 05/25/19 04:07 98.0 05/25/19 04:00 97.9 78 18 136/71 (92) 93 05/25/19 00:42 98.0 77 18 123/69 (87) 97 05/24/19 21:05 Nasal Cannula 2.0 05/24/19 20:28 98 Nasal Cannula 2.0 28 05/24/19 20:00 98.0 79 20 119/61 (80) 98 05/24/19 16:00 98.3 80 20 106/67 (80) 99 Intake and Output 05/24/19 05/25/19 19:00 07:00 Intake Total 1340 ml 1115 ml Output Total 550 ml Balance 790 ml 1115 ml Free Water 450 ml 400 ml IV Total 110 ml 55 ml Tube Feeding 780 ml 660 ml Output Urine Total 550 ml # Bowel Movements 1 Laboratory Tests 05/25/19 06:28: White Blood Count 7.7, Red Blood Count 3.79L, Hemoglobin 11.0L, Hematocrit 33.4L , Mean Corpuscular Volume 88, Mean Corpuscular Hemoglobin 29.0, Mean Corpuscular Hemoglobin Concent 32.9, Red Cell Distribution Width 12.9, Platelet Count 120L, Mean Platelet Volume 8.8, Neutrophils (%) (Auto) 69.6, Lymphocytes ( %) (Auto) 17.3L, Monocytes (%) (Auto) 5.1, Eosinophils (%) (Auto) 7.5H, Basophils (%) (Auto) 0.6, Sodium Level 143, Potassium Level 3.9, Chloride Level 113H, Carbon Dioxide Level 29, Anion Gap 1L, Blood Urea Nitrogen 45H, Creatinine 1.0, Estimat Glomerular Filtration Rate , Glucose Level 118H, Calcium Level 8.4L Height (Feet): 6 Height (Inches): 1.00 Weight (Pounds): 198 Objective GEN: WWN, NAD, Alert CV: RRR, no M, R, G, no jvd RESP: CTAB, no w/r/c ABD: normal bowel sounds, soft, non tender, peg EXT: normal muscle tone, no tenderness NEURO: answers to verbal stimulus, no gross changes, confused Lisa Velasco DO May 25, 2019 15:15
--- NOTE | 2019-05-25 15:30 | Hematology/Onc Progress Note ---
Assessment/Plan Assessment/Plan Assessment/Recs: # Anemia of chronic disease due to underlying chronic medical issues, multifactorial --> Anemia workup has been reviewed --> No evidence of hemolysis is noted, peripheral smear has been reviewed. --> Hgb goal >7. Transfuse prn. --> Epogen or iron at this time is not particularly indicated --> Medications reviewed --> s/p peg with ongoing feedings, which are tolerated well --> hgb trend 12.1-->10.4-->10.1-->10.2->11 # Thrombocytopenia - potential causes multifactorial, evaluate liver and viral etiologies to begin, also could be related to underlying medications patient has received v infection --> Hep panel and HIV negative --> US abd to evaluate for cirrhosis and hsm reviewed and is neg for cirrhosis/ hsm --> Peripheral smear shows no blasts/schistocytes --> abx and other meds have been reviewed --> ok for ppx if plt >50k w/ either heparin or lovenox --> Trend 187-->105-->127-->89-->76-->102k-->99->120 --> heparin has been discontinued --> as per gi eval, occult neg # Failure to thrive (FTT) - decreased bmi and low protein --> cea 4.5 --> will also obtain q3d caloric counts --> have started mirtazapine as appetite stimulant --> GI consult on a prn basis, peg tube feedings tolerated well # Severe malnutrition --> s/p peg with good tfs --> mirtazapine has been started # Hypernatremia --> per renal fluids # Decub per surgery The timing of this note does not necessarily reflect the time of the patient was seen. Greatly appreciate consultation! Subjective Constitutional: Denies: no symptoms, chills, fever, malaise, weakness, other HEENT: Denies: no symptoms, eye pain, blurred vision, tearing, double vision, ear pain, ear discharge, nose pain, nose congestion, throat pain, throat swelling, mouth pain, mouth swelling, other Cardiovascular: Denies: no symptoms, chest pain, edema, irregular heart rate, lightheadedness, palpitations, syncope, other Gastrointestinal/Abdominal: Denies: no symptoms, abdomen distended, abdominal pain, black stools, tarry stools, blood in stool, constipated, diarrhea, difficulty swallowing, nausea, poor appetite, poor fluid intake, rectal bleeding , vomiting, other Neurologic/Psychiatric: Denies: no symptoms, anxiety, depressed, emotional problems, headache, numbness, paresthesia, pre-existing deficit, seizure, tingling, tremors, weakness, other Allergies: Coded Allergies: No Known Allergies (Unverified , 05/14/19) Subjective 05/17: needs peg placement, plts are better this am 05/18: s/p peg, showing diffuse gastritis, slightly lower plt 05/20: peg tube feedings tolerated well, no f/c, no night sweats (low grade 99.6f) 05/21: tfs tolerating well, exam unchanged, no f/c 05/22: on tube feeds, no fevers or chills, no night sweats 05/23: gtube feeds ongoing, no major changes, labs noted 05/24: gtube feeds on hold given residual, labs reviewed 05/25: remains on abx, seen by id, notes reviewed Objective Objective Current Medications Medications (Trade) Dose Ordered Sig/Vicky Route PRN Reason Start Time Stop Time Status Last Admin Dose Admin Acetaminophen (Tylenol) 650 mg Q4H PRN ORAL Mild Pain (Pain Scale 1-3) 05/15/19 01:15 06/14/19 01:14 05/25/19 03:37 Ascorbic Acid (Vitamin C) 250 mg TWICE A DAY ORAL 05/15/19 18:00 06/14/19 17:59 05/25/19 08:11 Dextrose (Dextrose 50%) 25 ml Q30M PRN IV Hypoglycemia 05/15/19 01:15 06/14/19 01:14 Dextrose (Dextrose 50%) 50 ml Q30M PRN IV Hypoglycemia 05/15/19 01:15 06/14/19 01:14 Diphenhydramine HCl (Benadryl) 25 mg Q6H PRN ORAL Itching/Pruritis 05/15/19 01:15 06/14/19 01:14 Famotidine (Pepcid) 20 mg DAILY ORAL 05/15/19 09:00 06/14/19 08:59 05/25/19 08:11 Meropenem 1 gm/ Sodium Chloride 55 ml @ 110 mls/hr Q8H IVPB 05/25/19 18:00 05/30/19 17:59 Mirtazapine (Remeron) 7.5 mg BEDTIME ORAL 05/16/19 21:00 06/15/19 20:59 05/24/19 21:01 Multivitamins (Multivitamins) 1 tab DAILY ORAL 05/16/19 09:00 06/15/19 08:59 05/25/19 08:11 Olanzapine (ZyPREXA) 2.5 mg BEDTIME ORAL 05/17/19 21:00 06/16/19 20:59 05/24/19 21:01 Ondansetron HCl (Zofran) 4 mg Q6H PRN IVP Nausea & Vomiting 05/15/19 01:15 06/14/19 01:14 Last 24 Hour Vital Signs Date Time Temp Pulse Resp B/P (MAP) Pulse Ox O2 Delivery O2 Flow Rate FiO2 05/25/19 12:00 97.5 66 20 109/62 (78) 99 05/25/19 09:00 Nasal Cannula 2.0 05/25/19 08:32 96 Nasal Cannula 2.0 28 05/25/19 08:00 97.5 63 20 113/63 (80) 96 05/25/19 04:07 98.0 05/25/19 04:00 97.9 78 18 136/71 (92) 93 05/25/19 00:42 98.0 77 18 123/69 (87) 97 05/24/19 21:05 Nasal Cannula 2.0 05/24/19 20:28 98 Nasal Cannula 2.0 28 05/24/19 20:00 98.0 79 20 119/61 (80) 98 05/24/19 16:00 98.3 80 20 106/67 (80) 99 05/24/19 12:00 98.7 62 20 130/71 (90) 100 05/24/19 09:18 98 Nasal Cannula 2.0 28 05/24/19 09:00 Nasal Cannula 2.0 05/24/19 08:00 97.7 64 20 132/73 (92) 99 05/24/19 04:00 98.3 83 18 119/79 (92) 95 05/24/19 00:15 98.0 59 19 116/61 (79) 97 05/23/19 22:15 Nasal Cannula 2.0 05/23/19 20:32 97.9 69 20 118/64 (82) 97 05/23/19 16:00 97.9 71 17 130/67 (88) 94 Intake and Output 05/24/19 05/25/19 19:00 07:00 Intake Total 1340 ml 1115 ml Output Total 550 ml Balance 790 ml 1115 ml Free Water 450 ml 400 ml IV Total 110 ml 55 ml Tube Feeding 780 ml 660 ml Output Urine Total 550 ml # Bowel Movements 1 Labs Test 05/23/19 05:10 05/24/19 08:50 05/25/19 06:28 White Blood Count 7.4 K/UL (4.8-10.8) 7.2 K/UL (4.8-10.8) 7.7 K/UL (4.8-10.8) Red Blood Count 3.51 M/UL (4.70-6.10) 3.76 M/UL (4.70-6.10) 3.79 M/UL (4.70-6.10) Hemoglobin 10.2 G/DL (14.2-18.0) 11.1 G/DL (14.2-18.0) 11.0 G/DL (14.2-18.0) Hematocrit 31.4 % (42.0-52.0) 32.2 % (42.0-52.0) 33.4 % (42.0-52.0) Mean Corpuscular Volume 89 FL (80-99) 86 FL (80-99) 88 FL (80-99) Mean Corpuscular Hemoglobin 29.1 PG (27.0-31.0) 29.4 PG (27.0-31.0) 29.0 PG (27.0-31.0) Mean Corpuscular Hemoglobin Concent 32.5 G/DL (32.0-36.0) 34.3 G/DL (32.0-36.0) 32.9 G/DL (32.0-36.0) Red Cell Distribution Width 13.1 % (11.6-14.8) 12.5 % (11.6-14.8) 12.9 % (11.6-14.8) Platelet Count 101 K/UL (150-450) 99 K/UL (150-450) 120 K/UL (150-450) Mean Platelet Volume 8.3 FL (6.5-10.1) 7.5 FL (6.5-10.1) 8.8 FL (6.5-10.1) Neutrophils (%) (Auto) 73.7 % (45.0-75.0) % (45.0-75.0) 69.6 % (45.0-75.0) Lymphocytes (%) (Auto) 12.2 % (20.0-45.0) % (20.0-45.0) 17.3 % (20.0-45.0) Monocytes (%) (Auto) 5.4 % (1.0-10.0) % (1.0-10.0) 5.1 % (1.0-10.0) Eosinophils (%) (Auto) 8.2 % (0.0-3.0) % (0.0-3.0) 7.5 % (0.0-3.0) Basophils (%) (Auto) 0.5 % (0.0-2.0) % (0.0-2.0) 0.6 % (0.0-2.0) Sodium Level 151 MMOL/L (136-145) 144 MMOL/L (136-145) 143 MMOL/L (136-145) Potassium Level 3.9 MMOL/L (3.5-5.1) 3.9 MMOL/L (3.5-5.1) 3.9 MMOL/L (3.5-5.1) Chloride Level 116 MMOL/L (98-107) 111 MMOL/L (98-107) 113 MMOL/L (98-107) Carbon Dioxide Level 29 MMOL/L (21-32) 33 MMOL/L (21-32) 29 MMOL/L (21-32) Anion Gap 6 mmol/L (5-15) 1 mmol/L (5-15) 1 mmol/L (5-15) Blood Urea Nitrogen 45 mg/dL (7-18) 41 mg/dL (7-18) 45 mg/dL (7-18) Creatinine 1.1 MG/DL (0.55-1.30) 1.0 MG/DL (0.55-1.30) 1.0 MG/DL (0.55-1.30) Estimat Glomerular Filtration Rate mL/min (>60) mL/min (>60) mL/min (>60) Glucose Level 139 MG/DL (74-106) 118 MG/DL (74-106) 118 MG/DL (74-106) Calcium Level 8.5 MG/DL (8.5-10.1) 8.5 MG/DL (8.5-10.1) 8.4 MG/DL (8.5-10.1) Differential Total Cells Counted 100 Neutrophils % (Manual) 67 % (45-75) Lymphocytes % (Manual) 21 % (20-45) Monocytes % (Manual) 4 % (1-10) Eosinophils % (Manual) 8 % (0-3) Basophils % (Manual) 0 % (0-2) Band Neutrophils 0 % (0-8) Platelet Estimate Decreased Platelet Morphology Normal Hypochromasia 1+ Height (Feet): 6 Height (Inches): 1.00 Weight (Pounds): 198 Objective Gen: WD/WN, no apparent distress, alert CV: RRR, no mgr Chest: normal breath sounds, no respiratory distress Abdominal: normal bowel sounds, nt, soft Extremities: normal range of motion, non-tender Timmy Thomson MD May 25, 2019 15:29
[2019-05-25] MEDS ORDERED: OLANZAPINE2.5 MG ORAL (15:32)
[2019-05-25] MEDS ORDERED: ASCORBIC ACID500 M4 PEG (15:32)
[2019-05-25] MEDS ORDERED: MIRTAZAPINE15 M3 PEG (15:32)
[2019-05-25] MEDS ORDERED: FAMOTIDINE20 MG PEG (15:32)
[2019-05-25] MEDS ORDERED: MULTIVITAMINS1 EAC2 ORAL (15:32)
--- NOTE | 2019-05-25 15:33 | Discharge Instructions ---
Discharge Instructions Discharge Instructions Follow up with: Dr. Jasmin Vick in SNF Diet: tube feeding Activity: as tolerated For Congestive Heart Failure Reminder Report to your physician any weight gain of 5 pounds or more in one week. Lisa Velasco DO May 25, 2019 15:33
[2019-05-25] MEDS ORDERED: MERREM1 GM IV (15:34)
--- NOTE | 2019-05-25 15:40 | Discharge Summary ---
Discharge Summary Hospital Course Date of Admission May 15, 2019 at 00:07 Date of Discharge 05/25/19 Admitting Diagnosis FTT, UTI. Reason for Hospitalization: hypernatremia and uti HPI Cisco Bliss is a 73 year old male who was admitted on May 15, 2019 at 00:07 for Failure To Thrive, Urinary Tract Infection Consultations Nephrology, GI, Psychiatry, Gsx Procedures Peg placement Hospital Course 73 year old male with multiple comorbidities admitted for failure to thrive, UTI and hypernatremia. Patient was placed on abx for UTI and found to have ESBL , was seen by ID and given Merrem for 9/10 days, with one more day to complete at SNF. Patient was also hypernatremic which resolved with IVF by Nephrology. #Hypernatremia likely 2/2 hypovolemic 2/2 poor PO intake- resolved - ivf per nephro -CTM NA -Nephrology consult appreciated #UTI #Acute metabolic encephalopathy 2/2 UTI -f/u cultures: reviewed -Cont cefepime for ESBL UTI - abx per ID: on merrem day 06/26 - dispo planning #Dysphagia -NPO , feeding per peg -appreciate speech and swallow consult -s/p peg placement #CARMELA samanthaley prerenal - resolved -nephrology consulted -CTM -avoid nephrotoxic medications Code: Full Dispo; SNF when stable ( [facility] resident ) time of note may not reflect time of encounter Discharge Medications New Medications: Meropenem (Merrem) 1 Gm Vial 1 GM IV Q8H for 1 Day, VIAL Ascorbic Acid* (Ascorbic Acid*) 500 Mg Tablet 250 MG PEG TWICE A DAY for 30 Days, #30 TAB Famotidine (Famotidine) 20 Mg Tablet 20 MG PEG DAILY for 30 Days, #30 TAB Mirtazapine* (Mirtazapine*) 15 Mg Tablet 7.5 MG PEG BEDTIME for 30 Days, #30 TAB Multivitamins* (Multivitamins*) 1 Each Tablet 1 TAB ORAL DAILY for 30 Days, #30 TAB Olanzapine (Olanzapine) 2.5 Mg Tablet 2.5 MG ORAL BEDTIME for 30 Days, #30 TAB Discharge Condition Upon Discharge: stable Discharge Disposition Patient was discharged to [facility] Discharge Diagnoses: (1) UTI (urinary tract infection) (2) Severe malnutrition (3) Encounter for PEG (percutaneous endoscopic gastrostomy) Discharge Instructions Discharge Instructions Follow up with: Dr. Jasmin Vick in SNF Activity: as tolerated Lisa Velasco DO May 25, 2019 15:40
[2019-05-25 16:00] VITALS: BP 110/67
[2019-05-25] MEDS ORDERED: Meropenem 1 GM in NS 55 ML IVPB SCH (18:00)
--- NOTE | 2019-05-25 19:09 | Surgery Progress Note ---
Surgery Progress Note Subjective Symptoms: other Objective Last 24 Hour Vital Signs Date Time Temp Pulse Resp B/P (MAP) Pulse Ox O2 Delivery O2 Flow Rate FiO2 05/25/19 16:00 97.4 66 20 110/67 (81) 97 05/25/19 12:00 97.5 66 20 109/62 (78) 99 05/25/19 09:00 Nasal Cannula 2.0 05/25/19 08:32 96 Nasal Cannula 2.0 28 05/25/19 08:00 97.5 63 20 113/63 (80) 96 05/25/19 04:07 98.0 05/25/19 04:00 97.9 78 18 136/71 (92) 93 05/25/19 00:42 98.0 77 18 123/69 (87) 97 05/24/19 21:05 Nasal Cannula 2.0 05/24/19 20:28 98 Nasal Cannula 2.0 28 05/24/19 20:00 98.0 79 20 119/61 (80) 98 I&O Intake and Output 05/24/19 05/25/19 19:00 07:00 Intake Total 1340 ml 1115 ml Output Total 550 ml Balance 790 ml 1115 ml Free Water 450 ml 400 ml IV Total 110 ml 55 ml Tube Feeding 780 ml 660 ml Output Urine Total 550 ml # Bowel Movements 1 Dressing: dry Wound: clean Cardiovascular: RSR Respiratory: clear Abdomen: soft, non-tender, present bowel sounds Extremities: no cyanosis Laboratory Tests Test 05/25/19 06:28 White Blood Count 7.7 K/UL (4.8-10.8) Red Blood Count 3.79 M/UL (4.70-6.10) L Hemoglobin 11.0 G/DL (14.2-18.0) L Hematocrit 33.4 % (42.0-52.0) L Mean Corpuscular Volume 88 FL (80-99) Mean Corpuscular Hemoglobin 29.0 PG (27.0-31.0) Mean Corpuscular Hemoglobin Concent 32.9 G/DL (32.0-36.0) Red Cell Distribution Width 12.9 % (11.6-14.8) Platelet Count 120 K/UL (150-450) L Mean Platelet Volume 8.8 FL (6.5-10.1) Neutrophils (%) (Auto) 69.6 % (45.0-75.0) Lymphocytes (%) (Auto) 17.3 % (20.0-45.0) L Monocytes (%) (Auto) 5.1 % (1.0-10.0) Eosinophils (%) (Auto) 7.5 % (0.0-3.0) H Basophils (%) (Auto) 0.6 % (0.0-2.0) Sodium Level 143 MMOL/L (136-145) Potassium Level 3.9 MMOL/L (3.5-5.1) Chloride Level 113 MMOL/L (98-107) H Carbon Dioxide Level 29 MMOL/L (21-32) Anion Gap 1 mmol/L (5-15) L Blood Urea Nitrogen 45 mg/dL (7-18) H Creatinine 1.0 MG/DL (0.55-1.30) Estimat Glomerular Filtration Rate mL/min (>60) Glucose Level 118 MG/DL (74-106) H Calcium Level 8.4 MG/DL (8.5-10.1) L Plan Problems: (1) Decubitus skin ulcer Assessment & Plan: Pt presented on admission with pressure injuries,and with generalized scaly raised red rash. Burrowing noted to R and L axillae,abd ,back bilat groin and both lower ext. Webbing also noted between fingers and in palms of both hands. Unstageable pressure injury R heel. 100% soft necrosis with red margins (L)4cm x (W)6.1cm. Wound is malodorous. Periwound is fluctuant. Small dry eschar noted L st metatarsal. (L)0.8cm x (W)0.5cm.Clubbing noted to all metatarsals.L 1st Nail bed is necrotic. Ulcer noted to dorsal L 2nd metatarsal. Base of wound is pink,moist macerated borders noted. Small amt serous exudate noted. Periwound without elevation in skin temp,induration or fluctuance. Dry callus noted to plantar L foot L heel is boggy .An area of non-blanchable erythema noted to medial/posterior L heel. Non-blanchable erythema without induration noted scrotum, sacrum and both ischial regions. ( in and made aware of rash. Orders for application of Elimite noted.) Tx.Plan: Swab R heel with Betadine. Cover with ABD pad and wrap with Kerlix Daily and prn. Swab L st and L 2nd metatarsals with Betadine. Cover with gauze and wrap with kerlix daily and prn. Apply Cavilon Skin Barrier to L heel. Cover with Optifoam drsg. Change every 7 days and prn. Apply Moisture Barrier to Sacrum. Cover with Optifoam drsg. Change every 3days and prn. Apply Triad Paste to scrotum,and bilat ischial areas with each incontinence care. Reposition at least every 2hours or as tolerated. Off-load heels with pillow. (2) Hypernatremia (3) Dehydration (4) UTI (urinary tract infection) (5) FTT (failure to thrive) in adult Assessment & Plan: DAILY ESTIMATED NEEDS: Needs based on Wounds 79.5kg 30-35 kcals/kg 6735-4768 total kcals 1.25-1.5 g protein/kg 99-119 g total protein 25-30 mL/kg 6214-3223 total fluid mLs NUTRITION DIAGNOSIS: * Increased kcal and pro needs r/t wound healing and wasting as evidenced by pt w/ unstageable R heel wound, signs of significant wasting as well. * Altered nutrition related lab values r/t dehydration as evidenced by Elev Na on adm (166-> 164*), elev BUN (now 64), elev Creat (now 1.5). (CURRENT DIET: Cardiac puree w/ NTL) PO DIET RECOMMENDATIONS-->> Liberalized regular diet (texture per [employer] SALES CONSULTANT) ADDITIONAL RECOMMENDATIONS: 1) Please obtain an accurate calibrated bed scale wt 2) Add ENSURE ENLIVE TID w/ meals + snacks as tolerated 3) Texture per [employer] CONSULTANT 4) Wound care: Add PAULY BID + MVI w/ min x1 daily + Vit C 250mg BID 5) rec Kcal count- pt adm w/ FTT 6) Non oral tf recs as needed / if part of POC (6) Severe malnutrition Conor Worthington May 25, 2019 19:09
--- NOTE | 2019-05-25 21:00 | Progress Note ---
DATE: 05/25/2019 SUBJECTIVE: The patient is stable. The patient in calm. No episodes of anxiety today. He is having cognitive impairment, not engaged during the evaluation. Status post G-tube, and he is tolerating tube feedings. MENTAL STATUS EXAMINATION: Alert, confused. Mood is neutral. Affect is flat. Thought process is concrete. Thought content, no suicidal or homicidal ideations. ASSESSMENT: 1. Chronic encephalopathy. 2. Failure to thrive. 3. Dementia with behavior disturbance. PLAN: We will continue current meds. Provide the patient with reality orientation. Marcella Roberts M.D. DR: SARTHAK JOB#: [id number] CC:
[2019-05-25] MEDS: OLANZapine 2.5mg tab ORAL SCH (21:22)
[2019-05-25] MEDS ORDERED: Tubing IV Secondary IV ONE (22:14)
== END 2019-05-25 22:15 | DRG 689 ==
LOC: EDBD 21:17 → EMR 23:10 → EDBEDREQ 23:43 → 4E 05-15 00:07 → EDBEDREQ 05-15 00:46
PROC: 0DH63UZ Insertion of Feeding Device into Stomach, Percutaneous Approach (ICD-10-PCS; principal; 2019-05-17 12:28)
DX: N39.0 Urinary tract infection, site not specified (principal); G93.41 Metabolic encephalopathy; E43 Unspecified severe protein-calorie malnutrition; E87.0 Hyperosmolality and hypernatremia; N17.9 Acute kidney failure, unspecified; F03.91 Unspecified dementia, unspecified severity, with behavioral disturbance; E86.0 Dehydration; L89.610 Pressure ulcer of right heel, unstageable; R62.7 Adult failure to thrive; F20.9 Schizophrenia, unspecified; D63.8 Anemia in other chronic diseases classified elsewhere; D69.6 Thrombocytopenia, unspecified; B96.20 Unspecified Escherichia coli [E. coli] as the cause of diseases classified elsewhere; Z16.12 Extended spectrum beta lactamase (ESBL) resistance; R13.10 Dysphagia, unspecified; K29.70 Gastritis, unspecified, without bleeding; K44.9 Diaphragmatic hernia without obstruction or gangrene; E11.9 Type 2 diabetes mellitus without complications; Z22.322 Carrier or suspected carrier of Methicillin resistant Staphylococcus aureus
CPT/HCPCS: 36415; 71045; 74230; 76700; 80048; 80053; 81001; 82270; 82378; 82436; 82728; 83540; 83550; 83615; 83930; 83935; 84300; 84484; 85007; 85025; 85060; 85384; 85610; 85730; 86703; 86705; 86709; 86803; 87070; 87081; 87086; 87181; 87205; 87340; 94003; 94150; 94664; 96361; 96365; 99285